=== PATIENT | male | born 1965 | race Caucasian/White ===

== ENCOUNTER 2024-02-29 03:37 | Inpatient (IN) ==
--- OUTSIDE RECORDS SUMMARY | 2024-02-29 03:47 | External Medical Summary | Summary of Care ---
Author Name Unknown Organization [facility] Address [address] [place] [address] Phone [phone] Care Team Providers Care Maintenance Helper Utility Engineer Name Role Phone Laura Barraza MD Primary Care Prov ider Reason for Visit * Reason Comments Follow Up Not taking any medic ations except inhaler for the past 6 weeks Encounter Details Date Type Department Care Team (Latest Contact Info) Description 01/02/2024 11:40 AM EST Office Visit Family Medicine [address] [phone] Laura Barraza MD [address] [place] [id number] Type 2 diabetes mellitus with other circulatory complications (HCC)*; Chronic diastolic congestive heart failure (HCC); Essential hypertension with goal blood pressure less than 140/90; COPD, group B, by GOLD 2017 classification (HCC); Subacute cough; Tobacco use; Type 2 diabetes mellitus with other circulatory complication, without long-term current use of insulin (HCC); Type 2 diabetes mellitus with hemoglobin A1c goal of less than 7.0% (HCC); Chronic systolic heart failure (HCC) Allergies No known active allergiesdocumented as of this encounter (statuses as of 01/02/2024) Medications Medication Sig Dispensed Refills Start Date End Date Status Insulin Syringe 30G X 1/2" 0.5 MLIndications:Type 2 diabetes mellitus with other circulatory complication, without long-term current use of insulin (HCC) Use twice a day with insulin. DX E11.9 200 Each 3 01/28/2021 Active Additional Information Patient not taking.Reported on 01/02/2024 CPAP every night at bedtime . Active NovoLIN N ReliOn 100 UNIT/ML Subcutaneous Suspension (insulin isophane human)Indications: Type 2 diabetes mellitus with other circulatory complication, without long-term current use of insulin ([facility]) Take 30 units in the morning and 25 units before supper DX E11.9 60 mL 3 09/19/2021 Active Additional Information Patient not taking.Reported on 01/02/2024 Accu-Chek Guide In Vitro Strip (Glucose Blood)Indications: Type 2 diabetes mellitus with other circulatory complication, without long-term current use of insulin ([facility]),Type 2 diabetes mellitus with hemoglobin A1c goal of less than 7.0% ([facility]) Check blood sugar TWICE a day DXe11.9 200 Strip 3 02/16/2022 Active Ipratropium-Albute rol 0.5-2.5 (3) MG/3ML Inhalation Solution (Duoneb) Inhale 3 mL by mouth every 6 hours as needed for Shortness of Breath or Wheezing. 300 mL 2 03/15/2022 Active Additional Information Patient not taking.Reported on 01/02/2024 Nebulizer/Tubing/M outhpiece Kit To be used with nebulizer machine 1 Kit 3 03/15/2022 Active Additional Information Patient not taking.Reported on 01/02/2024 Ventolin HFA 108 (90 Base) MCG/ACT Inhalation Aerosol SolutionIndication s:COPD, mild (HCC) Inhale 2 Puffs by mouth in the morning and 2 Puffs at noon and 2 Puffs in the evening and 2 Puffs before bedtime. 3 g 3 01/26/2023 Active Additional Information Patient not taking.Reported on 01/02/2024 Furosemide 40 MG Oral Tablet (Lasix)Indications :Chronic congestive heart failure, unspecified heart failure type ([facility]) Take 1 Tablet by mouth in the morning. 90 Tablet 3 01/26/2023 Active Additional Information Patient not taking.Reported on 01/02/2024 Anoro Ellipta 62.5-25 MCG/ACT Inhalation Aerosol Powder Breath Activated (umeclidinium-leroy nterol)Indications :COPD, mild (HCC) Inhale 1 Puff by mouth in the morning. 30 Each 11 01/26/2023 Active glipiZIDE ER 10 MG Oral Tablet Extended Release 24 Hour (Glucotrol XL)Indications:Typ e 2 diabetes mellitus with other circulatory complication, without long-term current use of insulin (HCC),Type 2 diabetes mellitus with hemoglobin A1c goal of less than 7.0% (HCC) TAKE TWO TABLETS BY MOUTH EVERY DAY 180 Tablet 01/26/2023 Active Additional Information Patient not taking.Reported on 01/02/2024 Amoxicillin-Pot Clavulanate 875-125 MG Oral Tablet (Augmentin)Indicat ions:Subacute cough Take 1 Tablet by mouth in the morning and 1 Tablet before bedtime. Do all this for 10 days. 20 Tablet 01/02/2024 4 Active metFORMIN HCl ER 500 MG Oral Tablet Extended Release 24 Hour (Glucophage XR)Indications:Typ e 2 diabetes mellitus with other circulatory complication, without long-term current use of insulin (HCC) Take 2 Tablets by mouth in the morning and 2 Tablets before bedtime. 360 Tablet 3 01/02/2024 Active Empagliflozin 10 MG Oral Tablet (Jardiance)Indicat ions:Chronic diastolic congestive heart failure (HCC),Type 2 diabetes mellitus with hemoglobin A1c goal of less than 7.0% (HCC) Take 1 Tablet by mouth in the morning. 30 Tablet 5 01/02/2024 Active Losartan Potassium 50 MG Oral Tablet (Cozaar)Indication s:Essential hypertension with goal blood pressure less than 140/90 Take 1 Tablet by mouth in the morning. In the morning.. 90 Tablet 3 01/02/2024 Active Carvedilol 12.5 MG Oral Tablet (Coreg)Indications :Chronic systolic heart failure (HCC) TAKE ONE TABLET BY MOUTH IN THE MORNING AND before bedtime. take with food 180 Tablet 1 01/02/2024 Active Aspirin 81 MG Oral Tablet Delayed ReleaseIndications :Type 2 diabetes mellitus with other circulatory complications (HCC) Take 1 Tablet by mouth in the morning. 100 Tablet 3 01/02/2024 Active Atorvastatin Calcium 40 MG Oral Tablet (Lipitor)Indicatio ns:Type 2 diabetes mellitus with other circulatory complications (HCC) Take 1 Tablet by mouth in the morning. 90 Tablet 1 01/02/2024 Active Aspirin 81 MG Oral Tablet Delayed Release Take 1 Tablet by mouth in the morning. 4 Discontinue d(Refill) metFORMIN HCl ER 500 MG Oral Tablet Extended Release 24 Hour (Glucophage XR)Indications:Typ e 2 diabetes mellitus with other circulatory complication, without long-term current use of insulin (HCC) Take 2 Tablets by mouth in the morning and 2 Tablets before bedtime. 360 Tablet 3 01/26/2023 4 Discontinue d(Refill) Carvedilol 25 MG Oral Tablet (Coreg)Indications :Chronic systolic heart failure (HCC) TAKE ONE TABLET BY MOUTH IN THE MORNING AND before bedtime. take with food 180 Tablet 3 01/26/2023 4 Discontinue d(Refill) Losartan Potassium 50 MG Oral Tablet (Cozaar)Indication s:Essential hypertension with goal blood pressure less than 140/90 Take 1 Tablet by mouth in the morning. In the morning.. 90 Tablet 3 01/26/2023 4 Discontinue d(Refill) Atorvastatin Calcium 40 MG Oral Tablet (Lipitor) Take 1 Tablet by mouth in the morning. 90 Tablet 1 01/29/2023 4 Discontinue d(Refill) Empagliflozin 10 MG Oral Tablet (Jardiance)Indicat ions:Type 2 diabetes mellitus with hemoglobin A1c goal of less than 7.0% (HCC),Chronic diastolic congestive heart failure (HCC) Take 1 Tablet by mouth in the morning. 30 Tablet 5 06/07/2023 4 Discontinue d(Refill) documented as of this encounter (statuses as of 01/02/2024) Active Problems Problem Noted Date Diagnosed Date Chronic systolic heart failure 05/30/2023 Type 2 diabetes mellitus wit h other circulatory complications 05/30/2023 Heart failure, unspecified 01/26/2023 Tobacco use 01/26/2023 Type 2 diabetes mellitus wit h hemoglobin A1c goal of less than 7.0% 01/26/2023 COPD, group B, by GOLD 2017 classification 02/06 Overview: Per COPD GOLD Classification Chronic diastolic congestive heart failure 04/15 Obstructive sleep apnea 11/09/2020 Cardiac pacemaker in situ 10/27/2019 Chronic congestive heart failure 10/29/2018 Obesity, Class I, BMI 30.0-34.9 (see actual BMI) 10/29/2018 Former smoker Essential hypertension with goal blood pressure less than 140/90 documented as of this encounter (statuses as of 01/02/2024) Resolved Problems Problem Noted Date Diagnosed Date Resolved Date Food insecurity 02/07/2021 11/10/2021 Overview: Per [facility] Protocol Moderate persistent asthma w ithout complication 08/25/2020 02/23/2021 COPD, mild 10/29/2018 2022 Overview: Per COPD GOLD Classification Diabetes mellitus 04/10/2017 01/26/2023 FX METACARPAL NOS-CLOSED 03/20/200612/2015 ADVANCE DIRECTIVE INFORMATION 12/11/2005 12/31/2023 Overview: No, Advance Directive brochure offered , patient declined. Sprain, lumbosacral 04/08/19 16 documented as of this encounter (statuses as of 01/02/2024) Immunizations Name Administration Dates Next Due COVID-19 mRNA, LNP-s, No Pre serve, 2-Dose Series (Moderna) 06/23/2020,05/26/2020 COVID-19, mRNA, LNP-s, PF, B ooster, 100mcg/0.5mg (Moderna) 04/12/2021 Hepatitis B, 20+ yrs 07/30/2023,05/30/19 24,05/25/2021,04/15 Pneumococcal Conjugate Vacci ne, 20-valent ([id number]) 01/26/2023 Pneumococcal Polysaccharide PPV23 (Pneumovax) 04/15/2021 Seasonal Influenza, PF, 6 M & above, IM , (FluLaval or Fluzone) 04/15/2021 TD - Tetanus/Diptheria (ADULT) 06/26/2004 TDAP (age 10 and older)(Boostrix) 04/08/2015 Zoster Vaccine Recombinant (Shingrix) 01/26/2020 ,10/27/2019 documented as of this encounter Social History Tobacco Use Types Packs/Day Years Used Date Smoking Tobacco: Every Day Cigarettes 2 20 Smokeless Tobacco: Current Chew Alcohol Use Standard Drinks/Week Comments Yes 0 (1 standard drink = 0.6 oz pur e alcohol) a beer or two every night PHQ-2 Answer Date Recorded PHQ-2 Score 0 01/26/2020 Hunger Vital Sign Answer Date Recorded Worried About Running Out of Food in the Last Ye ar Never true 10/29/2018 Ran Out of Food in the Last Year Never true 10/29/2018 Sex and Gender Information Value Date Recorded Sex Assigned at Male 05/30/2023 8:51 AM EDT Gender Identity Male 05/30/2023 8:51 AM EDT Sexual Orientation Straight 05/30/2023 8: 51 AM EDT Job Start Date Occupation Industry Not on file Not on file Not on file documented as of this encounter Last Filed Vital Signs Vital Sign Reading Time Taken Comments Blood Pressure 120/80 01/02/2024 11:50 AM EST Pulse 98 01/02/2024 11:50 AM EST Temperature 36.4 C (97.5 F) 01/02/2024 11:[address] Respiratory Rate 16 01/02/2024 11:50 AM EST Oxygen Saturation - - Inhaled Oxygen Concentration - - Weight 98 kg (216 lb) 01/02/2024 11:50 AM EST Height 182.9 cm (6' 0.01") 01/02/2024 11:[address] Body Mass Index 29.29 01/02/2024 11:50 AM EST documented in this encounter Progress Notes * Bo Garcia, Laura Gonzáles MD - 01/02/2024 12:08 PM EST Images from the original note were not included. Subjective Carlyle Espinoza is a 58 year old male that presents for Follow Up (Not taking any medications except inhaler for the past 6 weeks) History of Present Illness The patient, a current smoker with a history of heart failure, diabetes, and bronchitis, presents with a persistent cough and chest congestion for over three weeks. The symptoms began while the patient was volunteering in [place] for [employer], a physically demanding task that has left them feeling consistently fatigued. The cough is particularly bothersome when lying down, causing the patient to wake up and cough for hours. The patient describes a sensation of 'fluttering' in the chest, with some shortness of breath, but denies sinus congestion. The patient also reports discontinuing all medications approximately one and a half to two months ago due to fatigue from taking them. Since stopping the medications, the patient reports feeling tired all the time, but it is unclear whether this is due to the cessation of medications or the physically demanding work recently undertaken. The patient has also lost significant weight, which they attribute to the physical labor involved in their recent volunteer work. The patient has a family history of heart conditions and diabetes, with both parents and two siblings having heart problems and one sibling also having diabetes. The patient's own heart condition wasdiagnosed after a severe illness that they initially refused to seek treatment for, resulting in fluid accumulation around the heart and the need for a defibrillator. The patient acknowledges a pattern of stubbornness and delay in seeking medical care. Objective Vitals: 01/02/24 1150 Temp: 36.4 C (97.5 F) Pulse: 98 Resp: 16 BP: 120/80 BMI: 29.29 Physical Exam MEASUREMENTS: WT- 260 HEENT: Sinuses non-tender upon palpation. CHEST: Lungs clear to auscultation. CARDIOVASCULAR: Normal heart sounds. I have reviewed the following results: Results LABS Blood Glucose: 280 mg/dL DIAGNOSTIC Echocardiogram: Left ventricular hypokinesis, ejection fraction 45% Assessment and Plan Assessment & Plan Bronchitis Persistent cough for over three weeks with chest congestion. No shortness of breath. Lungs clear onauscultation. -Prescribe Augmentin, 1 tablet twice a day for 10 days. Type 2 Diabetes Mellitus Patient has been off medications for approximately 1.5-2 months. Last self- reported blood glucose was 280. -Resume Metformin and Jardiance. -Order A1c and metabolic panel today and repeat A1c in 3 months. Hypertension and Heart Failure Patient has been off medications for approximately 1.5-2 months. Blood pressure was normal today. No current symptoms of heart failure. Echocardiogram showed left ventricular hypokinesis with ejection fraction of 45%. -Resume Losartan and Carvedilol. -Order lipid panel today. General Health Maintenance / Followup Plans -Order baby aspirin and cholesterol medication to prevent coronary events or stroke. -Follow up in 3-4 months to reassess patient's condition and adjust treatment as necessary. Type 2 diabetes mellitus with other circulatory complications (HCC) (Primary) - COMPREHENSIVE METABOLIC PANEL; Future; Expected date: 01/02/2024 - LIPID PANEL WITH DIRECT LDL IF TG IS HIGH; Future; Expected date: 01/02/2024 - Aspirin 81 MG Oral Tablet Delayed Release; Take 1 Tablet by mouth in the morning. - Atorvastatin Calcium 40 MG Oral Tablet (Lipitor); Take 1 Tablet by mouth in the morning. - HEMOGLOBIN A1C; Standing Chronic diastolic congestive heart failure (HCC) - COMPREHENSIVE METABOLIC PANEL; Future; Expected date: 01/02/2024 - LIPID PANEL WITH DIRECT LDL IF TG IS HIGH; Future; Expected date: 01/02/2024 - Empagliflozin 10 MG Oral Tablet (Jardiance); Take 1 Tablet by mouth in the morning. Essential hypertension with goal blood pressure less than 140/90 - Losartan Potassium 50 MG Oral Tablet (Cozaar); Take 1 Tablet by mouth in the morning. In the morning.. COPD, group B, by GOLD 2017 classification ([facility]) Subacute cough - Amoxicillin-Pot Clavulanate 875-125 MG Oral Tablet (Augmentin); Take 1 Tablet by mouth in the morning and 1 Tablet before bedtime. Do all this for 10 days. Tobacco use Type 2 diabetes mellitus with other circulatory complication, without long-term current use of insulin ([facility]) - metFORMIN HCl ER 500 MG Oral Tablet Extended Release 24 Hour (Glucophage XR); Take 2 Tablets by mouth in the morning and 2 Tablets before bedtime. Type 2 diabetes mellitus with hemoglobin A1c goal of less than 7.0% ([facility]) - Empagliflozin 10 MG Oral Tablet (Jardiance); Take 1 Tablet by mouth in the morning. Chronic systolic heart failure ([facility]) - Carvedilol 12.5 MG Oral Tablet (Coreg); TAKE ONE TABLET BY MOUTH IN THE MORNING AND before bedtime. take with food Wrap-Up Follow Up: Return in about 3 months (around 04/03/2024) for Return with Physician. | For: Return withPhysician Time: I spent a total of 20-29 minutes (exact time 25 mins) on the date of service in preparation, delivery, and documentation of the care provided to Carlyle Espinoza excluding any time spent in the performance of separately billed services. Text in this note was generated using an ambient documentation service. I discussed the use of a device to record and summarize our discussion today. All persons present during the encounter consented to its use. documented in this encounter Nursing Notes * Valerie Blancas LPN - 01/02/2024 11:50 AM EST The patient has been properly identified by confirmation of name and date of . Chief Complaint Patient presents with Follow Up Not taking any medications except inhaler for the past 6 weeks documented in this encounter Plan of Treatment Pending Results Name Type Priority Associated Diagnoses Date /Time COMPREHENSIVE METABOLIC PANEL Lab Routine Type 2 diabetes mellitus with other circulatory complications (HCC) Chronic diastolic congestive heart failure (HCC) 01/02/2024 12:37 PM EST LIPID PANEL WITH DIRECT LDL IF TG IS HIGH Lab Routine Type 2 diabetes mellitus with other circulatory complications (HCC) Chronic diastolic congestive heart failure (HCC) 01/02/2024 12:37 PM EST HEMOGLOBIN A1C Lab Routine Type 2 diabetes mellitus with other circulatory complications (HCC) 01/02/2024 12:37 PM EST Scheduled Orders Name Type Priority Associated Diagnoses Orde r Schedule COMPREHENSIVE METABOLIC PANEL Lab Routine Type 2 diabetes mellitus with other circulatory complications (HCC) Chronic diastolic congestive heart failure (HCC) Expected: 01/02/2024 (Approximate), Expires: 01/01/2025 LIPID PANEL WITH DIRECT LDL IF TG IS HIGH Lab Routine Type 2 diabetes mellitus with other circulatory complications (HCC) Chronic diastolic congestive heart failure (HCC) Expected: 01/02/2024, Expires: 01/01/2025 HEMOGLOBIN A1C Lab Routine Type 2 diabetes mellitus with other circulatory complications (HCC) Every 3 Months for 4 Occurrences starting 01/02/2024 until 01/01/2025 Scheduled Procedures Name Priority Associated Diagnoses Date/Ti me COLONOSCOPY FLEXIBLE PROXIMAL DIAGNOSTIC Recall History of colon polyps Health Maintenance Due Date Last Done Comments DISCUSS TOBACCO CESSATION (REFER TO SMARTSET #[id number]) 1965 Fecal Occult Blood Test 02/10/2012 Sigmoidoscopy 02/10/2012 Diabetic Foot Exam 04/15/2022 04/15/2021, 01/26/2020 Cologuard 11/11/2022 11/12/2019, 10/2019, 11/05/2019 COVID-19 Vaccine ( season) 2023 04/12/2021, 06/23/2020, 05/26/2020 Influenza Vaccine (FLU shot) (#1) 2023 04/15/2021 HbA1c 12/05/2023 06/05/2023, 02/2022, 04/15/2021, Additional history exists Albumin/Creatinine Ratio 01/27/2024 023, 04/15/2021, 07/02/2020 Diabetic Eye Exam 01/27/2024 01/26/2023, , 10/27/2019 GFR 01/27/2024 01/26/2023, 03/29, 07/02/2020, Additional history exists Depression Screening 05/29/2024 05/30/2023 O2 ASSESSMENT COMPLETED IN PAST YEAR FOR COPD 05/29/2024 05/30/2023 Colonoscopy 01/28/2025 01/29/2020 Colorectal Cancer Screening 01/28/2025 DTap/Tdap Vaccines (2 - Td or Tdap) 04/08/2025 04/08/2015, 06/26/2004 Lipid Panel 04/29/2028 04/30/2023, 02/2022, 04/15/2021, Additional history exists Zoster Vaccines Completed 01/26/2020, 10/27/2019 RETIRED - COLONOSCOPY-EVERY 5 YRS AGES 18-100 Discontinued 01/29/2020 Alpha-1 Antitrypsin Completed 11/12/2020 Lung Cancer Screening Completed 09/06/2021 Pneumococcal Vaccine: Pediatrics (0 to 5 Years) and At-Risk Patients (6 to 64 Years) Completed 01/26/2023, 04/15/2021 Hepatitis B Vaccine Completed 07/30/2023, 05/30/2023, 05/25/2021, Additional history exists HPV (Gardasil) Vaccine Aged Out No lo nger eligible based on patient's age to complete this topic MENINGOCOCCAL (MENACTRA/MENVEO) Aged Out No longer eligible based on patient's age to complete this topic documented as of this encounter Medical Devices Not on filedocumented as of this encounter Visit Diagnoses Diagnosis Type 2 diabetes mellitus with other circulatory complication, without long-term current use of insulin (HCC) Chronic diastolic congestive heart failure (HCC) Chronic diastolic heart failure Essential hypertension with goal blood pressure less than 140/90 COPD, group B, by GOLD 2017 classification (HCC) Subacute cough Cough Tobacco use Tobacco use disorder Chronic systolic heart failure (HCC) Chronic systolic heart failure documented in this encounter Care Teams Maintenance Helper Utility Engineer Relationship Specialty Start Date End Date Laura Barraza MD [address] [place] [address] KRISTIN Augustin [id number] PCP - General Family Medicine 10/27/19 documented as of this encounter
--- OUTSIDE RECORDS SUMMARY | 2024-02-29 03:47 | External Medical Summary | Summary of Care ---
Author Name Unknown Organization [facility] Address [address] [place] [address] Phone [phone] Care Team Providers Care Patient Financial Rep Name Role Phone Laura Barraza MD Primary Care Prov ider Encounter Details Date Type Department Care Team (Late st Contact Info) Description 01/14/2024 Orders Only Outcomes Research Department [address], [place] [id number] Sheeba Forman CHRA Schedule [facility] Other*[id number] Allergies No known active allergiesdocumented as of this encounter (statuses as of 01/14/2024) Medications Insulin Syringe 30G X 1/2" 0.5 MLIndications:Typ e 2 diabetes mellitus with other circulatory complication, without long-term current use of insulin (HCC) Use twice a day with insulin. DX E11.9 200 Each 3 1 Active Additional Information Patient not taking.Reported on 01/02/2024 CPAP every night at bedtime . Active NovoLIN N ReliOn 100 UNIT/ML Subcutaneous Suspension (insulin isophane human)Indications :Type 2 diabetes mellitus with other circulatory complication, without long-term current use of insulin (HCC) Take 30 units in the morning and 25 units before supper DX E11.9 60 mL 3 2 Active Additional Information Patient not taking.Reported on 01/02/2024 Accu-Chek Guide In Vitro Strip (Glucose Blood)Indications :Type 2 diabetes mellitus with other circulatory complication, without long-term current use of insulin ([facility]),Type 2 diabetes mellitus with hemoglobin A1c goal of less than 7.0% ([facility]) Check blood sugar TWICE a day DXe11.9 200 Strip 3 2 Active Ipratropium-Albut luis 0.5-2.5 (3) MG/3ML Inhalation Solution (Duoneb) Inhale 3 mL by mouth every 6 hours as needed for Shortness of Breath or Wheezing. 300 mL 2 3 Active Additional Information Patient not taking.Reported on 01/02/2024 Nebulizer/Tubing/ Mouthpiece Kit To be used with nebulizer machine 1 Kit 3 3 Active Additional Information Patient not taking.Reported on 01/02/2024 Ventolin HFA 108 (90 Base) MCG/ACT Inhalation Aerosol SolutionIndicatio ns:COPD, mild (HCC) Inhale 2 Puffs by mouth in the morning and 2 Puffs at noon and 2 Puffs in the evening and 2 Puffs before bedtime. 3 g 3 3 Active Additional Information Patient not taking.Reported on 01/02/2024 Furosemide 40 MG Oral Tablet (Lasix)Indication s:Chronic congestive heart failure, unspecified heart failure type (HCC) Take 1 Tablet by mouth in the morning. 90 Tablet 3 3 Active Additional Information Patient not taking.Reported on 01/02/2024 Anoro Ellipta 62.5-25 MCG/ACT Inhalation Aerosol Powder Breath Activated (umeclidinium-erika anterol)Indicatio ns:COPD, mild (HCC) Inhale 1 Puff by mouth in the morning. 30 Each 11 3 Active glipiZIDE ER 10 MG Oral Tablet Extended Release 24 Hour (Glucotrol XL)Indications:Ty pe 2 diabetes mellitus with other circulatory complication, without long-term current use of insulin ([facility]),Type 2 diabetes mellitus with hemoglobin A1c goal of less than 7.0% ([facility]) TAKE TWO TABLETS BY MOUTH EVERY DAY 180 Tablet 3 Active Additional Information Patient not taking.Reported on 01/02/2024 metFORMIN HCl ER 500 MG Oral Tablet Extended Release 24 Hour (Glucophage XR)Indications:Ty pe 2 diabetes mellitus with other circulatory complication, without long-term current use of insulin ([facility]) Take 2 Tablets by mouth in the morning and 2 Tablets before bedtime. 360 Tablet 3 4 Active Empagliflozin 10 MG Oral Tablet (Jardiance)Indica tions:Chronic diastolic congestive heart failure (HCC),Type 2 diabetes mellitus with hemoglobin A1c goal of less than 7.0% (HCC) Take 1 Tablet by mouth in the morning. 30 Tablet 5 4 Active Losartan Potassium 50 MG Oral Tablet (Cozaar)Indicatio ns:Essential hypertension with goal blood pressure less than 140/90 Take 1 Tablet by mouth in the morning. In the morning.. 90 Tablet 3 4 Active Carvedilol 12.5 MG Oral Tablet (Coreg)Indication s:Chronic systolic heart failure (HCC) TAKE ONE TABLET BY MOUTH IN THE MORNING AND before bedtime. take with food 180 Tablet 1 4 Active Aspirin 81 MG Oral Tablet Delayed ReleaseIndication s:Type 2 diabetes mellitus with other circulatory complications (HCC) Take 1 Tablet by mouth in the morning. 100 Tablet 3 4 Active Atorvastatin Calcium 40 MG Oral Tablet (Lipitor)Indicati ons:Type 2 diabetes mellitus with other circulatory complications (HCC) Take 1 Tablet by mouth in the morning. 90 Tablet 1 4 Active documented as of this encounter (statuses as of 01/14/2024) Active Problems Problem Noted Date Diagnosed Date [...] as of this encounter (statuses as of 01/14/2024) Resolved Problems Problem Noted Date Diagnosed Date Resolved Date Food insecurity 02/07/2021 11/10/2021 Overview: Per [facility] Protocol Moderate persistent asthma w ithout complication 08/25/2020 02/23/2021 COPD, mild 10/29/2018 2022 Overview: Per COPD GOLD Classification Diabetes mellitus 04/10/2017 01/26/2023 FX METACARPAL NOS-CLOSED 03/20/200612/2015 ADVANCE DIRECTIVE INFORMATION 12/11/2005 12/31/2023 Overview (12/11/2005): No, Advance Directive brochure offered , patient declined. Sprain, lumbosacral 04/08/19 16 documented as of this encounter (statuses as of 01/14/2024) Immunizations Name Administration Dates Next Due COVID-19 mRNA, LNP-s, No Pre serve, 2-Dose Series (Moderna) 06/23/2020,05/26/2020 COVID-19, mRNA, LNP-s, PF, B ooster, 100mcg/0.5mg (Moderna) 04/12/2021 Hepatitis B, 20+ yrs 07/30/2023,05/30/19 24,05/25/2021,04/15 Pneumococcal Conjugate Vacci ne, 20-valent ([id number]) 01/26/2023 Pneumococcal Polysaccharide PPV23 (Pneumovax) 04/15/2021 Seasonal [...] two every night PHQ-2 Answer Date Recorded PHQ Adult Total Score 0 05/30/2023 Hunger Vital Sign Answer Date Recorded Within the past 12 months, y ou worried that your food would run out before you got the money to buy more. Patient declined Within the past 12 months, t he food you bought just didn't last and you didn't have money to get more. Patient declined 04/2023 Childcare Answer Date Recorded Do you feel overwhelmed with taking care of a child, family member or friend? No 05/30/2023 Does your family need help f inding childcare? (Household - for ages 0-17 years) Not on file 05/30/2023 Clothing Answer Date Recorded Have you been unable to get clothing when it was really needed? No 05/30/2023 Is your family able to get c lothes or diapers when needed? (Household - for ages 0-17 years) Not on file 05/30/2023 Personal Safety Answer Date Recorded Do you feel unsafe or have concerns for your saf ety? No 05/30/2023 Do you have concerns for you r family's safety? (Household - for ages 0-17 years) Not on file 05/30/2023 Utilities Answer Date Recorded Do you have trouble paying y our heating, water, or electric bill? No 05/30/2023 Is your family able to pay t he heat, water, or electric bill? (Household - for ages 0-17 years) Not on file 05/30/2023 Does your family have access to good internet? (Household - for ages 0-17 years) Not on file 05/30/2023 Employment Status Answer Date Recorded Are you unemployed or without regular income? No 05/30/2023 Does the household have a unm hospitallar source of income? (Household - for ages 0-17 years) Not on file 05/30/2023 Social Connections Answer Date Recorded How often do you feel lonely or isolated from th ose around you? Never 05/30/2023 Financial Resource Strain Answer Date R ecorded Do you have any trouble payi ng for your medications, or do you think you might in the future? No 05/30/2023 Does your family have troubl e paying for medicine? (Household - for ages 0-17 years) Not on file 05/30/2023 Transportation Needs Answer Date Record ed READ ONLY Do you have troubl e getting a ride to medical visits or work? Never True 05/30/2023 Does your family have a hard time getting a ride to doctors visits? (Household - for ages 0-17 years) Not on file 05/30/2023 Has lack of transportation k ept you from medical appointments, meetings, work, or from getting things needed for daily living? Check all that apply. (Adult - for ages 18 years and over) Not on file 05/30/2023 Do you (or your family) have trouble finding or paying for a ride (transportation)? (Household - for ages 0-17 years) Not on file 05/30/2023 Housing Stability Answer Date Recorded Do you currently live in a s helter or have no steady place to sleep at night? No 05/30/2023 READ ONLY Do you think you a re at risk of becoming homeless? No 05/30/2023 Does your family worry about paying for your home or becoming homeless? (Household - for ages 0-17 years) Not on file 0 05/30/2023 Are you homeless or worried that you might be in the future? (Adult - for ages 18 years and over) Not on file Are you (or your family) olaf eless or worried that you might be in the future? (Household - for ages 0-17 years) Not on file Food Insecurity Answer Date Recorded Do you need food for this week? No 05/30/2023 Are you able to get enough f ood for your family? (Household - for ages 0-17 years) Not on file 05/30/2023 Does your family need food t his week? (Household - for ages 0-17 years) Not on file 05/30/2023 Do you always have enough fo od for your family? (Household - for ages 0-17 years) Not on file 05/30/2023 Sex and Gender Information Value Date Recorded Sex Assigned at Male 05/30/2023 8:51 AM EDT Legal Sex Male 5:26 AM EST Gender Identity Male 05/30/2023 8:51 AM EDT Sexual Orientation Straight 05/30/2023 8: 51 AM EDT Occupation Industry Job Start Date Job End Date appliedfor disabilty Not on file Not on file Not on file documented as of this encounter Plan of Treatment Upcoming Encounters Date Type Department Care Team (Late st Contact Info) Description 04/14/2024 11:00 AM EST Office Visit Family Medicine [address] [place] [phone] Laura Barraza MD [address] [place] [address] [place] [id number] Scheduled Orders Name Type Priority Associated Diagnoses Orde r Schedule MYCODE SUBSEQUENT ADULT Lab Routine My[facility] Research Other*[id number] Every 6 Months for 2 Occurrences starting 01/14/2024 until 02/02/2025 Scheduled Procedures Name Priority Associated Diagnoses Date/Ti me COLONOSCOPY FLEXIBLE PROXIMAL DIAGNOSTIC Recall History of colon polyps Health Maintenance Due Date Last Done Comments DISCUSS TOBACCO CESSATION (REFER TO SMARTSET #9001) 1965 Fecal Occult Blood Test 02/10/2012 Sigmoidoscopy 02/10/2012 Diabetic Foot Exam 04/15/2022 04/15/2021, 01/26/2020 Cologuard 11/11/2022 11/12/2019, 10/2019, 11/05/2019 COVID-19 Vaccine ( season) 2023 04/12/2021, 06/23/2020, 05/26/2020 Influenza Vaccine (FLU shot) (#1) 2023 04/15/2021 Albumin/Creatinine Ratio 01/27/2024 023, 04/15/2021, 07/02/2020 Diabetic Eye Exam 01/27/2024 01/26/2023, , 10/27/2019 Depression Screening 05/29/2024 05/30/2023 O2 ASSESSMENT COMPLETED IN PAST YEAR FOR COPD 05/29/2024 05/30/2023 HbA1c 07/01/2024 01/02/2024, 040 10/2023, 01/26/2023, Additional history exists GFR 01/01/2025 01/02/2024, 02/2022, 04/15/2021, Additional history exists Colonoscopy 01/28/2025 01/29/2020 Colorectal Cancer Screening 01/28/2025 DTap/Tdap Vaccines (2 - Td or Tdap) 04/08/2025 04/08/2015, 06/26/2004 Lipid Panel 01/01/2029 01/02/2024, 03/0 05/2023, 01/26/2023, Additional history exists Zoster Vaccines Completed 01/26/2020, [...] as of this encounter Visit Diagnoses Diagnosis [facility] Other*[id number] documented in this encounter Care Teams Patient Financial Rep Relationship Specialty Start Date End Date Laura Barraza MD [address] [place] [address] [place] [phone] PCP - General Family Medicine 10/27/19 documented as of this encounter
--- OUTSIDE RECORDS SUMMARY | 2024-02-29 03:48 | External Medical Summary ---
Author Name Unknown Address Unknown Organization [id number]:[place] [facility] [place] [address] [facility] [address] Laboratory Report Ordering Provider Test Date Status PIETRO DURANT 01/02/2024 12:37:10 Final Observation Date Value Abnormality Reference (Units ) Status MYCODE SPECIMEN-SST 01/02/2024 12:37:10 Freezing of extracted DNA, whole blood and/or serum. Final Performing Location LABORATORY C - [address] [facility] [address]
--- OUTSIDE RECORDS SUMMARY | 2024-02-29 03:48 | External Medical Summary ---
Author Name Unknown Address Unknown Organization [id number]:LABORATORY [facility] - [address] [facility] [address] Laboratory Report Ordering Provider Test Date Status CURTIS ABBOTT 01/02/2024 12:37:10 Final Observation Date Value Abnormality Reference (Units ) Status BUN 01/02/2024 12:37:10 13 6-20 (mg/dL) Final Creatinine 01/02/2024 12:37:10 0.8 0.6-1.2 (mg/dL) Final Glomerular filtration rate/1.73 sq M.predicted [Volume Rate/Area] in Serum, Plasma or Blood by Creatinine-based formula (CKD-EPI) 01/02/2024 12:37:10 >90 >=60 (mL/min) Final eGFR is calculated based on the CKD-EPI 2020 equation. Sodium 01/02/2024 12:37:10 132 Below low normal 135 -146 (mmol/L) Final Potassium 01/02/2024 12:37:10 4.4 3.5-5.1 (m mol/L) Final Cl 01/02/2024 12:37:10 94 Below low normal 98- 107 (mmol/L) Final CO2 01/02/2024 12:37:10 23 22-32 (mmo l/L) Final Anion gap 01/02/2024 12:37:10 15 7-15 (mmol /L) Final Glucose 01/02/2024 12:37:10 516 Above up per panic limits 70-120 (mg/dL) Final Albumin 01/02/2024 12:37:10 4.5 3.8-5.0 (g /dL) Final AST (Aspartate aminotransferase) 01/02/2024 12:37:10 24 10-50 (U/L) Fin al Alk Phos 01/02/2024 12:37:10 80 35-130 (U/ L) Final Bilirubin, Total 01/02/2024 12:37:10 0.6 <=1 .2 (mg/dL) Final Calcium 01/02/2024 12:37:10 9.6 8.4-10.2 ( mg/dL) Final Protein 01/02/2024 12:37:10 7.1 6.0-8.3 (g /dL) Final ALT (Alanine aminotransferase) 01/02/2024 12:37:10 49 10-50 (U/L) Wayne pacheco Performing Location LABORATORY [facility] - [address] [facility] [address]
--- OUTSIDE RECORDS SUMMARY | 2024-02-29 03:48 | External Medical Summary ---
Author Name Unknown Address Unknown Organization [id number]:[facility] [place] [address] [facility] [address] Laboratory Report Ordering Provider Test Date Status PIETRO DURANT 01/02/2024 12:37:10 Final Observation Date Value Abnormality Reference (Units ) Status MYCODE SPECIMEN-SST 01/02/2024 12:37:10 Freezing of extracted DNA, whole blood and/or serum. Final Performing Location LABORATORY C - [address] [facility] [address]
--- OUTSIDE RECORDS SUMMARY | 2024-02-29 03:48 | External Medical Summary ---
Author Name Unknown Address Unknown Organization [id number][place] [place] [address] [facility] [address] Laboratory Report Ordering Provider Test Date Status CURTIS ABBOTT 01/02/2024 12:37:10 Final Observation Date Value Abnormality Reference (Units ) Status Triglyceride 01/02/2024 12:37:10 155 <=174 ( mg/dL) Final Triglyceride Reference Range s (mg/dL):
<150 Acceptable
150-174 Borderline high
175-499 High
>=500 Very high Cholesterol 01/02/2024 12:37:10 205 Above high normal <200 (mg/dL) Final Total Cholesterol Reference Ranges (mg/dL):
<200 Desirable
200-239 Borderline high
>=240 High HDL 01/02/2024 12:37:10 40 >39 (mg/dL ) Final HDL Cholesterol Reference Ra nges (mg/dL):
>=60 High (Desirable)
<50 Low (Undesirable) For Females
<40 Low (Undesirable) For Males NON-HDL CHOLESTEROL 01/02/2024 12:37:10 165 Above high normal <=159 (mg/dL) Final Non-HDL Cholesterol Referenc e Range (mg/dL):
<100 Target level for high risk ASCVD patient
<130 Optimal for general population
130-159 Near optimal for general population
160-189 Borderline High
190-219 High
>=220 Very High LDL, (calculated) 01/02/2024 12:37:10 134 Above high n ormal <=129 (mg/dL) Final LDL Cholesterol Reference Ra nges (mg/dL):
<70 Target level for high risk ASCVD patient
<100 Optimal for general population
100-129 Near optimal for general population
130-159 Borderline high
160-189 High
>=190 Very high Performing Location [facility] [facility] [place] [address] [facility] [address]
--- OUTSIDE RECORDS SUMMARY | 2024-02-29 03:48 | External Medical Summary | Summary of Care ---
Author Name Unknown Organization [facility] Address [address] [place] [address] Phone [phone] Care Team Providers Care Corporate Security Officer Name Role Phone Laura Barraza MD Primary Care Prov ider Reason for Visit * Reason Comments Outpatient Testing Encounter Details Date Type Department Care Team (Late st Contact Info) Description 01/02/2024 12:40 PM EST Laboratory Laboratory [address] [place] [phone] [place] [address] [employer] Other*[id number]; Type 2 diabetes mellitus with other circulatory complications (HCC); Chronic diastolic congestive heart failure (HCC) Allergies No known active [...] ReliOn 100 UNIT/ML Subcutaneous Suspension (insulin isophane human)Indications:T ype 2 diabetes mellitus with other circulatory complication, without long-term current use of insulin (HCC) Take 30 units in the morning and 25 units before supper DX E11.9 60 mL 3 09/19/2021 Active Additional Information Patient not taking.Reported on 01/02/2024 Accu-Chek Guide In Vitro Strip (Glucose Blood)Indications:T ype 2 diabetes mellitus with other circulatory complication, without long-term current use of insulin (HCC),Type 2 diabetes mellitus with hemoglobin A1c goal of less than 7.0% ([facility]) Check blood sugar TWICE a day DXe11.9 200 Strip 3 02/16/2022 Active Ipratropium-Albuter ol 0.5-2.5 (3) MG/3ML Inhalation Solution (Duoneb) Inhale 3 mL by mouth every 6 hours as needed for Shortness of Breath or Wheezing. 300 mL 2 03/15/2022 Active Additional Information Patient not taking.Reported on 01/02/2024 Nebulizer/Tubing/Mo uthpiece Kit To be used with nebulizer machine 1 Kit 3 03/15/2022 Active Additional Information Patient not taking.Reported on 01/02/2024 Ventolin HFA 108 (90 Base) MCG/ACT Inhalation Aerosol SolutionIndications :COPD, mild (HCC) Inhale 2 Puffs by mouth in the morning and 2 Puffs at noon and 2 Puffs in the evening and 2 Puffs before bedtime. 3 g 3 01/26/2023 Active Additional Information Patient not taking.Reported on 01/02/2024 Furosemide 40 MG Oral Tablet (Lasix)Indications: Chronic congestive heart failure, unspecified heart failure type (HCC) Take 1 Tablet by mouth in the morning. 90 Tablet 3 01/26/2023 Active Additional Information Patient not taking.Reported on 01/02/2024 Anoro Ellipta 62.5-25 MCG/ACT Inhalation Aerosol Powder Breath Activated (umeclidinium-vilan terol)Indications:C OPD, mild (HCC) Inhale 1 Puff by mouth in the morning. 30 Each 11 01/26/2023 Active glipiZIDE ER 10 MG Oral Tablet Extended Release 24 Hour (Glucotrol XL)Indications:Type 2 diabetes mellitus with other circulatory complication, without long-term current use of insulin ([facility]),Type 2 diabetes mellitus with hemoglobin A1c goal of less than 7.0% ([facility]) TAKE TWO TABLETS BY MOUTH EVERY DAY 180 Tablet 01/26/2023 Active Additional Information Patient not taking.Reported on 01/02/2024 Amoxicillin-Pot Clavulanate 875-125 MG Oral Tablet (Augmentin)Indicati ons:Subacute cough Take 1 Tablet by mouth in the morning and 1 Tablet before bedtime. Do all this for 10 days. 20 Tablet 01/02/2024 01/12/2024 Active metFORMIN HCl ER 500 MG Oral Tablet Extended Release 24 Hour (Glucophage XR)Indications:Type 2 diabetes mellitus with other circulatory complication, without long-term current use of insulin (HCC) Take 2 Tablets by mouth in the morning and 2 Tablets before bedtime. 360 Tablet 3 01/02/2024 Active Empagliflozin 10 MG Oral Tablet (Jardiance)Indicati ons:Chronic diastolic congestive heart failure (HCC),Type 2 diabetes mellitus with hemoglobin A1c goal of less than 7.0% (HCC) Take 1 Tablet by mouth in the morning. 30 Tablet 5 01/02/2024 Active Losartan Potassium 50 MG Oral Tablet (Cozaar)Indications :Essential hypertension with goal blood pressure less than 140/90 Take 1 Tablet by mouth in the morning. In the morning.. 90 Tablet 3 01/02/2024 Active Carvedilol 12.5 MG Oral Tablet (Coreg)Indications: Chronic systolic heart failure (HCC) TAKE ONE TABLET BY MOUTH IN THE MORNING AND before bedtime. take with food 180 Tablet 1 01/02/2024 Active Aspirin 81 MG Oral Tablet Delayed ReleaseIndications: Type 2 diabetes mellitus with other circulatory complications (HCC) Take 1 Tablet by mouth in the morning. 100 Tablet 3 01/02/2024 Active Atorvastatin Calcium 40 MG Oral Tablet (Lipitor)Indication s:Type 2 diabetes mellitus with other circulatory complications (HCC) Take 1 Tablet by mouth in the morning. 90 Tablet 1 01/02/2024 Active documented as of this encounter (statuses [...] 07/30/2023,05/30/19 24,05/25/2021,04/15 Pneumococcal Conjugate Vacci ne, 20-valent ([id number]) 01/26/2023 Pneumococcal Polysaccharide PPV23 (Pneumovax) 04/15/2021 Seasonal [...] as of this encounter Plan of Treatment Pending Results Name Type Priority Associated Diagnoses Date /Time MYCODE SUBSEQUENT ADULT Lab Routine My[facility] Research Other*[id number] 01/02/2024 12:37 PM EST COMPREHENSIVE METABOLIC PANEL Lab Routine Type 2 [...] circulatory complications (HCC) 01/02/2024 12:37 PM EST MYCODE SST1 Lab Routine [facility] Other*[id number] 01/02/2024 12:37 PM EST MYCODE SST2 Lab Routine [facility] Other*[id number] 01/02/2024 12:37 PM EST Scheduled Procedures Name Priority Associated Diagnoses Date/Ti me COLONOSCOPY FLEXIBLE PROXIMAL DIAGNOSTIC Recall History of colon polyps Health Maintenance Due Date Last Done Comments DISCUSS TOBACCO CESSATION (REFER TO SMARTSET #4820) 1965 Fecal Occult Blood Test 02/10/2012 Sigmoidoscopy 02/10/2012 Diabetic Foot Exam 04/15/2022 04/15/2021, 01/26/2020 Cologuard 11/11/2022 11/12/2019, 09/0 10/2019, 11/05/2019 COVID-19 Vaccine (4 - 2024-25 season) 2023 04/12/2021, 06/23/2020, 05/26/2020 Influenza Vaccine [...] this encounter Visit Diagnoses Diagnosis My[facility] Research Other*[id number] Type 2 diabetes mellitus with other circulatory complications (HCC) Chronic diastolic congestive heart failure (HCC) Chronic diastolic heart failure documented in this encounter Care Teams Corporate Security Officer Relationship Specialty Start Date End Date Laura Barraza MD [address] [place] [address] [place] [phone] PCP - General Family Medicine 10/27/19 documented as of this encounter
--- OUTSIDE RECORDS SUMMARY | 2024-02-29 03:48 | External Medical Summary ---
Author Name Unknown Address Unknown Organization K01:[facility] [place] - [address] [facility] [address] Laboratory Report Ordering Provider Test Date Status CURTIS ABBOTT RODRIGUEZ 01/02/2024 12:37:10 Final Observation Date Value Abnormality Reference (Units ) Status HbA1C 01/02/2024 12:37:10 10.6 Above high normal 4. 0-5.6 (%) Final The use of HbA1c to monitor glycemic status is based on normal hemoglobin and HbA composition. This test should not be used in patients with abnormal hemoglobin that affects the half life of the red blood cell or the in vivo glycation rates. Glucose, estimated average 01/02/2024 12:37:10 258 Above high normal <126 (mg/dL) Wayne pacheco Performing Location [facility]ORY [facility] [place] - [address] [facility] [address]
[2024-02-29] MEDS: propofoL 1,000 MG/100 ML VIAL IV ONE (03:56)
[2024-02-29] MEDS: FUROSEMIDE 40 MG/4 ML VIAL IV ONE ×4 (03:57→12:33)
[2024-02-29 04:01] LABS: iSTAT Hemoglobin 16.3 g/dl (14.0-18.0); iSTAT Ionized Calcium 1.18 mmol/l (1.12-1.32); iSTAT Potassium 3.8 mmol/L (3.3-5.0)
[2024-02-29 04:16] LABS: Basophils # (auto) 0.08 K/uL (0.00-0.20); Basophils % (auto) 0.6 %; Eosinophils # (auto) 0.15 K/uL (0.00-0.50); Eosinophils % (auto) 1.1 %; Hematocrit (blood only) 47.2 % (42.0-52.0); Hemoglobin 15.7 g/dl (14.0-18.0); Immature Granulocytes # (auto) 0.31 K/uL (0.01-0.20); Immature Granulocytes % (auto) 2.3 %; Lymphocytes # (auto) 4.36 K/uL (1.20-3.40); Mean Corpuscular Hemoglobin 31.5 pg (25.0-34.0); Mean Corpuscular Hgb Conc 33.3 g/dL (32.0-36.0); Mean Corpuscular Volume 94.8 fL (80.0-100.0); Mean Platelet Volume 12.1 fL (9.4-12.4); Monocytes # (auto) 1.29 K/uL (0.11-0.59); Monocytes % (auto) 9.5 %; Neutrophils # (auto) 7.44 K/uL (1.40-6.50); Neutrophils % (auto) 54.5 %; Platelet Count 253 K/uL (130-400); RDW Coefficient of Variation 12.3 % (11.5-14.5); RDW Standard Deviation 42.5 fL (36.4-46.3); Red Blood Count 4.98 M/uL (4.70-6.10); White Blood Count 13.63 K/ul (4.8-10.8)
[2024-02-29] MEDS: VECURONIUM BROMIDE 10 MG VIAL IV STA (04:22)
[2024-02-29 04:31] LABS: iSTAT Arterial Blood Gas HCO3 27 meg/L (19-24); iSTAT Arterial Blood Gas pCO2 77 mmHg (35-46); iSTAT Arterial Blood Gas pH 7.15 (7.35-7.45); iSTAT Arterial Blood Gas pO2 177 mmHg (80-95); iSTAT Carbon Dioxide 29 mmol/L (24-31); iSTAT Hematocrit 44 % (42-52); iSTAT Potassium 4.4 mmol/L (3.3-5.0); iSTAT Sodium 138 mmol/L (135-144)
[2024-02-29] MEDS: RAPID SEQUENCE INDUCTION BAG ONE (04:32)
[2024-02-29 04:38] LABS: Appearance Urine Clear (Clear); Bacteria Urine Automated None Seen (None Seen); Bilirubin Urine Negative (Negative); Blood Urine Trace (Negative); Color Urine Yellow; Epithelial Cell Urine Auto 0-2 /hpf (0-2); Glucose Urine UA 2+ (Negative); Hyaline Casts Urine Present /lpf (None Presnt); Ketones Urine Trace (Negative); Leukocyte Esterase Urine Negative (Negative); Nitrite Urine Negative (Negative); Protein Urine 4+ (Negative); RBC Urine Automated 0-2 /hpf (0-2); Specific Gravity Urine 1.025 (1.000-1.030); Urobilinogen Urine Negative (Negative); WBC Urine Automated 0-5 /hpf (0-5)
[2024-02-29 04:44] LABS: Albumin Globulin Ratio 1.2 (0.9-2); Albumin Level 3.9 gm/dl (3.4-5.0); BUN Creatinine Ratio 13.7 (10-20); Bilirubin,Total 0.7 mg/dl (0.2-1.0); Calcium 8.9 mg/dl (8.6-10.3); Creatinine Clr Calc Pharmacy 103.4 ml/min; Globulin 3.3 gm/dl (2.5-4.0); Potassium 3.8 mmol/L (3.5-5.1); Total Protein 7.2 gm/dl (6.0-8.3)
[2024-02-29 04:50] LABS: Magnesium 1.8 mg/dl (1.7-2.4)
[2024-02-29] MEDS: CEFEPIME 2000MG 2,000 MG/20 ML SYR IV STA (04:58)
[2024-02-29 05:09] LABS: Adenovirus PCR Not Detected (NotDetected); Bordetella parapertussis PCR Not Detected (NotDetected); Bordetella pertussis PCR Not Detected (NotDetected); Chlamydia pneumoniae PCR Not Detected (NotDetected); Coronavirus 229E PCR Not Detected (NotDetected); Coronavirus CoV-2 (COVID19)PCR Not Detected (NotDetected); Coronavirus HKU1 PCR Not Detected (NotDetected); Coronavirus NL63 PCR Not Detected (NotDetected); Coronavirus OC43PCR Not Detected (NotDetected); Human Metapneumovirus PCR Not Detected (NotDetected); Influenza A NoSubtype PCR DETECTED (NotDetected); Influenza B PCR Not Detected (NotDetected); Mycoplasma pneumoniae PCR Not Detected (NotDetected); Parainfluenza Virus 1 PCR Not Detected (NotDetected); Parainfluenza Virus 2 PCR Not Detected (NotDetected); Parainfluenza Virus 3 PCR Not Detected (NotDetected); Parainfluenza Virus 4 PCR Not Detected (NotDetected); Respiratory Syncytial VirusPCR Not Detected (NotDetected); Rhinovirus/Enterovirus PCR Not Detected (NotDetected)
--- NOTE | 2024-02-29 05:14 | XRay Report ---
EXAM: XR chest 1V portable CLINICAL HISTORY: DYSPNEA. TECHNIQUE: An X-ray image of the chest is obtained in AP projection. COMPARISON: CT dated 10/08/2015. FINDINGS: Pulmonary Parenchyma: New patchy airspace opacification in the right lower zone. The prominence of perihilar broncho-vascular markings is seen. No pulmonary nodules are identified. No evidence of pleural effusion or pleural thickening. Heart and Mediastinum: The heart size is enlarged. A cardiac pacemaker is seen. No mediastinal widening or masses. Bony Thorax: The bony thorax appears intact without fractures or deformities. Soft Tissues: Soft tissues overlying the chest wall are unremarkable. IMPRESSION: 1. New patchy airspace opacification in the right lower zone is concerning for infective/inflammatory etiology. 2. Prominent broncho-vascular markings with right perihilar peribronchial cuffing may represent bronchitis/small airway disease or congestion(new). 3. Clinical correlation is suggested. Electronically signed by Floresita Romero 02-29-2024 05:13 AM
[2024-02-29] MEDS: METOPROLOL TARTRATE 1 MG/ML VIAL IV STA (05:28)
--- NOTE | 2024-02-29 05:28 | XRay Report ---
EXAM: XR chest 1V portable CLINICAL HISTORY: EVAL INTUBATION AND NG PLACEMENT [facility] TECHNIQUE: An X-ray image of the chest is obtained in AP projection. COMPARISON: CT dated 10/08/2015 and subsequent radiograph dated 02/29/2024. FINDINGS: The endotracheal tube is seen at a satisfactory position, with the distal tip at least 5 cm above the tequila. The nasogastric tube is seen with its distal tip below the left hemidiaphragm. Pulmonary Parenchyma: New patchy airspace opacification in the right lower zone. Prominent broncho-vascular markings with bulky james. No pulmonary nodules are identified. No evidence of pleural effusion or pleural thickening. Heart and Mediastinum: The heart size is enlarged. A cardiac pacemaker is seen. Bilateral james appear bulky, probably due to prominent vascular shadows. Bony Thorax: The bony thorax appears intact without fractures or deformities. Soft Tissues: Soft tissues overlying the chest wall are unremarkable. IMPRESSION: 1. The endotracheal tube is seen at a satisfactory position, with the distal tip at least 5 cm above the tequila. 2. The nasogastric tube is seen with its distal tip below the left hemidiaphragm. 3. New patchy airspace opacification in the right lower zone is concerning for infective or inflammatory etiology. 4. Prominent broncho-vascular markings with bulky james may represent pulmonary vascular congestion/edema(new). 5. Clinical correlation is suggested. Electronically signed by Floresita Romero 02-29-2024 05:28 AM
[2024-02-29] MEDS: MIDAZOLAM HCL 5 MG/ML 2ML VIAL IV STA ×2 (05:29→06:27)
[2024-02-29] MEDS: POTASSIUM CHLORIDE / WTR 10 MEQ/100 ML PLCT IV SCH (05:34)
[2024-02-29] MEDS: MAGNESIUM SULFATE / D5W 1 GM/100 ML BAG IV SCH (05:34)
[2024-02-29] MEDS: PROPOFOL IV EMULSION 10 MG/ML 100 ML VIAL IV ONE (05:41)
[2024-02-29] MEDS: THIAMINE HCL 100 MG in SYRINGE 9 ML IV STA (05:49)
--- NOTE | 2024-02-29 05:49 | History & Physical Report ---
Date of Service February 29, 2024 Assessment & Plan (1) Acute and chronic respiratory failure with hypercapnia: Plan: Secondary to decompensated heart failure secondary to influenza pneumonia/complicated bronchitis and possibly uncontrolled blood pressure owing to medical noncompliance History systolic dysfunction status post ICD UGIB, hemoglobin currently stable hyperlipidemia, statin noncompliance hx COPD, no overt wheezing on exam GISELE on CPAP DM2 insulin requiring, medical noncompliance, suboptimal control as of recent hemoglobin A1c of 10.6 last December 2023 Alcoholic hepatitis, likely good prognosis on Maddrey DF score given normal coags. Headache secondary to illness/uncontrolled blood pressure rule out bleed Vague abdominal complaints with abnormal LFTs ongoing tobacco/alcohol abuse ICU Vent management Recheck ABG Diuretic Rx Strict I/Os, daily weights, CHF education TTE, Cardiology consult re: decompensated heart failure (Patient known to [facility].) CS, Doxycycline for complicated bronchitis Tamiflu course for influenza CT head Re: Headache/uncontrolled blood pressure CT abdomen pelvis re: UGIB, alcohol abuse IV PPI Follow H&H, transfuse PRBC if hemoglobin less than 7 and or for symptomatic anemia GI consult if with progressive UGIB SARAI S at risk protocol, DT precautions IV insulin protocol while patient n.p.o., goal 1 40-1 80 Further management contingent on CT imaging results DVT prophylaxis. SCDs GI bleed Full code Patient requesting updates providers. Ms. Emili Espinoza, contact #[phone]. Total critical care time was 40 minutes. Text document was generated using [employer] voice recognition software. It may contain grammatical or spelling errors. Kindly contact undersigned for clarification of any documentation item in question. History of Present Illness Chief Complaint: Worsening shortness of breath Primary Care Provider: Laura Crockett MD History obtained from family and records. Unable to obtain history from patient secondary to intubated state. Medical history significant for chronic systolic heart failure (EF 35 to 40%, TTE 2022) status post ICD, hypertension, hyperlipidemia, COPD, GISELE on CPAP DM2 insulin requiring, medical noncompliance, ongoing tobacco/alcohol abuse. Last 2015 under Cardiology service for syncope secondary to orthostatic hypotension. Patient stopped taking home medications about 3 months ago. Patient tired from stopping meds as per outpatient records. 1 week history of history of cough symptoms later productive of junky sputum as per . Sick contacts at home. No chest pain or wheezing or fluid retention as per . Achy headache symptoms with vague abdominal discomfort as per . Weight loss over the last few months. No black or bloody stools. Last EtOH intake yesterday as per . Patient refused consultations despite worsening symptoms. EMS called to patient's home due to worsening illness. Patient found to be cold pale and diaphoretic. Patient placed on nonrebreather mask and brought to ER for evaluation. Highest SBP of 190s documented at the ER. Subsequent endotracheal intubation at the ER. IV Lasix administered at the ER. Coffee-ground aspirate from NG tube. IV Protonix infusion initiated at the ER Medical History as above Surgical History : Defibrillator Family History : Heart disease, stroke, dementia, Personal/Social history : 1 pack daily, alcohol use,, applying for disability Allergies Allergy/AdvReac Type Severity Reaction Status Date / Time shellfish derived AdvReac Swelling Verified 02/29/24 05:20 of Lip/Tongue/Throat Home Medications Medication Instructions Recorded Confirmed Type albuterol sulfate 2.5 mg/3 mL 1.25 mg (1.5 mL) inhalation Q4H 11/11/18 05/21/23 Rx (0.083 %) solution for nebulization PRN shortness of breath or wheezing #180 mL spironolactone 25 mg tablet 25 mg PO BID #180 tabs 11/11/18 05/21/23 Rx furosemide 40 mg tablet 40 mg PO QPM 10/10/19 05/21/23 History metformin 500 mg tablet 500 mg PO BID 10/10/19 05/21/23 History aspirin 81 mg tablet,delayed 81 mg PO DAILY 01/19/20 05/21/23 History release atorvastatin 20 mg tablet 20 mg PO QAM 01/19/20 05/21/23 History omeprazole 40 mg capsule,delayed 40 mg PO QAM 01/19/20 05/21/23 History release glipizide PO BID 04/19/20 05/21/23 History carvedilol 25 mg tablet 37.5 mg (1.5 x 25 mg) PO BID #180 05/21/23 05/21/23 Rx tabs lisinopril 20 mg tablet 40 mg (2 x 20 mg) PO DAILY #60 tabs 05/21/23 05/21/23 Rx Past Med/Surg History Problem List (Updated 02/29/24 @ 10:59 by Roger Patel PA-C) HFrEF (heart failure with reduced ejection fraction) Acute and chronic respiratory failure with hypercapnia Diabetes Influenza A Respiratory failure requiring intubation NSVT (nonsustained ventricular tachycardia) HBP (high blood pressure) Encounter for pre-operative examination Orthostatic hypotension CHF (congestive heart failure) (Chronic 04/17/12) Cardiomyopathy (Acute 07/08/13) Ascites ICD (implantable cardioverter-defibrillator), single, in situ Obstructive sleep apnea JENSEN (dyspnea on exertion) Medical History GI symptoms NOT REGULAR STOOLS AND RECTAL BLEEDING>REASON FOR UPCOMING COLONOSCOPY History of duodenal ulcer GERD (gastroesophageal reflux disease) SOB (shortness of breath) on exertion NEBULIZER USE ALMOST EVERY DAY Sleep apnea CPAP/DOESN'T USE (HAS TROUBLE SLEEPING WITH IT) Cardiac defibrillator in place PLACED 2013>VIRAL INFECTION...HEART WORKING AT 5%>DR [place]ON>MOST RECENT CHECK 1 MON AGO Hyperlipidemia HTN (hypertension) Surgical History History of cardiac cath 2013>VIRAL INFECTION>LOW HEART FUNCTION>DEFIBRILLATOR PLACEMENT NO STENT(S) History of tonsillectomy Family History Brother Family history of diabetes mellitus Family history of colonic polyps Mother Family history of colonic polyps Father Family history of diabetes mellitus Other Family history of heart attack Social History Smoking Status: Unknown if ever smoked Tobacco Type: Cigarettes and Smokeless Tobacco (Dip or Chew) Do You Dip or Chew Tobacco: Yes (1 CAN EVERY 2-3 DAYS/ADVISED NPO); Preferred Language: Wallisian Communication Ability: Effective Communication Ability Comment: intubated and sedated Larry Operator Required: No Beliefs That Will Affect Care: None Current Living Situation: Spouse Feels Safe at Home: Yes Assistive Devices: Glasses Review of Systems Review of Systems: Could not be reliably obtained secondary to intubated state Physical Exam Physical Exam: GENERAL: Sedated, intubated, looks older than stated age, no respiratory distress SKIN: Normal color, warm HEENT: Alopecia, [place] palpebral conjunctivae, no ptosis, dry buccal mucosa, ET in place NECK : Supple, no tenderness CHEST : Decreased breath sounds, no wheezes, no tenderness HEART : Tachycardic, no obvious murmurs ABDOMEN: Some distention, minimal epigastric tenderness EXTREMITIES : No LE swelling/tenderness, no other conspicuous deformities noted NEUROLOGIC : Sedated, no facial asymmetry, no other gross focality Results & Data Results & Data Vital Signs (Past 12 Hours) Vital Signs Temp Pulse Pulse Resp BP BP Pulse Ox 02/29/24 05:42 120 H 122/95 02/29/24 05:28 162 H 180/129 H 02/29/24 05:15 37.4 C 158 H 20 179/130 H 96 02/29/24 05:02 37.2 C 162 H 20 179/130 H 96 02/29/24 04:47 37.4 C 162 H 20 174/126 H 97 02/29/24 04:45 37.4 C 160 H 20 175/124 H 97 02/29/24 04:45 175/124 H 02/29/24 04:42 37.4 C 161 H 20 97 02/29/24 04:40 174/125 H 02/29/24 04:40 174/125 H 02/29/24 04:35 175/123 H 02/29/24 04:32 37.3 C 161 H 20 173/123 H 97 02/29/24 04:30 153/114 H 02/29/24 04:30 153/114 H 02/29/24 04:25 162/116 H 02/29/24 04:25 162/116 H 02/29/24 04:25 162/116 H 02/29/24 04:24 37.2 C 157 H 20 162/116 H 98 02/29/24 04:17 37.2 C 155 H 20 162/116 H 98 02/29/24 04:16 37.2 C 150 H 21 149/116 H 99 02/29/24 04:15 36.9 C 145 H 24 02/29/24 04:15 149/116 H 02/29/24 04:15 149/116 H 02/29/24 04:15 149/116 H 02/29/24 04:13 144 H 16 99 02/29/24 04:12 36.4 C L 146 H 18 98 02/29/24 04:11 152/109 H 02/29/24 04:09 35.2 C L 150 H 17 96 02/29/24 04:05 196/140 H 02/29/24 04:05 36.8 C 144 H 196/140 H 98 02/29/24 04:05 196/140 H 02/29/24 04:01 35.5 C L 147 H 35 H 152/109 H 95 02/29/24 04:01 02/29/24 04:00 155 H 20 96 02/29/24 04:00 163/114 H 02/29/24 03:59 165/118 H 02/29/24 03:56 170/127 H 02/29/24 03:48 159 H 34 H 96 02/29/24 03:46 152 H 40 H 158/123 H 97 02/29/24 03:45 155 H 02/29/24 03:45 158/123 H 02/29/24 03:45 158/123 H 02/29/24 03:35 O2 Del Method O2 Flow Rate FiO2 02/29/24 05:42 02/29/24 05:28 02/29/24 05:15 Mechanical Vent 02/29/24 05:02 Mechanical Vent 02/29/24 04:47 Mechanical Vent 02/29/24 04:45 02/29/24 04:45 02/29/24 04:42 02/29/24 04:40 02/29/24 04:40 02/29/24 04:35 02/29/24 04:32 Mechanical Vent 02/29/24 04:30 02/29/24 04:30 02/29/24 04:25 02/29/24 04:25 02/29/24 04:25 02/29/24 04:24 02/29/24 04:17 Mechanical Vent 02/29/24 04:16 Mechanical Vent 02/29/24 04:15 02/29/24 04:15 02/29/24 04:15 02/29/24 04:15 02/29/24 04:13 Mechanical Vent 02/29/24 04:12 02/29/24 04:11 02/29/24 04:09 02/29/24 04:05 02/29/24 04:05 02/29/24 04:05 02/29/24 04:01 Non-rebreather 15 02/29/24 04:01 Non-rebreather 15 02/29/24 04:00 80 02/29/24 04:00 02/29/24 03:59 02/29/24 03:56 02/29/24 03:48 02/29/24 03:46 Non-rebreather 15 02/29/24 03:45 02/29/24 03:45 02/29/24 03:45 02/29/24 03:35 Non-rebreather 15 Laboratory Results Laboratory Results WBC 13.63 K/ul (4.8-10.8) H 02/29/24 03:46 RBC 4.98 M/uL (4.70-6.10) 02/29/24 03:46 Hgb 15.7 g/dl (14.0-18.0) 02/29/24 03:46 POC Hgb 15.0 g/dl (14.0-18.0) 02/29/24 04:17 Hct 47.2 % (42.0-52.0) 02/29/24 03:46 POC Hct 44 % (42-52) 02/29/24 04:17 MCV 94.8 fL (80.0-100.0) 02/29/24 03:46 MCH 31.5 pg (25.0-34.0) 02/29/24 03:46 MCHC 33.3 g/dL (32.0-36.0) 02/29/24 03:46 RDW Std Deviation 42.5 fL (36.4-46.3) 02/29/24 03:46 RDW Coeff of Kenzie 12.3 % (11.5-14.5) 02/29/24 03:46 Plt Count 253 K/uL (130-400) 02/29/24 03:46 MPV 12.1 fL (9.4-12.4) 02/29/24 03:46 Immature Gran % (Auto) 2.3 % 02/29/24 03:46 Neut % (Auto) 54.5 % 02/29/24 03:46 Lymph % (Auto) 32.0 % 02/29/24 03:46 [place] % (Auto) 9.5 % 02/29/24 03:46 Eos % (Auto) 1.1 % 02/29/24 03:46 Baso % (Auto) 0.6 % 02/29/24 03:46 Neut # (Auto) 7.44 K/uL (1.40-6.50) H 02/29/24 03:46 Lymph # (Auto) 4.36 K/uL (1.20-3.40) H 02/29/24 03:46 [place] # (Auto) 1.29 K/uL (0.11-0.59) H 02/29/24 03:46 Eos # (Auto) 0.15 K/uL (0.00-0.50) 02/29/24 03:46 Baso # (Auto) 0.08 K/uL (0.00-0.20) 02/29/24 03:46 Immature Gran # (Auto) 0.31 K/uL (0.01-0.20) H 02/29/24 03:46 POC pH 7.15 (7.35-7.45) L* 02/29/24 04:17 POC pCO2 77 mmHg (35-46) H 02/29/24 04:17 POC pO2 177 mmHg (80-95) H 02/29/24 04:17 POC HCO3 27 anastasia/L (19-24) H 02/29/24 04:17 POC Total CO2 29 mmol/L (24-31) 02/29/24 04:17 POC Base Excess -2.0 anastasia/L (-9-1.8) 02/29/24 04:17 POC ABG O2 Sat 99.0 % (90-95) H 02/29/24 04:17 POC Sodium 138 mmol/L (135-144) 02/29/24 04:17 Sodium 140 mmol/L (136-145) 02/29/24 03:46 POC Potassium 4.4 mmol/L (3.3-5.0) 02/29/24 04:17 Potassium 3.8 mmol/L (3.5-5.1) 02/29/24 03:46 POC Chloride 101 mmol/L (101-112) 02/29/24 03:49 Chloride 103 mmol/L (98-107) 02/29/24 03:46 Carbon Dioxide 30 mmol/L (21-32) 02/29/24 03:46 POC Total CO2 27 mmol/L (24-31) 02/29/24 03:49 Anion Gap 7 (3-11) 02/29/24 03:46 POC Anion Gap 17.0 mmol/L (16-25) 02/29/24 03:49 POC BUN 13 mg/dl (7-18) 02/29/24 03:49 BUN 14 mg/dl (6-23) 02/29/24 03:46 Creatinine 1.02 mg/dl (0.6-1.4) 02/29/24 03:46 POC Creatinine 1.0 mg/dl (0.6-1.3) 02/29/24 03:49 Est Cr Clr Drug Dosing 103.4 ml/min 02/29/24 03:46 eGFR 85.72 02/29/24 03:46 BUN/Creatinine Ratio 13.7 (10-20) 02/29/24 03:46 Glucose 331 mg/dl (70-99(Fasting)) H* 02/29/24 03:46 POC Glucose (other) 323 mg/dl (70-99) H 02/29/24 03:49 Lactate 1.7 mmol/L (0.4-2.0) 02/29/24 04:26 Calcium 8.9 mg/dl (8.6-10.3) 02/29/24 03:46 POC Ioniz Calcium Nguyễn 1.18 mmol/l (1.12-1.32) 02/29/24 03:49 Magnesium 1.8 mg/dl (1.7-2.4) 02/29/24 03:46 Total Bilirubin 0.7 mg/dl (0.2-1.0) 02/29/24 03:46 AST 107 U/L (13-39) H 02/29/24 03:46 ALT 91 U/L (7-52) H 02/29/24 03:46 Alkaline Phosphatase 94 U/L (34-104) 02/29/24 03:46 Troponin I High Sens 12.0 pg/ml (0-20) 02/29/24 03:46 B-Natriuretic Peptide 1032 pg/ml (0-100) H 02/29/24 03:46 Total Protein 7.2 gm/dl (6.0-8.3) 02/29/24 03:46 Albumin 3.9 gm/dl (3.4-5.0) 02/29/24 03:46 Globulin 3.3 gm/dl (2.5-4.0) 02/29/24 03:46 Albumin/Globulin Ratio 1.2 (0.9-2) 02/29/24 03:46 Procalcitonin 0.06 ng/ml (0-0.5) 02/29/24 03:46 Urine Color Yellow 02/29/24 04:13 Urine Appearance Clear (Clear) 02/29/24 04:13 Urine pH 6.0 (4.5-7.5) 02/29/24 04:13 Ur Specific [place] 1.025 (1.000-1.030) 02/29/24 04:13 Urine Protein 4+ (Negative) H 02/29/24 04:13 Urine Glucose (UA) 2+ (Negative) H 02/29/24 04:13 Urine Ketones Trace (Negative) H 02/29/24 04:13 Urine Blood Trace (Negative) H 02/29/24 04:13 Urine Nitrite Negative (Negative) 02/29/24 04:13 Urine Bilirubin Negative (Negative) 02/29/24 04:13 Urine Urobilinogen Negative (Negative) 02/29/24 04:13 Ur Leukocyte Esterase Negative (Negative) 02/29/24 04:13 Urine WBC (Auto) 0-5 /hpf (0-5) 02/29/24 04:13 Urine RBC (Auto) 0-2 /hpf (0-2) 02/29/24 04:13 U Hyaline Cast (Auto) 11-20 /lpf (0-2) H 02/29/24 04:13 U Epithel Cells (Auto) 0-2 /hpf (0-2) 02/29/24 04:13 Urine Bacteria (Auto) None Seen (None Seen) 02/29/24 04:13 Hyaline Casts Present /lpf (None Presnt) A 02/29/24 04:13 Adenovirus (PCR) Not Detected (NotDetected) 02/29/24 04:11 B. pertussis DNA (PCR) Not Detected (NotDetected) 02/29/24 04:11 B.parapertussis DNA PCR Not Detected (NotDetected) 02/29/24 04:11 C. pneumoniae DNA (PCR) Not Detected (NotDetected) 02/29/24 04:11 Coronavirus OC43 (PCR) Not Detected (NotDetected) 02/29/24 04:11 Coronavirus HKU1 (PCR) Not Detected (NotDetected) 02/29/24 04:11 Coronavirus 229E (PCR) Not Detected (NotDetected) 02/29/24 04:11 SARS-CoV-2 (PCR) Not Detected (NotDetected) 02/29/24 04:11 Coronavirus NL63 (PCR) Not Detected (NotDetected) 02/29/24 04:11 Human Metapneumovir PCR Not Detected (NotDetected) 02/29/24 04:11 Influenza A Untype (PCR) DETECTED (NotDetected) A 02/29/24 04:11 Influenza Type B (PCR) Not Detected (NotDetected) 02/29/24 04:11 M. pneumoniae (PCR) Not Detected (NotDetected) 02/29/24 04:11 Parainfluenza 1 (PCR) Not Detected (NotDetected) 02/29/24 04:11 Parainfluenza 2 (PCR) Not Detected (NotDetected) 02/29/24 04:11 Parainfluenza 3 (PCR) Not Detected (NotDetected) 02/29/24 04:11 Parainfluenza 4 (PCR) Not Detected (NotDetected) 02/29/24 04:11 RSV (PCR) Not Detected (NotDetected) 02/29/24 04:11 Entero/Rhino (PCR) Not Detected (NotDetected) 02/29/24 04:11 Impressions Chest X-Ray 02/29/24 04:17 EXAM: XR chest 1V portable CLINICAL HISTORY: EVAL INTUBATION AND NG PLACEMENT [facility] TECHNIQUE: An X-ray image of the chest is obtained in AP projection. COMPARISON: CT dated 10/08/2015 and subsequent radiograph dated 02/29/2024. FINDINGS: The endotracheal tube is seen at a satisfactory position, with the distal tip at least 5 cm above the tequila. The nasogastric tube is seen with its distal tip below the left hemidiaphragm. Pulmonary Parenchyma: New patchy airspace opacification in the right lower zone. Prominent broncho-vascular markings with bulky james. No pulmonary nodules are identified. No evidence of pleural effusion or pleural thickening. Heart and Mediastinum: The heart size is enlarged. A cardiac pacemaker is seen. Bilateral james appear bulky, probably due to prominent vascular shadows. Bony Thorax: The bony thorax appears intact without fractures or deformities. Soft Tissues: Soft tissues overlying the chest wall are unremarkable. IMPRESSION: 1. The endotracheal tube is seen at a satisfactory position, with the distal tip at least 5 cm above the tequila. 2. The nasogastric tube is seen with its distal tip below the left hemidiaphragm. 3. New patchy airspace opacification in the right lower zone is concerning for infective or inflammatory etiology. 4. Prominent broncho-vascular markings with bulky james may represent pulmonary vascular congestion/edema(new). 5. Clinical correlation is suggested. Electronically signed by Floresita Romero 02-29-2024 05:28 AM Diagnostic Findings EKG as per my interpretation :Rate 160, sinus tachycardia, LAD, LAFB, T wave abnormalities lateral leads
[2024-02-29 05:58] LABS: iSTAT Arterial Blood Gas HCO3 27 meg/L (19-24); iSTAT Arterial Blood Gas pCO2 65 mmHg (35-46); iSTAT Arterial Blood Gas pH 7.22 (7.35-7.45); iSTAT Arterial Blood Gas pO2 114 mmHg (80-95); iSTAT Carbon Dioxide 29 mmol/L (24-31); iSTAT Hematocrit 45 % (42-52); iSTAT Hemoglobin 15.3 g/dl (14.0-18.0); iSTAT Potassium 5.5 mmol/L (3.3-5.0); iSTAT Sodium 135 mmol/L (135-144)
--- NOTE | 2024-02-29 06:00 | Critical Care Consultation ---
Date of Consultation February 29, 2024 Assessment & Plan (1) Respiratory failure requiring intubation: (2) Influenza A: (3) CHF (congestive heart failure): (4) ICD (implantable cardioverter-defibrillator), single, in situ: (5) Obstructive sleep apnea: (6) Diabetes: Plan Reason Critically Ill: 59 YOM brought to hospital for respiratory distress, requiring intubation for respiratory acidosis/failure in setting of influenza with likely component of acute heart failure as well. CT chest 02/29/2024 personally reviewed: Small to moderate bilateral pleural effusion with interlobular thickening Consolidative process in the left lower lobe Dependent atelectasis of the right lower lobe Minimal mediastinal lymphadenopathy Neuro - [facility] ICU: [facility] - Propofol and Fentanyl for sedation - goal RASS -1 - Possible for ETOH withdraw consider benzodiazepine pending clinical progression Cardiac - HFmrEF HTN, HLD, AICD --Acute on chronic systolic CHF 2D echo 2022: EF 35-40%, normal RV BNP 1032 Cardiology on board - AICD- single lead- VVI 40: VF >200, VT 180-200 -- Shock Combination of CHF as well as septic Sedation also playing a role Vasopressor support to keep MAP greater than 65 Respiratory - Hypoxic/Hypercarbic respiratory failure requiring intubation, Current smoker, COPD, RLL opacity --Acute on chronic hypercapnic hypoxic respiratory failure Hypercapnia is most likely secondary to GISELE/OHS Hypoxia is secondary to pulmonary edema as well as left lower lobe pneumonia Continue with ventilatory support Keep RASS -1 Daily sedation holidays and SBT's BNP 1032 Respiratory BioFire positive for influenza A TSH within normal limit at 1.18 GI - Maroon drainage from OGT, GERD, elevated LFTs --Transaminitis Likely secondary to acute CHF with viral illness Continue to trend --Maroon drainage from the OGT OGT irrigation did not show any signs of bleeding Continue with Protonix Monitor H&H PT/INR within normal limit RENAL/LYTES - NO acute needs - ICU electrolyte protocol - No acute needs - Ruiz to gravity continue while intubated and sedated ENDO - DM --Diabetes type 2 HbA1c 11.6 on 09/30/2019, repeat HbA1c Continue with ICU hypoglycemia protocol HEME - No acute needs ID - Pneumonia left lower lobe, influenza --Pneumonia Influenza A positive but does have dense consolidative process in the left lower lobe Continue with antibiotics Given the prolonged QTc avoid QTc prolonging antibiotic/azithromycin, will continue with cefepime and doxycycline Follow-up blood cultures and sputum culture - Influenza A Okay to continue with Tamiflu Supervising Physician Co-Signing Physician Notes I saw and evaluated the patient with CLAIRE Armendariz, and agree with findings and plan as documented in the note. Patient seen and examined at bedside. No acute distress Patient was on 20 of propofol and 50 of fentanyl at the time of examination Tmax 37.4 Constitutional: No acute distress HEENT: PERRLA Respiratory system: Decreased air entry bilaterally, no wheeze, no rhonchi, positive crackles bilateral lower lobes CVS: S1-S2 positive, no murmurs or gallops Abdomen: Soft, nontender, nondistended, positive bowel sounds x4, obese Extremities: +2 pulses bilaterally radialis/ dorsalis pedis, no cyanosis, +1 pitting edema bilateral lower extremity Neuro: Breathing with the vent, moving extremities to stimuli, RASS -2 Psych: Unable to assess G/U: Positive Ruiz --Prophylaxis VTE: IPC GI: Pantoprazole Lines: Peripheral Diet: N.p.o. Plan: Strict in and outs ABG 7.22/65/114 on 40%, I went down to 35% Patient's QTc is prolonged, I will discontinue azithromycin Continue with doxycycline, given that he has dense consolidative process in the lingula as well as left lower lobe, I will add Rocephin to the regimen Continue with oseltamivir Patient's 2D echo shows EF of 15-20% which is decline from his baseline Continue with diuretics 40 mg twice daily of Lasix Vasopressor support to keep MAP greater than 65 I have personally spent 52 minutes of critical care time in the direct management of this patient. This is a life/limb threatening event. This includes time spent evaluating patient, direct bedside care, chart review, placing orders, interpretation of diagnostic studies, discussion with consultants, patient, and family members, as well as other required patient management activities. This time is exclusive of all separately billable procedures, and teaching time and separate from and in addition to any other critical care service time. Please note the above document was generated using voice recognition software. It may contain grammatical, syntax or spelling errors. History of Present Illness Reason for Consultation: hypercarbic respiratory failure requiring intubation and mechanical ventilation Requesting Physician: Roman Abad MD Attending Physician: Roman Abad MD History of Present Illness 59 YOM with history of: Cardiomyopathy following a viral illness with depressed EF, AICD single lead, GERD, Smoker- current, GISELE, HLD, DM, HTN. Patient is accompanied by his who provided the information in this HPI. She reports that the patient has been ill for the past 2 weeks just prior to [place]- where he had myalgias, weakness, cough with congestion- he thought he had the flu, although did not seek testing/treatment. She said that he spent most of that time on the couch not eating much or drinking much as well as not taking his medications. Today he felt like he was getting somewhat better until around 0200 this morning, where he got up from the bed, coughing, wheezing, diaphoretic and felt like he could not breathe unless he was outside. She stated that he walked from the back to the front yard where he became more short of breath. She called 911 and reported hypoxia on arrival. He was brought to the EMD was reported with increased HR- no hypoxia on NRB documented, he had routine labs performed to include Blood cultures, BNP, PCT as well as ABG, and CXR. He was noted with leukocytosis of 13, CXR with pulmonary edema and right LL opacity, as well as ABG with PH 7.1, PaCO2 77, Pa02 177. He was subsequently intubated, was given 40mg of IV Lasix given Cefepime. Viral respiratory panel was also sent- which was positive for influenza A. Other labs notable for elevated glucose, elevated LFTs, and elevated NLR with leukocytosis. Patient will be brought to the ICU for continued supportive are at this time. Will obtain CT of the chest as reports > 30 pound weight loss over the past few months, continued smoker. also reports possible shellfish allergy, so will get Doppler of legs as well to rule out DVT. CODE: FULL Allergies Allergy/AdvReac Type Severity Reaction Status Date / Time shellfish derived AdvReac Swelling Verified 02/29/24 05:20 of Lip/Tongue/Throat Home Medications Medication Instructions Recorded Confirmed Type albuterol sulfate 2.5 mg/3 mL 1.25 mg (1.5 mL) inhalation Q4H 09/16/19 03/25/24 Rx (0.083 %) solution for nebulization PRN shortness of breath or wheezing #180 mL spironolactone 25 mg tablet 25 mg PO BID #180 tabs 11/11/18 05/21/23 Rx furosemide 40 mg tablet 40 mg PO QPM 10/10/19 05/21/23 History metformin 500 mg tablet 500 mg PO BID 10/10/19 05/21/23 History aspirin 81 mg tablet,delayed 81 mg PO DAILY 01/19/20 05/21/23 History release atorvastatin 20 mg tablet 20 mg PO QAM 01/19/20 05/21/23 History omeprazole 40 mg capsule,delayed 40 mg PO QAM 01/19/20 05/21/23 History release glipizide PO BID 04/19/20 05/21/23 History carvedilol 25 mg tablet 37.5 mg (1.5 x 25 mg) PO BID #180 05/21/23 05/21/23 Rx tabs lisinopril 20 mg tablet 40 mg (2 x 20 mg) PO DAILY #60 tabs 05/21/23 05/21/23 Rx Patient History Medical History GI symptoms NOT REGULAR STOOLS AND RECTAL BLEEDING>REASON FOR UPCOMING COLONOSCOPY History of duodenal ulcer GERD (gastroesophageal reflux disease) SOB (shortness of breath) on exertion NEBULIZER USE ALMOST EVERY DAY Sleep apnea CPAP/DOESN'T USE (HAS TROUBLE SLEEPING WITH IT) Cardiac defibrillator in place PLACED 2013>VIRAL INFECTION...HEART WORKING AT 5%>DR [place]>MOST RECENT CHECK 1 MON AGO Hyperlipidemia HTN (hypertension) Surgical History History of cardiac cath 2013>VIRAL INFECTION>LOW HEART FUNCTION>DEFIBRILLATOR PLACEMENT NO STENT(S) History of tonsillectomy Family History Brother Family history of diabetes mellitus Family history of colonic polyps Mother Family history of colonic polyps Father Family history of diabetes mellitus Other Family history of heart attack Social History Smoking Status: Unknown if ever smoked Tobacco Type: Cigarettes and Smokeless Tobacco (Dip or Chew) Do You Dip or Chew Tobacco: Yes (1 CAN EVERY 2-3 DAYS/ADVISED NPO); Preferred Language: Thai Communication Ability: Effective Communication Ability Comment: intubated and sedated Slab Conditioner Supervisor Required: No Beliefs That Will Affect Care: None Current Living Situation: Spouse Feels Safe at Home: Yes Assistive Devices: Glasses Review of Systems Review of Systems: as noted in HPI- patiet intubated and sedated Physical Exam Physical Exam: PHYSICAL EXAM: General:Intubated sedated with propofol Head: Normocephalic, atraumatic ENT: PERRL, mucous membranes moist Neuro: intubated and sedated, has been recently paralyzed with vecuronium, Chest: equal rise and fall of the chest, no accessory muscle use, no heaves or thrills, Clear to auscultation, on room air, Cardiac: Regular rate and rhythm, telemetry reviewed- sinus tachycardia no ectopy, diaphoretic, mottled lower extremities, trace edema to lower extremities GI: OGT with some maroon colored drainage, NABS x 4 quadrants, soft, nontender to palpation, no rebound, guarding or tenderness : Ruiz to gravity Results & Data Results & Data Vital Signs (Past 12 Hours) Vital Signs Temp Pulse Pulse Resp BP BP Pulse Ox 02/29/24 05:28 162 H 180/129 H 02/29/24 05:15 37.4 C 158 H 20 179/130 H 96 02/29/24 05:02 37.2 C 162 H 20 179/130 H 96 02/29/24 04:47 37.4 C 162 H 20 174/126 H 97 02/29/24 04:45 37.4 C 160 H 20 175/124 H 97 02/29/24 04:45 175/124 H 02/29/24 04:42 37.4 C 161 H 20 97 02/29/24 04:40 174/125 H 02/29/24 04:40 174/125 H 02/29/24 04:35 175/123 H 02/29/24 04:32 37.3 C 161 H 20 173/123 H 97 02/29/24 04:30 153/114 H 02/29/24 04:30 153/114 H 02/29/24 04:25 162/116 H 02/29/24 04:25 162/116 H 02/29/24 04:25 162/116 H 02/29/24 04:24 37.2 C 157 H 20 162/116 H 98 02/29/24 04:17 37.2 C 155 H 20 162/116 H 98 02/29/24 04:16 37.2 C 150 H 21 149/116 H 99 02/29/24 04:15 36.9 C 145 H 24 02/29/24 04:15 149/116 H 02/29/24 04:15 149/116 H 02/29/24 04:15 149/116 H 02/29/24 04:13 144 H 16 99 02/29/24 04:12 36.4 C L 146 H 18 98 02/29/24 04:11 152/109 H 02/29/24 04:09 35.2 C L 150 H 17 96 02/29/24 04:05 196/140 H 02/29/24 04:05 36.8 C 144 H 196/140 H 98 02/29/24 04:05 196/140 H 02/29/24 04:01 35.5 C L 147 H 35 H 152/109 H 95 02/29/24 04:01 02/29/24 04:00 155 H 20 96 02/29/24 04:00 163/114 H 02/29/24 03:59 165/118 H 02/29/24 03:56 170/127 H 02/29/24 03:48 159 H 34 H 96 02/29/24 03:46 152 H 40 H 158/123 H 97 02/29/24 03:45 155 H 02/29/24 03:45 158/123 H 02/29/24 03:45 158/123 H 02/29/24 03:35 O2 Del Method O2 Flow Rate FiO2 02/29/24 05:28 02/29/24 05:15 Mechanical Vent 02/29/24 05:02 Mechanical Vent 02/29/24 04:47 Mechanical Vent 02/29/24 04:45 02/29/24 04:45 02/29/24 04:42 02/29/24 04:40 02/29/24 04:40 02/29/24 04:35 02/29/24 04:32 Mechanical Vent 02/29/24 04:30 02/29/24 04:30 02/29/24 04:25 02/29/24 04:25 02/29/24 04:25 02/29/24 04:24 02/29/24 04:17 Mechanical Vent 02/29/24 04:16 Mechanical Vent 02/29/24 04:15 02/29/24 04:15 02/29/24 04:15 02/29/24 04:15 02/29/24 04:13 Mechanical Vent 02/29/24 04:12 02/29/24 04:11 02/29/24 04:09 02/29/24 04:05 02/29/24 04:05 02/29/24 04:05 02/29/24 04:01 Non-rebreather 15 02/29/24 04:01 Non-rebreather 15 02/29/24 04:00 80 02/29/24 04:00 02/29/24 03:59 02/29/24 03:56 02/29/24 03:48 02/29/24 03:46 Non-rebreather 15 02/29/24 03:45 02/29/24 03:45 02/29/24 03:45 02/29/24 03:35 Non-rebreather 15 Laboratory Results Abnormal lab results 02/29/24 02/29/24 02/29/24 Range/Units 03:46 03:49 04:11 WBC 13.63 H (4.8-10.8) K/ul Neut # (Auto) 7.44 H (1.40-6.50) K/uL Lymph # (Auto) 4.36 H (1.20-3.40) K/uL Stephenson # (Auto) 1.29 H (0.11-0.59) K/uL Immature Gran # (Auto) 0.31 H (0.01-0.20) K/uL POC pH (7.35-7.45) POC pCO2 (35-46) mmHg POC pO2 (80-95) mmHg POC HCO3 (19-24) anastasia/L POC ABG O2 Sat (90-95) % Glucose 331 H* (70-99(Fasting)) mg/dl POC Glucose (other) 323 H (70-99) mg/dl AST 107 H (13-39) U/L ALT 91 H (7-52) U/L B-Natriuretic Peptide 1032 H (0-100) pg/ml Urine Protein (Negative) Urine Glucose (UA) (Negative) Urine Ketones (Negative) Urine Blood (Negative) U Hyaline Cast (Auto) (0-2) /lpf Hyaline Casts (None Presnt) /lpf Influenza A Untype (PCR) DETECTED A (NotDetected) 02/29/24 02/29/24 Range/Units 04:13 04:17 WBC (4.8-10.8) K/ul Neut # (Auto) (1.40-6.50) K/uL Lymph # (Auto) (1.20-3.40) K/uL Stephenson # (Auto) (0.11-0.59) K/uL Immature Gran # (Auto) (0.01-0.20) K/uL POC pH 7.15 L* (7.35-7.45) POC pCO2 77 H (35-46) mmHg POC pO2 177 H (80-95) mmHg POC HCO3 27 H (19-24) anastasia/L POC ABG O2 Sat 99.0 H (90-95) % Glucose (70-99(Fasting)) mg/dl POC Glucose (other) (70-99) mg/dl AST (13-39) U/L ALT (7-52) U/L B-Natriuretic Peptide (0-100) pg/ml Urine Protein 4+ H (Negative) Urine Glucose (UA) 2+ H (Negative) Urine Ketones Trace H (Negative) Urine Blood Trace H (Negative) U Hyaline Cast (Auto) 11-20 H (0-2) /lpf Hyaline Casts Present A (None Presnt) /lpf Influenza A Untype (PCR) (NotDetected) Diagnostic Findings Chest X-Ray 02/29/24 03:59 EXAM: XR chest 1V portable CLINICAL HISTORY: DYSPNEA. TECHNIQUE: An X-ray image of the chest is obtained in AP projection. COMPARISON: CT dated 10/08/2015. FINDINGS: Pulmonary Parenchyma: New patchy airspace opacification in the right lower zone. The prominence of perihilar broncho-vascular markings is seen. No pulmonary nodules are identified. No evidence of pleural effusion or pleural thickening. Heart and Mediastinum: The heart size is enlarged. A cardiac pacemaker is seen. No mediastinal widening or masses. Bony Thorax: The bony thorax appears intact without fractures or deformities. Soft Tissues: Soft tissues overlying the chest wall are unremarkable. IMPRESSION: 1. New patchy airspace opacification in the right lower zone is concerning for infective/inflammatory etiology. 2. Prominent broncho-vascular markings with right perihilar peribronchial cuffing may represent bronchitis/small airway disease or congestion(new). 3. Clinical correlation is suggested. Electronically signed by Floresita Romero 02-29-2024 05:13 AM Chest X-Ray 02/29/24 04:17 EXAM: XR chest 1V portable CLINICAL HISTORY: EVAL INTUBATION AND NG PLACEMENT [facility] TECHNIQUE: An X-ray image of the chest is obtained in AP projection. COMPARISON: CT dated 10/08/2015 and subsequent radiograph dated 02/29/2024. FINDINGS: The endotracheal tube is seen at a satisfactory position, with the distal tip at least 5 cm above the tequila. The nasogastric tube is seen with its distal tip below the left hemidiaphragm. Pulmonary Parenchyma: New patchy airspace opacification in the right lower zone. Prominent broncho-vascular markings with bulky james. No pulmonary nodules are identified. No evidence of pleural effusion or pleural thickening. Heart and Mediastinum: The heart size is enlarged. A cardiac pacemaker is seen. Bilateral james appear bulky, probably due to prominent vascular shadows. Bony Thorax: The bony thorax appears intact without fractures or deformities. Soft Tissues: Soft tissues overlying the chest wall are unremarkable. IMPRESSION: 1. The endotracheal tube is seen at a satisfactory position, with the distal tip at least 5 cm above the tequila. 2. The nasogastric tube is seen with its distal tip below the left hemidiaphragm. 3. New patchy airspace opacification in the right lower zone is concerning for infective or inflammatory etiology. 4. Prominent broncho-vascular markings with bulky james may represent pulmonary vascular congestion/edema(new). 5. Clinical correlation is suggested. Electronically signed by Floresita Romero 02-29-2024 05:28 AM Medications Administered Magnesium Sulfate/Dextrose (Magnesium Sulfate / D5w) 1 gm in 100 mls @ 50 mls/hr IV Q2H MINO Stop: 02/29/24 09:14 Last Admin: 02/29/24 05:34 Dose: 50 mls/hr Documented By: FELA Potassium Chloride (K [place] / Wtr) 10 meq in 100 mls @ 100 mls/hr IV Q1H MINO Stop: 02/29/24 07:14 Last Admin: 02/29/24 05:34 Dose: 100 mls/hr Documented By: FELA Discontinued Medications Furosemide (Furosemide 40 Mg/4 Ml Vial) Confirm Administered Dose 40 mg IV .STK- MED ONE Stop: 02/29/24 03:56 Last Admin: 02/29/24 04:32 Dose: Not Given Documented By: FELA Furosemide (Furosemide 40 Mg/4 Ml Vial) 40 mg IV ONE ONE Stop: 02/29/24 04:00 Last Admin: 02/29/24 03:57 Dose: 40 mg Documented By: FELA Cefepime HCl (Maxipime 2000mg) 2,000 mg in 20 mls @ 5 mls/min IV NOW STA; Protocol Stop: 02/29/24 04:42 Last Admin: 02/29/24 04:58 Dose: 5 mls/min Documented By: FELA Metoprolol Tartrate (Metoprolol Tartrate 1 Mg/Ml Vial) 2.5 mg IV NOW STA Stop: 02/29/24 05:08 Last Admin: 02/29/24 05:28 Dose: 2.5 mg Documented By: FELA Midazolam HCl (Midazolam Hcl 5 Mg/Ml 2ml Vial) 4 mg IV NOW STA Stop: 02/29/24 05:26 Last Admin: 02/29/24 05:29 Dose: 4 mg Documented By: FELA Miscellaneous (Rapid Sequence Induction Bag) Confirm Administered Dose 1 each N/A .STK-MED ONE Stop: 02/29/24 03:45 Last Admin: 02/29/24 04:32 Dose: 1 each Documented By: FELA Propofol (Propofol Iv Emulsion 10 Mg/Ml 100 Ml Vial) Confirm Administered Dose 1,000 mg IV .STK-MED ONE Stop: 02/29/24 03:51 Last Admin: 02/29/24 05:41 Dose: Not Given Documented By: FELA Vecuronium [place] (Vecuronium [place] 10 Mg Vial) 10 mg IV NOW STA Stop: 02/29/24 04:16 Last Admin: 02/29/24 04:22 Dose: 10 mg Documented By: FELA Co-signed By: ECG Additional Comments: Sinus tachycardiawith short SC Minimal voltage criteria for LVH, may be normal variant([place] product) ST &T wave abnormality, consider lateral ischemia Abnormal ECG When compared with ECG [id number] 15:12, MANUAL COMPARISON REQUIREDPREVIOUS ECG IS INCOMPATIBLE Coding Level of Care Code 66731 CRITICAL CARE 1ST 30-74M Diagnoses Respiratory failure requiring intubation J96.90 Influenza A J10.1 CHF (congestive heart failure) I50.9 ICD (implantable cardioverter-defibrillator), single, in situ Z95.810 Obstructive sleep apnea G47.33 Diabetes E11.9
[2024-02-29] MEDS: PANTOprazole 80 MG in DEXTROSE 5% 100 ML IV ONE (06:04)
--- NOTE | 2024-02-29 06:05 | Emergency Department Note ---
Impression & Plan Acute hypercapnic respiratory failure, Influenza A, Pneumonia admit to the ICU and [facility] service ED Provider Note NAME: SIMON COSTA AGE: 59 SEX: Male INFORMANT: EMS and the patient's ED PROVIDER(S): Cristina Wilson DO CHIEF COMPLAINT: respiratory distress PLAN: Disposition: admit to the ICU MEDICAL DECISION MAKING: this is a 59-year-old male patient with a history of uncontrolled diabetes, tobacco abuse and cardiomyopathy who presents to the emergency department with a 10-day history of illness the drastically worsened overnight tonight According to the patient's . The patient's symptoms initially started 10 days ago with a productive cough and vomiting and diarrhea. He did not seek care at that time. He has not been taking his cardiac medications or diabetic medications and has been laying around the house. The patient woke from sleep tonight with extreme shortness of breath, tachypnea and diaphoresis. EMS was called and the patient was significantly hypoxic. Upon presentation to the emergency department, the patient was in respiratory failure with a respiratory rate greater than 50 and audible Rales. O2 saturation on 15 L of O2 by nonrebreather was in the low 80s. Chest x-ray showed evidence of congestive heart failure and a right lower lobe pneumonia. RSI was performed and the patient was intubated. ABG showed evidence of significant respiratory acidosis and hypercapnia with a pH of 7.1 and a pCO2 of 77. Patient was empirically treated with cefepime And Lasix. Bio fire later resulted with a positive influenza A. A septic protocol was performed. Patient's white blood cell count was 13.6. Procalcitonin and lactate were normal. Urinalysis revealed 4+ protein, 2+ glucose, trace ketones and trace blood. TSH was normal. Troponin was 12. Transaminases were elevated with AST at 107 and ALT at 91. The patient's did admit that patient does drink frequently. BNP was greater than 1000. Glucose was 323. Sodium and chloride were normal. Potassium was 3.8. Renal function was normal. H&H were elevated. The patient initially remained sedated and paralyzed on the ventilator while we tried to correct of the respiratory acidosis. I discussed the case with the [facility] as well as the critical care team. He will be admitted to the ICU. Care/management discussed with: The patient's , he EMS, the farm facility manager, [facility] Hospitalist, and critical care team Triage Nursing notes: reviewed and agree With them. Vital Signs: reviewed and remarkable for tachycardia, tachypnea, hypertension, hypoxia Additional History obtained from: EMS and the patient's Chronic Medical/Social Conditions affecting care: diabetes, cardiomyopathy, tobacco abuse, alcohol abuse Differential Diagnosis: pulmonary edema, STEMI, NSTEMI, influenza, COVID, pneumonia, cardiac dysrhythmia Diagnostics, independently interpreted by me: ECG: sinus tachycardia at a rate of [address] segment depression. There is no ectopy noted Cardiac Monitoring: sinus tachycardia at a rate of 160 Imaging studies: portable chest x-ray: Significant cardiomegaly with significant pulmonary edema and right lower lobe opacity as per my independent interpretation; defibrillator noted postintubation portable chest x-ray: Endotracheal tube ends approximately 3 cm above the tequila HPI: 59 year old Male arrives for evaluation of extreme shortness of breath. 10-day history of illness the drastically worsened overnight tonight According to the patient's . The patient's symptoms initially started 10 days ago with a productive cough and vomiting and diarrhea. He did not seek care at that time. He has not been taking his cardiac medications or diabetic medications and has been laying around the house. The patient woke from sleep tonight with extreme shortness of breath, tachypnea and diaphoresis. EMS was called and the patient was significantly hypoxic. PAST MEDICAL HISTORY: See Below, SOCIAL HISTORY: lives with his , smokes and drinks alcohol HOME MEDICATIONS: see list ALLERGIES: shellfish VITALS: See Below PHYSICAL EXAMINATION: HEENT: Head - normocephalic and atraumatic. Pupils are equal, round, and reactive to light. Extraocular eye muscles are intact, and sclera are anicteric. Nose - moist nasal mucosa without discharge. Mouth - Extremely dry buccal mucosa. Oropharynx is mildly erythematous and there is no tonsillar exudate or edema noted. there is poor dentition. Neck: no JVD or cervical lymphadenopathy Heart: tachycardic rate with a regular rhythm. There is a normal S1 and S2 with no murmurs, clicks, or gallops appreciated. Lungs: rales in all lung meza with diminished breath sounds at both bases Abdomen: Soft, completely nontender, moderately distended, with good bowel sounds. There are no palpable pulsatile masses or hepatosplenomegaly. There is no guarding, rigidity, or rebound noted. Extremities: No evidence of cyanosis, clubbing, or edema. There are easily palpable peripheral pulses. Skin:Ashen, significantly diaphoretic Endotracheal Intubation Indication respiratory failure. The patient was on 100% oxygen via NRB prior to the procedure. Suction, airway equipment, RSI drugs, respiratory equipment, and appropriate personnel were prepared prior to the initiation of the procedure. A time out was taken. Induction was performed with 30 mg of etomidate and 160 mg of succinylcholine. After observing the clinical benefit of the medications, the airway was easily visualized utilizing a [place] scope. A 8.0 size ETT tube was placed atraumatically to 25 cm using standard technique. The cuff inflated without signs of malfunction. There were bilateral breath sounds, positive colormetric change, no gastric sounds, and post procedure pulse oximetry was 98%. Post intubation sedation was administered using propofol. There were no complications. emergency department treatment: gambling monitor, supplemental oxygen, RSI, endotracheal intubation, IV Lasix, IV cefepime, propofol drip, IV vecuronium, IV Versed, OG tube placement, Ruiz catheter placement, IV Versed Emergency department course: patient was evaluated in room A-1. A complete history and physical exam was performed. patient was receiving 15 L of O2 through a nonrebreather mask. A second IV lock was initiated. Laboratory studies were drawn as above. An order was placed for continuous cardiac monitoring. Patient was in a sinus tachycardia at a rate of 160. A twelve-lead EKG was obtained. A portable chest x-ray was performed while we prepared for RSI/intubation. Patient was successfully intubated. Please see procedure note above. Postintubation chest x-ray was performed. Patient was placed on a propofol drip. Upper respiratory bio fire test was obtained. An OG tube was placed. A Ruiz catheter was placed. Patient was given 40 mg of IV Lasix. I discussed the situation with the patient's who had arrived in the emergency department. An ABG was obtained. Patient was not well sedated on the propofol drip. He was given IV vecuronium to help with better vent management. Patient was given a dose of IV cefepime after the blood cultures were obtained. Again the patient began to fight against the endotracheal tube and was given a dose of IV Versed. This gave him good sedation. blood pressure and heart rate came down. He was much more comfortable. I discussed the case with the [facility] and the critical care team. I kept the patient's abreast of the situation. I reviewed laboratory and radiographic results with her. The patient will be admitted to the ICU. He has required a second dose of IV Versed. I have personally spent greater than 95 minutes of critical care time in the direct management of this patient. This includes bedside care, interpretation of diagnostic studies, and testing, discussion with consultants, patient, and family members, and other required patient management activities. This 95 minutes is in excess of all separately billable procedures. Past Med/Surg History Problem List (Updated 02/29/24 @ 16:44 by Cristina Wilson DO) Pneumonia (Acute) Influenza A (Acute) Acute hypercapnic respiratory failure (Acute) HFrEF (heart failure with reduced ejection fraction) Acute and chronic respiratory failure with hypercapnia Diabetes Influenza A Respiratory failure requiring intubation NSVT (nonsustained ventricular tachycardia) HBP (high blood pressure) Encounter for pre-operative examination Orthostatic hypotension CHF (congestive heart failure) (Chronic 04/17/12) Cardiomyopathy (Acute 07/08/13) Ascites ICD (implantable cardioverter-defibrillator), single, in situ Obstructive sleep apnea JENSEN (dyspnea on exertion) Medical History GI symptoms NOT REGULAR STOOLS AND RECTAL BLEEDING>REASON FOR UPCOMING COLONOSCOPY History of duodenal ulcer GERD (gastroesophageal reflux disease) SOB (shortness of breath) on exertion NEBULIZER USE ALMOST EVERY DAY Sleep apnea CPAP/DOESN'T USE (HAS TROUBLE SLEEPING WITH IT) Cardiac defibrillator in place PLACED 2013>VIRAL INFECTION...HEART WORKING AT 5%>DR SALMERON>MOST RECENT CHECK 1 MON AGO Hyperlipidemia HTN (hypertension) Surgical History History of cardiac cath 2013>VIRAL INFECTION>LOW HEART FUNCTION>DEFIBRILLATOR PLACEMENT NO STENT(S) History of tonsillectomy Family History Brother Family history of diabetes mellitus Family history of colonic polyps Mother Family history of colonic polyps Father Family history of diabetes mellitus Other Family history of heart attack Social History Smoking Status: Unknown if ever smoked Tobacco Type: Cigarettes and Smokeless Tobacco (Dip or Chew) Do You Dip or Chew Tobacco: Yes (1 CAN EVERY 2-3 DAYS/ADVISED NPO); Preferred Language: Burkinan Communication Ability: Effective Communication Ability Comment: intubated and sedated Miller Supervisor Required: No Beliefs That Will Affect Care: None Current Living Situation: Spouse Feels Safe at Home: Yes Assistive Devices: Glasses Allergies Allergies Allergy/AdvReac Type Severity Reaction Status Date / Time shellfish derived AdvReac Swelling Verified 02/29/24 05:20 of Lip/Tongue/Throat Home Meds Home Medications Medication Instructions Recorded Confirmed furosemide 40 mg tablet 40 mg PO QPM 10/10/19 05/21/23 metformin 500 mg tablet 500 mg PO BID 10/10/19 05/21/23 aspirin 81 mg tablet,delayed 81 mg PO DAILY 01/19/20 05/21/23 release atorvastatin 20 mg tablet 20 mg PO QAM 01/19/20 05/21/23 omeprazole 40 mg capsule,delayed 40 mg PO QAM 01/19/20 05/21/23 release glipizide PO BID 04/19/20 05/21/23 Previous Rx's Medication Instructions Recorded albuterol sulfate 2.5 mg/3 mL 1.25 mg (1.5 mL) inhalation Q4H 11/11/18 (0.083 %) solution for nebulization PRN shortness of breath or wheezing #180 mL spironolactone 25 mg tablet 25 mg PO BID #180 tabs 11/11/18 carvedilol 25 mg tablet 37.5 mg (1.5 x 25 mg) PO BID #180 05/21/23 tabs lisinopril 20 mg tablet 40 mg (2 x 20 mg) PO DAILY #60 tabs 05/21/23 Results & Data (ED) Vital Signs Vital Signs - 24 hr 02/29/24 03:35 02/29/24 03:45 02/29/24 03:45 Temperature Temperature Source Pulse Rate Pulse Rate [Right Forehead] Pulse Rate from SpO2 Sensor Pulse Rhythm Pulse Rhythm [Right Forehead] Pulse Strength Pulse Strength [Right Forehead] Respiratory Rate Respiratory Effort / Characteristics Respiratory Depth Respiratory Pattern Blood Pressure 158/123 H 158/123 H Blood Pressure [Right Arm] Blood Pressure Mean 131 131 Blood Pressure Mean [Right Arm] Blood Pressure Position Blood Pressure Position [Right Arm] Pulse Oximetry Oxygen Delivery Method Non-rebreather Oxygen Flow Rate 15 Fraction of Inspired Oxygen Sepsis Recent Fever Within 48 Hours Sepsis New/Unexplained Change in Mental Status Sepsis Action Taken by Nursing End-Tidal CO2 02/29/24 03:45 02/29/24 03:46 02/29/24 03:48 Temperature Temperature Source Pulse Rate 155 H 152 H 159 H Pulse Rate [Right Forehead] Pulse Rate from SpO2 Sensor 159 H Pulse Rhythm Pulse Rhythm [Right Forehead] Pulse Strength Pulse Strength [Right Forehead] Respiratory Rate 40 H 34 H Respiratory Effort / Characteristics Respiratory Depth Respiratory Pattern Blood Pressure 158/123 H Blood Pressure [Right Arm] Blood Pressure Mean 134 Blood Pressure Mean [Right Arm] Blood Pressure Position Blood Pressure Position [Right Arm] Pulse Oximetry 97 96 Oxygen Delivery Method Non-rebreather Oxygen Flow Rate 15 Fraction of Inspired Oxygen Sepsis Recent Fever Within 48 Hours Sepsis New/Unexplained Change in Mental Status Sepsis Action Taken by Nursing End-Tidal CO2 02/29/24 03:56 02/29/24 03:59 02/29/24 04:00 Temperature Temperature Source Pulse Rate Pulse Rate [Right Forehead] Pulse Rate from SpO2 Sensor Pulse Rhythm Pulse Rhythm [Right Forehead] Pulse Strength Pulse Strength [Right Forehead] Respiratory Rate Respiratory Effort / Characteristics Respiratory Depth Respiratory Pattern Blood Pressure 170/127 H 165/118 H 163/114 H Blood Pressure [Right Arm] Blood Pressure Mean 137 132 129 Blood Pressure Mean [Right Arm] Blood Pressure Position Blood Pressure Position [Right Arm] Pulse Oximetry Oxygen Delivery Method Oxygen Flow Rate Fraction of Inspired Oxygen Sepsis Recent Fever Within 48 Hours Sepsis New/Unexplained Change in Mental Status Sepsis Action Taken by Nursing End-Tidal CO2 02/29/24 04:00 02/29/24 04:01 02/29/24 04:01 Temperature 35.5 C L Temperature Source Ruiz Cath ( Temp Sensing) Pulse Rate 155 H Pulse Rate [Right Forehead] 147 H Pulse Rate from SpO2 Sensor Pulse Rhythm Pulse Rhythm [Right Forehead] Regular Pulse Strength Pulse Strength [Right Forehead] Normal Respiratory Rate 20 35 H Respiratory Effort / Characteristics Accessory Muscle Use Labored Short of Breath Short of Breath Respiratory Depth Shallow Retractive Respiratory Pattern Rapid/Shallow Tachypnea Tachypnea Blood Pressure Blood Pressure [Right Arm] 152/109 H Blood Pressure Mean Blood Pressure Mean [Right Arm] 123 Blood Pressure Position Blood Pressure Position [Right Arm] Lying Pulse Oximetry 96 95 Oxygen Delivery Method Non-rebreather Non-rebreather Oxygen Flow Rate 15 15 Fraction of Inspired Oxygen 80 Sepsis Recent Fever Within 48 Hours Sepsis New/Unexplained Change in Mental Status Sepsis Action Taken by Nursing End-Tidal CO2 48 02/29/24 04:05 02/29/24 04:05 02/29/24 04:05 Temperature 36.8 C Temperature Source Pulse Rate 144 H Pulse Rate [Right Forehead] Pulse Rate from SpO2 Sensor Pulse Rhythm Pulse Rhythm [Right Forehead] Pulse Strength Pulse Strength [Right Forehead] Respiratory Rate Respiratory Effort / Characteristics Respiratory Depth Respiratory Pattern Blood Pressure 196/140 H 196/140 H 196/140 H Blood Pressure [Right Arm] Blood Pressure Mean 166 166 166 Blood Pressure Mean [Right Arm] Blood Pressure Position Blood Pressure Position [Right Arm] Pulse Oximetry 98 Oxygen Delivery Method Oxygen Flow Rate Fraction of Inspired Oxygen Sepsis Recent Fever Within 48 Hours Sepsis New/Unexplained Change in Mental Status Sepsis Action Taken by Nursing End-Tidal CO2 58 02/29/24 04:09 02/29/24 04:11 02/29/24 04:12 Temperature 35.2 C L 36.4 C L Temperature Source Pulse Rate 150 H 146 H Pulse Rate [Right Forehead] Pulse Rate from SpO2 Sensor 150 H 144 H Pulse Rhythm Pulse Rhythm [Right Forehead] Pulse Strength Pulse Strength [Right Forehead] Respiratory Rate 17 18 Respiratory Effort / Characteristics Respiratory Depth Respiratory Pattern Blood Pressure 152/109 H Blood Pressure [Right Arm] Blood Pressure Mean 122 Blood Pressure Mean [Right Arm] Blood Pressure Position Blood Pressure Position [Right Arm] Pulse Oximetry 96 98 Oxygen Delivery Method Oxygen Flow Rate Fraction of Inspired Oxygen Sepsis Recent Fever Within 48 Hours Sepsis New/Unexplained Change in Mental Status Sepsis Action Taken by Nursing End-Tidal CO2 63 52 02/29/24 04:13 02/29/24 04:15 02/29/24 04:15 Temperature Temperature Source Pulse Rate 144 H Pulse Rate [Right Forehead] Pulse Rate from SpO2 Sensor Pulse Rhythm Pulse Rhythm [Right Forehead] Pulse Strength Pulse Strength [Right Forehead] Respiratory Rate 16 Respiratory Effort / Characteristics Respiratory Depth Respiratory Pattern Blood Pressure 149/116 H 149/116 H Blood Pressure [Right Arm] Blood Pressure Mean 121 121 Blood Pressure Mean [Right Arm] Blood Pressure Position Blood Pressure Position [Right Arm] Pulse Oximetry 99 Oxygen Delivery Method Mechanical Vent Oxygen Flow Rate Fraction of Inspired Oxygen Sepsis Recent Fever Within 48 Hours Sepsis New/Unexplained Change in Mental Status Sepsis Action Taken by Nursing End-Tidal CO2 02/29/24 04:15 02/29/24 04:15 02/29/24 04:16 Temperature 36.9 C 37.2 C Temperature Source Ruiz Cath ( Temp Sensing) Pulse Rate 145 H 150 H Pulse Rate [Right Forehead] Pulse Rate from SpO2 Sensor Pulse Rhythm Regular Pulse Rhythm [Right Forehead] Pulse Strength Normal Pulse Strength [Right Forehead] Respiratory Rate 24 21 Respiratory Effort / Characteristics Mechanically Ventilated Respiratory Depth Normal Respiratory Pattern Blood Pressure 149/116 H 149/116 H Blood Pressure [Right Arm] Blood Pressure Mean 121 127 Blood Pressure Mean [Right Arm] Blood Pressure Position Lying Blood Pressure Position [Right Arm] Pulse Oximetry 99 Oxygen Delivery Method Mechanical Vent Oxygen Flow Rate Fraction of Inspired Oxygen Sepsis Recent Fever Within 48 Hours No Sepsis New/Unexplained Change in Mental Status No Sepsis Action Taken by Nursing Physician Notified End-Tidal CO2 63 02/29/24 04:17 02/29/24 04:24 02/29/24 04:25 Temperature 37.2 C 37.2 C Temperature Source Ruiz Cath ( Temp Sensing) Pulse Rate 157 H Pulse Rate [Right Forehead] 155 H Pulse Rate from SpO2 Sensor 157 H Pulse Rhythm Pulse Rhythm [Right Forehead] Regular Pulse Strength Pulse Strength [Right Forehead] Normal Respiratory Rate 20 20 Respiratory Effort / Characteristics Mechanically Ventilated Respiratory Depth Normal Respiratory Pattern Regular Blood Pressure 162/116 H 162/116 H Blood Pressure [Right Arm] 162/116 H Blood Pressure Mean 131 128 Blood Pressure Mean [Right Arm] 131 Blood Pressure Position Blood Pressure Position [Right Arm] Lying Pulse Oximetry 98 98 Oxygen Delivery Method Mechanical Vent Oxygen Flow Rate Fraction of Inspired Oxygen Sepsis Recent Fever Within 48 Hours Sepsis New/Unexplained Change in Mental Status Sepsis Action Taken by Nursing End-Tidal CO2 54 02/29/24 04:25 02/29/24 04:25 02/29/24 04:30 Temperature Temperature Source Pulse Rate Pulse Rate [Right Forehead] Pulse Rate from SpO2 Sensor Pulse Rhythm Pulse Rhythm [Right Forehead] Pulse Strength Pulse Strength [Right Forehead] Respiratory Rate Respiratory Effort / Characteristics Respiratory Depth Respiratory Pattern Blood Pressure 162/116 H 162/116 H 153/114 H Blood Pressure [Right Arm] Blood Pressure Mean 128 128 130 Blood Pressure Mean [Right Arm] Blood Pressure Position Blood Pressure Position [Right Arm] Pulse Oximetry Oxygen Delivery Method Oxygen Flow Rate Fraction of Inspired Oxygen Sepsis Recent Fever Within 48 Hours Sepsis New/Unexplained Change in Mental Status Sepsis Action Taken by Nursing End-Tidal CO2 02/29/24 04:30 02/29/24 04:32 02/29/24 04:35 Temperature 37.3 C Temperature Source Ruiz Cath ( Temp Sensing) Pulse Rate Pulse Rate [Right Forehead] 161 H Pulse Rate from SpO2 Sensor Pulse Rhythm Pulse Rhythm [Right Forehead] Regular Pulse Strength Pulse Strength [Right Forehead] Normal Respiratory Rate 20 Respiratory Effort / Characteristics Mechanically Ventilated Respiratory Depth Normal Respiratory Pattern Regular Blood Pressure 153/114 H 175/123 H Blood Pressure [Right Arm] 173/123 H Blood Pressure Mean 130 135 Blood Pressure Mean [Right Arm] 139 Blood Pressure Position Blood Pressure Position [Right Arm] Lying Pulse Oximetry 97 Oxygen Delivery Method Mechanical Vent Oxygen Flow Rate Fraction of Inspired Oxygen Sepsis Recent Fever Within 48 Hours Sepsis New/Unexplained Change in Mental Status Sepsis Action Taken by Nursing End-Tidal CO2 02/29/24 04:40 02/29/24 04:40 02/29/24 04:42 Temperature 37.4 C Temperature Source Pulse Rate 161 H Pulse Rate [Right Forehead] Pulse Rate from SpO2 Sensor 161 H Pulse Rhythm Pulse Rhythm [Right Forehead] Pulse Strength Pulse Strength [Right Forehead] Respiratory Rate 20 Respiratory Effort / Characteristics Respiratory Depth Respiratory Pattern Blood Pressure 174/125 H 174/125 H Blood Pressure [Right Arm] Blood Pressure Mean 139 139 Blood Pressure Mean [Right Arm] Blood Pressure Position Blood Pressure Position [Right Arm] Pulse Oximetry 97 Oxygen Delivery Method Oxygen Flow Rate Fraction of Inspired Oxygen Sepsis Recent Fever Within 48 Hours Sepsis New/Unexplained Change in Mental Status Sepsis Action Taken by Nursing End-Tidal CO2 49 02/29/24 04:45 02/29/24 04:45 02/29/24 04:47 Temperature 37.4 C 37.4 C Temperature Source Ruiz Cath ( Temp Sensing) Pulse Rate 160 H Pulse Rate [Right Forehead] 162 H Pulse Rate from SpO2 Sensor Pulse Rhythm Pulse Rhythm [Right Forehead] Pulse Strength Pulse Strength [Right Forehead] Respiratory Rate 20 20 Respiratory Effort / Characteristics Mechanically Ventilated Respiratory Depth Normal Respiratory Pattern Regular Blood Pressure 175/124 H 175/124 H Blood Pressure [Right Arm] 174/126 H Blood Pressure Mean 138 138 Blood Pressure Mean [Right Arm] 142 Blood Pressure Position Blood Pressure Position [Right Arm] Lying Pulse Oximetry 97 97 Oxygen Delivery Method Mechanical Vent Oxygen Flow Rate Fraction of Inspired Oxygen Sepsis Recent Fever Within 48 Hours Sepsis New/Unexplained Change in Mental Status Sepsis Action Taken by Nursing End-Tidal CO2 48 02/29/24 04:50 02/29/24 04:54 02/29/24 04:55 Temperature 37.4 C Temperature Source Pulse Rate 160 H Pulse Rate [Right Forehead] Pulse Rate from SpO2 Sensor 161 H Pulse Rhythm Pulse Rhythm [Right Forehead] Pulse Strength Pulse Strength [Right Forehead] Respiratory Rate 20 Respiratory Effort / Characteristics Respiratory Depth Respiratory Pattern Blood Pressure 174/126 H 171/123 H Blood Pressure [Right Arm] Blood Pressure Mean 144 137 Blood Pressure Mean [Right Arm] Blood Pressure Position Blood Pressure Position [Right Arm] Pulse Oximetry 97 Oxygen Delivery Method Oxygen Flow Rate Fraction of Inspired Oxygen Sepsis Recent Fever Within 48 Hours Sepsis New/Unexplained Change in Mental Status Sepsis Action Taken by Nursing End-Tidal CO2 49 02/29/24 04:55 02/29/24 04:55 02/29/24 04:55 Temperature Temperature Source Pulse Rate Pulse Rate [Right Forehead] Pulse Rate from SpO2 Sensor Pulse Rhythm Pulse Rhythm [Right Forehead] Pulse Strength Pulse Strength [Right Forehead] Respiratory Rate Respiratory Effort / Characteristics Respiratory Depth Respiratory Pattern Blood Pressure 171/123 H 171/123 H 171/123 H Blood Pressure [Right Arm] Blood Pressure Mean 137 137 137 Blood Pressure Mean [Right Arm] Blood Pressure Position Blood Pressure Position [Right Arm] Pulse Oximetry Oxygen Delivery Method Oxygen Flow Rate Fraction of Inspired Oxygen Sepsis Recent Fever Within 48 Hours Sepsis New/Unexplained Change in Mental Status Sepsis Action Taken by Nursing End-Tidal CO2 02/29/24 04:57 02/29/24 05:00 02/29/24 05:00 Temperature 37.4 C Temperature Source Pulse Rate 161 H Pulse Rate [Right Forehead] Pulse Rate from SpO2 Sensor 161 H Pulse Rhythm Pulse Rhythm [Right Forehead] Pulse Strength Pulse Strength [Right Forehead] Respiratory Rate 20 Respiratory Effort / Characteristics Respiratory Depth Respiratory Pattern Blood Pressure 175/128 H 175/128 H Blood Pressure [Right Arm] Blood Pressure Mean 146 146 Blood Pressure Mean [Right Arm] Blood Pressure Position Blood Pressure Position [Right Arm] Pulse Oximetry 97 Oxygen Delivery Method Oxygen Flow Rate Fraction of Inspired Oxygen Sepsis Recent Fever Within 48 Hours Sepsis New/Unexplained Change in Mental Status Sepsis Action Taken by Nursing End-Tidal CO2 47 02/29/24 05:02 02/29/24 05:05 02/29/24 05:06 Temperature 37.2 C 37.4 C Temperature Source Ruiz Cath ( Temp Sensing) Pulse Rate 162 H Pulse Rate [Right Forehead] 162 H Pulse Rate from SpO2 Sensor 162 H Pulse Rhythm Pulse Rhythm [Right Forehead] Pulse Strength Pulse Strength [Right Forehead] Respiratory Rate 20 20 Respiratory Effort / Characteristics Mechanically Ventilated Respiratory Depth Normal Respiratory Pattern Blood Pressure 171/127 H Blood Pressure [Right Arm] 179/130 H Blood Pressure Mean 137 Blood Pressure Mean [Right Arm] 146 Blood Pressure Position Blood Pressure Position [Right Arm] Lying Pulse Oximetry 96 96 Oxygen Delivery Method Mechanical Vent Oxygen Flow Rate Fraction of Inspired Oxygen Sepsis Recent Fever Within 48 Hours Sepsis New/Unexplained Change in Mental Status Sepsis Action Taken by Nursing End-Tidal CO2 48 02/29/24 05:10 02/29/24 05:15 02/29/24 05:15 Temperature 37.4 C Temperature Source Ruiz Cath ( Temp Sensing) Pulse Rate Pulse Rate [Right Forehead] 158 H Pulse Rate from SpO2 Sensor Pulse Rhythm Pulse Rhythm [Right Forehead] Regular Pulse Strength Pulse Strength [Right Forehead] Respiratory Rate 20 Respiratory Effort / Characteristics Mechanically Ventilated Respiratory Depth Normal Respiratory Pattern Blood Pressure 176/129 H 179/130 H Blood Pressure [Right Arm] 179/130 H Blood Pressure Mean 143 146 Blood Pressure Mean [Right Arm] 146 Blood Pressure Position Blood Pressure Position [Right Arm] Lying Pulse Oximetry 96 Oxygen Delivery Method Mechanical Vent Oxygen Flow Rate Fraction of Inspired Oxygen Sepsis Recent Fever Within 48 Hours Sepsis New/Unexplained Change in Mental Status Sepsis Action Taken by Nursing End-Tidal CO2 02/29/24 05:25 02/29/24 05:25 02/29/24 05:25 Temperature Temperature Source Pulse Rate Pulse Rate [Right Forehead] Pulse Rate from SpO2 Sensor Pulse Rhythm Pulse Rhythm [Right Forehead] Pulse Strength Pulse Strength [Right Forehead] Respiratory Rate Respiratory Effort / Characteristics Respiratory Depth Respiratory Pattern Blood Pressure 180/129 H 180/129 H 180/129 H Blood Pressure [Right Arm] Blood Pressure Mean 144 144 144 Blood Pressure Mean [Right Arm] Blood Pressure Position Blood Pressure Position [Right Arm] Pulse Oximetry Oxygen Delivery Method Oxygen Flow Rate Fraction of Inspired Oxygen Sepsis Recent Fever Within 48 Hours Sepsis New/Unexplained Change in Mental Status Sepsis Action Taken by Nursing End-Tidal CO2 02/29/24 05:28 02/29/24 05:30 02/29/24 05:30 Temperature Temperature Source Pulse Rate 162 H Pulse Rate [Right Forehead] Pulse Rate from SpO2 Sensor Pulse Rhythm Pulse Rhythm [Right Forehead] Pulse Strength Pulse Strength [Right Forehead] Respiratory Rate Respiratory Effort / Characteristics Respiratory Depth Respiratory Pattern Blood Pressure 180/129 H 172/118 H 172/118 H Blood Pressure [Right Arm] Blood Pressure Mean 139 139 Blood Pressure Mean [Right Arm] Blood Pressure Position Blood Pressure Position [Right Arm] Pulse Oximetry Oxygen Delivery Method Oxygen Flow Rate Fraction of Inspired Oxygen Sepsis Recent Fever Within 48 Hours Sepsis New/Unexplained Change in Mental Status Sepsis Action Taken by Nursing End-Tidal CO2 02/29/24 05:33 02/29/24 05:42 02/29/24 05:45 Temperature 37.4 C Temperature Source Pulse Rate 134 H 120 H Pulse Rate [Right Forehead] Pulse Rate from SpO2 Sensor 134 H Pulse Rhythm Pulse Rhythm [Right Forehead] Pulse Strength Pulse Strength [Right Forehead] Respiratory Rate 20 Respiratory Effort / Characteristics Respiratory Depth Respiratory Pattern Blood Pressure 122/95 111/85 Blood Pressure [Right Arm] Blood Pressure Mean 91 Blood Pressure Mean [Right Arm] Blood Pressure Position Blood Pressure Position [Right Arm] Pulse Oximetry 96 Oxygen Delivery Method Oxygen Flow Rate Fraction of Inspired Oxygen Sepsis Recent Fever Within 48 Hours Sepsis New/Unexplained Change in Mental Status Sepsis Action Taken by Nursing End-Tidal CO2 49 02/29/24 05:49 Temperature Temperature Source Pulse Rate Pulse Rate [Right Forehead] Pulse Rate from SpO2 Sensor Pulse Rhythm Pulse Rhythm [Right Forehead] Pulse Strength Pulse Strength [Right Forehead] Respiratory Rate 22 Respiratory Effort / Characteristics Respiratory Depth Respiratory Pattern Blood Pressure Blood Pressure [Right Arm] Blood Pressure Mean Blood Pressure Mean [Right Arm] Blood Pressure Position Blood Pressure Position [Right Arm] Pulse Oximetry Oxygen Delivery Method Oxygen Flow Rate Fraction of Inspired Oxygen 70 Sepsis Recent Fever Within 48 Hours Sepsis New/Unexplained Change in Mental Status Sepsis Action Taken by Nursing End-Tidal CO2 Laboratory Data 02/29/24 11:50 02/29/24 03:46 Lab Results 02/29/24 02/29/24 02/29/24 Range/Units 03:46 03:49 04:11 WBC 13.63 H (4.8-10.8) K/ul RBC 4.98 (4.70-6.10) M/uL Hgb 15.7 (14.0-18.0) g/dl POC Hgb 16.3 (14.0-18.0) g/dl Hct 47.2 (42.0-52.0) % POC Hct 48 (42-52) % MCV 94.8 (80.0-100.0) fL MCH 31.5 (25.0-34.0) pg MCHC 33.3 (32.0-36.0) g/dL RDW Std Deviation 42.5 (36.4-46.3) fL RDW Coeff of Kenzie 12.3 (11.5-14.5) % Plt Count 253 (130-400) K/uL MPV 12.1 (9.4-12.4) fL Immature Gran % (Auto) 2.3 % Neut % (Auto) 54.5 % Lymph % (Auto) 32.0 % Owen % (Auto) 9.5 % Eos % (Auto) 1.1 % Baso % (Auto) 0.6 % Neut # (Auto) 7.44 H (1.40-6.50) K/uL Lymph # (Auto) 4.36 H (1.20-3.40) K/uL Owen # (Auto) 1.29 H (0.11-0.59) K/uL Eos # (Auto) 0.15 (0.00-0.50) K/uL Baso # (Auto) 0.08 (0.00-0.20) K/uL Immature Gran # (Auto) 0.31 H (0.01-0.20) K/uL POC pH (7.35-7.45) POC pCO2 (35-46) mmHg POC pO2 (80-95) mmHg POC HCO3 (19-24) anastasia/L POC Base Excess (-9-1.8) anastasia/L POC ABG O2 Sat (90-95) % POC Sodium 141 (135-144) mmol/L Sodium 140 (136-145) mmol/L POC Potassium 3.8 (3.3-5.0) mmol/L Potassium 3.8 (3.5-5.1) mmol/L POC Chloride 101 (101-112) mmol/L Chloride 103 (98-107) mmol/L Carbon Dioxide 30 (21-32) mmol/L POC Total CO2 27 (24-31) mmol/L Anion Gap 7 (3-11) POC Anion Gap 17.0 (16-25) mmol/L POC BUN 13 (7-18) mg/dl BUN 14 (6-23) mg/dl Creatinine 1.02 (0.6-1.4) mg/dl POC Creatinine 1.0 (0.6-1.3) mg/dl Est Cr Clr Drug Dosing 103.4 ml/min eGFR 85.72 BUN/Creatinine Ratio 13.7 (10-20) Glucose 331 H* (70-99(Fasting)) mg/dl POC Glucose (other) 323 H (70-99) mg/dl Lactate (0.4-2.0) mmol/L Calcium 8.9 (8.6-10.3) mg/dl POC Ioniz Calcium Nguyễn 1.18 (1.12-1.32) mmol/l Magnesium 1.8 (1.7-2.4) mg/dl Total Bilirubin 0.7 (0.2-1.0) mg/dl AST 107 H (13-39) U/L ALT 91 H (7-52) U/L Alkaline Phosphatase 94 (34-104) U/L Troponin I High Sens 12.0 (0-20) pg/ml B-Natriuretic Peptide 1032 H (0-100) pg/ml Total Protein 7.2 (6.0-8.3) gm/dl Albumin 3.9 (3.4-5.0) gm/dl Globulin 3.3 (2.5-4.0) gm/dl Albumin/Globulin Ratio 1.2 (0.9-2) Lipase 135 H (11-82) U/L Procalcitonin 0.06 (0-0.5) ng/ml Urine Color Urine Appearance (Clear) Urine pH (4.5-7.5) Ur Specific Latham (1.000-1.030) Urine Protein (Negative) Urine Glucose (UA) (Negative) Urine Ketones (Negative) Urine Blood (Negative) Urine Nitrite (Negative) Urine Bilirubin (Negative) Urine Urobilinogen (Negative) Ur Leukocyte Esterase (Negative) Urine WBC (Auto) (0-5) /hpf Urine RBC (Auto) (0-2) /hpf U Hyaline Cast (Auto) (0-2) /lpf U Epithel Cells (Auto) (0-2) /hpf Urine Bacteria (Auto) (None Seen) Hyaline Casts (None Presnt) /lpf Adenovirus (PCR) Not Detected (NotDetected) B. pertussis DNA (PCR) Not Detected (NotDetected) B.parapertussis DNA PCR Not Detected (NotDetected) C. pneumoniae DNA (PCR) Not Detected (NotDetected) Coronavirus OC43 (PCR) Not Detected (NotDetected) Coronavirus HKU1 (PCR) Not Detected (NotDetected) Coronavirus 229E (PCR) Not Detected (NotDetected) SARS-CoV-2 (PCR) Not Detected (NotDetected) Coronavirus NL63 (PCR) Not Detected (NotDetected) Human Metapneumovir PCR Not Detected (NotDetected) Influenza A Untype (PCR) DETECTED A (NotDetected) Influenza Type B (PCR) Not Detected (NotDetected) M. pneumoniae (PCR) Not Detected (NotDetected) Parainfluenza 1 (PCR) Not Detected (NotDetected) Parainfluenza 2 (PCR) Not Detected (NotDetected) Parainfluenza 3 (PCR) Not Detected (NotDetected) Parainfluenza 4 (PCR) Not Detected (NotDetected) RSV (PCR) Not Detected (NotDetected) Entero/Rhino (PCR) Not Detected (NotDetected) 02/29/24 02/29/24 02/29/24 Range/Units 04:13 04:17 04:26 WBC (4.8-10.8) K/ul RBC (4.70-6.10) M/uL Hgb (14.0-18.0) g/dl POC Hgb 15.0 (14.0-18.0) g/dl Hct (42.0-52.0) % POC Hct 44 (42-52) % MCV (80.0-100.0) fL MCH (25.0-34.0) pg MCHC (32.0-36.0) g/dL RDW Std Deviation (36.4-46.3) fL RDW Coeff of Kenzie (11.5-14.5) % Plt Count (130-400) K/uL MPV (9.4-12.4) fL Immature Gran % (Auto) % Neut % (Auto) % Lymph % (Auto) % Owen % (Auto) % Eos % (Auto) % Baso % (Auto) % Neut # (Auto) (1.40-6.50) K/uL Lymph # (Auto) (1.20-3.40) K/uL Owen # (Auto) (0.11-0.59) K/uL Eos # (Auto) (0.00-0.50) K/uL Baso # (Auto) (0.00-0.20) K/uL Immature Gran # (Auto) (0.01-0.20) K/uL POC pH 7.15 L* (7.35-7.45) POC pCO2 77 H (35-46) mmHg POC pO2 177 H (80-95) mmHg POC HCO3 27 H (19-24) anastasia/L POC Base Excess -2.0 (-9-1.8) anastasia/L POC ABG O2 Sat 99.0 H (90-95) % POC Sodium 138 (135-144) mmol/L Sodium (136-145) mmol/L POC Potassium 4.4 (3.3-5.0) mmol/L Potassium (3.5-5.1) mmol/L POC Chloride (101-112) mmol/L Chloride (98-107) mmol/L Carbon Dioxide (21-32) mmol/L POC Total CO2 29 (24-31) mmol/L Anion Gap (3-11) POC Anion Gap (16-25) mmol/L POC BUN (7-18) mg/dl BUN (6-23) mg/dl Creatinine (0.6-1.4) mg/dl POC Creatinine (0.6-1.3) mg/dl Est Cr Clr Drug Dosing ml/min eGFR BUN/Creatinine Ratio (10-20) Glucose (70-99(Fasting)) mg/dl POC Glucose (other) (70-99) mg/dl Lactate 1.7 (0.4-2.0) mmol/L Calcium (8.6-10.3) mg/dl POC Ioniz Calcium Nguyễn (1.12-1.32) mmol/l Magnesium (1.7-2.4) mg/dl Total Bilirubin (0.2-1.0) mg/dl AST (13-39) U/L ALT (7-52) U/L Alkaline Phosphatase (34-104) U/L Troponin I High Sens (0-20) pg/ml B-Natriuretic Peptide (0-100) pg/ml Total Protein (6.0-8.3) gm/dl Albumin (3.4-5.0) gm/dl Globulin (2.5-4.0) gm/dl Albumin/Globulin Ratio (0.9-2) Lipase (11-82) U/L Procalcitonin (0-0.5) ng/ml Urine Color Yellow Urine Appearance Clear (Clear) Urine pH 6.0 (4.5-7.5) Ur Specific Latham 1.025 (1.000-1.030) Urine Protein 4+ H (Negative) Urine Glucose (UA) 2+ H (Negative) Urine Ketones Trace H (Negative) Urine Blood Trace H (Negative) Urine Nitrite Negative (Negative) Urine Bilirubin Negative (Negative) Urine Urobilinogen Negative (Negative) Ur Leukocyte Esterase Negative (Negative) Urine WBC (Auto) 0-5 (0-5) /hpf Urine RBC (Auto) 0-2 (0-2) /hpf U Hyaline Cast (Auto) 11-20 H (0-2) /lpf U Epithel Cells (Auto) 0-2 (0-2) /hpf Urine Bacteria (Auto) None Seen (None Seen) Hyaline Casts Present A (None Presnt) /lpf Adenovirus (PCR) (NotDetected) B. pertussis DNA (PCR) (NotDetected) B.parapertussis DNA PCR (NotDetected) C. pneumoniae DNA (PCR) (NotDetected) Coronavirus OC43 (PCR) (NotDetected) Coronavirus HKU1 (PCR) (NotDetected) Coronavirus 229E (PCR) (NotDetected) SARS-CoV-2 (PCR) (NotDetected) Coronavirus NL63 (PCR) (NotDetected) Human Metapneumovir PCR (NotDetected) Influenza A Untype (PCR) (NotDetected) Influenza Type B (PCR) (NotDetected) M. pneumoniae (PCR) (NotDetected) Parainfluenza 1 (PCR) (NotDetected) Parainfluenza 2 (PCR) (NotDetected) Parainfluenza 3 (PCR) (NotDetected) Parainfluenza 4 (PCR) (NotDetected) RSV (PCR) (NotDetected) Entero/Rhino (PCR) (NotDetected) 02/29/24 Range/Units 05:45 WBC (4.8-10.8) K/ul RBC (4.70-6.10) M/uL Hgb (14.0-18.0) g/dl POC Hgb 15.3 (14.0-18.0) g/dl Hct (42.0-52.0) % POC Hct 45 (42-52) % MCV (80.0-100.0) fL MCH (25.0-34.0) pg MCHC (32.0-36.0) g/dL RDW Std Deviation (36.4-46.3) fL RDW Coeff of Kenzie (11.5-14.5) % Plt Count (130-400) K/uL MPV (9.4-12.4) fL Immature Gran % (Auto) % Neut % (Auto) % Lymph % (Auto) % Owen % (Auto) % Eos % (Auto) % Baso % (Auto) % Neut # (Auto) (1.40-6.50) K/uL Lymph # (Auto) (1.20-3.40) K/uL Owen # (Auto) (0.11-0.59) K/uL Eos # (Auto) (0.00-0.50) K/uL Baso # (Auto) (0.00-0.20) K/uL Immature Gran # (Auto) (0.01-0.20) K/uL POC pH 7.22 L (7.35-7.45) POC pCO2 65 H (35-46) mmHg POC pO2 114 H (80-95) mmHg POC HCO3 27 H (19-24) anastasia/L POC Base Excess -1.0 (-9-1.8) anastasia/L POC ABG O2 Sat 97.0 H (90-95) % POC Sodium 135 (135-144) mmol/L Sodium (136-145) mmol/L POC Potassium 5.5 H (3.3-5.0) mmol/L Potassium (3.5-5.1) mmol/L POC Chloride (101-112) mmol/L Chloride (98-107) mmol/L Carbon Dioxide (21-32) mmol/L POC Total CO2 29 (24-31) mmol/L Anion Gap (3-11) POC Anion Gap (16-25) mmol/L POC BUN (7-18) mg/dl BUN (6-23) mg/dl Creatinine (0.6-1.4) mg/dl POC Creatinine (0.6-1.3) mg/dl Est Cr Clr Drug Dosing ml/min eGFR BUN/Creatinine Ratio (10-20) Glucose (70-99(Fasting)) mg/dl POC Glucose (other) (70-99) mg/dl Lactate (0.4-2.0) mmol/L Calcium (8.6-10.3) mg/dl POC Ioniz Calcium Nguyễn (1.12-1.32) mmol/l Magnesium (1.7-2.4) mg/dl Total Bilirubin (0.2-1.0) mg/dl AST (13-39) U/L ALT (7-52) U/L Alkaline Phosphatase (34-104) U/L Troponin I High Sens (0-20) pg/ml B-Natriuretic Peptide (0-100) pg/ml Total Protein (6.0-8.3) gm/dl Albumin (3.4-5.0) gm/dl Globulin (2.5-4.0) gm/dl Albumin/Globulin Ratio (0.9-2) Lipase (11-82) U/L Procalcitonin (0-0.5) ng/ml Urine Color Urine Appearance (Clear) Urine pH (4.5-7.5) Ur Specific Latham (1.000-1.030) Urine Protein (Negative) Urine Glucose (UA) (Negative) Urine Ketones (Negative) Urine Blood (Negative) Urine Nitrite (Negative) Urine Bilirubin (Negative) Urine Urobilinogen (Negative) Ur Leukocyte Esterase (Negative) Urine WBC (Auto) (0-5) /hpf Urine RBC (Auto) (0-2) /hpf U Hyaline Cast (Auto) (0-2) /lpf U Epithel Cells (Auto) (0-2) /hpf Urine Bacteria (Auto) (None Seen) Hyaline Casts (None Presnt) /lpf Adenovirus (PCR) (NotDetected) B. pertussis DNA (PCR) (NotDetected) B.parapertussis DNA PCR (NotDetected) C. pneumoniae DNA (PCR) (NotDetected) Coronavirus OC43 (PCR) (NotDetected) Coronavirus HKU1 (PCR) (NotDetected) Coronavirus 229E (PCR) (NotDetected) SARS-CoV-2 (PCR) (NotDetected) Coronavirus NL63 (PCR) (NotDetected) Human Metapneumovir PCR (NotDetected) Influenza A Untype (PCR) (NotDetected) Influenza Type B (PCR) (NotDetected) M. pneumoniae (PCR) (NotDetected) Parainfluenza 1 (PCR) (NotDetected) Parainfluenza 2 (PCR) (NotDetected) Parainfluenza 3 (PCR) (NotDetected) Parainfluenza 4 (PCR) (NotDetected) RSV (PCR) (NotDetected) Entero/Rhino (PCR) (NotDetected) Administered Medications Albuterol (Albuterol 0.083% Nebu Soln 3 Ml Vial) 2.5 mg NEB Q6R [facility]; Protocol Stop: 03/30/24 06:59 Last Admin: 02/29/24 12:10 Dose: 2.5 mg Documented By: Admin: 02/29/24 08:10 Dose: 2.5 mg Documented By: AA Budesonide (Budesonide 0.25 Mg/2 Ml Vial (Pulmicort)) 0.25 mg NEB BIDR [facility] Stop: 03/30/24 06:59 Last Admin: 02/29/24 08:10 Dose: 0.25 mg Documented By: AA Folic Acid (Folic Acid 1 Mg Tab) 1 mg PO QAM [facility] Stop: 03/30/24 08:59 Last Admin: 02/29/24 07:34 Dose: 1 mg Documented By: ES Doxycycline Hyclate 100 mg/ (Dextrose) 100 mls @ 50 mls/hr IV Q12H [facility] Stop: 03/05/24 06:59 Last Infusion: 02/29/24 09:31 Dose: Infused Documented By: Admin: 02/29/24 07:33 Dose: 50 mls/hr Documented By: ES Insulin Human Regular 250 (units/ Sodium Chloride) 250 mls @ 2 mls/hr IV .Q24H [facility]; Protocol Stop: 03/30/24 07:14 Last Titration: 02/29/24 16:25 Dose: 2 mls/hr, 2 mls/hr Documented By: ES Co-signed By: DAA Titration: 02/29/24 15:15 Dose: 2.5 mls/hr, 2.5 mls/hr Documented By: ES Co-signed By: AMS Titration: 02/29/24 14:00 Dose: 2.5 mls/hr, 2.5 mls/hr Documented By: ES Co-signed By: AMS Titration: 02/29/24 13:02 Dose: 2.5 mls/hr, 2.5 mls/hr Documented By: ES Co-signed By: AMS Titration: 02/29/24 11:55 Dose: 2.5 mls/hr, 2.5 mls/hr Documented By: ES Co-signed By: AMS Titration: 02/29/24 10:33 Dose: 2.5 mls/hr, 2.5 mls/hr Documented By: ES Co-signed By: GPF Titration: 02/29/24 09:00 Dose: 3.1 mls/hr, 3.1 mls/hr Documented By: ES Co-signed By: GPF Admin: 02/29/24 07:38 Dose: 2.6 mls/hr, 2.6 mls/hr Documented By: ES Co-signed By: AMS Fentanyl Citrate (Fentanyl Citrate) 2,500 mcg in 250 mls @ 10 mls/hr IV .Q25H [facility]; Protocol Stop: 03/14/24 06:58 Last Titration: 02/29/24 13:02 Dose: 100 mcg/hr, 10 mls/hr Documented By: ANYI Co-signed By: AMS Titration: 02/29/24 11:30 Dose: 75 mcg/hr, 7.5 mls/hr Documented By: ES Co-signed By: AMS Titration: 02/29/24 10:39 Dose: 50 mcg/hr, 5 mls/hr Documented By: ANYI Co-signed By: GPF Admin: 02/29/24 07:15 Dose: 25 mcg/hr, 2.5 mls/hr Documented By: ANYI Co-signed By: CHRISTIAN Norepinephrine Bitartrate (Levophed/D5w) 4 mg in 250 mls @ 25.279 mls/hr IV .Q9H54M [facility]; Protocol Stop: 03/30/24 09:14 Last Titration: 02/29/24 10:50 Dose: 0.07 mcg/kg/min, 25.3 mls/hr Documented By: ANYI Co-signed By: CHRISTIAN Admin: 02/29/24 09:30 Dose: 0.05 mcg/kg/min, 18.1 mls/hr Documented By: ANYI Co-signed By: KALEB Ceftriaxone Sodium (Rocephin) 2,000 mg in 50 mls @ 100 mls/hr IV Q24H [facility] Stop: 03/05/24 10:59 Last Infusion: 02/29/24 12:32 Dose: Infused Documented By: Admin: 02/29/24 11:55 Dose: 100 mls/hr Documented By: ANYI Propofol (Diprivan) 1,000 mg in 100 mls @ 14.445 mls/hr IV .Q6H56M [facility]; Protocol Stop: 03/03/24 11:29 Last Admin: 02/29/24 15:14 Dose: 25 mcg/kg/min, 14.4 mls/hr Documented By: ANYI Co-signed By: CHRISTIAN Titration: 02/29/24 15:14 Dose: Infused Documented By: ANYI Co-signed By: CHRISTIAN Titration: 02/29/24 12:34 Dose: 25 mcg/kg/min, 14.4 mls/hr Documented By: Admin: 02/29/24 11:55 Dose: 20 mcg/kg/min, 11.6 mls/hr Documented By: ANYI Co-signed By: CHRISTIAN Insulin Aspart (Insulin Aspart Per Unit Charge) 0 units SC ACHS [facility] Stop: 03/30/24 07:29 Last Admin: 02/29/24 12:52 Dose: Not Given Documented By: Admin: 02/29/24 07:50 Dose: Not Given Documented By: Admin: 02/29/24 07:16 Dose: Not Given Documented By: ANYI Oseltamivir Phosphate (Oseltamivir Phosphate Susp 75 Mg/12.5 Ml Udp) 75 mg PO BID [facility]; Protocol Stop: 03/05/24 05:24 Last Admin: 02/29/24 07:14 Dose: 75 mg Documented By: ANYI Discontinued Medications Furosemide (Furosemide 40 Mg/4 Ml Vial) Confirm Administered Dose 40 mg IV .STK- MED ONE Stop: 02/29/24 03:56 Last Admin: 02/29/24 04:32 Dose: Not Given Documented By: FELA Furosemide (Furosemide 40 Mg/4 Ml Vial) 40 mg IV ONE ONE Stop: 02/29/24 04:00 Last Admin: 02/29/24 03:57 Dose: 40 mg Documented By: FELA Furosemide (Furosemide 40 Mg/4 Ml Vial) 40 mg IV ONE ONE Stop: 02/29/24 12:01 Last Admin: 02/29/24 11:55 Dose: 40 mg Documented By: ANYI Furosemide (Furosemide 40 Mg/4 Ml Vial) 40 mg IV ONE ONE Stop: 02/29/24 12:02 Last Admin: 02/29/24 12:33 Dose: Not Given Documented By: ANYI Cefepime HCl (Maxipime 2000mg) 2,000 mg in 20 mls @ 5 mls/min IV NOW STA; Protocol Stop: 02/29/24 04:42 Last Admin: 02/29/24 04:58 Dose: 5 mls/min Documented By: FELA Magnesium Sulfate/Dextrose (Magnesium Sulfate / D5w) 1 gm in 100 mls @ 50 mls/hr IV Q2H [facility] Stop: 02/29/24 09:14 Last Infusion: 02/29/24 08:44 Dose: Infused Documented By: Admin: 02/29/24 07:15 Dose: 50 mls/hr Documented By: Infusion: 02/29/24 07:08 Dose: Infused Documented By: Admin: 02/29/24 05:34 Dose: 50 mls/hr Documented By: FELA Thiamine HCl 100 mg/ Syringe 10 mls @ 2 mls/min IV NOW STA Stop: 02/29/24 05:18 Last Admin: 02/29/24 05:49 Dose: 2 mls/min Documented By: FELA Potassium Chloride (K Christian / Wtr) 10 meq in 100 mls @ 100 mls/hr IV Q1H [facility] Stop: 02/29/24 07:14 Last Infusion: 02/29/24 08:44 Dose: Infused Documented By: Admin: 02/29/24 07:15 Dose: 100 mls/hr Documented By: Infusion: 02/29/24 07:08 Dose: Infused Documented By: Admin: 02/29/24 05:34 Dose: 100 mls/hr Documented By: FELA Propofol (Diprivan) 1,000 mg in 100 mls @ 0 mls/hr IV .Q0M [facility]; Protocol Stop: 02/29/24 05:18 Last Titration: 02/29/24 08:44 Dose: Infused Documented By: Titration: 02/29/24 05:29 Dose: 40 mcg/kg/min, 24.5 mls/hr Documented By: Titration: 02/29/24 04:17 Dose: 35 mcg/kg/min, 21.4 mls/hr Documented By: Titration: 02/29/24 04:11 Dose: 25 mcg/kg/min, 15.3 mls/hr Documented By: Titration: 02/29/24 04:05 Dose: 15 mcg/kg/min, 9.2 mls/hr Documented By: Admin: 02/29/24 03:56 Dose: 5 mcg/kg/min, 3.1 mls/hr Documented By: FELA Co-signed By: LANRE Pantoprazole Sodium 40 mg/ (Dextrose) 100 mls @ 20 mls/hr IV Q5H [facility] Stop: 03/30/24 06:14 Last Infusion: 02/29/24 10:37 Dose: Infused Documented By: Admin: 02/29/24 07:15 Dose: 8 mg/hr, 20 mls/hr Documented By: ANYI Pantoprazole Sodium 80 mg/ (Dextrose) 120 mls @ 480 mls/hr IV NOW ONE Stop: 02/29/24 06:07 Last Infusion: 02/29/24 07:08 Dose: Infused Documented By: Admin: 02/29/24 06:04 Dose: 480 mls/hr Documented By: PAG Azithromycin 500 mg/ Sodium (Chloride) 255 mls @ 127.5 mls/hr IV DAILY [facility] Stop: 03/05/24 08:59 Last Infusion: 02/29/24 09:31 Dose: Infused Documented By: Admin: 02/29/24 07:57 Dose: 127.5 mls/hr Documented By: ANYI Insulin Human Regular (Novolin-R Bolus From Bag) 2.5 units IV ONE ONE Stop: 02/29/24 07:16 Last Admin: 02/29/24 07:38 Dose: 2.5 units Documented By: ANYI Co-signed By: CHRISTIAN Metoprolol Tartrate (Metoprolol Tartrate 1 Mg/Ml Vial) 2.5 mg IV NOW STA Stop: 02/29/24 05:08 Last Admin: 02/29/24 05:28 Dose: 2.5 mg Documented By: FELA Midazolam HCl (Midazolam Hcl 5 Mg/Ml 2ml Vial) 4 mg IV NOW STA Stop: 02/29/24 05:26 Last Admin: 02/29/24 05:29 Dose: 4 mg Documented By: FELA Midazolam HCl (Midazolam Hcl 1 Mg/Ml 2ml Vial) Confirm Administered Dose 4 mg .ROUTE .STK-MED ONE Stop: 02/29/24 06:21 Last Admin: 02/29/24 06:27 Dose: Not Given Documented By: LANRE Midazolam HCl (Midazolam Hcl 5 Mg/Ml 2ml Vial) 4 mg IV NOW STA Stop: 02/29/24 06:25 Last Admin: 02/29/24 06:27 Dose: 4 mg Documented By: LANRE Miscellaneous (Rapid Sequence Induction Bag) Confirm Administered Dose 1 each N/A .STK-MED ONE Stop: 02/29/24 03:45 Last Admin: 02/29/24 04:32 Dose: 1 each Documented By: FELA Miscellaneous (Moderate Stress Level ) 1 each N/A ONE ONE Stop: 02/29/24 06:14 Last Admin: 02/29/24 07:14 Dose: Not Given Documented By: ANYI Multivitamins (Multivitamin Tab) 1 tab PO QAM MINO Stop: 03/30/24 08:59 Last Admin: 02/29/24 07:34 Dose: 1 tab Documented By: ANYI Pantoprazole Sodium (Pantoprazole Bolus/Drip) 1 each IV NOW STA Stop: 02/29/24 05:54 Last Admin: 02/29/24 07:09 Dose: Not Given Documented By: ANYI Perflutren Lipid Microsphere (Perflutren Lipid Microsphere (Definity)) 2 ml IV ONCE ONE Stop: 02/29/24 09:53 Last Admin: 02/29/24 09:53 Dose: 2 ml Documented By: MISSY Potassium Chloride (Potassium Chloride 20 Meq/15 Ml Udc) 20 meq PO ONE ONE Stop: 02/29/24 12:04 Last Admin: 02/29/24 12:52 Dose: 20 meq Documented By: ANYI Propofol (Propofol Iv Emulsion 10 Mg/Ml 100 Ml Vial) Confirm Administered Dose 1,000 mg IV .STK-MED ONE Stop: 02/29/24 03:51 Last Admin: 02/29/24 05:41 Dose: Not Given Documented By: FELA Vecuronium [place] (Vecuronium [place] 10 Mg Vial) 10 mg IV NOW STA Stop: 02/29/24 04:16 Last Admin: 02/29/24 04:22 Dose: 10 mg Documented By: FELA Co-signed By: Imaging Data Radiologist's Impression: Chest X-Ray 02/29/24 03:59 EXAM: XR chest 1V portable CLINICAL HISTORY: DYSPNEA. TECHNIQUE: An X-ray image of the chest is obtained in AP projection. COMPARISON: CT dated 10/08/2015. FINDINGS: Pulmonary Parenchyma: New patchy airspace opacification in the right lower zone. The prominence of perihilar broncho-vascular markings is seen. No pulmonary nodules are identified. No evidence of pleural effusion or pleural thickening. Heart and Mediastinum: The heart size is enlarged. A cardiac pacemaker is seen. No mediastinal widening or masses. Bony Thorax: The bony thorax appears intact without fractures or deformities. Soft Tissues: Soft tissues overlying the chest wall are unremarkable. IMPRESSION: 1. New patchy airspace opacification in the right lower zone is concerning for infective/inflammatory etiology. 2. Prominent broncho-vascular markings with right perihilar peribronchial cuffing may represent bronchitis/small airway disease or congestion(new). 3. Clinical correlation is suggested. Electronically signed by Floresita Romero 02-29-2024 05:13 AM Chest X-Ray 02/29/24 04:17 EXAM: XR chest 1V portable CLINICAL HISTORY: EVAL INTUBATION AND NG PLACEMENT F TECHNIQUE: An X-ray image of the chest is obtained in AP projection. COMPARISON: CT dated 10/08/2015 and subsequent radiograph dated 02/29/2024. FINDINGS: The endotracheal tube is seen at a satisfactory position, with the distal tip at least 5 cm above the tequila. The nasogastric tube is seen with its distal tip below the left hemidiaphragm. Pulmonary Parenchyma: New patchy airspace opacification in the right lower zone. Prominent broncho-vascular markings with bulky james. No pulmonary nodules are identified. No evidence of pleural effusion or pleural thickening. Heart and Mediastinum: The heart size is enlarged. A cardiac pacemaker is seen. Bilateral james appear bulky, probably due to prominent vascular shadows. Bony Thorax: The bony thorax appears intact without fractures or deformities. Soft Tissues: Soft tissues overlying the chest wall are unremarkable. IMPRESSION: 1. The endotracheal tube is seen at a satisfactory position, with the distal tip at least 5 cm above the tequila. 2. The nasogastric tube is seen with its distal tip below the left hemidiaphragm. 3. New patchy airspace opacification in the right lower zone is concerning for infective or inflammatory etiology. 4. Prominent broncho-vascular markings with bulky james may represent pulmonary vascular congestion/edema(new). 5. Clinical correlation is suggested. Electronically signed by Floresita Romero 02-29-2024 05:[address] 02/29/24 05:28 EXAM: CT chest diagnostic wo con CLINICAL HISTORY: Eval pulmonary lung meza/lymph nodes metz, htn ugib TECHNIQUE: Contiguous 3.[address] images of the chest were acquired without administration of intravenous contrast. Coronal and sagittal reconstructions were obtained. CTD 94.12 mGy, DLP 323.26 mGy cm.One of the following dose-reduction techniques was utilized for this exam. Automated exposure control, adjustment of the mA and/or kV according to patient size, and use of iterative reconstruction. COMPARISON: 10/08/2015 CT chest - 02/29/2024 X-Ray Chest. FINDINGS: The endotracheal tube is 3.5cm above the tequila. Nasogastric tube seen in place. Bilateral ground-glass opacities with left basal predominance, with consolidation probably an infection. Moderate bilateral pleural effusion associated with passive atelectasis. Enlarged mediastinal lymph nodes of probable reactive origin. The heart appears enlarged. Minimal pericardial effusion. Pacemaker on the left. There is no definite mass lesion in the chest wall. The scanned upper abdomen is unremarkable. Mild degenerative changes in the evaluated spine. IMPRESSION: 1. Bilateral ground-glass opacities with left basal predominance, with consolidation probably an infection. The possibility of pulmonary edema cannot be entirely excluded. Correlate with clinical work up and follow-up. New finding. 2. Moderate bilateral pleural effusion associated with passive atelectasis. New finding 3. Mediastinal and hilar lymphadenopathy. New finding. 4. Normopositioned nasogastric and endotracheal tubes. New finding. Electronically signed by Floresita Romero 02-29-2024 08:18 AM Discharge Plan Visit Data Chief Complaint: Shortness of Breath/Dyspnea Stated Complaint: Tachycardia, SOB ED Provider: Cristina Wilson Discharge Problem: Acute hypercapnic respiratory failure, Influenza A, Pneumonia Patient Disposition: Admitted As Inpatient Discharge Instructions Interventions: ED Discharge Assessment Last Done: 02/29/24 06:45 Discharge Problem: Pneumonia Qualifiers: Pneumonia type: due to influenza A virus Qualified Code(s): J10.00 - Influenza due to other identified influenza virus with unspecified type of pneumonia
[2024-02-29] MEDS ORDERED: STAT IV Infusion **Titration per Protocol STA ×4 (06:13→11:18)
[2024-02-29] MEDS ORDERED: LORazepam 2 MG/1 ML VIAL IV PRN (06:13)
[2024-02-29] MEDS ORDERED: INSULIN PROTOCOL GOAL RANGE ONE (06:13)
[2024-02-29] MEDS: MIDAZOLAM HCL 1 MG/ML 2ML VIAL ONE (06:27)
[2024-02-29 06:40] LABS: Hematocrit (blood only) 44.3 % (42.0-52.0); Hemoglobin 15.3 g/dl (14.0-18.0)
[2024-02-29] MEDS: PANTOPRAZOLE BOLUS/DRIP IV STA (07:09)
[2024-02-29] MEDS: MODERATE STRESS LEVEL ONE (07:14)
[2024-02-29] MEDS: OSELTAMIVIR PHOSPHATE SUSP 75 MG/12.5 ML UDP PO SCH (07:14)
[2024-02-29 07:15] LABS: INR 1.1 (0.9-1.1); Prothrombin Time 11.9 Seconds (9.0-12.0)
[2024-02-29] MEDS: fentaNYL citrate 2,500 MCG/250 ML BAG IV SCH (07:15)
[2024-02-29] MEDS: PANTOprazole 40 MG in DEXTROSE 5% MINI-B 100 ML IV SCH (07:15)
[2024-02-29] MEDS: INSULIN ASPART PER UNIT CHARGE SC SCH (07:16)
[2024-02-29] MEDS ORDERED: CARBOHYDRATES FOR HYPOGLYCEMIA PO PRN (07:30)
[2024-02-29] MEDS ORDERED: GLUCOSE 10 TAB/TUBE PO PRN (07:30)
[2024-02-29] MEDS ORDERED: GLUCOSE 40% GEL 15 GM TUBE PO PRN (07:30)
[2024-02-29] MEDS ORDERED: GLUCAGON FOR INJ 1 MG VIAL SQ PRN (07:30)
[2024-02-29] MEDS: DOXYCYCLINE HYCLATE 100 MG in DEXTROSE 5% MINI-B 100 ML IV SCH (07:33)
[2024-02-29] MEDS: FOLIC ACID 1 MG TAB PO SCH (07:34)
[2024-02-29] MEDS: MULTIVITAMIN TAB PO SCH (07:34)
[2024-02-29] MEDS: NovoLIN-R BOLUS FROM BAG IV ONE (07:38)
[2024-02-29] MEDS: INSULIN REGULAR 250 UNITS in SODIUM CHLORIDE 0.9% 247.5 ML IV SCH (07:38)
--- NOTE | 2024-02-29 07:54 | CT Scan Report ---
EXAM: CT head/brain wo con CLINICAL HISTORY: Evaluate pulm lung meza/lymph nodes metz, HTN. TECHNIQUE: Axial non-contrast CT scan of the brain was performed from the skull base to the high parietal region with multiplanar reconstructions. One of the following dose reduction techniques was utilized for this exam.Automated exposure control, adjustment of the mA and/or kV according to patient size, and use of iterative reconstruction. COMPARISON: None. FINDINGS: No intracerebral or extra axial hematoma. Choudhury-white matter differentiation is maintained. The ventricular system, cortical sulci, and basal cisterns are prominent and consistent with senile changes. No midline shift or deformity. Normal CT appearance of the posterior fossa structures. No definite calvarium fractures. The osseous structures in the skull base are unremarkable. Mucosal thickening in maxillary sinuses, sphenoid, and ethmoid cells. IMPRESSION: 1. No evidence of acute intracranial abnormality could be identified. However, the possibility of acute ischemic infarction cannot be entirely excluded, would recommend an MRI brain with DWI/ADC sequences for further evaluation if clinically indicated. 2. Mild senile brain changes. 3. Mucosal thickening in maxillary sinuses, sphenoid, and ethmoid cells. Electronically signed by Floresita Romero 02-29-2024 07:53 AM
[2024-02-29] MEDS: AZITHROMYCIN 500 MG in SODIUM CHLORIDE 0.9% 250 ML IV SCH (07:57)
[2024-02-29] MEDS: ALBUTEROL 0.083% NEBU SOLN 3 ML VIAL NEB SCH (08:10)
[2024-02-29] MEDS: BUDESONIDE 0.25 MG/2 ML VIAL (PULMICORT) NEB SCH (08:10)
--- NOTE | 2024-02-29 08:18 | CT Scan Report ---
EXAM: CT chest diagnostic wo con CLINICAL HISTORY: Eval pulmonary lung meza/lymph nodes metz, htn ugib TECHNIQUE: Contiguous 3.[address] images of the chest were acquired without administration of intravenous contrast. Coronal and sagittal reconstructions were obtained. CTD 94.12 mGy, DLP 323.26 mGy cm.One of the following dose-reduction techniques was utilized for this exam. Automated exposure control, adjustment of the mA and/or kV according to patient size, and use of iterative reconstruction. COMPARISON: 10/08/2015 CT chest - 02/29/2024 X-Ray Chest. FINDINGS: The endotracheal tube is 3.5cm above the tequila. Nasogastric tube seen in place. Bilateral ground-glass opacities with left basal predominance, with consolidation probably an infection. Moderate bilateral pleural effusion associated with passive atelectasis. Enlarged mediastinal lymph nodes of probable reactive origin. The heart appears enlarged. Minimal pericardial effusion. Pacemaker on the left. There is no definite mass lesion in the chest wall. The scanned upper abdomen is unremarkable. Mild degenerative changes in the evaluated spine. IMPRESSION: 1. Bilateral ground-glass opacities with left basal predominance, with consolidation probably an infection. The possibility of pulmonary edema cannot be entirely excluded. Correlate with clinical work up and follow-up. New finding. 2. Moderate bilateral pleural effusion associated with passive atelectasis. New finding 3. Mediastinal and hilar lymphadenopathy. New finding. 4. Normopositioned nasogastric and endotracheal tubes. New finding. Electronically signed by Floresita Romero 02-29-2024 08:18 AM
--- NOTE | 2024-02-29 08:31 | CT Scan Report ---
EXAM: CT abd pelvis wo con CLINICAL HISTORY: eval pulm lung meza/lymph nodes metz, htn ugib TECHNIQUE: Non-contrast CT of the abdomen and pelvis was performed, with the following protocol: axial images, and reconstructed coronal and sagittal images. One of the following dose reduction techniques was utilized for this exam: Automated exposure control, adjustment of the mA and/or kV according to patient size, and use of iterative reconstruction. total DLP 3223.26 mGy.cm COMPARISON: No prior studies available for comparison. FINDINGS: Scanned chest cuts: Bilateral moderate pleural effusion with underlying passive collapse. Cardiomegaly. NGT noted in place. Abdomen: Liver: Enlarged liver, right lobe span is 19 cm. Normal in shape, and density. No focal lesions, cysts, or masses were identified. Gallbladder and Biliary System: The gallbladder is normal in size and shape. There is ross-cholecystic mild fat stranding noted. Mild increase density of internal content of likely mud. No wall thickening or gallstones were identified. Pancreas: Pancreatic head, body, and tail are visualized and appear normal in size and density. No pancreatic masses or calcifications were noted. Spleen: Tiny splenic calcific granuloma. Two spleenules noted. Normal in size, shape, and density. No splenic lesions or masses were identified. Kidneys and Adrenal Glands: Small right renal cyst measures 22x26 mm. Mild bilateral ross-renal fat strandings could be inflammatory changes. Both kidneys are normal in size, shape, and position. Cortical thickness is within normal limits. No renal calculi or hydronephrosis. Adrenal glands are unremarkable. Abdominal Aorta and Vessels: Mild aortoiliac intimal atherosclerotic calcifications. Pelvis: Urinary Bladder: Empty Catheterized urinary bladder with wall thickening and ross-vesical fat strandings, could be cystitis, clinical correlation is needed. Prostate: Normal in size and contour. No masses or abnormal thickening. Seminal Vesicles: Normal appearance without abnormal enlargement or mass. Peritoneal and Retroperitoneal Structures: Multiple reactive-looking jaxson-hepatis lymph nodes noted. No free fluid or abnormal fluid collections were identified within the abdomen or pelvis. No lymphadenopathy was noted. Bowel: Normal appendix. The visualized bowel loops are normal in caliber and appearance. No evidence of bowel obstruction or wall thickening. Bones and Soft Tissues: Lumbar spine degenerative changes with ostoephytes. Pelvic bones and soft tissues are unremarkable. No fractures or abnormal masses were identified. IMPRESSION: 1. Hepatomegaly. 2. There is ross-cholecystic mild fat stranding noted, could be early acute inflmmation, clinical correlation is needed. 3. Tiny splenic calcific granuloma. 4. Small right renal cyst measures 22x26 mm. 5. Mild bilateral ross-renal fat strandings, could be inflammatory changes. 6. Empty Catheterized urinary bladder with wall thickening and ross-vesical fat strandings, could be cystitis, clinical correlation is needed. 7. Multiple reactive-looking jaxson-hepatis lymph nodes noted. 8. Bilateral moderate pleural effusion with underlying passive collapse. 9. Cardiomegaly with prominent pericardium likely pericardial reaction. 10. NGT noted in place. Electronically signed by Floresita Romero 02-29-2024 08:31 AM
[2024-02-29] MEDS ORDERED: AZITHROMYCIN 500 MG VIAL IV SCH (09:00)
[2024-02-29] MEDS: NOREPINEPHRINE/D5W 4 MG/250 ML PLCT IV SCH (09:30)
[2024-02-29] MEDS: PERFLUTREN LIPID MICROSPHERE (DEFINITY) IV ONE (09:53)
--- NOTE | 2024-02-29 10:02 | Cardiology Consultation ---
Date of Consultation February 29, 2024 Assessment & Plan (1) Acute and chronic respiratory failure with hypercapnia: (2) Respiratory failure requiring intubation: (3) Influenza A: (4) HFrEF (heart failure with reduced ejection fraction): (5) Cardiomyopathy: (6) ICD (implantable cardioverter-defibrillator), single, in situ: Plan Mr. Espinoza is a 59 year old male with a history of a Cardiomyopathy s/p Single Chamber AICD, Systolic CHF, NSVT, Type 2 Diabetes Mellitus, GISELE, OHS, and Tobacco Use who presented with Acute on Chronic Hypoxic and Hypercapnic Respiratory Failure, Influenza A, and Moderate Bilateral Pleural Effusions/Pulmonary Edema which required intubation/mechanical ventilation. History collected through chart review. The patient's stated that the patient has been ill for the past 2 weeks just prior to [place] - he apparently had myalgias, weakness, cough with congestion - he thought he had the flu, although did not seek testing or treatment. She said that he spent most of that time on the couch not eating much or drinking much as well as not taking his medications. Yesterday he felt like he was getting better until around 0200 this morning, where he got up from the bed, coughing, wheezing, diaphoretic and felt like he could not breathe unless he was outside. She stated that he walked from the back to the front yard where he became more acutely short of breath. She called 911 and he was hypoxic when EMS arrived. He was brought to [facility] ER with respiratory distress and tachycardia (EKG showed sinus tachycardia at 158 bpm). He was not hypoxic on non-rebreather and supplemental O2. Studies were performed including blood cultures, BNP, and CXR. BNP is elevated at 1032 pg/mL. He was noted with leukocytosis of 13, elevated glucose, elevated LFTs, and leukocytosis. High sensitivity Troponin I is slightly elevated at 20.1 pg/mL. CXR showed pulmonary edema and right lower lobe opacity. ABG's showed a PH 7.1, PaCO2 77, Pa02 177. He was subsequently intubated, he was given 40mg of IV Lasix and given IV Cefepime. Viral respiratory panel was positive for influenza A. Patient was then admitted to the ICU for continued supportive care. CT scan of the chest showed bilateral ground-glass opacities with consolidation, probably infection, pulmonary edema cannot be entirely excluded. Moderate bilateral pleural effusions with passive atelectasis. Heart is enlarged. Patient has a positive fluid balance of 610 mL, but according to his body weight he's lost 5.7 kg since presenting to the ER. Patient had an Echocardiogram done today, his LV systolic function has declined since his last echocardiogram dated March 2022 -- his LV systolic function is severely reduced, LVEF appears to be 20% with severe global hypokinesis. Patient's heart rate has improved, he remains in a sinus tachycardia at rates between 100 to 105 bpm but he is still hypotensive at times. His mildly elevated troponin I likely represents demand ischemia related to tachycardia and hypoxia. Recommend the followin. Continue to diurese when blood pressure allows, I have ordered a one time dose of Lasix 40 mg. Continue to decide on diuretic daily based on patient's vital signs/blood pressure. 2. Potassium chloride elixir 20 mEq via NGT x 1 dose was also ordered. 3. Strongly consider IV Dobutamine drip at 2 to 5 mcg/kg/min to improve inotropy and support blood pressure. 4. When blood pressure allows, resume his beta sofia, spironolactone, and consider replacing lisinopril with Entresto. 5. He would benefit by being started on Farxiga 10 mg daily. 6. Continue to monitor daily BMP. 7. Monitor daily body weights, I&O's. We will continue to follow this patient closely while hospitalized and following discharge. History of Present Illness Reason for Consultation: -- CHF. -- Cardiomyopathy. Requesting Physician: Robert Cruz MD Attending Physician: Fransico Forrest MD History of Present Illness Mr. Espinoza is a 59 year old male with a history of a Cardiomyopathy s/p Single Chamber AICD, Systolic CHF, NSVT, Type 2 Diabetes Mellitus, GISELE, OHS, and Tobacco Use who presented with Acute on Chronic Hypoxic and Hypercapnic Respiratory Failure, Influenza A, and Moderate Bilateral Pleural Effusi ons/Pulmonary Edema which required intubation/mechanical ventilation. History collected through chart review. The patient's stated that the patient has been ill for the past 2 weeks just prior to [place] - he apparently had myalgias, weakness, cough with congestion - he thought he had the flu, although did not seek testing or treatment. She said that he spent most of that time on the couch not eating much or drinking much as well as not taking his medications. Yesterday he felt like he was getting better until around 0200 this morning, where he got up from the bed, coughing, wheezing, diaphoretic and felt like he could not breathe unless he was outside. She stated that he walked from the back to the front yard where he became more acutely short of breath. She called 911 and he was hypoxic when EMS arrived. He was brought to [facility] ER with respiratory distress and tachycardia (EKG showed sinus tachycardia at 158 bpm). He was not hypoxic on non-rebreather and supplemental O2. Studies were performed including blood cultures, BNP, and CXR. BNP is elevated at 1032 pg/mL. He was noted with leukocytosis of 13, elevated glucose, elevated LFTs, and leukocytosis. High sensitivity Troponin I is slightly elevated at 20.1 pg/mL. CXR showed pulmonary edema and right lower lobe opacity. ABG's showed a PH 7.1, PaCO2 77, Pa02 177. He was subsequently intubated, he was given 40mg of IV Lasix and given IV Cefepime. Viral respiratory panel was positive for influenza A. Patient was then admitted to the ICU for continued supportive care. Pneumatic Tool Operator ordered a CT of the chest as reported > 30 pound weight loss over the past few months. CT scan of the chest showed bilateral ground-glass opacities with consolidation, probably infection, pulmonary edema cannot be entirely excluded. Moderate bilateral pleural effusions with passive atelectasis. Heart is enlarged. Patient has a positive fluid balance of 610 mL, but according to his body weight he's lost 5.7 kg since presenting to the ER. Allergies Allergy/AdvReac Type Severity Reaction Status Date / Time shellfish derived AdvReac Swelling Verified 02/29/24 05:20 of Lip/Tongue/Throat Home Medications Medication Instructions Recorded Confirmed Type albuterol sulfate 2.5 mg/3 mL 1.25 mg (1.5 mL) inhalation Q4H 11/11/18 05/21/23 Rx (0.083 %) solution for nebulization PRN shortness of breath or wheezing #180 mL spironolactone 25 mg tablet 25 mg PO BID #180 tabs 11/11/18 05/21/23 Rx furosemide 40 mg tablet 40 mg PO QPM 10/10/19 05/21/23 History metformin 500 mg tablet 500 mg PO BID 10/10/19 05/21/23 History aspirin 81 mg tablet,delayed 81 mg PO DAILY 01/19/20 05/21/23 History release atorvastatin 20 mg tablet 20 mg PO QAM 01/19/20 05/21/23 History omeprazole 40 mg capsule,delayed 40 mg PO QAM 01/19/20 05/21/23 History release glipizide PO BID 04/19/20 05/21/23 History carvedilol 25 mg tablet 37.5 mg (1.5 x 25 mg) PO BID #180 05/21/23 05/21/23 Rx tabs lisinopril 20 mg tablet 40 mg (2 x 20 mg) PO DAILY #60 tabs 05/21/23 05/21/23 Rx Patient History Medical History GI symptoms NOT REGULAR STOOLS AND RECTAL BLEEDING>REASON FOR UPCOMING COLONOSCOPY History of duodenal ulcer GERD (gastroesophageal reflux disease) SOB (shortness of breath) on exertion NEBULIZER USE ALMOST EVERY DAY Sleep apnea CPAP/DOESN'T USE (HAS TROUBLE SLEEPING WITH IT) Cardiac defibrillator in place PLACED 2013>VIRAL INFECTION...HEART WORKING AT 5%>DR [place]>MOST RECENT CHECK 1 MON AGO Hyperlipidemia HTN (hypertension) Surgical History History of cardiac cath 2013>VIRAL INFECTION>LOW HEART FUNCTION>DEFIBRILLATOR PLACEMENT NO STENT(S) History of tonsillectomy Family History Brother Family history of diabetes mellitus Family history of colonic polyps Mother Family history of colonic polyps Father Family history of diabetes mellitus Other Family history of heart attack Social History Smoking Status: Unknown if ever smoked Tobacco Type: Cigarettes and Smokeless Tobacco (Dip or Chew) Do You Dip or Chew Tobacco: Yes (1 CAN EVERY 2-3 DAYS/ADVISED NPO); Preferred Language: Georgian Communication Ability: Effective Communication Ability Comment: intubated and sedated Utilization Management Um Nurse Required: No Beliefs That Will Affect Care: None Current Living Situation: Spouse Feels Safe at Home: Yes Assistive Devices: Glasses Review of Systems Review of Systems: -- Unable to obtain due to patient being on the ventilator. Physical Exam Physical Exam: Pulse 101 and regular, blood pressure 90/70, respiratory rate 23, temperature 36.5 C. GENERAL: Patient is intubated and on mechanical ventilation. HEENT: No perioral cyanosis. NECK: JVP is elevated. Carotid upstrokes are + 2 bilaterally. CHEST/LUNGS: Crackles present in right lower lung field anteriorly, patient is semi-supine with absent breath sounds of the posterolateral lung meza. CVS: S1 and S2 are regular without murmurs, gallops, or rubs. PMI is nonpalpable. No lifts, heaves, or thrills. No abdominal aortic or renal bruits. ABDOMINAL EXAM: Bowel sounds are present. EXTREMITIES: No clubbing or cyanosis. No edema. Limbs are perfused. GRAVITY PROSPECTING OPERATOR HELPER: -- Sinus tachycardia at 103 bpm. ECHOCARDIOGRAM 02/28/23: -- Severely reduced LV systolic function . -- LVEF 20% with global hypokinesis. Results & Data Vital Signs (Past 12 Hours) Vital Signs Temp Pulse Pulse Pulse Resp BP BP 02/29/24 08:13 105 H 22 02/29/24 07:18 36.7 C 105 H 22 127/89 02/29/24 06:10 132/98 02/29/24 06:08 37.0 C 128 H 25 H 02/29/24 06:05 120/80 02/29/24 06:02 37.0 C 125 H 22 02/29/24 06:00 131/96 02/29/24 06:00 131/96 02/29/24 06:00 131/96 02/29/24 05:55 133/106 H 02/29/24 05:55 133/106 H 02/29/24 05:55 133/106 H 02/29/24 05:50 116/88 02/29/24 05:50 116/88 02/29/24 05:49 22 02/29/24 05:45 111/85 02/29/24 05:42 120 H 122/95 02/29/24 05:33 37.4 C 134 H 20 02/29/24 05:30 172/118 H 02/29/24 05:30 172/118 H 02/29/24 05:28 162 H 180/129 H 02/29/24 05:25 180/129 H 02/29/24 05:25 180/129 H 02/29/24 05:25 180/129 H 02/29/24 05:15 179/130 H 02/29/24 05:15 37.4 C 158 H 20 179/130 H 02/29/24 05:10 176/129 H 02/29/24 05:06 37.4 C 162 H 20 02/29/24 05:05 171/127 H 02/29/24 05:02 37.2 C 162 H 20 179/130 H 02/29/24 05:00 175/128 H 02/29/24 05:00 175/128 H 02/29/24 04:57 37.4 C 161 H 20 02/29/24 04:55 171/123 H 02/29/24 04:55 171/123 H 02/29/24 04:55 171/123 H 02/29/24 04:55 171/123 H 02/29/24 04:54 37.4 C 160 H 20 02/29/24 04:50 174/126 H 02/29/24 04:47 37.4 C 162 H 20 174/126 H 02/29/24 04:45 37.4 C 160 H 20 175/124 H 02/29/24 04:45 175/124 H 02/29/24 04:42 37.4 C 161 H 20 02/29/24 04:40 174/125 H 02/29/24 04:40 174/125 H 02/29/24 04:35 175/123 H 02/29/24 04:32 37.3 C 161 H 20 173/123 H 02/29/24 04:30 153/114 H 02/29/24 04:30 153/114 H 02/29/24 04:25 162/116 H 02/29/24 04:25 162/116 H 02/29/24 04:25 162/116 H 02/29/24 04:24 37.2 C 157 H 20 162/116 H 02/29/24 04:17 37.2 C 155 H 20 162/116 H 02/29/24 04:16 37.2 C 150 H 21 149/116 H 02/29/24 04:15 36.9 C 145 H 24 02/29/24 04:15 149/116 H 02/29/24 04:15 149/116 H 02/29/24 04:15 149/116 H 02/29/24 04:13 144 H 16 02/29/24 04:12 36.4 C L 146 H 18 02/29/24 04:11 152/109 H 02/29/24 04:09 35.2 C L 150 H 17 02/29/24 04:05 196/140 H 02/29/24 04:05 36.8 C 144 H 196/140 H 02/29/24 04:05 196/140 H 02/29/24 04:01 35.5 C L 147 H 35 H 152/109 H 02/29/24 04:01 02/29/24 04:00 155 H 20 02/29/24 04:00 163/114 H 02/29/24 03:59 165/118 H 02/29/24 03:56 170/127 H 02/29/24 03:48 159 H 34 H 02/29/24 03:46 152 H 40 H 158/123 H 02/29/24 03:45 155 H 02/29/24 03:45 158/123 H 02/29/24 03:45 158/123 H 02/29/24 03:35 Pulse Ox O2 Del Method O2 Flow Rate FiO2 02/29/24 08:13 97 40 02/29/24 07:18 94 Mechanical Vent 02/29/24 06:10 02/29/24 06:08 97 02/29/24 06:05 02/29/24 06:02 97 02/29/24 06:00 02/29/24 06:00 02/29/24 06:00 02/29/24 05:55 02/29/24 05:55 02/29/24 05:55 02/29/24 05:50 02/29/24 05:50 02/29/24 05:49 70 02/29/24 05:45 02/29/24 05:42 02/29/24 05:33 96 02/29/24 05:30 02/29/24 05:30 02/29/24 05:28 02/29/24 05:25 02/29/24 05:25 02/29/24 05:25 02/29/24 05:15 02/29/24 05:15 96 Mechanical Vent 02/29/24 05:10 02/29/24 05:06 96 02/29/24 05:05 02/29/24 05:02 96 Mechanical Vent 02/29/24 05:00 02/29/24 05:00 02/29/24 04:57 97 02/29/24 04:55 02/29/24 04:55 02/29/24 04:55 02/29/24 04:55 02/29/24 04:54 97 02/29/24 04:50 02/29/24 04:47 97 Mechanical Vent 02/29/24 04:45 97 02/29/24 04:45 02/29/24 04:42 97 02/29/24 04:40 02/29/24 04:40 02/29/24 04:35 02/29/24 04:32 97 Mechanical Vent 02/29/24 04:30 02/29/24 04:30 02/29/24 04:25 02/29/24 04:25 02/29/24 04:25 02/29/24 04:24 98 02/29/24 04:17 98 Mechanical Vent 02/29/24 04:16 99 Mechanical Vent 02/29/24 04:15 02/29/24 04:15 02/29/24 04:15 02/29/24 04:15 02/29/24 04:13 99 Mechanical Vent 02/29/24 04:12 98 02/29/24 04:11 02/29/24 04:09 96 02/29/24 04:05 02/29/24 04:05 98 02/29/24 04:05 02/29/24 04:01 95 Non-rebreather 15 02/29/24 04:01 Non-rebreather 15 02/29/24 04:00 96 80 02/29/24 04:00 02/29/24 03:59 02/29/24 03:56 02/29/24 03:48 96 02/29/24 03:46 97 Non-rebreather 15 02/29/24 03:45 02/29/24 03:45 02/29/24 03:45 02/29/24 03:35 Non-rebreather 15 Laboratory Results Laboratory Results - last 24 hr 01/03/25 01/03/25 01/03/25 03:46 03:49 04:11 WBC 13.63 H RBC 4.98 Hgb 15.7 POC Hgb 16.3 Hct 47.2 POC Hct 48 MCV 94.8 MCH 31.5 MCHC 33.3 RDW Std Deviation 42.5 RDW Coeff of Kenzie 12.3 Plt Count 253 MPV 12.1 Immature Gran % (Auto) 2.3 Neut % (Auto) 54.5 Lymph % (Auto) 32.0 [place] % (Auto) 9.5 Eos % (Auto) 1.1 Baso % (Auto) 0.6 Neut # (Auto) 7.44 H Lymph # (Auto) 4.36 H [place] # (Auto) 1.29 H Eos # (Auto) 0.15 Baso # (Auto) 0.08 Immature Gran # (Auto) 0.31 H PT INR POC pH POC pCO2 POC pO2 POC HCO3 POC Base Excess POC ABG O2 Sat POC Sodium 141 Sodium 140 POC Potassium 3.8 Potassium 3.8 POC Chloride 101 Chloride 103 Carbon Dioxide 30 POC Total CO2 27 Anion Gap 7 POC Anion Gap 17.0 POC BUN 13 BUN 14 Creatinine 1.02 POC Creatinine 1.0 Est Cr Clr Drug Dosing 103.4 eGFR 85.72 BUN/Creatinine Ratio 13.7 Glucose 331 H* POC Glucose POC Glucose (other) 323 H Lactate Calcium 8.9 POC Ioniz Calcium Nguyễn 1.18 Phosphorus Magnesium 1.8 Total Bilirubin 0.7 AST 107 H ALT 91 H Alkaline Phosphatase 94 Troponin I High Sens 12.0 B-Natriuretic Peptide 1032 H Total Protein 7.2 Albumin 3.9 Globulin 3.3 Albumin/Globulin Ratio 1.2 Lipase 135 H Procalcitonin 0.06 TSH Urine Color Urine Appearance Urine pH Ur Specific [place] Urine Protein Urine Glucose (UA) Urine Ketones Urine Blood Urine Nitrite Urine Bilirubin Urine Urobilinogen Ur Leukocyte Esterase Urine WBC (Auto) Urine RBC (Auto) U Hyaline Cast (Auto) U Epithel Cells (Auto) Urine Bacteria (Auto) Hyaline Casts Nasal Screen MRSA (PCR) Acetaminophen Ethyl Alcohol mg/dL Adenovirus (PCR) Not Detected B. pertussis DNA (PCR) Not Detected B.parapertussis DNA PCR Not Detected C. pneumoniae DNA (PCR) Not Detected Coronavirus OC43 (PCR) Not Detected Coronavirus HKU1 (PCR) Not Detected Coronavirus 229E (PCR) Not Detected SARS-CoV-2 (PCR) Not Detected Coronavirus NL63 (PCR) Not Detected Human Metapneumovir PCR Not Detected Influenza A Untype (PCR) DETECTED A Influenza Type B (PCR) Not Detected M. pneumoniae (PCR) Not Detected Parainfluenza 1 (PCR) Not Detected Parainfluenza 2 (PCR) Not Detected Parainfluenza 3 (PCR) Not Detected Parainfluenza 4 (PCR) Not Detected RSV (PCR) Not Detected Entero/Rhino (PCR) Not Detected Blood Type Antibody Screen 02/29/24 02/29/24 02/29/24 04:13 04:17 04:26 WBC RBC Hgb POC Hgb 15.0 Hct POC Hct 44 MCV MCH MCHC RDW Std Deviation RDW Coeff of Kenzie Plt Count MPV Immature Gran % (Auto) Neut % (Auto) Lymph % (Auto) [place] % (Auto) Eos % (Auto) Baso % (Auto) Neut # (Auto) Lymph # (Auto) [place] # (Auto) Eos # (Auto) Baso # (Auto) Immature Gran # (Auto) PT INR POC pH 7.15 L* POC pCO2 77 H POC pO2 177 H POC HCO3 27 H POC Base Excess -2.0 POC ABG O2 Sat 99.0 H POC Sodium 138 Sodium POC Potassium 4.4 Potassium POC Chloride Chloride Carbon Dioxide POC Total CO2 29 Anion Gap POC Anion Gap POC BUN BUN Creatinine POC Creatinine Est Cr Clr Drug Dosing eGFR BUN/Creatinine Ratio Glucose POC Glucose POC Glucose (other) Lactate 1.7 Calcium POC Ioniz Calcium Nguyễn Phosphorus Magnesium Total Bilirubin AST ALT Alkaline Phosphatase Troponin I High Sens B-Natriuretic Peptide Total Protein Albumin Globulin Albumin/Globulin Ratio Lipase Procalcitonin TSH Urine Color Yellow Urine Appearance Clear Urine pH 6.0 Ur Specific [place] 1.025 Urine Protein 4+ H Urine Glucose (UA) 2+ H Urine Ketones Trace H Urine Blood Trace H Urine Nitrite Negative Urine Bilirubin Negative Urine Urobilinogen Negative Ur Leukocyte Esterase Negative Urine WBC (Auto) 0-5 Urine RBC (Auto) 0-2 U Hyaline Cast (Auto) 11-20 H U Epithel Cells (Auto) 0-2 Urine Bacteria (Auto) None Seen Hyaline Casts Present A Nasal Screen MRSA (PCR) Acetaminophen Ethyl Alcohol mg/dL Adenovirus (PCR) B. pertussis DNA (PCR) B.parapertussis DNA PCR C. pneumoniae DNA (PCR) Coronavirus OC43 (PCR) Coronavirus HKU1 (PCR) Coronavirus 229E (PCR) SARS-CoV-2 (PCR) Coronavirus NL63 (PCR) Human Metapneumovir PCR Influenza A Untype (PCR) Influenza Type B (PCR) M. pneumoniae (PCR) Parainfluenza 1 (PCR) Parainfluenza 2 (PCR) Parainfluenza 3 (PCR) Parainfluenza 4 (PCR) RSV (PCR) Entero/Rhino (PCR) Blood Type Antibody Screen 02/29/24 02/29/24 02/29/24 05:45 06:18 06:58 WBC RBC Hgb 15.3 POC Hgb 15.3 Hct 44.3 POC Hct 45 MCV MCH MCHC RDW Std Deviation RDW Coeff of Kenzie Plt Count MPV Immature Gran % (Auto) Neut % (Auto) Lymph % (Auto) [place] % (Auto) Eos % (Auto) Baso % (Auto) Neut # (Auto) Lymph # (Auto) [place] # (Auto) Eos # (Auto) Baso # (Auto) Immature Gran # (Auto) PT 11.9 INR 1.1 POC pH 7.22 L POC pCO2 65 H POC pO2 114 H POC HCO3 27 H POC Base Excess -1.0 POC ABG O2 Sat 97.0 H POC Sodium 135 Sodium POC Potassium 5.5 H Potassium POC Chloride Chloride Carbon Dioxide POC Total CO2 29 Anion Gap POC Anion Gap POC BUN BUN Creatinine POC Creatinine Est Cr Clr Drug Dosing eGFR BUN/Creatinine Ratio Glucose POC Glucose 372 H* POC Glucose (other) Lactate Calcium POC Ioniz Calcium Nguyễn Phosphorus Magnesium Total Bilirubin AST ALT Alkaline Phosphatase Troponin I High Sens B-Natriuretic Peptide Total Protein Albumin Globulin Albumin/Globulin Ratio Lipase Procalcitonin TSH 1.188 Urine Color Urine Appearance Urine pH Ur Specific [place] Urine Protein Urine Glucose (UA) Urine Ketones Urine Blood Urine Nitrite Urine Bilirubin Urine Urobilinogen Ur Leukocyte Esterase Urine WBC (Auto) Urine RBC (Auto) U Hyaline Cast (Auto) U Epithel Cells (Auto) Urine Bacteria (Auto) Hyaline Casts Nasal Screen MRSA (PCR) Acetaminophen Ethyl Alcohol mg/dL < 10.0 Adenovirus (PCR) B. pertussis DNA (PCR) B.parapertussis DNA PCR C. pneumoniae DNA (PCR) Coronavirus OC43 (PCR) Coronavirus HKU1 (PCR) Coronavirus 229E (PCR) SARS-CoV-2 (PCR) Coronavirus NL63 (PCR) Human Metapneumovir PCR Influenza A Untype (PCR) Influenza Type B (PCR) M. pneumoniae (PCR) Parainfluenza 1 (PCR) Parainfluenza 2 (PCR) Parainfluenza 3 (PCR) Parainfluenza 4 (PCR) RSV (PCR) Entero/Rhino (PCR) Blood Type A Positive Antibody Screen NEGATIVE 02/29/24 02/29/24 02/29/24 07:33 08:58 Unknown WBC RBC Hgb POC Hgb Hct POC Hct MCV MCH MCHC RDW Std Deviation RDW Coeff of Kenzie Plt Count MPV Immature Gran % (Auto) Neut % (Auto) Lymph % (Auto) [place] % (Auto) Eos % (Auto) Baso % (Auto) Neut # (Auto) Lymph # (Auto) [place] # (Auto) Eos # (Auto) Baso # (Auto) Immature Gran # (Auto) PT INR POC pH POC pCO2 POC pO2 POC HCO3 POC Base Excess POC ABG O2 Sat POC Sodium Sodium POC Potassium Potassium POC Chloride Chloride Carbon Dioxide POC Total CO2 Anion Gap POC Anion Gap POC BUN BUN Creatinine POC Creatinine Est Cr Clr Drug Dosing eGFR BUN/Creatinine Ratio Glucose POC Glucose 347 H* POC Glucose (other) Lactate Calcium POC Ioniz Calcium Nguyễn Phosphorus 5.0 H Magnesium Total Bilirubin AST ALT Alkaline Phosphatase Troponin I High Sens 20.1 H B-Natriuretic Peptide Total Protein Albumin Globulin Albumin/Globulin Ratio Lipase Procalcitonin TSH Urine Color Urine Appearance Urine pH Ur Specific [place] Urine Protein Urine Glucose (UA) Urine Ketones Urine Blood Urine Nitrite Urine Bilirubin Urine Urobilinogen Ur Leukocyte Esterase Urine WBC (Auto) Urine RBC (Auto) U Hyaline Cast (Auto) U Epithel Cells (Auto) Urine Bacteria (Auto) Hyaline Casts Nasal Screen MRSA (PCR) Negative Acetaminophen < 3 L Ethyl Alcohol mg/dL < 10.0 Adenovirus (PCR) B. pertussis DNA (PCR) B.parapertussis DNA PCR C. pneumoniae DNA (PCR) Coronavirus OC43 (PCR) Coronavirus HKU1 (PCR) Coronavirus 229E (PCR) SARS-CoV-2 (PCR) Coronavirus NL63 (PCR) Human Metapneumovir PCR Influenza A Untype (PCR) Influenza Type B (PCR) M. pneumoniae (PCR) Parainfluenza 1 (PCR) Parainfluenza 2 (PCR) Parainfluenza 3 (PCR) Parainfluenza 4 (PCR) RSV (PCR) Entero/Rhino (PCR) Blood Type Antibody Screen Diagnostic Findings CT SCAN CHEST 02/29/24: 1. Bilateral ground-glass opacities with left basal predominance, with consolidation probably an infection. The possibility of pulmonary edema cannot be entirely excluded. Correlate with clinical work up and follow-up. New finding. 2. Moderate bilateral pleural effusion associated with passive atelectasis. New finding. 3. Mediastinal and hilar lymphadenopathy. New finding. 4. Normopositioned nasogastric and endotracheal tubes. New finding. Medications Administered Medication List Albuterol (Albuterol 0.083% Nebu Soln 3 Ml Vial) 2.5 mg NEB Q6R [facility]; Protocol Stop: 03/30/24 06:59 Last Admin: 02/29/24 08:10 Dose: 2.5 mg Documented By: SHAQ Budesonide (Budesonide 0.25 Mg/2 Ml Vial (Pulmicort)) 0.25 mg NEB BIDR [facility] Stop: 03/30/24 06:59 Last Admin: 02/29/24 08:10 Dose: 0.25 mg Documented By: SHAQ Folic Acid (Folic Acid 1 Mg Tab) 1 mg PO QAM [facility] Stop: 03/30/24 08:59 Last Admin: 02/29/24 07:34 Dose: 1 mg Documented By: ANYI Doxycycline Hyclate 100 mg/ (Dextrose) 100 mls @ 50 mls/hr IV Q12H [facility] Stop: 03/05/24 06:59 Last Infusion: 02/29/24 09:31 Dose: Infused Documented By: Admin: 02/29/24 07:33 Dose: 50 mls/hr Documented By: ANYI Insulin Human Regular 250 (units/ Sodium Chloride) 250 mls @ 2.6 mls/hr IV .Q24H [facility]; Protocol Stop: 03/30/24 07:14 Last Admin: 02/29/24 07:38 Dose: 2.6 mls/hr, 2.6 mls/hr Documented By: ANYI Co-signed By: CHRISTIAN Fentanyl Citrate (Fentanyl Citrate) 2,500 mcg in 250 mls @ 2.5 mls/hr IV .Q96H [facility]; Protocol Stop: 03/14/24 06:58 Last Admin: 02/29/24 07:15 Dose: 25 mcg/hr, 2.5 mls/hr Documented By: ANYI Co-signed By: CHRISTIAN Insulin Aspart (Insulin Aspart Per Unit Charge) 0 units SC ACHS [facility] Stop: 03/30/24 07:29 Last Admin: 02/29/24 07:50 Dose: Not Given Documented By: Admin: 02/29/24 07:16 Dose: Not Given Documented By: ANYI Oseltamivir Phosphate (Oseltamivir Phosphate Susp 75 Mg/12.5 Ml Udp) 75 mg PO BID [facility]; Protocol Stop: 03/05/24 05:24 Last Admin: 02/29/24 07:14 Dose: 75 mg Documented By: ANYI Discontinued Medications Furosemide (Furosemide 40 Mg/4 Ml Vial) Confirm Administered Dose 40 mg IV .STK- MED ONE Stop: 02/29/24 03:56 Last Admin: 02/29/24 04:32 Dose: Not Given Documented By: FELA Furosemide (Furosemide 40 Mg/4 Ml Vial) 40 mg IV ONE ONE Stop: 02/29/24 04:00 Last Admin: 02/29/24 03:57 Dose: 40 mg Documented By: FELA Cefepime HCl (Maxipime 2000mg) 2,000 mg in 20 mls @ 5 mls/min IV NOW [facility]; Protocol Stop: 02/29/24 04:42 Last Admin: 02/29/24 04:58 Dose: 5 mls/min Documented By: FELA Magnesium Sulfate/Dextrose (Magnesium Sulfate / D5w) 1 gm in 100 mls @ 50 mls/hr IV Q2H [facility] Stop: 02/29/24 09:14 Last Infusion: 02/29/24 08:44 Dose: Infused Documented By: Admin: 02/29/24 07:15 Dose: 50 mls/hr Documented By: Infusion: 02/29/24 07:08 Dose: Infused Documented By: Admin: 02/29/24 05:34 Dose: 50 mls/hr Documented By: FELA Thiamine HCl 100 mg/ Syringe 10 mls @ 2 mls/min IV NOW [facility] Stop: 02/29/24 05:18 Last Admin: 02/29/24 05:49 Dose: 2 mls/min Documented By: FELA Potassium Chloride (K Christian / Wtr) 10 meq in 100 mls @ 100 mls/hr IV Q1H MINO Stop: 02/29/24 07:14 Last Infusion: 02/29/24 08:44 Dose: Infused Documented By: Admin: 02/29/24 07:15 Dose: 100 mls/hr Documented By: Infusion: 02/29/24 07:08 Dose: Infused Documented By: Admin: 02/29/24 05:34 Dose: 100 mls/hr Documented By: PAG Propofol (Diprivan) 1,000 mg in 100 mls @ 0 mls/hr IV .Q0M ONE; Protocol Stop: 02/29/24 05:18 Last Titration: 02/29/24 08:44 Dose: Infused Documented By: Titration: 02/29/24 05:29 Dose: 40 mcg/kg/min, 24.5 mls/hr Documented By: Titration: 02/29/24 04:17 Dose: 35 mcg/kg/min, 21.4 mls/hr Documented By: Titration: 02/29/24 04:11 Dose: 25 mcg/kg/min, 15.3 mls/hr Documented By: Titration: 02/29/24 04:05 Dose: 15 mcg/kg/min, 9.2 mls/hr Documented By: Admin: 02/29/24 03:56 Dose: 5 mcg/kg/min, 3.1 mls/hr Documented By: PAG Co-signed By: LANRE Pantoprazole Sodium 40 mg/ (Dextrose) 100 mls @ 20 mls/hr IV Q5H MINO Stop: 03/30/24 06:14 Last Admin: 02/29/24 07:15 Dose: 8 mg/hr, 20 mls/hr Documented By: ANIY Pantoprazole Sodium 80 mg/ (Dextrose) 120 mls @ 480 mls/hr IV NOW ONE Stop: 02/29/24 06:07 Last Infusion: 02/29/24 07:08 Dose: Infused Documented By: Admin: 02/29/24 06:04 Dose: 480 mls/hr Documented By: PAG Azithromycin 500 mg/ Sodium (Chloride) 255 mls @ 127.5 mls/hr IV DAILY MINO Stop: 03/05/24 08:59 Last Infusion: 02/29/24 09:31 Dose: Infused Documented By: Admin: 02/29/24 07:57 Dose: 127.5 mls/hr Documented By: ANYI Insulin Human Regular (Novolin-R Bolus From Bag) 2.5 units IV ONE ONE Stop: 02/29/24 07:16 Last Admin: 02/29/24 07:38 Dose: 2.5 units Documented By: ANYI Co-signed By: CHRISTIAN Metoprolol Tartrate (Metoprolol Tartrate 1 Mg/Ml Vial) 2.5 mg IV NOW STA Stop: 02/29/24 05:08 Last Admin: 02/29/24 05:28 Dose: 2.5 mg Documented By: FELA Midazolam HCl (Midazolam Hcl 5 Mg/Ml 2ml Vial) 4 mg IV NOW STA Stop: 02/29/24 05:26 Last Admin: 02/29/24 05:29 Dose: 4 mg Documented By: FELA Midazolam HCl (Midazolam Hcl 1 Mg/Ml 2ml Vial) Confirm Administered Dose 4 mg .ROUTE .STK-MED ONE Stop: 02/29/24 06:21 Last Admin: 02/29/24 06:27 Dose: Not Given Documented By: LANRE Midazolam HCl (Midazolam Hcl 5 Mg/Ml 2ml Vial) 4 mg IV NOW STA Stop: 02/29/24 06:25 Last Admin: 02/29/24 06:27 Dose: 4 mg Documented By: LANRE Miscellaneous (Rapid Sequence Induction Bag) Confirm Administered Dose 1 each N/A .STK-MED ONE Stop: 02/29/24 03:45 Last Admin: 02/29/24 04:32 Dose: 1 each Documented By: FELA Miscellaneous (Moderate Stress Level ) 1 each N/A ONE ONE Stop: 02/29/24 06:14 Last Admin: 02/29/24 07:14 Dose: Not Given Documented By: ANYI Multivitamins (Multivitamin Tab) 1 tab PO QAM MINO Stop: 03/30/24 08:59 Last Admin: 02/29/24 07:34 Dose: 1 tab Documented By: ANYI Pantoprazole Sodium (Pantoprazole Bolus/Drip) 1 each IV NOW STA Stop: 02/29/24 05:54 Last Admin: 02/29/24 07:09 Dose: Not Given Documented By: ANYI Perflutren Lipid Microsphere (Perflutren Lipid Microsphere (Definity)) 2 ml IV ONCE ONE Stop: 02/29/24 09:53 Last Admin: 02/29/24 09:53 Dose: 2 ml Documented By: MISSY Propofol (Propofol Iv Emulsion 10 Mg/Ml 100 Ml Vial) Confirm Administered Dose 1,000 mg IV .STK-MED ONE Stop: 02/29/24 03:51 Last Admin: 02/29/24 05:41 Dose: Not Given Documented By: FELA Vecuronium [place] (Vecuronium [place] 10 Mg Vial) 10 mg IV NOW STA Stop: 02/29/24 04:16 Last Admin: 02/29/24 04:22 Dose: 10 mg Documented By: FELA Co-signed By: PG Care Time/CCT Total # of Minutes Spent Total Time Spent with Patient: Total time spent is greater than 50% in coordination of care (as documented) at patient's floor/unit and/or counseling patient:44 C[place] [address] IN/OBS CONSULT LVL 4,60M Patient Type Established Medical Decision Making Moderate Complexity Diagnoses Acute and chronic respiratory failure with hypercapnia J96.22 Respiratory failure requiring intubation J96.90 Influenza A J10.1 Acute on chronic systolic heart failure I50.23 Heart failure chronicity: acute on chronic Dilated cardiomyopathy I42.0 Cardiomyopathy type: dilated ICD (implantable cardioverter-defibrillator), single, in situ Z95.810 Time Spent (min) 64 (4) HFrEF (heart failure with reduced ejection fraction) Heart failure chronicity: acute on chronic Qualified Code(s): I50.23 - Acute on chronic systolic (congestive) heart failure (5) Cardiomyopathy Cardiomyopathy type: dilated Qualified Code(s): I42.0 - Dilated cardiomyopathy
[2024-02-29] MEDS ORDERED: ETOMIDATE 2 MG/ML 20 ML VIAL IV ONE (11:01)
[2024-02-29] MEDS ORDERED: SUCCINYLCHOLINE CHLORIDE 20 MG/ML 10 ML VIAL IV ONE (11:01)
[2024-02-29] MEDS: cefTRIAXone SODIUM 2,000 MG/50 ML BAG IV SCH (11:55)
[2024-02-29] MEDS: propofoL 1,000 MG/100 ML VIAL IV SCH (11:55)
[2024-02-29] MEDS ORDERED: METOPROLOL TARTRATE 1 MG/ML VIAL IV SCH (12:00)
[2024-02-29 12:15] LABS: iSTAT Allen Test Pass; iSTAT Art Bld Gas pCO2 Correct 40 mmHg (35-46); iSTAT Art Bld Gas pH Corrected 7.408 (7.35-7.45); iSTAT Arterial Blood Gas HCO3 25 meg/L (19-24); iSTAT Arterial Blood Gas pCO2 40 mmHg (35-46); iSTAT Arterial Blood Gas pH 7.41 (7.35-7.45); iSTAT Arterial Blood Gas pO2 106 mmHg (80-95); iSTAT Arterial Blood Gas pO2 C 105; iSTAT Carbon Dioxide 26 mmol/L (24-31); iSTAT FiO2 35 %; iSTAT Hematocrit 40 % (42-52); iSTAT Hemoglobin 13.6 g/dl (14.0-18.0); iSTAT Potassium 4.5 mmol/L (3.3-5.0); iSTAT Sample Type Arterial; iSTAT Site R Radial; iSTAT Sodium 139 mmol/L (135-144); iSTAT SpO2 99
[2024-02-29] MEDS: POTASSIUM CHLORIDE 20 MEQ/15 ML UDC PO ONE (12:52)
--- NOTE | 2024-02-29 13:54 | Hospitalist Progress Note ---
Date of Service February 29, 2024 Assessment & Plan (1) Acute and chronic respiratory failure with hypercapnia: Plan: Secondary to decompensated heart failure secondary to influenza/pneumonia/complicated bronchitis and possibly uncontrolled blood pressure owing to medical noncompliance Required intubation and now on sedation and pressors and to maintain hemodynamic stability Appreciate memorandum statement clerk input and recommendation Has been getting treatment for influenza A with Tamiflu and also on intravenous antibiotic cefepime and doxycycline doxycycline. Remains stable (2) Influenza A: Plan: As above (3) HFrEF (heart failure with reduced ejection fraction): Plan: History systolic dysfunction status post ICD His LV systolic function has declined since his last echocardiogram dated March 2022 -- his LV systolic function is severely reduced, LVEF appears to be 20% with severe global hypokinesis. Complicated by influenza A infection Diuretic Rx Strict I/Os Appreciate cardiology input and recommendation (4) NSVT (nonsustained ventricular tachycardia): Plan: Noted to have SVT with a rate of 158/min The heart rate is maintaining around 91 with low blood pressure requiring pressors (5) Diabetes: Plan: DM2 insulin requiring, medical noncompliance, suboptimal control as of recent hemoglobin A1c of 10.6 last December 2023. Good (6) ICD (implantable cardioverter-defibrillator), single, in situ: Plan: As above (7) Obstructive sleep apnea: Plan: History of GISELE and is complicating current respiratory failure History of COPD which is also adding current deterioration of his condition and respiratory failure Plan Other significant medical conditions are mentioned as below: UGIB, hemoglobin currently stable Maroon drainage from the OGT OGT irrigation did not show any signs of bleeding Continue with Protonix Monitor H&H PT/INR within normal limit Hyperlipidemia, statin noncompliance Hx COPD, no overt wheezing on exam GISELE on CPAP Alcoholic hepatitis, likely good prognosis on Maddrey DF score given normal coags. Continue with folic acid and thiamine Headache secondary to illness/uncontrolled blood pressure rule out bleed Vague abdominal complaints with abnormal LFTs Ongoing tobacco/alcohol abuse DVT prophylaxis. SCDs GI bleed Full code Patient requesting updates providers. Ms. Emili Espinoza, contact #[phone]. Admission and Anticipated Discharge Date Admission Date: February 29, 2024 Subjective 02/29/2024 The patient was seen and examined in ICU He was admitted with acute respiratory failure likely secondary to influenza A and is complicated by CHF and NS VT Required intubation Now sedated on intubation and requiring pressor support to maintain blood pressure Review of Systems Review of Systems: Unobtainable due to endotracheal tube Physical Exam Physical Exam: Lying in bed intubated and remained hemodynamically stable Constitutional: well developed, well nourished, + ill appearing and average body habitus Eyes: PERRL, conjunctivae normal, anicteric sclerae ENMT: external ear and nose normal, oropharynx normal Neck: trachea midline, no thyromegaly Respiratory: + respiratory distress Auscultation: + diminished lung sounds and + crackles (Minimal bibasilar crackles) Cardiovascular: Rate/Rhythm: regular rate, regular rhythm and + tachycardic (SVT on presentation) Heart Sounds: normal S1 and normal S2; no murmur Extremities: + edema (1+ edema bilaterally) Gastrointestinal (Abdomen): Inspection/Auscultation: + abdomen distended Percussion/Palpation: abdomen soft; abdomen nontender Musculoskeletal: No acute arthritis involving any of the joint Neurologic: Remains intubated and sedated Lymphatic: no cervical or axillary lymphadenopathy Results & Data Results & Data Vital Signs (Past 12 Hours) Vital Signs Temp Pulse Pulse Pulse Resp BP BP 02/29/24 13:03 36.9 C 91 H 02/29/24 13:00 104/02/29/24 13:00 104/02/29/24 12:24 36.9 C 94 H 02/29/24 12:15 100/72 02/29/24 12:15 02/29/24 12:12 93 H 02/29/24 12:10 02/29/24 12:09 36.9 C 91 H 02/29/24 11:45 101/71 02/29/24 11:40 96 H 02/29/24 11:39 36.8 C 96 H 02/29/24 11:36 36.8 C 98 H 02/29/24 11:30 108/77 02/29/24 11:24 36.7 C 97 H 02/29/24 11:15 36.8 C 96 H 02/29/24 11:15 98/72 L 02/29/24 11:03 36.8 C 97 H 02/29/24 11:00 99/74 L 02/29/24 10:54 36.7 C 98 H 02/29/24 10:45 91/65 L 02/29/24 10:39 36.7 C 101 H 02/29/24 10:30 89/67 L 02/29/24 10:27 36.7 C 103 H 02/29/24 10:15 89/72 L 02/29/24 10:03 36.6 C 102 H 02/29/24 10:00 93/69 L 02/29/24 09:54 36.6 C 103 H 02/29/24 09:45 36.5 C 102 H 02/29/24 09:33 36.5 C 102 H 02/29/24 09:30 90/72 L 02/29/24 09:09 36.4 C L 104 H 02/29/24 09:05 87/67 L 02/29/24 09:00 95/70 L 02/29/24 09:00 36.4 C L 107 H 02/29/24 08:50 97/72 L 02/29/24 08:45 80/59 L 02/29/24 08:45 36.4 C L 105 H 02/29/24 08:42 36.4 C L 103 H 02/29/24 08:42 80/59 L 02/29/24 08:31 76/59 L 02/29/24 08:30 75/57 L 02/29/24 08:24 36.4 C L 97 H 02/29/24 08:15 83/62 L 02/29/24 08:13 105 H 02/29/24 08:08 87/63 L 02/29/24 08:03 36.5 C 96 H 02/29/24 08:00 02/29/24 08:00 02/29/24 08:00 88/66 L 02/29/24 07:42 36.7 C 101 H 02/29/24 07:39 36.7 C 101 H 02/29/24 07:18 36.7 C 105 H 22 127/89 02/29/24 07:15 36.7 C 105 H 26 H 02/29/24 06:10 132/98 02/29/24 06:08 37.0 C 128 H 25 H 02/29/24 06:05 120/80 02/29/24 06:02 37.0 C 125 H 22 02/29/24 06:00 131/96 02/29/24 06:00 131/96 02/29/24 06:00 131/96 02/29/24 05:55 133/106 H 02/29/24 05:55 133/106 H 02/29/24 05:55 133/106 H 02/29/24 05:50 116/88 02/29/24 05:50 116/88 02/29/24 05:49 22 02/29/24 05:45 111/85 02/29/24 05:42 120 H 122/95 02/29/24 05:33 37.4 C 134 H 20 02/29/24 05:30 172/118 H 02/29/24 05:30 172/118 H 02/29/24 05:28 162 H 180/129 H 02/29/24 05:25 180/129 H 02/29/24 05:25 180/129 H 02/29/24 05:25 180/129 H 02/29/24 05:15 179/130 H 02/29/24 05:15 37.4 C 158 H 20 179/130 H 02/29/24 05:10 176/129 H 02/29/24 05:06 37.4 C 162 H 20 02/29/24 05:05 171/127 H 02/29/24 05:02 37.2 C 162 H 20 179/130 H 02/29/24 05:00 175/128 H 02/29/24 05:00 175/128 H 02/29/24 04:57 37.4 C 161 H 20 02/29/24 04:55 171/123 H 02/29/24 04:55 171/123 H 02/29/24 04:55 171/123 H 02/29/24 04:55 171/123 H 02/29/24 04:54 37.4 C 160 H 20 02/29/24 04:50 174/126 H 02/29/24 04:47 37.4 C 162 H 20 174/126 H 02/29/24 04:45 37.4 C 160 H 20 175/124 H 02/29/24 04:45 175/124 H 02/29/24 04:42 37.4 C 161 H 20 02/29/24 04:40 174/125 H 02/29/24 04:40 174/125 H 02/29/24 04:35 175/123 H 02/29/24 04:32 37.3 C 161 H 20 173/123 H 02/29/24 04:30 153/114 H 02/29/24 04:30 153/114 H 02/29/24 04:25 162/116 H 02/29/24 04:25 162/116 H 02/29/24 04:25 162/116 H 02/29/24 04:24 37.2 C 157 H 20 162/116 H 02/29/24 04:17 37.2 C 155 H 20 162/116 H 02/29/24 04:16 37.2 C 150 H 21 149/116 H 02/29/24 04:15 36.9 C 145 H 24 02/29/24 04:15 149/116 H 02/29/24 04:15 149/116 H 02/29/24 04:15 149/116 H 02/29/24 04:13 144 H 16 02/29/24 04:12 36.4 C L 146 H 18 02/29/24 04:11 152/109 H 02/29/24 04:09 35.2 C L 150 H 17 02/29/24 04:05 196/140 H 02/29/24 04:05 36.8 C 144 H 196/140 H 02/29/24 04:05 196/140 H 02/29/24 04:01 35.5 C L 147 H 35 H 152/109 H 02/29/24 04:01 02/29/24 04:00 155 H 20 02/29/24 04:00 163/114 H 02/29/24 03:59 165/118 H 02/29/24 03:56 170/127 H 02/29/24 03:48 159 H 34 H 02/29/24 03:46 152 H 40 H 158/123 H 02/29/24 03:45 155 H 02/29/24 03:45 158/123 H 02/29/24 03:45 158/123 H 02/29/24 03:35 Pulse Ox O2 Del Method O2 Flow Rate FiO2 02/29/24 13:03 95 02/29/24 13:00 02/29/24 13:00 02/29/24 12:24 96 30 02/29/24 12:15 02/29/24 12:15 30 02/29/24 12:12 96 Mechanical Vent 30 02/29/24 12:10 30 02/29/24 12:09 96 02/29/24 11:45 02/29/24 11:40 97 35 02/29/24 11:39 97 02/29/24 11:36 97 02/29/24 11:30 02/29/24 11:24 98 02/29/24 11:15 97 02/29/24 11:15 02/29/24 11:03 97 02/29/24 11:00 02/29/24 10:54 97 02/29/24 10:45 02/29/24 10:39 98 02/29/24 10:30 02/29/24 10:27 98 02/29/24 10:15 02/29/24 10:03 97 02/29/24 10:00 02/29/24 09:54 97 02/29/24 09:45 97 02/29/24 09:33 97 02/29/24 09:30 02/29/24 09:09 98 02/29/24 09:05 02/29/24 09:00 02/29/24 09:00 98 02/29/24 08:50 02/29/24 08:45 02/29/24 08:45 98 02/29/24 08:42 99 02/29/24 08:42 02/29/24 08:31 02/29/24 08:30 02/29/24 08:24 98 02/29/24 08:15 02/29/24 08:13 97 40 02/29/24 08:08 02/29/24 08:03 97 02/29/24 08:00 35 02/29/24 08:00 Mechanical Vent 35 02/29/24 08:00 02/29/24 07:42 96 02/29/24 07:39 96 02/29/24 07:18 94 Mechanical Vent 02/29/24 07:15 95 02/29/24 06:10 02/29/24 06:08 97 02/29/24 06:05 02/29/24 06:02 97 02/29/24 06:00 02/29/24 06:00 02/29/24 06:00 02/29/24 05:55 02/29/24 05:55 02/29/24 05:55 02/29/24 05:50 02/29/24 05:50 02/29/24 05:49 70 02/29/24 05:45 02/29/24 05:42 02/29/24 05:33 96 02/29/24 05:30 02/29/24 05:30 02/29/24 05:28 02/29/24 05:25 02/29/24 05:25 02/29/24 05:25 02/29/24 05:15 02/29/24 05:15 96 Mechanical Vent 02/29/24 05:10 02/29/24 05:06 96 02/29/24 05:05 02/29/24 05:02 96 Mechanical Vent 02/29/24 05:00 02/29/24 05:00 02/29/24 04:57 97 02/29/24 04:55 02/29/24 04:55 02/29/24 04:55 02/29/24 04:55 02/29/24 04:54 97 02/29/24 04:50 02/29/24 04:47 97 Mechanical Vent 02/29/24 04:45 97 02/29/24 04:45 02/29/24 04:42 97 02/29/24 04:40 02/29/24 04:40 02/29/24 04:35 02/29/24 04:32 97 Mechanical Vent 02/29/24 04:30 02/29/24 04:30 02/29/24 04:25 02/29/24 04:25 02/29/24 04:25 02/29/24 04:24 98 02/29/24 04:17 98 Mechanical Vent 02/29/24 04:16 99 Mechanical Vent 02/29/24 04:15 02/29/24 04:15 02/29/24 04:15 02/29/24 04:15 02/29/24 04:13 99 Mechanical Vent 02/29/24 04:12 98 02/29/24 04:11 02/29/24 04:09 96 02/29/24 04:05 02/29/24 04:05 98 02/29/24 04:05 02/29/24 04:01 95 Non-rebreather 15 02/29/24 04:01 Non-rebreather 15 02/29/24 04:00 96 80 02/29/24 04:00 02/29/24 03:59 02/29/24 03:56 02/29/24 03:48 96 02/29/24 03:46 97 Non-rebreather 15 02/29/24 03:45 02/29/24 03:45 02/29/24 03:45 02/29/24 03:35 Non-rebreather 15 Laboratory Results Short CBC 02/29/24 02/29/24 02/29/24 Range/Units 03:46 06:18 11:50 WBC 13.63 H (4.8-10.8) K/ul Hgb 15.7 15.3 14.2 (14.0-18.0) g/dl Hct 47.2 44.3 (42.0-52.0) % Plt Count 253 (130-400) K/uL BMP 02/29/24 03:46 Sodium 140 Potassium 3.8 Chloride 103 Carbon Dioxide 30 BUN 14 Creatinine 1.02 Glucose 331 H* Calcium 8.9 Liver Function 02/29/24 Range/Units 03:46 Total Bilirubin 0.7 (0.2-1.0) mg/dl AST 107 H (13-39) U/L ALT 91 H (7-52) U/L Alkaline Phosphatase 94 (34-104) U/L Albumin 3.9 (3.4-5.0) gm/dl Urine 02/29/24 Range/Units 04:13 Urine Color Yellow Urine Appearance Clear (Clear) Urine pH 6.0 (4.5-7.5) Ur Specific [place] 1.025 (1.000-1.030) Urine Protein 4+ H (Negative) Urine Glucose (UA) 2+ H (Negative) Medications Administered Current Inpatient Medications Albuterol (Albuterol 0.083% Nebu Soln 3 Ml Vial) 2.5 mg NEB Q6R MINO; Protocol Stop: 03/30/24 06:59 Last Admin: 02/29/24 12:10 Dose: 2.5 mg Budesonide (Budesonide 0.25 Mg/2 Ml Vial (Pulmicort)) 0.25 mg NEB BIDR MINO Stop: 03/30/24 06:59 Last Admin: 02/29/24 08:10 Dose: 0.25 mg Dextrose (Dextrose 50% 50 Ml Syringe) 25 - 50 ml IV UD PRN; Protocol PRN Reason: Hypoglycemia Protocol Stop: 03/30/24 07:29 Fentanyl Citrate (Fentanyl Bolus From Bag) 50 mcg IV Q60M PRN PRN Reason: Pain or Agitation Stop: 03/14/24 06:58 Folic Acid (Folic Acid 1 Mg Tab) [facility] [place] 03/30/24 08:59 Last Admin: 02/29/24 07:34 Dose: 1 mg Glucagon (Glucagon For Inj 1 Mg Vial) 1 mg SQ UD PRN; Protocol PRN Reason: Hypoglycemia Protocol Stop: 03/30/24 07:29 Glucose (Glucose 40% Gel 15 Gm Tube) 15 - 30 gm PO UD PRN; Protocol PRN Reason: Hypoglycemia Protocol Stop: 03/30/24 07:29 Glucose (Glucose 10 Tab/Tube) 4 - 8 tab PO UD PRN; Protocol PRN Reason: Hypoglycemia Protocol Stop: 03/30/24 07:29 Doxycycline Hyclate 100 mg/ (Dextrose) 100 mls @ 50 mls/hr IV Q12H [facility] Stop: 03/05/24 06:59 Last Infusion: 02/29/24 09:31 Dose: Infused Thiamine HCl 100 mg/ Syringe 10 mls @ 2 mls/min [facility] [place] Stop: 03/31/24 08:59 Insulin Human Regular 250 (units/ Sodium Chloride) 250 mls @ 2.5 mls/hr IV .Q24H MINO; Protocol Stop: 03/30/24 07:14 Last Titration: 02/29/24 13:02 Dose: 2.5 mls/hr, 2.5 mls/hr Fentanyl Citrate (Fentanyl Citrate) 2,500 mcg in 250 mls @ 10 mls/hr IV .Q25H MINO; Protocol Stop: 03/14/24 06:58 Last Titration: 02/29/24 13:02 Dose: 100 mcg/hr, 10 mls/hr Norepinephrine Bitartrate (Levophed/D5w) 4 mg in 250 mls @ 25.279 mls/hr IV .Q9H54M MINO; Protocol Stop: 03/30/24 09:14 Last Titration: 02/29/24 10:50 Dose: 0.07 mcg/kg/min, 25.3 mls/hr Ceftriaxone Sodium (Rocephin) 2,000 mg in 50 mls @ 100 mls/hr IV Q24H [facility] Stop: 03/05/24 10:59 Last Infusion: 02/29/24 12:32 Dose: Infused Pantoprazole Sodium (Protonix) 40 mg in 10 mls @ 5 mls/min IV BID@0900,2100 [facility] Stop: 03/30/24 20:59 Propofol (Diprivan) 1,000 mg in 100 mls @ 14.445 mls/hr IV .Q6H56M [facility]; Protocol Stop: 03/03/24 11:29 Last Titration: 02/29/24 12:34 Dose: 25 mcg/kg/min, 14.4 mls/hr Insulin Aspart (Insulin Aspart Per Unit Charge) 0 units SC ACHS [facility] Stop: 03/30/24 07:29 Last Admin: 02/29/24 12:52 Dose: Not Given Lorazepam (Lorazepam 2 Mg/1 Ml Vial) 1 mg IV ONE PRN; Protocol PRN Reason: EtoH Withdrawal AWSS 6-10 Miscellaneous (Carbohydrates For Hypoglycemia ) 15 - 30 gm PO UD PRN PRN Reason: Hypoglycemia Treatment Stop: 03/30/24 07:29 Multivitamins/Minerals (Multi Vit W/Minerals Liquid 15 Ml Udc) 15 ml NG QAM [facility] Stop: 03/31/24 08:59 Oseltamivir Phosphate (Oseltamivir Phosphate Susp 75 Mg/12.5 Ml Udp) 75 mg PO BID [facility]; Protocol Stop: 03/05/24 05:24 Last Admin: 02/29/24 07:14 Dose: 75 mg Propofol (Propofol Bolus From Bag) 20 mg IV Q5M PRN PRN Reason: Sedation Stop: 03/03/24 11:17 (3) HFrEF (heart failure with reduced ejection fraction) Heart failure chronicity: acute on chronic Qualified Code(s): I50.23 - Acute on chronic systolic (congestive) heart failure
--- NOTE | 2024-02-29 14:31 | XCELERA ---
[id number] [id number]
--- NOTE | 2024-02-29 14:56 | Electrocardiogram Report ---
Test Reason : Blood Pressure : */* mmHG Vent. Rate : 158 BPM Atrial Rate : 158 BPM P-R Int : 104 ms QRS Dur : 102 ms QT Int : 294 ms P-R-T Axes : * -11 100 degrees QTcB Int : 476 ms Sinus tachycardia with short ND Minimal voltage criteria for LVH, may be normal variant Abnormal ECG Confirmed by Fransico Forrest ([id number]) on 02/29/2024 2:56:19 PM Referred By: REFERRED SELF Confirmed By: Fransico Forrest
[2024-02-29] MEDS: FUROSEMIDE 40 MG/4 ML VIAL IV SCH (19:21)
[2024-02-29] MEDS: DEXTROSE 50% 50 ML SYRINGE IV PRN (19:39)
[2024-02-29] MEDS: PROPOFOL BOLUS FROM BAG IV PRN (20:51)
[2024-02-29] MEDS: fentaNYL BOLUS from BAG IV PRN (20:51)
[2024-02-29] MEDS ORDERED: PANTOprazole 40 MG/10 ML SYR IV SCH (21:00)
[2024-02-29] MEDS: PANTOprazole 40 MG in SYRINGE BID IV SCH (21:41)
[2024-03-01] MEDS: ACETAMINOPHEN 325 MG TAB PO PRN (01:29)
[2024-03-01 05:59] LABS: Basophils # (auto) 0.04 K/uL (0.00-0.20); Basophils % (auto) 0.4 %; Eosinophils # (auto) 0.09 K/uL (0.00-0.50); Eosinophils % (auto) 0.9 %; Hematocrit (blood only) 40.8 % (42.0-52.0); Hemoglobin 14.2 g/dl (14.0-18.0); Immature Granulocytes # (auto) 0.12 K/uL (0.01-0.20); Immature Granulocytes % (auto) 1.2 %; Lymphocytes % (auto) 24.1 %; Mean Corpuscular Hemoglobin 32.1 pg (25.0-34.0); Mean Corpuscular Hgb Conc 34.8 g/dL (32.0-36.0); Mean Corpuscular Volume 92.1 fL (80.0-100.0); Mean Platelet Volume 11.4 fL (9.4-12.4); Monocytes # (auto) 1.19 K/uL (0.11-0.59); Monocytes % (auto) 11.5 %; Neutrophils # (auto) 6.44 K/uL (1.40-6.50); Neutrophils % (auto) 61.9 %; Platelet Count 197 K/uL (130-400); RDW Coefficient of Variation 12.9 % (11.5-14.5); RDW Standard Deviation 43.1 fL (36.4-46.3); Red Blood Count 4.43 M/uL (4.70-6.10); White Blood Count 10.38 K/ul (4.8-10.8)
[2024-03-01 06:16] LABS: Albumin Globulin Ratio 1.1 (0.9-2); Albumin Level 3.4 gm/dl (3.4-5.0); BUN Creatinine Ratio 16.3 (10-20); Bilirubin,Total 0.8 mg/dl (0.2-1.0); Calcium 8.5 mg/dl (8.6-10.3); Creatinine Clr Calc Pharmacy 113.3 ml/min; Globulin 3.2 gm/dl (2.5-4.0); Potassium 3.9 mmol/L (3.5-5.1); Total Protein 6.6 gm/dl (6.0-8.3)
[2024-03-01] MEDS: LANTUS PER UNIT CHARGE SC SCH (08:22)
[2024-03-01] MEDS: INSULIN ASPART PER UNIT CHARGE SC SCH (08:22)
[2024-03-01] MEDS: MULTI VIT W/MINERALS LIQUID 15 ML UDC NG SCH (08:27)
[2024-03-01] MEDS: THIAMINE HCL 100 MG in SYRINGE 9 ML IV SCH (08:30)
--- NOTE | 2024-03-01 08:38 | XRay Report ---
XR chest 1V portable CLINICAL HISTORY: eval lines/tubes/lung meza COMPARISON STUDY: Chest radiograph and chest CT February 29, 2024. FINDINGS: Tip of endotracheal tube is 6.6 cm above the tequila. Tip of nasogastric tube is within the body of the stomach. Left subclavian pacer/AICD is in place. Cardiomegaly is again noted. There is no pneumothorax. Small bilateral pleural effusions with associated bibasilar opacities are again noted. Pulmonary edema has improved. IMPRESSION: 1. Satisfactory positioning of the endotracheal and nasogastric tubes. 2. No pneumothorax. 3. Cardiomegaly. Persistent, but mildly improved, pulmonary edema. 4. Small bilateral pleural effusions. Increase in left basilar opacity. This favors pneumonia. ACT 112: Negative or not required by law. Electronically signed by: Eric Boyd M.D. 03/01/2024 8:35 AM
[2024-03-01] MEDS ORDERED: STAT IV Infusion **Titration per Protocol STA (08:49)
--- NOTE | 2024-03-01 08:50 | Critical Care Progress Note ---
Date of Service March 01, 2024 Assessment & Plan (1) Respiratory failure requiring intubation: (2) Influenza A: (3) CHF (congestive heart failure): (4) ICD (implantable cardioverter-defibrillator), single, in situ: (5) Obstructive sleep apnea: (6) Diabetes: Plan Reason Critically Ill: 59 YOM brought to hospital for respiratory distress, requiring intubation for respiratory acidosis/failure in setting of influenza with likely component of acute heart failure as well. CT chest 02/29/2024 personally reviewed: Small to moderate bilateral pleural effusion with interlobular thickening Consolidative process in the left lower lobe Dependent atelectasis of the right lower lobe Minimal mediastinal lymphadenopathy Neuro - [facility] ICU: [facility] - Propofol and Fentanyl for sedation - goal RASS -1 - Possible for ETOH withdraw consider benzodiazepine pending clinical progression Cardiac - HFrEF HTN, HLD, AICD --Acute on chronic systolic CHF 2D echo 2022: EF 35-40%, normal RV --> repeat 2D echo 02/29/2024 shows EF 15-20% BNP 1032 Cardiology on board - AICD- single lead- VVI 40: VF >200, VT 180-200 -- Shock Combination of CHF as well as septic Sedation also playing a role Vasopressor support to keep MAP greater than 65 Respiratory - Hypoxic/Hypercarbic respiratory failure requiring intubation, Current smoker, COPD, RLL opacity --Acute on chronic hypercapnic hypoxic respiratory failure Hypercapnia is most likely secondary to GISELE/OHS Hypoxia is secondary to pulmonary edema as well as left lower lobe pneumonia Continue with ventilatory support Keep RASS -1 Daily sedation holidays and SBT's BNP 1032 Respiratory BioFire positive for influenza A TSH within normal limit at 1.18 GI - Maroon drainage from OGT, GERD, elevated LFTs --Transaminitis Likely secondary to acute CHF with viral illness Continue to trend --Maroon drainage from the OGT OGT irrigation did not show any signs of bleeding Continue with Protonix Monitor H&H PT/INR within normal limit RENAL/LYTES - NO acute needs - ICU electrolyte protocol - No acute needs - Ruiz to gravity continue while intubated and sedated ENDO - DM --Diabetes type 2 HbA1c 11.6 on 09/30/2019, repeat HbA1c Continue with ICU hypoglycemia protocol HEME - No acute needs ID - Pneumonia left lower lobe, influenza --Pneumonia Influenza A positive but does have dense consolidative process in the left lower lobe Continue with antibiotics Given the prolonged QTc avoid QTc prolonging antibiotic/azithromycin, will continue with cefepime and doxycycline Follow-up blood cultures and sputum culture - Influenza A Okay to continue with Tamiflu --Prophylaxis VTE: Lovenox GI: Pantoprazole Lines: Peripheral Diet: N.p.o. Plan: In/out: Negative for 92, urine output 2320 Continue with antibiotics Continue with oseltamivir Increase Lasix to 60 mg every 12 Try to wean off Levophed, continue with dobutamine I have personally spent 43 minutes of critical care time in the direct management of this patient. This is a life/limb threatening event. This includes time spent evaluating patient, direct bedside care, chart review, placing orders, interpretation of diagnostic studies, discussion with consultants, patient, and family members, as well as other required patient management activities. This time is exclusive of all separately billable procedures, and teaching time and separate from and in addition to any other critical care service time. Please note the above document was generated using voice recognition software. It may contain grammatical, syntax or spelling errors. Admission and Anticipated Discharge Date Admission Date: February 29, 2024 Subjective Patient seen and examined at bedside. No acute distress, no adverse events overnight Patient was on 125 fentanyl and 40 of propofol, 0.02 of Levophed and 2.5 of dobutamine at the time of examination Tmax 38 He was RASS -2, did wake up on deep stimulation Patient's was also in the room at the time of examination Review of Systems 2 Review of Systems: All systems reviewed & are unremarkable except as noted in Subjective and Unobtainable due to endotracheal tube Physical Exam 2 Physical Exam: Constitutional: No acute distress HEENT: PERRLA Respiratory system: Decreased air entry bilaterally, no wheeze, no rhonchi, positive crackles bilateral lower lobes CVS: S1-S2 positive, no murmurs or gallops Abdomen: Soft, nontender, nondistended, positive bowel sounds x4, obese Extremities: +2 pulses bilaterally radialis/ dorsalis pedis, no cyanosis, +1 pitting edema bilateral lower extremity Neuro: Breathing with the vent, moving extremities to stimuli, RASS -2 Psych: Unable to assess G/U: Positive Ruiz Skin: no rashes, warm and dry Lymphatic: no cervical or axillary lymphadenopathy Results & Data Results & Data Vital Signs (Past 12 Hours) Vital Signs Temp Pulse Resp BP Pulse Ox FiO2 03/01/24 07:58 87 18 95 30 03/01/24 04:45 99/76 L 03/01/24 04:45 99/76 L 03/01/24 04:42 37.5 C 86 18 96 03/01/24 04:30 99/70 L 03/01/24 04:18 37.5 C 87 18 95 03/01/24 04:15 10103/01/24 04:15 101/03/01/24 04:15 10103/01/24 04:12 37.5 C 86 18 96 03/01/24 04:03 88 18 97 30 03/01/24 04:00 37.5 C 86 18 96 03/01/24 04:00 10172 03/01/24 04:00 10103/01/24 04:00 10103/01/24 04:00 30 03/01/24 03:45 37.6 C H 83 18 95 03/01/24 03:45 100/69 03/01/24 03:30 114/76 03/01/24 03:27 37.6 C H 86 18 95 03/01/24 03:18 37.7 C H 87 18 95 03/01/24 03:15 110/77 03/01/24 03:00 37.8 C H 88 18 94 03/01/24 03:00 105/70 03/01/24 02:45 107/72 03/01/24 02:45 107/72 03/01/24 02:33 37.9 C H 90 18 93 03/01/24 02:30 102/67 03/01/24 02:30 102/67 03/01/24 02:15 106/70 03/01/24 02:15 106/70 03/01/24 02:15 38.0 C H 91 H 18 93 03/01/24 02:00 38.0 C H 95 H 18 95 03/01/24 02:00 114/78 03/01/24 02:00 114/78 03/01/24 02:00 114/78 03/01/24 01:58 117/78 03/01/24 01:57 38.0 C H 99 H 18 95 03/01/24 01:33 38.0 C H 99 H 18 100 03/01/24 01:30 118/81 03/01/24 01:30 118/81 03/01/24 01:27 38.0 C H 101 H 18 95 03/01/24 01:00 37.9 C H 103 H 18 95 03/01/24 01:00 117/81 03/01/24 01:00 117/81 03/01/24 01:00 117/81 03/01/24 00:53 93/66 L 03/01/24 00:53 93/66 L 03/01/24 00:53 93/66 L 03/01/24 00:48 37.9 C H 97 H 18 99 03/01/24 00:30 96/65 L 03/01/24 00:25 91 H 18 96 30 03/01/24 00:24 37.9 C H 86 18 95 03/01/24 00:00 91 H 03/01/24 00:00 37.8 C H 88 18 96 03/01/24 00:00 99/67 L 03/01/24 00:00 99/67 L 03/01/24 00:00 30 02/29/24 23:30 98/66 L 02/29/24 23:30 98/66 L 02/29/24 23:09 37.7 C H 89 18 94 02/29/24 23:06 37.7 C H 91 H 18 94 02/29/24 23:00 83/65 L 02/29/24 22:54 37.7 C H 90 18 94 02/29/24 22:45 101/68 02/29/24 22:39 37.6 C H 91 H 18 94 02/29/24 22:30 108/71 02/29/24 22:12 37.7 C H 89 18 94 02/29/24 22:00 104/70 02/29/24 22:00 104/70 02/29/24 22:00 37.7 C H 91 H 18 93 02/29/24 21:43 112/73 02/29/24 21:30 105/78 02/29/24 21:27 37.7 C H 98 H 18 94 02/29/24 21:27 96 H 18 95 30 02/29/24 21:06 37.7 C H 98 H 18 96 Laboratory Results 03/01/24 05:35 03/01/24 05:35 Coding Level of Care Code 22278 CRITICAL CARE 1ST 30-74M Diagnoses Respiratory failure requiring intubation J96.90 Influenza A J10.1 CHF (congestive heart failure) I50.9 ICD (implantable cardioverter-defibrillator), single, in situ Z95.810 Obstructive sleep apnea G47.33 Diabetes E11.9
[2024-03-01] MEDS: DOBUTamine / D5W 1,000 MG/250 ML BAG IV SCH (09:23)
--- NOTE | 2024-03-01 10:42 | Cardiology Progress Note ---
Date of Service March 01, 2024 Assessment & Plan (1) Acute and chronic respiratory failure with hypercapnia: (2) HFrEF (heart failure with reduced ejection fraction): (3) Cardiomyopathy: (4) ICD (implantable cardioverter-defibrillator), single, in situ: Plan 1. Respiratory failure: I suspect this is primarily respiratory in nature with superimposed congestive heart failure. He is on the ventilator, hopefully he can be weaned in the near future. 2. Congestive heart failure: This is probably on the basis of his acute illness (as opposed to a cardiac event), his left ventricular ejection fraction has declined however that is probably stunning rather than a cardiac event. 3. Cardiomyopathy: He has a longstanding cardiomyopathy which is worse on his recent echo. I suspect that is due to stunning from his current illness. We can repeat the echo when he has improved somewhat, in the meantime we should continue supportive care. I do not think we should pursue any cardiac evaluation for a cause as yet. 4. ICD: Clinically working well and based on last interrogation. Admission and Anticipated Discharge Date Admission Date: February 29, 2024 Subjective Events since admission reviewed. Well-known to me from the office. At the time my visit he is intubated and sedated therefore not really responsive although he does have spontaneous movement. His is present at the bedside. Physical Exam Physical Exam: Constitutional: Intubated and sedated Pulmonary: Decreased breath sounds auscultation bilaterally, basilar crackles. Cardiac: Regular rhythm with no murmur, gallop or rub. Abdomen: Soft, nontender with normal bowel sounds. Extremities: Trace edema bilaterally. Skin: No rash, ecchymoses or petechiae. Results & Data Vital Signs (Past 12 Hours) Vital Signs Temp Pulse Resp BP Pulse Ox FiO2 03/01/24 08:00 30 03/01/24 07:58 87 18 95 30 03/01/24 04:45 99/76 L 03/01/24 04:45 99/76 L 03/01/24 04:42 37.5 C 86 18 96 03/01/24 04:30 99/70 L 03/01/24 04:18 37.5 C 87 18 95 03/01/24 04:15 101/03/01/24 04:15 03/01/24 04:15 03/01/24 04:12 37.5 C 86 18 96 03/01/24 04:03 88 18 97 30 03/01/24 04:00 37.5 C 86 18 96 03/01/24 04:00 10103/01/24 04:00 10103/01/24 04:00 10103/01/24 04:00 30 03/01/24 03:45 37.6 C H 83 18 95 03/01/24 03:45 100/69 03/01/24 03:30 114/76 03/01/24 03:27 37.6 C H 86 18 95 03/01/24 03:18 37.7 C H 87 18 95 03/01/24 03:15 110/77 03/01/24 03:00 37.8 C H 88 18 94 03/01/24 03:00 105/70 03/01/24 02:45 107/72 03/01/24 02:45 107/72 03/01/24 02:33 37.9 C H 90 18 93 03/01/24 02:30 102/67 03/01/24 02:30 102/67 03/01/24 02:15 106/70 03/01/24 02:15 106/70 03/01/24 02:15 38.0 C H 91 H 18 93 03/01/24 02:00 38.0 C H 95 H 18 95 03/01/24 02:00 114/78 03/01/24 02:00 114/78 03/01/24 02:00 114/78 03/01/24 01:58 117/78 03/01/24 01:57 38.0 C H 99 H 18 95 03/01/24 01:33 38.0 C H 99 H 18 100 03/01/24 01:30 118/81 03/01/24 01:30 118/81 03/01/24 01:27 38.0 C H 101 H 18 95 03/01/24 01:00 37.9 C H 103 H 18 95 03/01/24 01:00 117/81 03/01/24 01:00 117/81 03/01/24 01:00 117/03/01/24 00:53 93/66 L 03/01/24 00:53 93/66 L 03/01/24 00:53 93/66 L 03/01/24 00:48 37.9 C H 97 H 18 99 03/01/24 00:30 96/65 L 03/01/24 00:25 91 H 18 96 30 03/01/24 00:24 37.9 C H 86 18 95 03/01/24 00:00 91 H 03/01/24 00:00 37.8 C H 88 18 96 03/01/24 00:00 99/67 L 03/01/24 00:00 99/67 L 03/01/24 00:00 30 02/29/24 23:30 98/66 L 02/29/24 23:30 98/66 L 02/29/24 23:09 37.7 C H 89 18 94 02/29/24 23:06 37.7 C H 91 H 18 94 02/29/24 23:00 83/65 L 02/29/24 22:54 37.7 C H 90 18 94 02/29/24 22:45 101/68 02/29/24 22:39 37.6 C H 91 H 18 94 Laboratory Results Cardiac Enzymes 03/01/24 Range/Units 05:35 AST 39 (13-39) U/L CBC 02/29/24 03/01/24 Range/Units 11:50 05:35 WBC 10.38 (4.8-10.8) K/ul RBC 4.43 L (4.70-6.10) M/uL Hgb 14.2 14.2 (14.0-18.0) g/dl Hct 40.8 L (42.0-52.0) % Plt Count 197 (130-400) K/uL Neut # (Auto) 6.44 (1.40-6.50) K/uL Lymph # (Auto) 2.50 (1.20-3.40) K/uL [place] # (Auto) 1.19 H (0.11-0.59) K/uL Eos # (Auto) 0.09 (0.00-0.50) K/uL Baso # (Auto) 0.04 (0.00-0.20) K/uL Comprehensive Metabolic Panel 03/01/24 Range/Units 05:35 Sodium 136 (136-145) mmol/L Potassium 3.9 (3.5-5.1) mmol/L Chloride 101 (98-107) mmol/L Carbon Dioxide 28 (21-32) mmol/L BUN 14 (6-23) mg/dl Creatinine 0.86 (0.6-1.4) mg/dl Glucose 171 H (70-99(Fasting)) mg/dl Calcium 8.5 L (8.6-10.3) mg/dl AST 39 (13-39) U/L ALT 75 H (7-52) U/L Alkaline Phosphatase 79 (34-104) U/L Total Protein 6.6 (6.0-8.3) gm/dl Albumin 3.4 (3.4-5.0) gm/dl Intake and Output 02/29/24 03/01/24 03/01/24 22:59 06:59 14:59 Intake Total 522.625 / 2406.480 484.543 / 2406.480 237.176 / 237.176 Output Total 1875 / 3320 295 / 3320 Balance -1352.375 / -913.520 189.543 / -913.520 237.176 / 237.176 Intake: IV 522.625 / 2106.480 484.543 / 2106.480 237.176 / 237.176 Doxycycline Hyclate 100 mg In 100 / 200 100 / 100 Dextrose 5% Mini-B 100 ml @ 50 mls/hr IV Q12H [facility] Rx#:[id number] Insulin Regular 250 units In 13.833 / 36.484 5.667 / 36.484 1.746 / 1.746 Sodium Chloride 0.9% 247.5 ml @ 0.8 mls/hr IV .Q24H [facility] Rx#: [id number] Norepinephrine/D5w 4 mg In 250 212.099 / 489.408 253.176 / 489.408 13.68 / 13.68 ml @ 0.05 MCG/KG/MIN 18.056 mls /hr IV .[id number] [facility] Rx#: [id number] fentaNYL citrate 2,500 mcg In 61.833 / 149.500 63.417 / 149.500 71.25 / 71.25 250 ml @ 125 MCG/HR 12.5 mls/hr IV .Q20H [facility] Rx#:[id number] propofoL 1,000 mg In 100 ml @ 134.86 / 304.683 162.283 / 304.683 50.500 / 50.500 35 MCG/KG/MIN 20.223 mls/hr IV .Q4H57M [facility] Rx#:[id number] Output: Urine Amount (Catheter) 1874 / 3320 295 / 3320 Ruiz/Indwelling 1874 295 / 3320 Other: Weight 96.6 kg Weight Measurement Method Built in [facility] PG Care Time/CCT Total # of Minutes Spent Total Time Spent with Patient: Total time spent is greater than 50% in coordination of care (as documented) at patient's floor/unit and/or counseling patient: Coding Level of Care Code 68706 SUB INP/OBS CARE 2/35MIN Diagnoses Acute and chronic respiratory failure with hypercapnia J96.22 Acute on chronic systolic heart failure I50.23 Heart failure chronicity: acute on chronic Dilated cardiomyopathy I42.0 Cardiomyopathy type: dilated ICD (implantable cardioverter-defibrillator), single, in situ Z95.810 (2) HFrEF (heart failure with reduced ejection fraction) Heart failure chronicity: acute on chronic Qualified Code(s): I50.23 - Acute on chronic systolic (congestive) heart failure (3) Cardiomyopathy Cardiomyopathy type: dilated Qualified Code(s): I42.0 - Dilated cardiomyopathy
[2024-03-01] MEDS: ENOXAPARIN INJ 40 MG/0.4 ML SYR SQ SCH (10:43)
--- NOTE | 2024-03-01 12:40 | Hospitalist Progress Note ---
Date of Service March 01, 2024 Assessment & Plan (1) Acute and chronic respiratory failure with hypercapnia: Plan: Secondary to decompensated heart failure secondary to influenza/pneumonia/complicated bronchitis and possibly uncontrolled blood pressure owing to medical noncompliance Required intubation and now on sedation and pressors and to maintain hemodynamic stability Appreciate care assistant input and recommendation Has been getting treatment for influenza A with Tamiflu and also on intravenous antibiotic cefepime and doxycycline doxycycline. Remains on mechanical ventilator and stable Remains afebrile and the white coat has improved to 10.38 blood cultures have been negative and sputum culture shows light normal danny (2) Influenza A: Plan: As above (3) HFrEF (heart failure with reduced ejection fraction): Plan: History systolic dysfunction status post ICD His LV systolic function has declined since his last echocardiogram dated March 2022 -- his LV systolic function is severely reduced, LVEF appears to be 20% with severe global hypokinesis. Complicated by influenza A infection Diuretic Rx Strict I/Os Appreciate cardiology input and recommendation Has been getting intravenous Lasix with cumulative fluid balance of -605 as of today (4) NSVT (nonsustained ventricular tachycardia): Plan: Noted to have SVT with a rate of 158/min The heart rate is maintaining around 91 with low blood pressure requiring pressors (5) Diabetes: Plan: DM2 insulin requiring, medical noncompliance, suboptimal control as of recent hemoglobin A1c of 10.6 last December 2023. Good (6) ICD (implantable cardioverter-defibrillator), single, in situ: Plan: As above (7) Obstructive sleep apnea: Plan: History of GISELE and is complicating current respiratory failure History of COPD which is also adding current deterioration of his condition and respiratory failure Plan Other significant medical conditions are mentioned as below: UGIB, hemoglobin currently stable Maroon drainage from the OGT OGT irrigation did not show any signs of bleeding Continue with Protonix Monitor H&H PT/INR within normal limit Hyperlipidemia, statin noncompliance Hx COPD, no overt wheezing on exam GISELE on CPAP Alcoholic hepatitis, likely good prognosis on Maddrey DF score given normal coags. Continue with folic acid and thiamine LFTs are improving Headache secondary to illness/uncontrolled blood pressure rule out bleed Vague abdominal complaints with abnormal LFTs Ongoing tobacco/alcohol abuse DVT prophylaxis. SCDs GI bleed Full code Patient requesting updates providers. Juan Emili Espinoza, contact #[phone]. Admission and Anticipated Discharge Date Admission Date: February 29, 2024 Subjective 02/29/2024 The patient was seen and examined in ICU He was admitted with acute respiratory failure likely secondary to influenza A and is complicated by CHF and NS VT Required intubation Now sedated on intubation and requiring pressor support to maintain blood pressure 03/01/2024 The patient was seen and examined in ICU He remains intubated and sedated Review of Systems Review of Systems: Could not be reliably obtained secondary to intubated state Physical Exam Physical Exam: Lying in bed intubated and sedated Constitutional: well developed, well nourished, + ill appearing and average body habitus Eyes: PERRL, conjunctivae normal, anicteric sclerae ENMT: external ear and nose normal, oropharynx normal Neck: trachea midline, no thyromegaly Respiratory: + respiratory distress Auscultation: + diminished lung sounds and + crackles (Minimal bibasilar crackles) Cardiovascular: Rate/Rhythm: regular rate, regular rhythm and + tachycardic (SVT on presentation) Heart Sounds: normal S1 and normal S2; no murmur Extremities: + edema (1+ edema bilaterally) Gastrointestinal (Abdomen): Inspection/Auscultation: + abdomen distended Percussion/Palpation: abdomen soft; abdomen nontender Lymphatic: no cervical or axillary lymphadenopathy Results & Data Results & Data Vital Signs (Past 12 Hours) Vital Signs Temp Pulse Resp BP Pulse Ox O2 Del Method FiO2 03/01/24 12:15 03/01/24 12:15 03/01/24 12:15 03/01/24 12:15 03/01/24 12:15 37.0 C 94 H 18 93 03/01/24 12:06 95 H 20 93 35 03/01/24 12:00 107/69 03/01/24 11:57 37.0 C 91 H 18 93 03/01/24 11:45 37.0 C 90 18 91 03/01/24 11:45 110/71 03/01/24 11:45 110/03/01/24 11:42 37.0 C 90 18 91 03/01/24 11:30 110/72 03/01/24 11:27 37.1 C 91 H 18 91 03/01/24 11:15 37.1 C 93 H 18 90 03/01/24 11:15 111/71 03/01/24 11:15 111/71 03/01/24 11:14 30 03/01/24 11:00 37.1 C 92 H 18 90 03/01/24 11:00 118/76 03/01/24 11:00 118/76 03/01/24 10:45 37.1 C 94 H 18 93 03/01/24 10:45 123/79 03/01/24 10:33 37.1 C 90 18 90 03/01/24 10:30 108/74 03/01/24 10:30 108/74 03/01/24 10:21 37.2 C 90 18 90 03/01/24 10:15 37.2 C 92 H 18 92 03/01/24 10:15 122/80 03/01/24 10:15 122/80 03/01/24 10:03 37.3 C 91 H 18 90 03/01/24 10:00 121/81 03/01/24 09:51 37.3 C 90 18 91 03/01/24 09:45 106/72 03/01/24 09:42 37.3 C 91 H 18 91 03/01/24 09:36 37.3 C 90 18 91 03/01/24 09:30 103/73 03/01/24 09:24 37.4 C 90 18 92 03/01/24 09:15 108/72 03/01/24 09:12 37.4 C 91 H 18 91 03/01/24 09:09 37.4 C 92 H 18 91 03/01/24 09:00 106/72 03/01/24 08:51 37.4 C 101 H 18 93 03/01/24 08:49 114/79 03/01/24 08:49 114/79 03/01/24 08:48 37.5 C 107 H 17 95 03/01/24 08:45 104/73 03/01/24 08:36 37.5 C 92 H 18 93 03/01/24 08:30 119/82 03/01/24 08:15 37.6 C H 92 H 18 93 03/01/24 08:15 102/73 03/01/24 08:15 102/73 03/01/24 08:00 30 03/01/24 07:58 87 18 95 30 03/01/24 07:27 Mechanical Vent 03/01/24 04:45 99/76 L 03/01/24 04:45 99/76 L 03/01/24 04:42 37.5 C 86 18 96 03/01/24 04:30 99/70 L 03/01/24 04:18 37.5 C 87 18 95 03/01/24 04:15 10103/01/24 04:15 10103/01/24 04:15 101/03/01/24 04:12 37.5 C 86 18 96 03/01/24 04:03 88 18 97 30 03/01/24 04:00 37.5 C 86 18 96 03/01/24 04:00 10103/01/24 04:00 10103/01/24 04:00 10103/01/24 04:00 30 03/01/24 03:45 37.6 C H 83 18 95 03/01/24 03:45 100/69 03/01/24 03:30 114/76 03/01/24 03:27 37.6 C H 86 18 95 03/01/24 03:18 37.7 C H 87 18 95 03/01/24 03:15 110/77 03/01/24 03:00 37.8 C H 88 18 94 03/01/24 03:00 105/70 03/01/24 02:45 107/72 03/01/24 02:45 107/72 03/01/24 02:33 37.9 C H 90 18 93 03/01/24 02:30 10203/01/24 02:30 102/03/01/24 02:15 106/70 03/01/24 02:15 106/70 03/01/24 02:15 38.0 C H 91 H 18 93 03/01/24 02:00 38.0 C H 95 H 18 95 03/01/24 02:00 11403/01/24 02:00 114/03/01/24 02:00 11403/01/24 01:58 117/03/01/24 01:57 38.0 C H 99 H 18 95 03/01/24 01:33 38.0 C H 99 H 18 100 03/01/24 01:30 118/81 03/01/24 01:30 118/81 03/01/24 01:27 38.0 C H 101 H 18 95 03/01/24 01:00 37.9 C H 103 H 18 95 03/01/24 01:00 117/81 03/01/24 01:00 117/81 03/01/24 01:00 117/81 03/01/24 00:53 93/66 L 03/01/24 00:53 93/66 L 03/01/24 00:53 93/66 L 03/01/24 00:48 37.9 C H 97 H 18 99 Laboratory Results Short CBC 03/01/24 Range/Units 05:35 WBC 10.38 (4.8-10.8) K/ul Hgb 14.2 (14.0-18.0) g/dl Hct 40.8 L (42.0-52.0) % Plt Count 197 (130-400) K/uL BMP 03/01/24 05:35 Sodium 136 Potassium 3.9 Chloride 101 Carbon Dioxide 28 BUN 14 Creatinine 0.86 Glucose 171 H Calcium 8.5 L Liver Function 03/01/24 Range/Units 05:35 Total Bilirubin 0.8 (0.2-1.0) mg/dl AST 39 (13-39) U/L ALT 75 H (7-52) U/L Alkaline Phosphatase 79 (34-104) U/L Albumin 3.4 (3.4-5.0) gm/dl Medications Administered Current Inpatient Medications Acetaminophen (Acetaminophen 325 Mg Tab) 650 mg PO Q4H PRN PRN Reason: fever or pain Stop: 03/31/24 01:12 Last Admin: 03/01/24 01:29 Dose: 650 mg Albuterol (Albuterol 0.083% Nebu Soln 3 Ml Vial) 2.5 mg NEB Q6R MINO; Protocol Stop: 03/30/24 06:59 Last Admin: 03/01/24 07:18 Dose: 2.5 mg Budesonide (Budesonide 0.25 Mg/2 Ml Vial (Pulmicort)) 0.25 mg NEB BIDR MINO Stop: 03/30/24 06:59 Last Admin: 03/01/24 07:18 Dose: 0.25 mg Dextrose (Dextrose 50% 50 Ml Syringe) 25 - 50 ml IV UD PRN; Protocol PRN Reason: Hypoglycemia Protocol Stop: 03/30/24 07:29 Last Admin: 02/29/24 19:39 Dose: 25 ml Enoxaparin Sodium (Enoxaparin Inj 40 Mg/0.4 Ml Syr) 40 mg SQ DAILY MINO Stop: 03/31/24 09:44 Last Admin: 03/01/24 10:43 Dose: 40 mg Fentanyl Citrate (Fentanyl Bolus From Bag) 50 mcg IV Q60M PRN PRN Reason: Pain or Agitation Stop: 03/14/24 06:58 Last Admin: 02/29/24 20:51 Dose: 50 mcg Folic Acid (Folic Acid 1 Mg Tab) 1 mg PO QAM [facility] Stop: 03/30/24 08:59 Last Admin: 03/01/24 08:27 Dose: 1 mg Furosemide (Furosemide 40 Mg/4 Ml Vial) 60 mg IV [id number] [facility] Stop: 03/31/24 16:59 Glucagon (Glucagon For Inj 1 Mg Vial) 1 mg SQ UD PRN; Protocol PRN Reason: Hypoglycemia Protocol Stop: 03/30/24 07:29 Glucose (Glucose 40% Gel 15 Gm Tube) 15 - 30 gm PO UD PRN; Protocol PRN Reason: Hypoglycemia Protocol Stop: 03/30/24 07:29 Glucose (Glucose 10 Tab/Tube) 4 - 8 tab PO UD PRN; Protocol PRN Reason: Hypoglycemia Protocol Stop: 03/30/24 07:29 Doxycycline Hyclate 100 mg/ (Dextrose) 100 mls @ 50 mls/hr IV Q12H [facility] Stop: 03/05/24 06:59 Last Infusion: 03/01/24 08:53 Dose: Infused Thiamine HCl 100 mg/ Syringe 10 mls @ 2 mls/min IV QAM MINO Stop: 03/31/24 08:59 Last Admin: 03/01/24 08:30 Dose: 2 mls/min Fentanyl Citrate (Fentanyl Citrate) 2,500 mcg in 250 mls @ 12.5 mls/hr IV .Q20H [facility]; Protocol Stop: 03/14/24 06:58 Last Titration: 03/01/24 07:09 Dose: 125 mcg/hr, 12.5 mls/hr Norepinephrine Bitartrate (Levophed/D5w) 4 mg in 250 mls @ 10.834 mls/hr IV .Q23H5M MINO; Protocol Stop: 03/30/24 09:14 Last Titration: 03/01/24 07:09 Dose: 0.03 mcg/kg/min, 10.8 mls/hr Ceftriaxone Sodium (Rocephin) 2,000 mg in 50 mls @ 100 mls/hr IV Q24H [facility]O Stop: 03/05/24 10:59 Last Admin: 03/01/24 10:43 Dose: 100 mls/hr Pantoprazole Sodium (Protonix) 40 mg in 10 mls @ 5 mls/min IV BID@0900,2100 [facility] Stop: 03/30/24 20:59 Last Admin: 03/01/24 08:32 Dose: 5 mls/min Propofol (Diprivan) 1,000 mg in 100 mls @ 23.112 mls/hr IV .Q4H20M MINO; Protocol Stop: 03/03/24 11:29 Last Admin: 03/01/24 10:43 Dose: 40 mcg/kg/min, 23.1 mls/hr Dobutamine HCl/Dextrose () 1,000 mg in 250 mls @ 3.623 mls/hr IV .Q24H MINO; Protocol Stop: 03/31/24 08:59 Last Admin: 03/01/24 09:23 Dose: 2.5 mcg/kg/min, 3.6 mls/hr Insulin Aspart (Insulin Aspart Per Unit Charge) 0 units SC Q4 MINO Stop: 03/31/24 08:14 Last Admin: 03/01/24 08:22 Dose: 2 units Insulin Glargine (Lantus Per Unit Charge) 20 units SC DAILY [facility] Stop: 03/31/24 08:59 Last Admin: 03/01/24 08:22 Dose: 20 units Lorazepam (Lorazepam 2 Mg/1 Ml Vial) 1 mg IV ONE PRN; Protocol PRN Reason: EtoH Withdrawal AWSS 6-10 Miscellaneous (Carbohydrates For Hypoglycemia ) 15 - 30 gm PO UD PRN PRN Reason: Hypoglycemia Treatment Stop: 03/30/24 07:29 Multivitamins/Minerals (Multi Vit W/Minerals Liquid 15 Ml Udc) 15 ml NG QAM [facility] Stop: 03/31/24 08:59 Last Admin: 03/01/24 08:27 Dose: 15 ml Oseltamivir Phosphate (Oseltamivir Phosphate Susp 75 Mg/12.5 Ml Udp) 75 mg PO BID [facility]; Protocol Stop: 03/05/24 05:24 Last Admin: 03/01/24 08:32 Dose: 75 mg Propofol (Propofol Bolus From Bag) 20 mg IV Q5M PRN PRN Reason: Sedation Stop: 03/03/24 11:17 Last Admin: 02/29/24 20:51 Dose: 20 mg (3) HFrEF (heart failure with reduced ejection fraction) Heart failure chronicity: acute on chronic Qualified Code(s): I50.23 - Acute on chronic systolic (congestive) heart failure
[2024-03-01] MEDS: MAGNESIUM SULFATE / D5W 1 GM/100 ML BAG IV SCH (15:36)
[2024-03-01] MEDS: FUROSEMIDE 40 MG/4 ML VIAL IV SCH (17:45)
--- NOTE | 2024-03-02 07:38 | XRay Report ---
EXAM: XR chest 1V portable CLINICAL HISTORY: EVALUATE LINES TUBES LUNG FIELD. TECHNIQUE: An X-ray image of the chest was obtained in AP projection. COMPARISON: Prior X-ray study dated 02/29/2024. FINDINGS: An endotracheal tube is seen 4.6 cm from tequila. NG tube is seen projecting infra diaphragmatic. Pulmonary Parenchyma: Bilateral lower lung zones radio-opacity, and to lesser extent involving middle zones, prominent broncho vascular markings and hilar vascularity. Obliteration of both costophrenic angles due to pleural effusion. Heart and Mediastinum: Cardiomegaly. ICD device is seen. Bony Thorax: Thoracic spondylosis. Soft Tissues: Soft tissues overlying the chest wall are unremarkable. IMPRESSION: 1. Endotracheal tube is seen 4.6 cm from tequila. 2. NG tube is seen projecting infra diaphragmatic. 3. Bilateral lower lung zones radio-opacity, and to a lesser extent involving middle zones, prominent broncho vascular markings and hilar vascularity. 4. Obliteration of both costophrenic angles due to pleural effusion. 5. Cardiomegaly. 6. ICD device is seen. 7. Thoracic spondylosis. 8. No interval changes. Electronically signed by Floresita Romero 03-02-2024 07:38 AM
[2024-03-02 07:43] LABS: Basophils # (auto) 0.03 K/uL (0.00-0.20); Basophils % (auto) 0.3 %; Eosinophils # (auto) 0.07 K/uL (0.00-0.50); Eosinophils % (auto) 0.6 %; Hematocrit (blood only) 41.6 % (42.0-52.0); Hemoglobin 14.3 g/dl (14.0-18.0); Immature Granulocytes # (auto) 0.12 K/uL (0.01-0.20); Immature Granulocytes % (auto) 1.1 %; Lymphocytes # (auto) 1.49 K/uL (1.20-3.40); Lymphocytes % (auto) 13.7 %; Mean Corpuscular Hemoglobin 32.1 pg (25.0-34.0); Mean Corpuscular Hgb Conc 34.4 g/dL (32.0-36.0); Mean Corpuscular Volume 93.3 fL (80.0-100.0); Mean Platelet Volume 11.2 fL (9.4-12.4); Monocytes % (auto) 10.1 %; Neutrophils # (auto) 8.06 K/uL (1.40-6.50); Neutrophils % (auto) 74.2 %; Platelet Count 160 K/uL (130-400); RDW Coefficient of Variation 12.7 % (11.5-14.5); RDW Standard Deviation 43.7 fL (36.4-46.3); Red Blood Count 4.46 M/uL (4.70-6.10); White Blood Count 10.87 K/ul (4.8-10.8)
[2024-03-02 07:58] LABS: Calcium 8.7 mg/dl (8.6-10.3); Creatinine Clr Calc Pharmacy 129.9 ml/min; Phosphorus 4.6 mg/dl (2.5-4.9)
--- NOTE | 2024-03-02 08:44 | Critical Care Progress Note ---
Date of Service March 02, 2024 Assessment & Plan (1) Respiratory failure requiring intubation: (2) Influenza A: (3) CHF (congestive heart failure): (4) ICD (implantable cardioverter-defibrillator), single, in situ: (5) Obstructive sleep apnea: (6) Diabetes: Plan Reason Critically Ill: 59 YOM brought to hospital for respiratory distress, requiring intubation for respiratory acidosis/failure in setting of influenza with likely component of acute heart failure as well. CT chest 02/29/2024 personally reviewed: Small to moderate bilateral pleural effusion with interlobular thickening Consolidative process in the left lower lobe Dependent atelectasis of the right lower lobe Minimal mediastinal lymphadenopathy Neuro - [facility] ICU: [facility] - Propofol and Fentanyl for sedation - goal RASS -1 - Possible for ETOH withdraw consider benzodiazepine pending clinical progression Cardiac - HFrEF HTN, HLD, AICD --Acute on chronic systolic CHF 2D echo 2022: EF 35-40%, normal RV --> repeat 2D echo 02/29/2024 shows EF 15-20% BNP 1032 Cardiology on board - AICD- single lead- VVI 40: VF >200, VT 180-200 -- S/p shock Combination of CHF as well as septic Sedation also playing a role Vasopressor support to keep MAP greater than 65 Respiratory - Hypoxic/Hypercarbic respiratory failure requiring intubation, Current smoker, COPD, RLL opacity --Acute on chronic hypercapnic hypoxic respiratory failure Hypercapnia is most likely secondary to GISELE/OHS Hypoxia is secondary to pulmonary edema as well as left lower lobe pneumonia Extubated 03/02/2024 Continue with BiPAP BNP 1032 Respiratory BioFire positive for influenza A TSH within normal limit at 1.18 GI - Maroon drainage from OGT, GERD, elevated LFTs --Transaminitis Likely secondary to acute CHF with viral illness Continue to trend --Maroon drainage from the OGT OGT irrigation did not show any signs of bleeding Continue with Protonix Monitor H&H PT/INR within normal limit RENAL/LYTES - NO acute needs - ICU electrolyte protocol - No acute needs - Ruiz to gravity continue while intubated and sedated ENDO - DM --Diabetes type 2 HbA1c 11.6 on 09/30/2019, repeat HbA1c Continue with ICU hypoglycemia protocol HEME - No acute needs ID - Pneumonia left lower lobe, influenza --Pneumonia Influenza A positive but does have dense consolidative process in the left lower lobe Continue with antibiotics Given the prolonged QTc avoid QTc prolonging antibiotic/azithromycin, will continue with cefepime and doxycycline Follow-up blood cultures and sputum culture -- Influenza A Okay to continue with Tamiflu --Prophylaxis VTE: Lovenox GI: Pantoprazole Lines: Peripheral Diet: N.p.o. Plan: In/out: -1 L, urine output 2400 mL, -1.7 L since coming to the hospital Continue with antibiotics Continue with oseltamivir Continue with dobutamine Extubated to BiPAP today Continue with Lasix to 60 mg every 12 DC dobutamine I have personally spent 42 minutes of critical care time in the direct management of this patient. This is a life/limb threatening event. This includes time spent evaluating patient, direct bedside care, chart review, placing orders, interpretation of diagnostic studies, discussion with consultants, patient, and family members, as well as other required patient management activities. This time is exclusive of all separately billable procedures, and teaching time and separate from and in addition to any other critical care service time. Please note the above document was generated using voice recognition software. It may contain grammatical, syntax or spelling errors. Admission and Anticipated Discharge Date Admission Date: February 29, 2024 Subjective Patient seen and examined at bedside. No acute distress, notable symptoms overnight He was on 125 fentanyl in 20 propofol, 2.5 dobutamine at the time of examination RASS -2. Patient's was also in the room at the time of examination I put the sedation on hold to see if the patient is able to do pressure support trial Initially he was having difficulty but later on he was doing well on pressure support. 20 minutes into pressure support he pulled the tube out He was put on BiPAP and has been doing well on BiPAP since. Still spiking fever Tmax 38.2 Review of Systems 2 Review of Systems: All systems reviewed & are unremarkable except as noted in Subjective and Unobtainable due to endotracheal tube Physical Exam 2 Physical Exam: Constitutional: No acute distress HEENT: PERRLA Respiratory system: Decreased air entry bilaterally, no wheeze, no rhonchi, positive crackles bilateral lower lobes CVS: S1-S2 positive, no murmurs or gallops Abdomen: Soft, nontender, nondistended, positive bowel sounds x4, obese Extremities: +2 pulses bilaterally radialis/ dorsalis pedis, no cyanosis, +1 pitting edema bilateral lower extremity Neuro: Breathing with the vent, moving extremities to stimuli, RASS -2 Psych: Unable to assess G/U: Positive Ruiz Skin: no rashes, warm and dry Lymphatic: no cervical or axillary lymphadenopathy Results & Data Results & Data Vital Signs (Past 12 Hours) Vital Signs Temp Pulse Pulse Resp BP Pulse Ox O2 Del Method 03/02/24 07:27 107 H 18 98 03/02/24 07:27 107 H 18 98 Mechanical Vent 03/02/24 04:09 37.9 C H 102 H 18 100 03/02/24 04:00 129/85 03/02/24 04:00 129/85 03/02/24 04:00 03/02/24 03:57 37.9 C H 100 H 18 97 03/02/24 03:30 119/78 03/02/24 03:30 119/78 03/02/24 03:03 37.9 C H 99 H 18 96 03/02/24 03:00 37.9 C H 100 H 18 97 03/02/24 03:00 126/86 03/02/24 03:00 126/86 03/02/24 02:30 94 H 19 96 Mechanical Vent 03/02/24 02:15 94 H 19 96 03/02/24 02:12 37.9 C H 98 H 18 97 03/02/24 02:00 121/79 03/02/24 01:57 37.9 C H 96 H 18 96 03/02/24 01:30 116/78 03/02/24 01:30 116/78 03/02/24 01:27 37.9 C H 99 H 18 97 03/02/24 01:03 37.9 C H 99 H 18 97 03/02/24 01:00 112/79 03/02/24 01:00 112/79 03/02/24 00:30 113/78 03/02/24 00:15 37.8 C H 95 H 18 95 03/02/24 00:00 37.7 C H 95 H 18 95 03/02/24 00:00 109/03/02/24 00:00 10903/02/24 00:00 109/03/02/24 00:00 03/01/24 23:50 95 H 03/01/24 23:30 120/78 03/01/24 23:30 37.7 C H 95 H 18 96 03/01/24 23:30 120/78 03/01/24 23:30 120/78 03/01/24 23:00 120/79 03/01/24 23:00 120/79 03/01/24 23:00 120/79 03/01/24 23:00 37.7 C H 94 H 18 96 03/01/24 22:51 93 H 19 95 03/01/24 22:30 37.8 C H 96 H 18 95 03/01/24 22:30 115/79 03/01/24 22:30 115/79 03/01/24 22:30 115/79 03/01/24 22:09 37.9 C H 96 H 18 93 03/01/24 21:45 119/80 03/01/24 21:45 119/80 03/01/24 21:30 38.1 C H 97 H 18 93 03/01/24 21:30 111/75 03/01/24 21:30 111/75 03/01/24 21:30 111/75 03/01/24 21:03 38.3 C H 101 H 18 93 03/01/24 21:00 112/74 03/01/24 21:00 112/74 03/01/24 20:51 38.3 C H 101 H 18 92 03/01/24 20:45 38.4 C H 105 H 18 92 03/01/24 20:45 102/70 03/01/24 20:45 102/70 03/01/24 20:45 102/70 03/01/24 20:45 102/70 FiO2 03/02/24 07:27 35 03/02/24 07:27 35 03/02/24 04:09 03/02/24 04:00 03/02/24 04:00 03/02/24 04:00 35 03/02/24 03:57 03/02/24 03:30 03/02/24 03:30 03/02/24 03:03 03/02/24 03:00 03/02/24 03:00 03/02/24 03:00 03/02/24 02:30 35 03/02/24 02:15 35 03/02/24 02:12 03/02/24 02:00 03/02/24 01:57 03/02/24 01:30 03/02/24 01:30 03/02/24 01:27 03/02/24 01:03 03/02/24 01:00 03/02/24 01:00 03/02/24 00:30 03/02/24 00:15 03/02/24 00:00 03/02/24 00:00 03/02/24 00:00 03/02/24 00:00 03/02/24 00:00 35 03/01/24 23:50 03/01/24 23:30 03/01/24 23:30 03/01/24 23:30 03/01/24 23:30 03/01/24 23:00 03/01/24 23:00 03/01/24 23:00 03/01/24 23:00 03/01/24 22:51 35 03/01/24 22:30 03/01/24 22:30 03/01/24 22:30 03/01/24 22:30 03/01/24 22:09 03/01/24 21:45 03/01/24 21:45 03/01/24 21:30 03/01/24 21:30 03/01/24 21:30 03/01/24 21:30 03/01/24 21:03 03/01/24 21:00 03/01/24 21:00 03/01/24 20:51 03/01/24 20:45 03/01/24 20:45 03/01/24 20:45 03/01/24 20:45 03/01/24 20:45 Laboratory Results 03/02/24 07:16 03/02/24 07:16 Coding Level of Care Code 52230 CRITICAL CARE 1ST 30-74M Diagnoses Respiratory failure requiring intubation J96.90 Influenza A J10.1 CHF (congestive heart failure) I50.9 ICD (implantable cardioverter-defibrillator), single, in situ Z95.810 Obstructive sleep apnea G47.33 Diabetes E11.9
[2024-03-02] MEDS: ACETAMINOPHEN 1,000 MG/100 ML VIAL IV PRN (11:37)
--- NOTE | 2024-03-02 11:40 | Hospitalist Progress Note ---
Date of Service March 02, 2024 Assessment & Plan (1) Acute and chronic respiratory failure with hypercapnia: Plan: Secondary to decompensated heart failure secondary to influenza/pneumonia/complicated bronchitis and possibly uncontrolled blood pressure owing to medical noncompliance Required intubation and now on sedation and pressors and to maintain hemodynamic stability Appreciate business employment specialist input and recommendation Has been getting treatment for influenza A with Tamiflu and also on intravenous antibiotic cefepime and doxycycline doxycycline. Remains on mechanical ventilator and stable Remains afebrile and the white coat has improved to 10.38 Blood cultures have been negative and sputum culture shows light normal danny Clinically not any better and will continue current management Will try to take off the sedation and if he remains hemodynamically stable we will try to extubate as per the business employment specialist (2) Influenza A: Plan: As above (3) HFrEF (heart failure with reduced ejection fraction): Plan: History systolic dysfunction status post ICD Significant cardiomyopathy with worsening of LV function and global hypokinesis His LV systolic function has declined since his last echocardiogram dated March 2022 -- his LV systolic function is severely reduced, LVEF appears to be 20% with severe global hypokinesis. Complicated by influenza A infection Diuretic Rx Strict I/Os Appreciate cardiology input and recommendation Has been getting intravenous Lasix with cumulative fluid balance of -605 as of t leona Will continue diuresis and cumulative fluid balance today's -1589 (4) NSVT (nonsustained ventricular tachycardia): Plan: Noted to have SVT with a rate of 158/min The heart rate is maintaining around 91 with low blood pressure requiring pressors Remains tachycardic at around 117 Electrolytes are normal (5) Diabetes: Plan: DM2 insulin requiring, medical noncompliance, suboptimal control as of recent hemoglobin A1c of 10.6 last December 2023. Good (6) ICD (implantable cardioverter-defibrillator), single, in situ: Plan: As above (7) Obstructive sleep apnea: Plan: History of GISELE and is complicating current respiratory failure History of COPD which is also adding current deterioration of his condition and respiratory failure Plan Other significant medical conditions are mentioned as below: UGIB, hemoglobin currently stable Maroon drainage from the OGT OGT irrigation did not show any signs of bleeding Continue with Protonix Monitor H&H PT/INR within normal limit Hyperlipidemia, statin noncompliance Hx COPD, no overt wheezing on exam GISELE on CPAP Alcoholic hepatitis, likely good prognosis on Maddrey DF score given normal coags. Continue with folic acid and thiamine LFTs are improving Headache secondary to illness/uncontrolled blood pressure rule out bleed Vague abdominal complaints with abnormal LFTs Ongoing tobacco/alcohol abuse DVT prophylaxis. SCDs GI bleed Full code Patient requesting updates providers. Ms. Emili Espinoza, contact #[phone]. Admission and Anticipated Discharge Date Admission Date: February 29, 2024 Subjective 02/29/2024 The patient was seen and examined in ICU He was admitted with acute respiratory failure likely secondary to influenza A and is complicated by CHF and NS VT Required intubation Now sedated on intubation and requiring pressor support to maintain blood pressure 03/01/2024 The patient was seen and examined in ICU He remains intubated and sedated 03/02/2024 The patient was seen and examined in ICU in presence of the He remains on the vent and with sedation Condition seems to be stable Review of Systems Review of Systems: Could not be reliably obtained secondary to intubated state Physical Exam Physical Exam: Lying in bed intubated and sedated Constitutional: well developed, well nourished, + ill appearing and average body habitus Eyes: PERRL, conjunctivae normal, anicteric sclerae ENMT: external ear and nose normal, oropharynx normal Neck: trachea midline, no thyromegaly Respiratory: + respiratory distress Auscultation: + diminished lung sounds and + crackles (Minimal bibasilar crackles) Cardiovascular: Rate/Rhythm: regular rate, regular rhythm and + tachycardic (SVT on presentation) Heart Sounds: normal S1 and normal S2; no murmur Extremities: + edema (1+ edema bilaterally) Gastrointestinal (Abdomen): Inspection/Auscultation: + abdomen distended Percussion/Palpation: abdomen soft; abdomen nontender Neurologic: sedated on vent Lymphatic: no cervical or axillary lymphadenopathy Results & Data Results & Data Vital Signs (Past 12 Hours) Vital Signs Temp Pulse Pulse Resp BP Pulse Ox O2 Del Method 03/02/24 11:13 117 H 26 H 94 03/02/24 09:32 BiPAP 03/02/24 09:19 121 H 21 96 03/02/24 07:27 107 H 18 98 03/02/24 07:27 107 H 18 98 Mechanical Vent 03/02/24 04:09 37.9 C H 102 H 18 100 01/05/25 04:00 129/85 03/02/24 04:00 129/85 03/02/24 04:00 03/02/24 03:57 37.9 C H 100 H 18 97 03/02/24 03:30 119/78 03/02/24 03:30 119/78 03/02/24 03:03 37.9 C H 99 H 18 96 03/02/24 03:00 37.9 C H 100 H 18 97 03/02/24 03:00 126/86 03/02/24 03:00 126/86 03/02/24 02:30 94 H 19 96 Mechanical Vent 03/02/24 02:15 94 H 19 96 03/02/24 02:12 37.9 C H 98 H 18 97 03/02/24 02:00 121/79 03/02/24 01:57 37.9 C H 96 H 18 96 03/02/24 01:30 116/78 03/02/24 01:30 116/78 03/02/24 01:27 37.9 C H 99 H 18 97 03/02/24 01:03 37.9 C H 99 H 18 97 03/02/24 01:00 112/79 03/02/24 01:00 112/79 03/02/24 00:30 113/78 03/02/24 00:15 37.8 C H 95 H 18 95 03/02/24 00:00 37.7 C H 95 H 18 95 03/02/24 00:00 109/03/02/24 00:00 109/03/02/24 00:00 [id number] 03/02/24 00:00 03/01/24 23:50 95 H FiO2 03/02/24 11:13 35 03/02/24 09:32 0.3 03/02/24 09:19 35 03/02/24 07:27 35 03/02/24 07:27 35 03/02/24 04:09 03/02/24 04:00 03/02/24 04:00 03/02/24 04:00 35 03/02/24 03:57 03/02/24 03:30 03/02/24 03:30 03/02/24 03:03 03/02/24 03:00 03/02/24 03:00 03/02/24 03:00 03/02/24 02:30 35 03/02/24 02:15 35 03/02/24 02:12 03/02/24 02:00 03/02/24 01:57 03/02/24 01:30 03/02/24 01:30 03/02/24 01:27 03/02/24 01:03 03/02/24 01:00 03/02/24 01:00 03/02/24 00:30 03/02/24 00:15 03/02/24 00:00 03/02/24 00:00 03/02/24 00:00 03/02/24 00:00 03/02/24 00:00 35 03/01/24 23:50 Laboratory Results Short CBC 03/02/24 Range/Units 07:16 WBC 10.87 H (4.8-10.8) K/ul Hgb 14.3 (14.0-18.0) g/dl Hct 41.6 L (42.0-52.0) % Plt Count 160 (130-400) K/uL BMP 03/02/24 07:16 Sodium 134 L Potassium 4.0 Chloride 98 Carbon Dioxide 27 BUN 15 Creatinine 0.75 Glucose 111 H Calcium 8.7 Medications Administered Current Inpatient Medications Albuterol (Albuterol 0.083% Nebu Soln 3 Ml Vial) 2.5 mg NEB Q6R [facility]; Protocol Stop: 03/30/24 06:59 Last Admin: 03/02/24 07:09 Dose: 2.5 mg Budesonide (Budesonide 0.25 Mg/2 Ml Vial (Pulmicort)) 0.25 mg NEB BIDR [facility] Stop: 03/30/24 06:59 Last Admin: 03/02/24 07:10 Dose: 0.25 mg Dextrose (Dextrose 50% 50 Ml Syringe) 25 - 50 ml IV UD PRN; Protocol PRN Reason: Hypoglycemia Protocol Stop: 03/30/24 07:29 Last Admin: 02/29/24 19:39 Dose: 25 ml Enoxaparin Sodium (Enoxaparin Inj 40 Mg/0.4 Ml Syr) 40 mg SQ DAILY [facility] Stop: 03/31/24 09:44 Last Admin: 03/02/24 08:18 Dose: 40 mg Fentanyl Citrate (Fentanyl Bolus From Bag) 50 mcg IV Q60M PRN PRN Reason: Pain or Agitation Stop: 03/14/24 06:58 Last Admin: 02/29/24 20:51 Dose: 50 mcg Folic Acid (Folic Acid 1 Mg Tab) 1 mg PO QAM [facility] Stop: 03/30/24 08:59 Last Admin: 03/02/24 08:19 Dose: 1 mg Furosemide (Furosemide 40 Mg/4 Ml Vial) 60 mg IV [id number] [facility] Stop: 03/31/24 16:59 Last Admin: 03/02/24 08:17 Dose: 60 mg Glucagon (Glucagon For Inj 1 Mg Vial) 1 mg SQ UD PRN; Protocol PRN Reason: Hypoglycemia Protocol Stop: 03/30/24 07:29 Glucose (Glucose 40% Gel 15 Gm Tube) 15 - 30 gm PO UD PRN; Protocol PRN Reason: Hypoglycemia Protocol Stop: 03/30/24 07:29 Glucose (Glucose 10 Tab/Tube) 4 - 8 tab PO UD PRN; Protocol PRN Reason: Hypoglycemia Protocol Stop: 03/30/24 07:29 Doxycycline Hyclate 100 mg/ (Dextrose) 100 mls @ 50 mls/hr IV Q12H [facility] Stop: 03/05/24 06:59 Last Infusion: 03/02/24 06:58 Dose: 50 mls/hr Thiamine HCl 100 mg/ Syringe 10 mls @ 2 mls/min IV QAM [facility] Stop: 03/31/24 08:59 Last Admin: 03/02/24 08:12 Dose: 2 mls/min Fentanyl Citrate (Fentanyl Citrate) 2,500 mcg in 250 mls @ 12.5 mls/hr IV .Q20H [facility]; Protocol Stop: 03/14/24 06:58 Last Titration: 03/02/24 06:58 Dose: 125 mcg/hr, 12.5 mls/hr Ceftriaxone Sodium (Rocephin) 2,000 mg in 50 mls @ 100 mls/hr IV Q24H [facility] Stop: 03/05/24 10:59 Last Infusion: 03/01/24 16:14 Dose: Infused Pantoprazole Sodium (Protonix) 40 mg in 10 mls @ 5 mls/min IV BID@0900,2100 [facility] Stop: 03/30/24 20:59 Last Admin: 03/02/24 08:10 Dose: 5 mls/min Propofol (Diprivan) 1,000 mg in 100 mls @ 23.112 mls/hr IV .Q4H20M [facility]; Protocol Stop: 03/03/24 11:29 Last Admin: 03/02/24 10:50 Dose: Not Given Dobutamine HCl/Dextrose () 1,000 mg in 250 mls @ 3.623 mls/hr IV .Q24H [facility]; Protocol Stop: 03/31/24 08:59 Last Titration: 03/02/24 10:00 Dose: 0 mcg/kg/min, 0 mls/hr Pantoprazole Sodium (Protonix) 40 mg in 10 mls @ 5 mls/min IV DAILY [facility] Stop: 04/02/24 08:59 Acetaminophen (Ofirmev) 1,000 mg in 100 mls @ 400 mls/hr IV Q8H PRN PRN Reason: Fever Stop: 03/05/24 11:10 Insulin Aspart (Insulin Aspart Per Unit Charge) 0 units SC Q4 [facility] Stop: 03/31/24 08:14 Last Admin: 03/02/24 08:33 Dose: Not Given Insulin Glargine (Lantus Per Unit Charge) 20 units SC DAILY [facility] Stop: 03/31/24 08:59 Last Admin: 03/02/24 11:23 Dose: Not Given Lorazepam (Lorazepam 2 Mg/1 Ml Vial) 1 mg IV ONE PRN; Protocol PRN Reason: EtoH Withdrawal AWSS 6-10 Miscellaneous (Carbohydrates For Hypoglycemia ) 15 - 30 gm PO UD PRN PRN Reason: Hypoglycemia Treatment Stop: 03/30/24 07:29 Multivitamins/Minerals (Multi Vit W/Minerals Liquid 15 Ml Udc) 15 ml NG QAM [facility] Stop: 03/31/24 08:59 Last Admin: 03/02/24 08:12 Dose: 15 ml Oseltamivir Phosphate (Oseltamivir Phosphate Susp 75 Mg/12.5 Ml Udp) 75 mg PO BID [facility]; Protocol Stop: 03/05/24 05:24 Last Admin: 03/02/24 08:20 Dose: 75 mg Propofol (Propofol Bolus From Bag) 20 mg IV Q5M PRN PRN Reason: Sedation Stop: 03/03/24 11:17 Last Admin: 03/01/24 19:35 Dose: 20 mg (3) HFrEF (heart failure with reduced ejection fraction) Heart failure chronicity: acute on chronic Qualified Code(s): I50.23 - Acute on chronic systolic (congestive) heart failure
--- NOTE | 2024-03-02 12:06 | Cardiology Progress Note ---
Date of Service March 02, 2024 Assessment & Plan (1) Acute and chronic respiratory failure with hypercapnia: (2) HFrEF (heart failure with reduced ejection fraction): (3) Cardiomyopathy: (4) ICD (implantable cardioverter-defibrillator), single, in situ: Plan 1. Respiratory failure: I suspect this is primarily respiratory in nature with superimposed congestive heart failure. He did self extubate and he is still having tachypnea and appears short of breath, but seems to be doing well at the moment. 2. Congestive heart failure: This is probably on the basis of his acute illness (as opposed to a cardiac event), his left ventricular ejection fraction has declined however that is probably stunning rather than a cardiac event. 3. Cardiomyopathy: He has a longstanding cardiomyopathy which is worse on his recent echo. I suspect that is due to stunning from his current illness. We can repeat the echo when he has improved somewhat, perhaps in the next few days. I will keep an eye on his progress. In the meantime we should continue supportive care. I do not think we should pursue any cardiac evaluation for a cause of cardiomyopathy as yet. 4. ICD: Clinically working well and based on last interrogation. Admission and Anticipated Discharge Date Admission Date: February 29, 2024 Subjective Recently self extubated, now on BiPAP. He is awake, appears anxious and indicates that he is short of breath but also indicates that he feels relatively well despite that. Physical Exam Physical Exam: Constitutional: Now extubated, on BiPAP, appears anxious. Pulmonary: Decreased breath sounds auscultation bilaterally, basilar crackles. Cardiac: Regular rapid rhythm with no murmur, gallop or rub. Abdomen: Soft, nontender with normal bowel sounds. Extremities: Trace edema bilaterally. Skin: No rash, ecchymoses or petechiae. Results & Data Vital Signs (Past 12 Hours) Vital Signs Temp Pulse Pulse Resp BP Pulse Ox O2 Del Method 03/02/24 11:13 117 H 26 H 94 03/02/24 09:32 BiPAP 03/02/24 09:19 121 H 21 96 03/02/24 07:27 107 H 18 98 03/02/24 07:27 107 H 18 98 Mechanical Vent 03/02/24 04:09 37.9 C H 102 H 18 100 03/02/24 04:00 129/85 03/02/24 04:00 129/85 03/02/24 04:00 03/02/24 03:57 37.9 C H 100 H 18 97 03/02/24 03:30 119/78 03/02/24 03:30 119/78 03/02/24 03:03 37.9 C H 99 H 18 96 03/02/24 03:00 37.9 C H 100 H 18 97 03/02/24 03:00 126/86 03/02/24 03:00 126/86 03/02/24 02:30 94 H 19 96 Mechanical Vent 03/02/24 02:15 94 H 19 96 03/02/24 02:12 37.9 C H 98 H 18 97 03/02/24 02:00 121/79 03/02/24 01:57 37.9 C H 96 H 18 96 03/02/24 01:30 116/78 03/02/24 01:30 116/78 03/02/24 01:27 37.9 C H 99 H 18 97 03/02/24 01:03 37.9 C H 99 H 18 97 03/02/24 01:00 112/79 03/02/24 01:00 112/79 03/02/24 00:30 113/78 03/02/24 00:15 37.8 C H 95 H 18 95 FiO2 03/02/24 11:13 35 03/02/24 09:32 0.3 03/02/24 09:19 35 03/02/24 07:27 35 03/02/24 07:27 35 03/02/24 04:09 03/02/24 04:00 03/02/24 04:00 03/02/24 04:00 35 03/02/24 03:57 03/02/24 03:30 03/02/24 03:30 03/02/24 03:03 03/02/24 03:00 03/02/24 03:00 03/02/24 03:00 03/02/24 02:30 35 03/02/24 02:15 35 03/02/24 02:12 03/02/24 02:00 03/02/24 01:57 03/02/24 01:30 03/02/24 01:30 03/02/24 01:27 03/02/24 01:03 03/02/24 01:00 03/02/24 01:00 03/02/24 00:30 03/02/24 00:15 Laboratory Results CBC 03/02/24 Range/Units 07:16 WBC 10.87 H (4.8-10.8) K/ul RBC 4.46 L (4.70-6.10) M/uL Hgb 14.3 (14.0-18.0) g/dl Hct 41.6 L (42.0-52.0) % Plt Count 160 (130-400) K/uL Neut # (Auto) 8.06 H (1.40-6.50) K/uL Lymph # (Auto) 1.49 (1.20-3.40) K/uL [place] # (Auto) 1.10 H (0.11-0.59) K/uL Eos # (Auto) 0.07 (0.00-0.50) K/uL Baso # (Auto) 0.03 (0.00-0.20) K/uL Comprehensive Metabolic Panel 03/02/24 Range/Units 07:16 Sodium 134 L (136-145) mmol/L Potassium 4.0 (3.5-5.1) mmol/L Chloride 98 (98-107) mmol/L Carbon Dioxide 27 (21-32) mmol/L BUN 15 (6-23) mg/dl Creatinine 0.75 (0.6-1.4) mg/dl Glucose 111 H (70-99(Fasting)) mg/dl Calcium 8.7 (8.6-10.3) mg/dl Intake and Output 03/01/24 03/02/24 03/02/24 22:59 06:59 14:59 Intake Total 736.752 / 1495.353 442.895 / 1495.353 379.357 / 379.357 Output Total 500 / 2400 400 / 2400 Balance 236.752 / -904.647 42.895 / -904.647 379.357 / 379.357 Intake: IV 736.752 / 1495.353 442.895 / 1495.353 229.357 / 229.357 Acetaminophen 1,000 mg In 100 100 / 100 ml @ 400 mls/hr IV Q8H PRN Rx#: [id number] DOBUTamine / D5W 1,000 mg In 34.8 / 77.7 42.9 / 77.7 10.92 / 10.92 250 ml @ 2.5 MCG/KG/MIN 3.623 mls/hr IV .Q24H [facility] Rx#: [id number] Doxycycline Hyclate 100 mg In 100 / 220.833 20.833 / 220.833 79.167 / 79.167 Dextrose 5% Mini-B 100 ml @ 50 mls/hr IV Q12H [facility] Rx#:[id number] Magnesium Sulfate / D5w 1 gm In 197.5 / 197.5 100 ml @ 50 mls/hr IV Q2H [facility] Rx#:[id number] cefTRIAXone SODIUM 2,000 mg In 50 / 50 50 ml @ 100 mls/hr IV Q24H [facility] Rx#:[id number] fentaNYL citrate 2,500 mcg In 161.667 / 368.959 136.042 / 368.959 250 ml @ 125 MCG/HR 12.5 mls/hr IV .Q20H [facility] Rx#:[id number] propofoL 1,000 mg In 100 ml @ 192.785 / 528.755 243.12 / 528.755 39.27 / 39.27 40 MCG/KG/MIN 23.112 mls/hr IV .Q4H20M [facility] Rx#:[id number] Tube Irrigant 150 / 150 Output: Urine Amount (Catheter) 500 / 2250 250 / 2250 Ruiz/Indwelling 500 / 2250 250 / 2250 Gastric Drainage 150 / 150 Left Nare Nasogastric 150 / 150 Other: Weight 93.1 kg Weight Measurement Method Built in [facility] Diagnostic Findings Telemetry: Sinus tachycardia, probably appropriate for level of anxiety PG Care Time/CCT Total # of Minutes Spent Total Time Spent with Patient: Total time spent is greater than 50% in coordination of care (as documented) at patient's floor/unit and/or counseling patient: Coding Level of Care Code 91253 SUB INP/OBS CARE 2/35MIN Diagnoses Acute and chronic respiratory failure with hypercapnia J96.22 Acute on chronic systolic heart failure I50.23 Heart failure chronicity: acute on chronic Dilated cardiomyopathy I42.0 Cardiomyopathy type: dilated ICD (implantable cardioverter-defibrillator), single, in situ Z95.810 (2) HFrEF (heart failure with reduced ejection fraction) Heart failure chronicity: acute on chronic Qualified Code(s): I50.23 - Acute on chronic systolic (congestive) heart failure (3) Cardiomyopathy Cardiomyopathy type: dilated Qualified Code(s): I42.0 - Dilated cardiomy opathy
[2024-03-03 04:53] LABS: Basophils # (auto) 0.03 K/uL (0.00-0.20); Basophils % (auto) 0.3 %; Eosinophils # (auto) 0.02 K/uL (0.00-0.50); Eosinophils % (auto) 0.2 %; Hematocrit (blood only) 43.9 % (42.0-52.0); Hemoglobin 14.8 g/dl (14.0-18.0); Immature Granulocytes # (auto) 0.11 K/uL (0.01-0.20); Immature Granulocytes % (auto) 0.9 %; Lymphocytes # (auto) 1.19 K/uL (1.20-3.40); Mean Corpuscular Hemoglobin 31.6 pg (25.0-34.0); Mean Corpuscular Hgb Conc 33.7 g/dL (32.0-36.0); Mean Corpuscular Volume 93.8 fL (80.0-100.0); Mean Platelet Volume 11.2 fL (9.4-12.4); Monocytes # (auto) 1.45 K/uL (0.11-0.59); Monocytes % (auto) 12.2 %; Neutrophils # (auto) 9.08 K/uL (1.40-6.50); Neutrophils % (auto) 76.4 %; Platelet Count 149 K/uL (130-400); RDW Coefficient of Variation 12.5 % (11.5-14.5); RDW Standard Deviation 42.7 fL (36.4-46.3); Red Blood Count 4.68 M/uL (4.70-6.10); White Blood Count 11.88 K/ul (4.8-10.8)
[2024-03-03 05:11] LABS: Albumin Level 3.8 gm/dl (3.4-5.0); Bilirubin,Total 1.8 mg/dl (0.2-1.0); Calcium 9.3 mg/dl (8.6-10.3); Creatinine Clr Calc Pharmacy 120.3 ml/min; Globulin 3.8 gm/dl (2.5-4.0); Magnesium 1.9 mg/dl (1.7-2.4); Potassium 3.5 mmol/L (3.5-5.1); Total Protein 7.6 gm/dl (6.0-8.3)
--- NOTE | 2024-03-03 08:18 | Critical Care Progress Note ---
Date of Service March 03, 2024 Assessment & Plan (1) Respiratory failure requiring intubation: (2) Influenza A: (3) CHF (congestive heart failure): (4) ICD (implantable cardioverter-defibrillator), single, in situ: (5) Obstructive sleep apnea: (6) Diabetes: Plan Reason Critically Ill: 59 YOM brought to hospital for respiratory distress, requiring intubation for respiratory acidosis/failure in setting of influenza with likely component of acute heart failure as well. 24-hour events: Patient has been maintained intermittently on BiPAP. He is diuresed well. He is on minimal settings. He has been hemodynamically stable but slightly tachycardic. Recommendations: Neuro - Somnolent this morning. Will initiate physical therapy and Occupational Therapy. Out of bed to chair as tolerated. Cardiac - Acute on chronic heart failure with reduction in ejection fraction. Cardiology consultation reviewed. Continue diuresis as tolerated, currently on Lasix 60 mg twice daily. Vasopressors off. Defer additional management to cardiology Respiratory - Respiratory failure requiring intubation. Improved now. Wean BiPAP to off. He does use noninvasive positive pressure ventilation at night and will continue while sleeping and as needed during the day. Out of bed to chair as tolerated. Incentive spirometry and pulmonary toilet. History of tobacco abuse with COPD. No evidence of bronchospasm currently. Continue nebulized budesonide and Perforomist and as needed DuoNebs. GI -no current issues. Advance diet as tolerated. On Protonix. LFTs normalized RENAL/LYTES -no current issues. ICU electrolyte replacement protocol -will attempt to discontinue Ruiz catheter ENDO - glycemic control per protocol ID -influenza A positive. Currently on Tamiflu. Cultures no growth to date. Day #4 Rocephin/doxycycline. Procalcitonin negative on presentation. Can discontinue antibiotics after 5 days --Prophylaxis VTE: Lovenox GI: Pantoprazole Lines: Peripheral Admission and Anticipated Discharge Date Admission Date: February 29, 2024 Subjective Patient seen and examined. EMR reviewed. Discussed with off going burner shaft as well as critical care AJ from overnight. Prior notes reviewed. Patient is sleeping on BiPAP. He is easily arousable. Complains of feeling tired Review of Systems Review of Systems: All systems reviewed & are unremarkable except as noted in Subjective Physical Exam Constitutional: WD/WN, vitals as above Neck: trachea midline, no thyromegaly Respiratory: normal respiratory effort, lungs clear to auscultation Cardiovascular: RRR, no murmur, no edema Gastrointestinal (Abdomen): normal bowel sounds, soft, nontender, no hepatosplenomegaly Musculoskeletal: Extremities: extremities normal to inspection Skin: no rashes, warm and dry Neurologic: Nonfocal exam Lymphatic: no cervical lymphadenopathy Results & Data Results & Data Vital Signs (Past 12 Hours) Vital Signs Temp Pulse Pulse Resp BP Pulse Ox O2 Del Method 03/03/24 07:56 97 H 03/03/24 07:08 96 H 21 99 03/03/24 07:08 96 H 21 100 BiPAP 03/03/24 05:30 122/75 03/03/24 05:18 37.6 C H 100 H 22 99 03/03/24 05:03 37.6 C H 99 H 21 98 03/03/24 05:00 118/71 03/03/24 05:00 118/71 03/03/24 04:51 37.5 C 97 H 23 99 03/03/24 04:30 120/76 03/03/24 04:30 120/76 03/03/24 04:21 37.7 C H 97 H 20 99 03/03/24 04:03 37.7 C H 101 H 18 98 03/03/24 04:00 124/78 03/03/24 04:00 124/78 03/03/24 03:51 37.7 C H 101 H 23 98 03/03/24 03:30 112/69 03/03/24 03:30 112/69 03/03/24 03:24 37.8 C H 101 H 22 98 03/03/24 03:18 103 H 22 97 03/03/24 03:00 119/70 03/03/24 03:00 37.8 C H 102 H 23 98 03/03/24 02:30 112/66 03/03/24 02:24 37.8 C H 102 H 22 97 03/03/24 02:00 111/03/03/24 02:00 111/66 03/03/24 02:00 37.7 C H 104 H 24 97 03/03/24 01:30 107/63 03/03/24 01:30 37.8 C H 105 H 23 96 03/03/24 01:09 37.8 C H 107 H 24 97 03/03/24 00:34 103 H 24 98 03/03/24 00:34 103 H 24 98 BiPAP 03/03/24 00:18 37.9 C H 103 H 25 H 97 03/02/24 23:48 106 H 03/02/24 23:33 37.9 C H 107 H 24 96 03/02/24 23:30 108/68 03/02/24 23:30 108/68 03/02/24 23:30 108/68 03/02/24 23:27 37.8 C H 110 H 23 97 03/02/24 23:09 37.8 C H 104 H 24 97 03/02/24 23:00 106/61 03/02/24 22:57 37.9 C H 104 H 27 H 96 03/02/24 22:06 37.9 C H 110 H 24 96 03/02/24 22:00 107/63 03/02/24 21:51 37.9 C H 108 H 28 H 96 03/02/24 21:00 38.1 C H 111 H 19 95 03/02/24 21:00 106/60 03/02/24 21:00 106/60 03/02/24 20:30 38.1 C H 107 H 25 H 97 03/02/24 20:30 103/60 FiO2 03/03/24 07:56 03/03/24 07:08 35 03/03/24 07:08 35 03/03/24 05:30 03/03/24 05:18 03/03/24 05:03 03/03/24 05:00 03/03/24 05:00 03/03/24 04:51 03/03/24 04:30 03/03/24 04:30 03/03/24 04:21 03/03/24 04:03 03/03/24 04:00 03/03/24 04:00 03/03/24 03:51 03/03/24 03:30 03/03/24 03:30 03/03/24 03:24 03/03/24 03:18 35 03/03/24 03:00 03/03/24 03:00 03/03/24 02:30 03/03/24 02:24 03/03/24 02:00 03/03/24 02:00 03/03/24 02:00 03/03/24 01:30 03/03/24 01:30 03/03/24 01:09 03/03/24 00:34 03/03/24 00:34 35 03/03/24 00:18 03/02/24 23:48 03/02/24 23:33 03/02/24 23:30 03/02/24 23:30 03/02/24 23:30 03/02/24 23:27 03/02/24 23:09 03/02/24 23:00 03/02/24 22:57 03/02/24 22:06 03/02/24 22:00 03/02/24 21:51 03/02/24 21:00 03/02/24 21:00 03/02/24 21:00 03/02/24 20:30 03/02/24 20:30 Critical Care Results & Data Vital Signs (Past 12 Hours) Vital Signs Temp Pulse Pulse Resp BP Pulse Ox O2 Del Method 03/03/24 07:56 97 H 03/03/24 07:08 96 H 21 99 03/03/24 07:08 96 H 21 100 BiPAP 03/03/24 05:30 122/75 03/03/24 05:18 37.6 C H 100 H 22 99 03/03/24 05:03 37.6 C H 99 H 21 98 03/03/24 05:00 118/71 03/03/24 05:00 118/71 03/03/24 04:51 37.5 C 97 H 23 99 03/03/24 04:30 120/76 03/03/24 04:30 120/76 03/03/24 04:21 37.7 C H 97 H 20 99 03/03/24 04:03 37.7 C H 101 H 18 98 03/03/24 04:00 124/78 03/03/24 04:00 124/78 03/03/24 03:51 37.7 C H 101 H 23 98 03/03/24 03:30 112/69 03/03/24 03:30 112/69 03/03/24 03:24 37.8 C H 101 H 22 98 03/03/24 03:18 103 H 22 97 03/03/24 03:00 119/70 03/03/24 03:00 37.8 C H 102 H 23 98 01/06/25 02:30 112/66 03/03/24 02:24 37.8 C H 102 H 22 97 03/03/24 02:00 111/66 03/03/24 02:00 111/66 03/03/24 02:00 37.7 C H 104 H 24 97 03/03/24 01:30 107/63 03/03/24 01:30 37.8 C H 105 H 23 96 03/03/24 01:09 37.8 C H 107 H 24 97 03/03/24 00:34 103 H 24 98 03/03/24 00:34 103 H 24 98 BiPAP 03/03/24 00:18 37.9 C H 103 H 25 H 97 03/02/24 23:48 106 H 03/02/24 23:33 37.9 C H 107 H 24 96 03/02/24 23:30 108/68 03/02/24 23:30 108/68 03/02/24 23:30 108/68 03/02/24 23:27 37.8 C H 110 H 23 97 03/02/24 23:09 37.8 C H 104 H 24 97 03/02/24 23:00 106/61 03/02/24 22:57 37.9 C H 104 H 27 H 96 03/02/24 22:06 37.9 C H 110 H 24 96 03/02/24 22:00 107/63 03/02/24 21:51 37.9 C H 108 H 28 H 96 03/02/24 21:00 38.1 C H 111 H 19 95 03/02/24 21:00 106/60 03/02/24 21:00 106/60 03/02/24 20:30 38.1 C H 107 H 25 H 97 03/02/24 20:30 103/60 FiO2 03/03/24 07:56 03/03/24 07:08 35 03/03/24 07:08 35 03/03/24 05:30 03/03/24 05:18 03/03/24 05:03 03/03/24 05:00 03/03/24 05:00 03/03/24 04:51 03/03/24 04:30 03/03/24 04:30 03/03/24 04:21 03/03/24 04:03 03/03/24 04:00 03/03/24 04:00 03/03/24 03:51 03/03/24 03:30 03/03/24 03:30 03/03/24 03:24 03/03/24 03:18 35 03/03/24 03:00 03/03/24 03:00 03/03/24 02:30 03/03/24 02:24 03/03/24 02:00 03/03/24 02:00 03/03/24 02:00 03/03/24 01:30 03/03/24 01:30 03/03/24 01:09 03/03/24 00:34 03/03/24 00:34 35 03/03/24 00:18 03/02/24 23:48 03/02/24 23:33 03/02/24 23:30 03/02/24 23:30 03/02/24 23:30 03/02/24 23:27 03/02/24 23:09 03/02/24 23:00 03/02/24 22:57 03/02/24 22:06 03/02/24 22:00 03/02/24 21:51 03/02/24 21:00 03/02/24 21:00 03/02/24 21:00 03/02/24 20:30 03/02/24 20:30 Lab & Micro Results (Past 24 Hours) RBC 4.68 M/uL (4.70-6.10) L 03/03/24 WBC 11.88 K/ul (4.8-10.8) H 03/03/24 Hgb 14.8 g/dl (14.0-18.0) 03/03/24 Hct 43.9 % (42.0-52.0) 03/03/24 MCV 93.8 fL (80.0-100.0) 03/03/24 MCH 31.6 pg (25.0-34.0) 03/03/24 MCHC 33.7 g/dL (32.0-36.0) 03/03/24 RDW Standard Deviation 42.7 fL (36.4-46.3) 03/03/24 RDW Coefficient of Variation 12.5 % (11.5-14.5) 03/03/24 Plt Count 149 K/uL (130-400) 03/03/24 MPV 11.2 fL (9.4-12.4) 03/03/24 Neutrophils (%) (Auto) 76.4 % 03/03/24 Lymphocytes (%) (Auto) 10.0 % 03/03/24 Monocytes # (Auto) 1.45 K/uL (0.11-0.59) H 03/03/24 Eosinophils # (Auto) 0.02 K/uL (0.00-0.50) 03/03/24 Immature Granulocyte % (Auto) 0.9 % 03/03/24 Neutrophils # (Auto) 9.08 K/uL (1.40-6.50) H 03/03/24 Lymphocytes # (Auto) 1.19 K/uL (1.20-3.40) L 03/03/24 Monocytes # (Auto) 1.45 K/uL (0.11-0.59) H 03/03/24 Eosinophils # (Auto) 0.02 K/uL (0.00-0.50) 03/03/24 Basophils # (Auto) 0.03 K/uL (0.00-0.20) 03/03/24 Immature Granulocyte # (Auto) 0.11 K/uL (0.01-0.20) 5 Na 136 mmol/L (136-145) 03/03/24 K 3.5 mmol/L (3.5-5.1) 03/03/24 Cl 97 mmol/L (98-107) L 03/03/24 CO2 28 mmol/L (21-32) 03/03/24 Anion Gap 11 (3-11) 03/03/24 BUN 17 mg/dl (6-23) 03/03/24 Creatinine 0.81 mg/dl (0.6-1.4) 03/03/24 BUN/Creatinine Ratio 21.0 (10-20) H 03/03/24 Glu 142 mg/dl (70-99(Fasting)) H 03/03/24 Ca 9.3 mg/dl (8.6-10.3) 03/03/24 Total Bilirubin 1.8 mg/dl (0.2-1.0) H 03/03/24 AST 31 U/L (13-39) 03/03/24 ALT 37 U/L (7-52) 03/03/24 Alkaline Phosphatase 63 U/L (34-104) 03/03/24 TP 7.6 gm/dl (6.0-8.3) 03/03/24 Albumin 3.8 gm/dl (3.4-5.0) 03/03/24 Globulin 3.8 gm/dl (2.5-4.0) 03/03/24 Albumin/Globulin Ratio 1.0 (0.9-2) 03/03/24 Mg 1.9 mg/dl (1.7-2.4) 03/03/24 04:13 Calcium Level 9.3 mg/dl (8.6-10.3) 03/03/24 04:13 Microbiology 02/29/24 07:00 Gram Stain - Final Sputum,Vent Suction Sputum Culture - Final Moderate normal danny. 02/29/24 04:26 Aerobic Blood Culture - Preliminary Blood No growth in Aerobic bottle after 48 hours. Anaerobic Blood Culture - Preliminary No growth in Anaerobic bottle after 48 hours. 02/29/24 04:26 Aerobic Blood Culture - Preliminary Blood No growth in Aerobic bottle after 48 hours. Anaerobic Blood Culture - Final I & O Totals 24 Hours 03/02/24 03/03/24 03/04/24 06:59 06:59 06:59 Intake Total 1495.353 / 1495.353 714.259 / 714.259 Output Total 2400 / 2400 3800 / 3800 Balance -904.647 / -904.647 -3085.741 / -3085.741 Cumulative 02/29/24 03:34 thru 03/03/24 06:00 Intake Total 4644.687 Output Total 9520 Balance -4875.313 RT Ventilator Mngmt (Last Documented) Ventilator Ordered Settings Ventilator Support Mode Assist Control 03/02/24 07:27 Respiratory Rate 21 03/03/24 07:08 Ventilator Tidal Volume 520 03/02/24 07:27 Setting Minute Ventilation 9 03/02/24 07:27 Positive End Expiratory 8 03/02/24 07:27 Pressure Fraction of Inspired Oxygen 35 03/03/24 07:08 Peak Inspiratory Flow 67 02/29/24 08:13 Machine Comment vent settings changed per 02/29/24 12:10 [place] Ventilator - PT Measurements Respiratory Rate 21 Exhaled Tidal Volume 517 Minute Ventilation 9 Peak Inspiratory Airway 25 Pressure Plateau Pressure 13 Respiratory Cycle Inspiratory: 1:4.6 Expiratory Ratio Inspiratory Phase Time 0.6 End-Tidal CO2 31 Static Lung Compliance 103.40 Dynamic Lung Compliance 30.41 Normal Static Lung Compliance 47.00 Patient Measurements Comment Sputum sent to lab at this time Coding Level of Care Code 74934 SUB INP/OBS CARE 3/50MIN Diagnoses Respiratory failure requiring intubation J96.90 Influenza A J10.1 CHF (congestive heart failure) I50.9 ICD (implantable cardioverter-defibrillator), single, in situ Z95.810 Obstructive sleep apnea G47.33 Diabetes E11.9
[2024-03-03] MEDS: FORMOTEROL 20 MCG/2 ML VIAL NEB SCH ×2 (08:40→20:03)
[2024-03-03] MEDS: PANTOprazole 40 MG in SYRINGE BID IV SCH (09:59)
[2024-03-03] MEDS: PANTOprazole 40 MG TAB PO SCH (10:39)
--- NOTE | 2024-03-03 11:28 | Hospitalist Progress Note ---
Date of Service March 03, 2024 Assessment & Plan (1) Acute and chronic respiratory failure with hypercapnia: Plan: Secondary to decompensated heart failure secondary to influenza/pneumonia/complicated bronchitis and possibly uncontrolled blood pressure owing to medical noncompliance Required intubation and now on sedation and pressors and to maintain hemodynamic stability Appreciate bonbon cream warmer input and recommendation Has been getting treatment for influenza A with Tamiflu and also on intravenous antibiotic cefepime and doxycycline doxycycline. Remains on mechanical ventilator and stable Remains afebrile and the white coat has improved to 10.38 Blood cultures have been negative and sputum culture shows light normal danny Clinically not any better and will continue current management Will try to take off the sedation and if he remains hemodynamically stable we will try to extubate as per the bonbon cream warmer Status post extubation on evening of 03/02/2024 Remains stable 3 L nasal cannula Denies any other significant symptoms Will finish the course of antibiotic for a total of 5 days Will get PT and OT evaluation (2) Influenza A: Plan: As above (3) HFrEF (heart failure with reduced ejection fraction): Plan: History systolic dysfunction status post ICD Significant cardiomyopathy with worsening of LV function and global hypokinesis His LV systolic function has declined since his last echocardiogram dated March 2022 -- his LV systolic function is severely reduced, LVEF appears to be 20% with severe global hypokinesis. Complicated by influenza A infection Diuretic Rx Strict I/Os Appreciate cardiology input and recommendation Has been getting intravenous Lasix with cumulative fluid balance of -605 as of today Will continue diuresis and cumulative fluid balance today's -1589 Continuing diagnosis and with a negative balance of 5825 as of 03/03/2024 Denies any cardiac symptoms (4) NSVT (nonsustained ventricular tachycardia): Plan: Noted to have SVT with a rate of 158/min The heart rate is maintaining around 91 with low blood pressure requiring pressors Remains tachycardic at around 117 Electrolytes are normal (5) Diabetes: Plan: DM2 insulin requiring, medical noncompliance, suboptimal control as of recent hemoglobin A1c of 10.6 last December 2023. Good (6) ICD (implantable cardioverter-defibrillator), single, in situ: Plan: As above (7) Obstructive sleep apnea: Plan: History of GISELE and is complicating current respiratory failure History of COPD which is also adding current deterioration of his condition and respiratory failure Plan Other significant medical conditions are mentioned as below: UGIB, hemoglobin currently stable Maroon drainage from the OGT OGT irrigation did not show any signs of bleeding Continue with Protonix Monitor H&H PT/INR within normal limit Hyperlipidemia, statin noncompliance Hx COPD, no overt wheezing on exam GISELE on CPAP Alcoholic hepatitis, likely good prognosis on Maddrey DF score given normal coags. Continue with folic acid and thiamine LFTs are improving Headache secondary to illness/uncontrolled blood pressure rule out bleed Vague abdominal complaints with abnormal LFTs Ongoing tobacco/alcohol abuse DVT prophylaxis. SCDs GI bleed Full code Patient requesting updates providers. Ms. Emili Espinoza, contact #[phone]. Discussed with the in detail yesterday there is 03/02/2024 Admission and Anticipated Discharge Date Admission Date: February 29, 2024 Subjective 02/29/2024 The patient was seen and examined in ICU He was admitted with acute respiratory failure likely secondary to influenza A and is complicated by CHF and NS VT Required intubation Now sedated on intubation and requiring pressor support to maintain blood pressure 03/01/2024 The patient was seen and examined in ICU He remains intubated and sedated 03/02/2024 The patient was seen and examined in ICU in presence of the He remains on the vent and with sedation Condition seems to be stable 03/03/2024 The patient was seen and examined in ICU He is status post extubation last evening and has been doing okay on BiPAP and now on nasal cannula Denies any significant symptoms except mild to moderate shortness of breath and generalized weakness Review of Systems Review of Systems: Could not be reliably obtained secondary to intubated state Physical Exam Physical Exam: Minimal respiratory distress at rest and saturating normally on 3 L nasal cannula Constitutional: well developed, well nourished, + ill appearing and average body habitus Eyes: PERRL, conjunctivae normal, anicteric sclerae ENMT: external ear and nose normal, oropharynx normal Neck: trachea midline, no thyromegaly Respiratory: + respiratory distress Auscultation: + diminished lung sounds and + crackles (Minimal bibasilar crackles) Cardiovascular: Rate/Rhythm: regular rate, regular rhythm and + tachycardic (SVT on presentation) Heart Sounds: normal S1 and normal S2; no murmur Extremities: + edema (1+ edema bilaterally) Gastrointestinal (Abdomen): Inspection/Auscultation: + abdomen distended Percussion/Palpation: abdomen soft; abdomen nontender Musculoskeletal: No acute arthritis of the joint Neurologic: Alert, awake and oriented x 3. Generally weak but no focal sensory or motor deficit appreciated Lymphatic: no cervical or axillary lymphadenopathy Results & Data Results & Data Vital Signs (Past 12 Hours) Vital Signs Temp Pulse Pulse Resp BP Pulse Ox O2 Del Method 03/03/24 10:09 37.5 C 108 H 23 95 Nasal Cannula 03/03/24 10:00 130/86 03/03/24 09:00 37.5 C 108 H 24 140/91 100 Oxymask 03/03/24 09:00 Oxymask 03/03/24 08:00 37.4 C 98 H 120/73 96 BiPAP 03/03/24 07:56 97 H 03/03/24 07:08 96 H 21 99 03/03/24 07:08 96 H 21 100 BiPAP 03/03/24 05:30 122/75 03/03/24 05:18 37.6 C H 100 H 22 99 03/03/24 05:03 37.6 C H 99 H 21 98 03/03/24 05:00 118/71 03/03/24 05:00 118/71 03/03/24 04:51 37.5 C 97 H 23 99 03/03/24 04:30 120/76 03/03/24 04:30 120/76 03/03/24 04:21 37.7 C H 97 H 20 99 03/03/24 04:03 37.7 C H 101 H 18 98 03/03/24 04:00 124/78 03/03/24 04:00 124/78 03/03/24 03:51 37.7 C H 101 H 23 98 03/03/24 03:30 112/69 03/03/24 03:30 112/69 03/03/24 03:24 37.8 C H 101 H 22 98 03/03/24 03:18 103 H 22 97 03/03/24 03:00 119/70 03/03/24 03:00 37.8 C H 102 H 23 98 03/03/24 02:30 112/66 03/03/24 02:24 37.8 C H 102 H 22 97 03/03/24 02:00 111/66 03/03/24 02:00 111/66 03/03/24 02:00 37.7 C H 104 H 24 97 03/03/24 01:30 107/63 03/03/24 01:30 37.8 C H 105 H 23 96 03/03/24 01:09 37.8 C H 107 H 24 97 03/03/24 00:34 103 H 24 98 03/03/24 00:34 103 H 24 98 BiPAP 03/03/24 00:18 37.9 C H 103 H 25 H 97 03/02/24 23:48 106 H 03/02/24 23:33 37.9 C H 107 H 24 96 03/02/24 23:30 108/68 03/02/24 23:30 108/68 03/02/24 23:30 108/68 03/02/24 23:27 37.8 C H 110 H 23 97 O2 Flow Rate FiO2 03/03/24 10:09 3 03/03/24 10:00 03/03/24 09:00 6 03/03/24 09:00 03/03/24 08:00 35 03/03/24 07:56 03/03/24 07:08 35 03/03/24 07:08 35 03/03/24 05:30 03/03/24 05:18 03/03/24 05:03 03/03/24 05:00 03/03/24 05:00 03/03/24 04:51 03/03/24 04:30 03/03/24 04:30 03/03/24 04:21 03/03/24 04:03 03/03/24 04:00 03/03/24 04:00 03/03/24 03:51 03/03/24 03:30 03/03/24 03:30 03/03/24 03:24 03/03/24 03:18 35 03/03/24 03:00 03/03/24 03:00 03/03/24 02:30 03/03/24 02:24 03/03/24 02:00 03/03/24 02:00 03/03/24 02:00 03/03/24 01:30 03/03/24 01:30 03/03/24 01:09 03/03/24 00:34 03/03/24 00:34 35 03/03/24 00:18 03/02/24 23:48 03/02/24 23:33 03/02/24 23:30 03/02/24 23:30 03/02/24 23:30 03/02/24 23:27 Laboratory Results Short CBC 03/03/24 Range/Units 04:13 WBC 11.88 H (4.8-10.8) K/ul Hgb 14.8 (14.0-18.0) g/dl Hct 43.9 (42.0-52.0) % Plt Count 149 (130-400) K/uL BMP 03/03/24 04:13 Sodium 136 Potassium 3.5 Chloride 97 L Carbon Dioxide 28 BUN 17 Creatinine 0.81 Glucose 142 H Calcium 9.3 Liver Function 03/03/24 Range/Units 04:13 Total Bilirubin 1.8 H D (0.2-1.0) mg/dl AST 31 (13-39) U/L ALT 37 (7-52) U/L Alkaline Phosphatase 63 (34-104) U/L Albumin 3.8 (3.4-5.0) gm/dl Medications Administered Current Inpatient Medications Albuterol (Albuterol 0.083% Nebu Soln 3 Ml Vial) 2.5 mg NEB Q6R MINO; Protocol Stop: 03/30/24 06:59 Last Admin: 03/03/24 07:08 Dose: 2.5 mg Budesonide (Budesonide 0.25 Mg/2 Ml Vial (Pulmicort)) 0.5 mg NEB BIDR MINO Stop: 04/02/24 18:59 Dextrose (Dextrose 50% 50 Ml Syringe) 25 - 50 ml IV UD PRN; Protocol PRN Reason: Hypoglycemia Protocol Stop: 03/30/24 07:29 Last Admin: 02/29/24 19:39 Dose: 25 ml Enoxaparin Sodium (Enoxaparin Inj 40 Mg/0.4 Ml Syr) 40 mg SQ DAILY MINO Stop: 03/31/24 09:44 Last Admin: 03/03/24 08:20 Dose: 40 mg Folic Acid (Folic Acid 1 Mg Tab) 1 mg PO QAM MINO Stop: 03/30/24 08:59 Last Admin: 03/03/24 08:21 Dose: 1 mg Formoterol Fumarate (Formoterol 20 Mcg/2 Ml Vial) 20 mcg NEB BIDR MINO Stop: 04/02/24 08:59 Furosemide (Furosemide 40 Mg/4 Ml Vial) 60 mg IV [id number] MINO Stop: 03/31/24 16:59 Last Admin: 03/03/24 08:21 Dose: 60 mg Glucagon (Glucagon For Inj 1 Mg Vial) 1 mg SQ UD PRN; Protocol PRN Reason: Hypoglycemia Protocol Stop: 03/30/24 07:29 Glucose (Glucose 40% Gel 15 Gm Tube) 15 - 30 gm PO UD PRN; Protocol PRN Reason: Hypoglycemia Protocol Stop: 03/30/24 07:29 Glucose (Glucose 10 Tab/Tube) 4 - 8 tab PO UD PRN; Protocol PRN Reason: Hypoglycemia Protocol Stop: 03/30/24 07:29 Doxycycline Hyclate 100 mg/ (Dextrose) 100 mls @ 50 mls/hr IV Q12H MINO Stop: 03/05/24 06:59 Last Infusion: 03/03/24 09:09 Dose: Infused Thiamine HCl 100 mg/ Syringe 10 mls @ 2 mls/min IV QAM MINO Stop: 03/31/24 08:59 Last Admin: 03/03/24 08:28 Dose: 2 mls/min Ceftriaxone Sodium (Rocephin) 2,000 mg in 50 mls @ 100 mls/hr IV Q24H MINO Stop: 03/05/24 10:59 Last Infusion: 03/03/24 11:10 Dose: Infused Insulin Aspart (Insulin Aspart Per Unit Charge) 0 units SC ACHS MINO Stop: 04/02/24 11:29 Insulin Glargine (Lantus Per Unit Charge) 20 units SC DAILY MINO Stop: 03/31/24 08:59 Last Admin: 03/02/24 11:23 Dose: Not Given Miscellaneous (Carbohydrates For Hypoglycemia ) 15 - 30 gm PO UD PRN PRN Reason: Hypoglycemia Treatment Stop: 03/30/24 07:29 Multivitamins/Minerals (Multi Vit W/Minerals Liquid 15 Ml Udc) 15 ml NG QAM [facility] Stop: 03/31/24 08:59 Last Admin: 03/03/24 08:22 Dose: 15 ml Oseltamivir Phosphate (Oseltamivir Phosphate Susp 75 Mg/12.5 Ml Udp) 75 mg PO BID MINO; Protocol Stop: 03/05/24 05:24 Last Admin: 01/06/25 08:21 Dose: 75 mg Pantoprazole Sodium (Pantoprazole 40 Mg Tab) 40 mg PO QAM [facility] Stop: 04/02/24 09:59 Last Admin: 03/03/24 10:39 Dose: 40 mg (3) HFrEF (heart failure with reduced ejection fraction) Heart failure chronicity: acute on chronic Qualified Code(s): I50.23 - Acute on chronic systolic (congestive) heart failure
[2024-03-03] MEDS: INSULIN ASPART PER UNIT CHARGE SC SCH (12:23)
[2024-03-03] MEDS: BUDESONIDE 0.25 MG/2 ML VIAL (PULMICORT) NEB SCH (20:04)
[2024-03-04 07:28] LABS: Basophils # (auto) 0.03 K/uL (0.00-0.20); Basophils % (auto) 0.3 %; Eosinophils # (auto) 0.04 K/uL (0.00-0.50); Eosinophils % (auto) 0.4 %; Hematocrit (blood only) 43.1 % (42.0-52.0); Hemoglobin 15.2 g/dl (14.0-18.0); Immature Granulocytes # (auto) 0.07 K/uL (0.01-0.20); Immature Granulocytes % (auto) 0.7 %; Lymphocytes # (auto) 1.58 K/uL (1.20-3.40); Lymphocytes % (auto) 15.3 %; Mean Corpuscular Hemoglobin 31.9 pg (25.0-34.0); Mean Corpuscular Hgb Conc 35.3 g/dL (32.0-36.0); Mean Corpuscular Volume 90.4 fL (80.0-100.0); Monocytes # (auto) 1.18 K/uL (0.11-0.59); Monocytes % (auto) 11.4 %; Neutrophils # (auto) 7.45 K/uL (1.40-6.50); Neutrophils % (auto) 71.9 %; Platelet Count 172 K/uL (130-400); RDW Coefficient of Variation 12.1 % (11.5-14.5); RDW Standard Deviation 40.1 fL (36.4-46.3); Red Blood Count 4.77 M/uL (4.70-6.10); White Blood Count 10.35 K/ul (4.8-10.8)
[2024-03-04 07:42] LABS: BUN Creatinine Ratio 30.8 (10-20); Calcium 9.4 mg/dl (8.6-10.3); Creatinine Clr Calc Pharmacy 149.9 ml/min; Magnesium 1.8 mg/dl (1.7-2.4); Potassium 3.3 mmol/L (3.5-5.1)
[2024-03-04] MEDS: POTASSIUM CHLORIDE CRTAB 20 MEQ TABCR PO STA (10:12)
--- NOTE | 2024-03-04 14:39 | Hospitalist Progress Note ---
Date of Service March 04, 2024 Assessment & Plan (1) Acute and chronic respiratory failure with hypercapnia: Plan: Secondary to decompensated heart failure secondary to influenza/pneumonia/complicated bronchitis and possibly uncontrolled blood pressure owing to medical noncompliance Required intubation and now on sedation and pressors and to maintain hemodynamic stability Appreciate feedlot manager input and recommendation Has been getting treatment for influenza A with Tamiflu and also on intravenous antibiotic cefepime and doxycycline doxycycline. Remains on mechanical ventilator and stable Remains afebrile and the white coat has improved to 10.38 Blood cultures have been negative and sputum culture shows light normal danny Clinically not any better and will continue current management Will try to take off the sedation and if he remains hemodynamically stable we will try to extubate as per the feedlot manager Status post extubation on evening of 03/02/2024 Remains stable 3 L nasal cannula Denies any other significant symptoms Will finish the course of antibiotic for a total of 5 days Antibiotic will be done by day after tomorrow and he has been feeling a lot better Has been saturating normally on room air Remains very weak and lethargic and will need PT OT evaluation and possible to 8 steps O2 saturation test prior to discharge (2) Influenza A: Plan: As above (3) HFrEF (heart failure with reduced ejection fraction): Plan: History systolic dysfunction status post ICD Significant cardiomyopathy with worsening of LV function and global hypokinesis His LV systolic function has declined since his last echocardiogram dated March 2022 -- his LV systolic function is severely reduced, LVEF appears to b e 20% with severe global hypokinesis. Complicated by influenza A infection Diuretic Rx Strict I/Os Appreciate cardiology input and recommendation Has been getting intravenous Lasix with cumulative fluid balance of -605 as of today Will continue diuresis and cumulative fluid balance today's -1589 Continuing diagnosis and with a negative balance of 5825 as of 03/03/2024 Denies any cardiac symptoms Has been getting furosemide 60 mg IV twice daily with adequate diuresis and cardiology is managing the medication The cardiology is planning to do repeat echo in a few days (4) NSVT (nonsustained ventricular tachycardia): Plan: Noted to have SVT with a rate of 158/min The heart rate is maintaining around 91 with low blood pressure requiring pressors Remains tachycardic at around 117 Electrolytes are normal (5) Diabetes: Plan: DM2 insulin requiring, medical noncompliance, suboptimal control as of recent hemoglobin A1c of 10.6 last December 2023. Good (6) ICD (implantable cardioverter-defibrillator), single, in situ: Plan: As above (7) Obstructive sleep apnea: Plan: History of GISELE and is complicating current respiratory failure History of COPD which is also adding current deterioration of his condition and respiratory failure Plan Other significant medical conditions are mentioned as below: UGIB, hemoglobin currently stable Maroon drainage from the OGT OGT irrigation did not show any signs of bleeding Continue with Protonix Monitor H&H PT/INR within normal limit Hyperlipidemia, statin noncompliance Hx COPD, no overt wheezing on exam GISELE on CPAP Alcoholic hepatitis, likely good prognosis on Maddrey DF score given normal coags. Continue with folic acid and thiamine LFTs are improving Headache secondary to illness/uncontrolled blood pressure rule out bleed Vague abdominal complaints with abnormal LFTs Ongoing tobacco/alcohol abuse DVT prophylaxis. SCDs GI bleed Full code Patient requesting updates providers. Ms. Emili Espinoza, contact #[phone]. Discussed with the in detail yesterday there is 03/02/2024 Admission and Anticipated Discharge Date Admission Date: February 29, 2024 Subjective 02/29/2024 The patient was seen and examined in ICU He was admitted with acute respiratory failure likely secondary to influenza A and is complicated by CHF and NS VT Required intubation Now sedated on intubation and requiring pressor support to maintain blood pressure 03/01/2024 The patient was seen and examined in ICU He remains intubated and sedated 03/02/2024 The patient was seen and examined in ICU in presence of the He remains on the vent and with sedation Condition seems to be stable 03/03/2024 The patient was seen and examined in ICU He is status post extubation last evening and has been doing okay on BiPAP and now on nasal cannula Denies any significant symptoms except mild to moderate shortness of breath and generalized weakness 03/04/2024 Patient was seen and examined in telemetry unit He has been feeling much better but remains extremely weak and lethargic Denies any shortness of breath and/or chest pain No fever and or chills Review of Systems Review of Systems: All systems reviewed and are unremarkable except as noted below Physical Exam Physical Exam: Minimal respiratory distress at rest and saturating normally on 3 L nasal cannula Constitutional: well developed, well nourished, + ill appearing and average body habitus Eyes: PERRL, conjunctivae normal, anicteric sclerae ENMT: external ear and nose normal, oropharynx normal Neck: trachea midline, no thyromegaly Respiratory: + respiratory distress Auscultation: + diminished lung sounds and + crackles (Minimal bibasilar crackles) Cardiovascular: Rate/Rhythm: regular rate, regular rhythm and + tachycardic (SVT on presentation) Heart Sounds: normal S1 and normal S2; no murmur Extremities: + edema (1+ edema bilaterally) Gastrointestinal (Abdomen): Inspection/Auscultation: + abdomen distended Percussion/Palpation: abdomen soft; abdomen nontender Musculoskeletal: No acute arthritis involving any of the joint Neurologic: normal touch/pain/proprioception and moves all extremities; no focal motor deficits Remains very weak and lethargic Lymphatic: no cervical or axillary lymphadenopathy Results & Data Results & Data Vital Signs (Past 12 Hours) Vital Signs Temp Pulse Pulse Resp BP Pulse Ox O2 Del Method 03/04/24 13:55 120 H 03/04/24 13:48 118 H 15 88 L Room Air 03/04/24 11:39 36.7 C 115 H 18 117/78 93 Nasal Cannula 03/04/24 08:00 Nasal Cannula 03/04/24 08:00 97 H 03/04/24 07:42 36.6 C 123 H 18 129/81 93 Room Air 03/04/24 07:22 103 H 12 92 Nasal Cannula 03/04/24 03:09 Nasal Cannula 03/04/24 02:50 37.2 C 107 H 18 137/87 93 Nasal Cannula 03/04/24 02:34 103 H 24 96 Nasal Cannula O2 Flow Rate FiO2 03/04/24 13:55 03/04/24 13:48 54 03/04/24 11:39 03/04/24 08:00 1 03/04/24 08:00 03/04/24 07:42 03/04/24 07:22 1 03/04/24 03:09 2 03/04/24 02:50 1 03/04/24 02:34 2 Laboratory Results Short CBC 03/04/24 Range/Units 06:48 WBC 10.35 (4.8-10.8) K/ul Hgb 15.2 (14.0-18.0) g/dl Hct 43.1 (42.0-52.0) % Plt Count 172 (130-400) K/uL BMP 03/04/24 06:48 Sodium 135 L Potassium 3.3 L Chloride 93 L Carbon Dioxide 31 BUN 20 Creatinine 0.65 Glucose 180 H Calcium 9.4 Medications Administered Current Inpatient Medications Albuterol (Albuterol 0.083% Nebu Soln 3 Ml Vial) 2.5 mg NEB Q6R MINO; Protocol Stop: 03/30/24 06:59 Last Admin: 03/04/24 13:47 Dose: 2.5 mg Budesonide (Budesonide 0.25 Mg/2 Ml Vial (Pulmicort)) 0.5 mg NEB BIDR [facility] Stop: 04/02/24 18:59 Last Admin: 03/04/24 07:20 Dose: 0.5 mg Dextrose (Dextrose 50% 50 Ml Syringe) 25 - 50 ml IV UD PRN; Protocol PRN Reason: Hypoglycemia Protocol Stop: 03/30/24 07:29 Last Admin: 02/29/24 19:39 Dose: 25 ml Enoxaparin Sodium (Enoxaparin Inj 40 Mg/0.4 Ml Syr) 40 mg SQ DAILY [facility] Stop: 03/31/24 09:44 Last Admin: 03/04/24 09:49 Dose: 40 mg Folic Acid (Folic Acid 1 Mg Tab) 1 mg PO QAM [facility] Stop: 03/30/24 08:59 Last Admin: 03/04/24 09:50 Dose: 1 mg Formoterol Fumarate (Formoterol 20 Mcg/2 Ml Vial) 20 mcg NEB BIDR [facility] Stop: 04/02/24 08:59 Last Admin: 03/04/24 07:20 Dose: 20 mcg Furosemide (Furosemide 40 Mg/4 Ml Vial) 60 mg IV [id number] [facility] Stop: 03/31/24 16:59 Last Admin: 03/04/24 09:49 Dose: 60 mg Glucagon (Glucagon For Inj 1 Mg Vial) 1 mg SQ UD PRN; Protocol PRN Reason: Hypoglycemia Protocol Stop: 03/30/24 07:29 Glucose (Glucose 40% Gel 15 Gm Tube) 15 - 30 gm PO UD PRN; Protocol PRN Reason: Hypoglycemia Protocol Stop: 03/30/24 07:29 Glucose (Glucose 10 Tab/Tube) 4 - 8 tab PO UD PRN; Protocol PRN Reason: Hypoglycemia Protocol Stop: 03/30/24 07:29 Doxycycline Hyclate 100 mg/ (Dextrose) 100 mls @ 50 mls/hr IV Q12H [facility] Stop: 03/05/24 06:59 Last Infusion: 03/04/24 09:56 Dose: Infused Thiamine HCl 100 mg/ Syringe 10 mls @ 2 mls/min IV QAM [facility] Stop: 03/31/24 08:59 Last Admin: 03/04/24 09:57 Dose: 2 mls/min Ceftriaxone Sodium (Rocephin) 2,000 mg in 50 mls @ 100 mls/hr IV Q24H [facility] Stop: 03/05/24 10:59 Last Infusion: 03/04/24 12:25 Dose: Infused Insulin Aspart (Insulin Aspart Per Unit Charge) 0 units SC ACHS [facility] Stop: 04/02/24 11:29 Last Admin: 03/04/24 12:30 Dose: 8 units Insulin Glargine (Lantus Per Unit Charge) 20 units SC DAILY [facility] Stop: 03/31/24 08:59 Last Admin: 03/04/24 08:20 Dose: 20 units Miscellaneous (Carbohydrates For Hypoglycemia ) 15 - 30 gm PO UD PRN PRN Reason: Hypoglycemia Treatment Stop: 03/30/24 07:29 Multivitamins/Minerals (Multi Vit W/Minerals Liquid 15 Ml Udc) 15 ml NG QAM [facility] Stop: 03/31/24 08:59 Last Admin: 03/04/24 09:50 Dose: 15 ml Oseltamivir Phosphate (Oseltamivir Phosphate Susp 75 Mg/12.5 Ml Udp) 75 mg PO BID [facility]; Protocol Stop: 03/05/24 05:24 Last Admin: 03/04/24 10:12 Dose: 75 mg Pantoprazole Sodium (Pantoprazole 40 Mg Tab) 40 mg PO QAM [facility] Stop: 04/02/24 09:59 Last Admin: 03/04/24 09:50 Dose: 40 mg (3) HFrEF (heart failure with reduced ejection fraction) Heart failure chronicity: acute on chronic Qualified Code(s): I50.23 - Acute on chronic systolic (congestive) heart failure
[2024-03-04] MEDS: ACETAMINOPHEN 500 MG TAB PO PRN (15:09)
[2024-03-05 07:20] LABS: Basophils # (auto) 0.04 K/uL (0.00-0.20); Basophils % (auto) 0.4 %; Eosinophils # (auto) 0.08 K/uL (0.00-0.50); Eosinophils % (auto) 0.9 %; Hematocrit (blood only) 43.5 % (42.0-52.0); Hemoglobin 15.4 g/dl (14.0-18.0); Immature Granulocytes # (auto) 0.07 K/uL (0.01-0.20); Immature Granulocytes % (auto) 0.8 %; Lymphocytes # (auto) 2.29 K/uL (1.20-3.40); Lymphocytes % (auto) 24.9 %; Mean Corpuscular Hgb Conc 35.4 g/dL (32.0-36.0); Mean Corpuscular Volume 90.4 fL (80.0-100.0); Mean Platelet Volume 11.4 fL (9.4-12.4); Monocytes % (auto) 10.9 %; Neutrophils # (auto) 5.71 K/uL (1.40-6.50); Neutrophils % (auto) 62.1 %; Platelet Count 211 K/uL (130-400); RDW Coefficient of Variation 11.9 % (11.5-14.5); RDW Standard Deviation 39.9 fL (36.4-46.3); Red Blood Count 4.81 M/uL (4.70-6.10); White Blood Count 9.19 K/ul (4.8-10.8)
[2024-03-05 07:38] LABS: BUN Creatinine Ratio 35.5 (10-20); Calcium 9.3 mg/dl (8.6-10.3); Creatinine Clr Calc Pharmacy 157.1 ml/min; Magnesium 1.8 mg/dl (1.7-2.4)
[2024-03-05] MEDS: POTASSIUM CHLORIDE CRTAB 20 MEQ TABCR PO STA (09:10)
--- NOTE | 2024-03-05 13:33 | Hospitalist Progress Note ---
Date of Service March 05, 2024 Assessment & Plan (1) Acute and chronic respiratory failure with hypercapnia: (2) Acute on chronic heart failure with reduced ejection fraction (HFrEF, <= 40%): (3) Influenza A: (4) Diabetes: (5) Respiratory failure requiring intubation: (6) ICD (implantable cardioverter-defibrillator), single, in situ: (7) Obstructive sleep apnea: Plan Patient with acute hypoxic and hypercarbic respiratory failure in the setting of decompensated heart failure and influenza infection. Patient has significantly improved has been extubated and on room air. Replace electrolytes Transition to oral diuretics Restart goal-directed medications for his decreased ejection fraction including Coreg and lisinopril and Aldactone at reduced dosages. Repeat echocardiogram as recommended by cardiology prior to discharge Communication with cardiology asking for for any final recommendations Continuing with therapy Anticipate if tolerates transition to oral medications discharged home as soon as tomorrow. Admission and Anticipated Discharge Date Admission Date: February 29, 2024 Subjective Patient feeling improved. Still fairly weak with walking but off of oxygen. Eager to try and get home Physical Exam Physical Exam: Constitutional: Alert HEENT: Mucous membranes moist. Lungs: Decreased breath sounds, few crackles at bases CV: S1-S2, regular, systolic murmur Abdomen: Soft, nontender, nondistended Extremities: No significant edema Neuro: No focal deficits Psych: Cooperative, normal mood Results & Data Results & Data Vital Signs (Past 12 Hours) Vital Signs Temp Pulse Pulse Resp BP Pulse Ox O2 Del Method 03/05/24 11:39 36.7 C 126 H 18 123/88 90 Room Air 03/05/24 08:00 108 H 03/05/24 08:00 Room Air 03/05/24 07:40 108 H 17 93 Room Air 03/05/24 07:28 36.7 C 105 H 18 123/86 92 Room Air 03/05/24 03:05 36.8 C 107 H 18 142/85 H 94 Nasal Cannula 03/05/24 02:12 104 H 15 97 Nasal Cannula O2 Flow Rate 03/05/24 11:39 03/05/24 08:00 03/05/24 08:00 03/05/24 07:40 03/05/24 07:28 03/05/24 03:05 2 03/05/24 02:12 2 Diagnostic Findings Reviewed imaging, laboratory and diagnostic studies. Pertinent findings as below. Potassium 3.0 Creatinine 0.62 Glucose 219 Magnesium 1.8
--- NOTE | 2024-03-05 13:43 | Cardiology Progress Note ---
Date of Service March 05, 2024 Assessment & Plan (1) Acute and chronic respiratory failure with hypercapnia: (2) HFrEF (heart failure with reduced ejection fraction): (3) Cardiomyopathy: (4) ICD (implantable cardioverter-defibrillator), single, in situ: Plan 1. Respiratory failure: I suspect this is primarily respiratory in nature with superimposed congestive heart failure. He is still somewhat short of breath, but seems to be doing well at the moment. 2. Congestive heart failure: This is probably on the basis of his acute illness (as opposed to a cardiac event), his left ventricular ejection fraction has declined however that is probably stunning rather than a cardiac event. 3. Cardiomyopathy: He has a longstanding cardiomyopathy which is worse on his recent echo. I suspect that is primarily due to stunning from his current illness. His repeat echocardiogram today suggests an improvement on my direct visual comparison, it has not been formally read as yet. The ejection fraction remains very poor however. I am hoping you will have improvement in the future. It would be beneficial if he could take Entresto, although in the past he has declined due to cost. I would continue high dose beta-blockade. Perhaps we should add Jardiance or Farxiga, but there may be a cost issue there as well. 4. ICD: Clinically working well and based on last interrogation. Admission and Anticipated Discharge Date Admission Date: February 29, 2024 Subjective He is feeling relatively well today, his breathing has improved substantially al though he still feels weak. He is sitting at his bedside. Physical Exam Physical Exam: Constitutional: Now extubated, alert and cooperative and conversational. Appears to be in mild distress. Pulmonary: Decreased breath sounds auscultation bilaterally, basilar crackles. Cardiac: Regular rapid rhythm with no murmur, gallop or rub. Abdomen: Soft, nontender with normal bowel sounds. Extremities: Trace edema bilaterally. Skin: No rash, ecchymoses or petechiae. Results & Data Vital Signs (Past 12 Hours) Vital Signs Temp Pulse Pulse Resp BP Pulse Ox O2 Del Method 03/05/24 08:00 108 H 03/05/24 08:00 Room Air 03/05/24 07:40 108 H 17 93 Room Air 03/05/24 07:28 36.7 C 105 H 18 123/86 92 Room Air 03/05/24 03:05 36.8 C 107 H 18 142/85 H 94 Nasal Cannula 03/05/24 02:12 104 H 15 97 Nasal Cannula 03/04/24 22:29 36.7 C 105 H 20 122/80 95 Nasal Cannula 03/04/24 22:20 109 H O2 Flow Rate 03/05/24 08:00 03/05/24 08:00 03/05/24 07:40 03/05/24 07:28 03/05/24 03:05 2 03/05/24 02:12 2 03/04/24 22:29 2 03/04/24 22:20 Laboratory Results CBC 03/05/24 Range/Units 06:37 WBC 9.19 (4.8-10.8) K/ul RBC 4.81 (4.70-6.10) M/uL Hgb 15.4 (14.0-18.0) g/dl Hct 43.5 (42.0-52.0) % Plt Count 211 (130-400) K/uL Neut # (Auto) 5.71 (1.40-6.50) K/uL Lymph # (Auto) 2.29 (1.20-3.40) K/uL [place] # (Auto) 1.00 H (0.11-0.59) K/uL Eos # (Auto) 0.08 (0.00-0.50) K/uL Baso # (Auto) 0.04 (0.00-0.20) K/uL Comprehensive Metabolic Panel 03/05/24 Range/Units 06:37 Sodium 135 L (136-145) mmol/L Potassium 3.0 L (3.5-5.1) mmol/L Chloride 92 L (98-107) mmol/L Carbon Dioxide 31 (21-32) mmol/L BUN 22 (6-23) mg/dl Creatinine 0.62 (0.6-1.4) mg/dl Glucose 166 H (70-99(Fasting)) mg/dl Calcium 9.3 (8.6-10.3) mg/dl Intake and Output 03/04/24 03/05/24 03/05/24 22:59 06:59 14:59 Intake Total 400 / 870 Output Total 850 / 2100 200 / 2100 Balance -450 / -1230 -200 / -1230 Intake: IV 100 / 250 Doxycycline Hyclate 100 mg In 100 / 200 Dextrose 5% Mini-B 100 ml @ 50 mls/hr IV Q12H [facility] Rx#:[id number] Oral 300 / 620 Output: Urine Amount (Catheter) 2099 Ruiz/Indwelling 2099 / 2099 Other: # Bowel Movement Diapers 1 Weight 90.9 kg Weight Measurement Method Built in [facility] Diagnostic Findings Telemetry: Predominantly sinus tach cardia with a rate of around 110. Limited echo today: Severe left ventricular dysfunction, on direct comparison to presentation I think it is improved although still very poor. PG Care Time/CCT Total # of Minutes Spent Total Time Spent with Patient: Total time spent is greater than 50% in coordination of care (as documented) at patient's floor/unit and/or counseling patient: Coding Level of Care Code 97708 SUB INP/OBS CARE 3/50MIN Diagnoses Acute and chronic respiratory failure with hypercapnia J96.22 Acute on chronic systolic heart failure I50.23 Heart failure chronicity: acute on chronic Dilated cardiomyopathy I42.0 Cardiomyopathy type: dilated ICD (implantable cardioverter-defibrillator), single, in situ Z95.810 (2) HFrEF (heart failure with reduced ejection fraction) Heart failure chronicity: acute on chronic Qualified Code(s): I50.23 - Acute on chronic systolic (congestive) heart failure (3) Cardiomyopathy Cardiomyopathy type: dilated Qualified Code(s): I42.0 - Dilated cardiomyopathy
[2024-03-05] MEDS: POTASSIUM CHLORIDE CRTAB 20 MEQ TABCR PO SCH (14:04)
[2024-03-05] MEDS: SPIRONOLACTONE 25 MG TAB PO SCH (14:04)
--- NOTE | 2024-03-05 14:59 | XCELERA ---
[id number] \\[email or web address]\[id number]
[2024-03-05] MEDS: carvediloL 6.25 MG TAB PO SCH (17:31)
[2024-03-05] MEDS: FUROSEMIDE 40 MG TAB PO SCH (17:31)
[2024-03-06 07:40] VITALS: BP 146/78; PULSE 67; RESP 20; TEMP 97.5; O2SAT 94
[2024-03-06] MEDS: lisinopril 10 MG TAB PO SCH (08:17)
[2024-03-06] MEDS: THIAMINE HCL 100 MG TAB PO SCH (08:17)
[2024-03-06] MEDS ORDERED: ALBUTEROL 0.083% NEBU SOLN 3 ML VIAL NEB PRN (08:24)
[2024-03-06 09:02] LABS: BUN Creatinine Ratio 33.3 (10-20); Calcium 9.6 mg/dl (8.6-10.3); Creatinine Clr Calc Pharmacy 135.3 ml/min; Magnesium 1.7 mg/dl (1.7-2.4); Potassium 3.6 mmol/L (3.5-5.1)
--- NOTE | 2024-03-06 09:46 | Discharge Summary ---
Discharge Summary Date of Service March 06, 2024 Principal Dx & Hospital Course #1 = Principal Diagnosis (1) Acute and chronic respiratory failure with hypercapnia: (2) Acute on chronic heart failure with reduced ejection fraction (HFrEF, <= 40%): (3) Influenza A: (4) Diabetes: (5) Respiratory failure requiring intubation: (6) ICD (implantable cardioverter-defibrillator), single, in situ: (7) Obstructive sleep apnea: Plan Patient presented to the emergency room after not feeling well for a few days, increasing shortness of breath and cough. Apparently also had some emesis. In the emergency room is critically ill and was intubated. Patient was admitted to the ICU. Critical care consultation was obtained. He had acute respiratory failure in setting of decompensated heart failure and influenza A. He was supported on the ventilator. He was diuresed with IV Lasix. Cardiology consultation was obtained. Echocardiogram was performed showed significantly decreased ejection fraction which is known. Patient has AICD placement. With diuresis and supportive care patient improved. He was extubated and transitioned to nasal cannula oxygen. He continued to improve he was transferred out of the ICU. Follow-up echocardiogram showed some very minimal improvement but still had significantly decreased ejection fraction. He was transitioned to oral medications. Patient has significant financial issues with affording his medications. Therefore we continued on the carvedilol, lisinopril, furosemide and Aldactone. Patient was willing to see the cost of Jardiance and a prescription was given for that. Not a candidate for Entresto due to cost. On the day of discharge he was on room air. He is at a compensated state as far as his heart failure is concerned. We are titrating him back up to his previous dosages of his goal-directed medical therapy. To be discharged home on fluid restricted diet. Continue to monitor his glucoses continuing the metformin and glipizide. He will follow-up with his PCP and outpatient cardiology at heart failure clinic. Notes For Next Care Provider Recommend close follow-up with heart failure clinic Medication Changes From Visit Dosages changed for Coreg, lisinopril, Aldactone, Lasix Admission HPI Per Admitting Provider History obtained from family and records. Unable to obtain history from patient secondary to intubated state. Medical history significant for chronic systolic heart failure (EF 35 to 40%, TTE 2022) status post ICD, hypertension, hyperlipidemia, COPD, GISELE on CPAP DM2 insulin requiring, medical noncompliance, ongoing tobacco/alcohol abuse. Last confinement 2015 under Cardiology service for syncope secondary to orthostatic hypotension. Patient stopped taking home medications about 3 months ago. Patient tired from stopping meds as per outpatient records. 1 week history of history of cough symptoms later productive of junky sputum as per . Sick contacts at home. No chest pain or wheezing or fluid retention as per . Achy headache symptoms with vague abdominal discomfort as per . Weight loss over the last few months. No black or bloody stools. Last EtOH intake yesterday as per . Patient refused consultations despite worsening symptoms. EMS called to patient's home due to worsening illness. Patient found to be cold pale and diaphoretic. Patient placed on nonrebreather mask and brought to ER for evaluation. Highest SBP of 190s documented at the ER. Subsequent endotracheal intubation at the ER. IV Lasix administered at the ER. Coffee-ground aspirate from NG tube. IV Protonix infusion initiated at the ER Medical History as above Surgical History : Defibrillator Family History : Heart disease, stroke, dementia, Personal/Social history : 1 pack daily, alcohol use,, applying for disability Admission Exam Per Admitting Provider See H&P Discharge Exam Constitutional: Alert, nontoxic, no acute distress HEENT: Mucous membranes moist. Lungs: Decreased breath sounds, few crackles at bases CV: S1-S2, regular Abdomen: Soft, nontender, nondistended Extremities: No significant edema Neuro: No focal deficits, some mild generalized weakness Psych: Cooperative, normal mood Updated Medication List Medication Instructions Recorded Confirmed Type albuterol sulfate 2.5 mg/3 mL 1.25 mg (1.5 mL) inhalation Q4H 11/11/18 05/21/23 Rx (0.083 %) solution for nebulization PRN shortness of breath or wheezing #180 mL metformin 500 mg tablet 500 mg PO BID 10/10/19 05/21/23 History aspirin 81 mg tablet,delayed 81 mg PO DAILY 01/19/20 05/21/23 History release atorvastatin 20 mg tablet 20 mg PO QAM 01/19/20 05/21/23 History omeprazole 40 mg capsule,delayed 40 mg PO QAM 01/19/20 05/21/23 History release glipizide PO BID 02/22/21 03/25/24 History carvedilol 25 mg tablet 12.5 mg (1/2 x 25 mg) PO BID #60 03/06/24 Rx tabs empagliflozin 10 mg tablet 10 mg PO DAILY #30 tabs 03/06/24 Rx (Jardiance) furosemide 40 mg tablet 40 mg PO BID #60 tabs 03/06/24 Rx lisinopril 20 mg tablet 20 mg PO DAILY #30 tabs 03/06/24 Rx spironolactone 25 mg tablet 25 mg PO DAILY #30 tabs 03/06/24 Rx Hospital Stay Data Consultations 02/29/24 05:01 ED Decision to Admit Stat 02/29/24 06:12 Consult Cardiology Routine 02/29/24 06:59 Consult Machine Setter Supervisor Routine Diagnostic Imagining Performed 02/29/24 05:28 CT chest diagnostic wo con Stat 02/29/24 06:01 CT head/brain wo con Stat 02/29/24 06:02 CT Abd and Pelvis [CT abd pelvis wo con] Stat Most recent echocardiogram shows ejection fraction 15 to 20% with global hypokinesis Sodium 133 Potassium 3.6 Chloride 94 Bicarb 28 Creatinine 0.72 Glucose 202 TSH 1.18 Reviewed imaging, laboratory and diagnostic studies. Pertinent findings as below. Pending Results Patient Have Any Pending Studies at Discharge: No Discharge Instructions Given to Patient (Per Discharging Provider) Call 911 and go to the Emergency Room if: * You have tightness or pain in your chest that does not go away with rest or Nitroglycerin * You are very short of breath even with rest Call your doctor if any of the following symptoms or problems start or get worse: * Shortness of breath or difficulty breathing * Wake up at night short of breath * Chest pain * Cough * Swelling of your hands, fee, or legs * More fatigued or tired with your normal activity * Palpitations - sudden fast heart beats WEIGHT * Weigh yourself every morning after using the bathroom. * Use the same scale. * Wear the same amount of clothing. * Write your weight down on your chart. * Call your doctor if you gain more than 2-3 pounds in 1-2 days. MEDICATIONS * Use this discharge instruction sheet for instructions. * Take your medications at the time your doctor ordered. * Do not skip a dose of your medicines. * If you miss a dose of medicine, take as soon as possible, but DO NOT DOUBLE A DOSE. * Read your medicine information when you get home. * Know all of the side effects of your medicine. * Call your doctor's office if you have any side effects. * Be sure all of your doctors know what medicine and herbs you take (including cold, flu, and herbal medicine). * Pain Medicine: If you do not get relief from your pain, please call your doctor for help. Take the following with you to your follow-up doctor appointments: * Weight Chart * Medication List * List of questions Total Time Total Time Spent Total Time Spent (In Minutes): 38
[2024-03-06] MEDS: POTASSIUM CHLORIDE CRTAB 20 MEQ TABCR PO STA (09:58)
--- NOTE | 2024-03-09 07:04 | Coding Query ---
SEPSIS To promote full compliance with coding requirements relating to patient care, physician participation is requested in all cases of cleaner housekeeping uncertainty. Please assist us with the question(s) below: In responding to this query, please exercise your independent professional judgement. The fact that a question is asked does not imply that any particular answer is desired or expected. We appreciate your clarification on this issue. The medical record reflects the following clinical findings: Pt admitted with acute respiratory failure, Pneumonia, influenza. Critical care consult 02/28 mentioned Cardiogenic and Septic shock. Pt on ventilator for > 24 hours. Please check below if applicable, the diagnosis treated during this Inpatient stay. Thanks for your help! WILLIAM Iglesias CCS ____ ( )Bacteremia (Nonspecific laboratory finding of bacteria in the blood) Specify Organism ( ) Present on Admission (x ) Not present on admission ( ) Unable to clinically determine ( ) Septicemia (Systemic disease associated with the presence of pathogenic microorganisms in the blood): Specify Organism ( ) Present on Admission (x) Not present on admission ( ) Unable to clinically determine ( ) Sepsis Specify Organism Specify Associated Condition/Diagnosis ( ) Present on Admission (x ) Not present on admission ( ) Unable to clinically determine ( ) Severe Sepsis (Sepsis associated with acute organ dysfunction) Specify Organism severe sepsis with respiratory failure due to influenza A Specify Associated Condition/Diagnosis ( x) Present on Admission ( ) Not present on admission ( ) Unable to clinically determine ( ) Septic Shock (Severe sepsis with acute circulatory failure, unexplained by other causes) ( ) Present on Admission (x ) Not present on admission ( ) Unable to clinically determine ( ) Other, patient has: MTDD
== END 2024-03-06 11:02 | disposition home or self-care (01) | DRG 871 ==
LOC: ED 03:37 → SUATTDRO 05:50 → 1E 05:50 → 2S 03-04 03:04

== ENCOUNTER 2024-11-24 15:29 | Observation (INO) ==
[2024-11-24 16:18] LABS: Hematocrit (blood only) 44.3 % (42.0-52.0); Hemoglobin 16.3 g/dl (14.0-18.0); Immature Granulocytes # (auto) 0.06 K/uL (0.01-0.20); Immature Granulocytes % (auto) 0.9 %; Mean Corpuscular Hemoglobin 33.5 pg (25.0-34.0); Mean Corpuscular Volume 91.0 fL (80.0-100.0); Platelet Count 126 K/uL (130-400); RDW Standard Deviation 39.3 fL (36.4-46.3); Red Blood Count 4.87 M/uL (4.70-6.10); White Blood Count 6.57 K/ul (4.8-10.8)
[2024-11-24] MEDS: SODIUM CHLORIDE 0.9% 1,000 ML IV SCH (16:20)
--- NOTE | 2024-11-24 16:29 | XRay Report ---
Clinical History: Chest pain Technique: A frontal view of the chest was obtained Comparison is made with the prior examination dated 03/02/2024 Findings: There are no confluent pulmonary infiltrates. The heart size is at the upper limit of normal. No pleural effusion or pneumothorax is seen. There is suspected mild pulmonary vascular congestion. No fracture is noted. There is a left chest wall pacemaker device Impression: Mild pulmonary vascular congestion Electronically signed by Anoop Helton 11-24-2024 4:28 PM
[2024-11-24 16:49] LABS: INR 1.1 (0.9-1.1); Prothrombin Time 11.3 Seconds (9.0-12.0)
[2024-11-24 16:53] LABS: Alanine Aminotransferase 71.0 U/L (7-52); Albumin Globulin Ratio 1.1 (0.9-2); Albumin Level 3.9 gm/dl (3.4-5.0); Alkaline Phosphatase 58.0 U/L (34-104); Anion Gap 9.0 (3-11); Bilirubin,Total 0.7 mg/dl (0.2-1.0); Blood Urea Nitrogen 19.0 mg/dl (6-23); Calcium 9.0 mg/dl (8.6-10.3); Carbon Dioxide 21.0 mmol/L (21-32); Chloride 100.0 mmol/L (98-107); Creatinine Clr Calc Pharmacy 97.6 ml/min; Globulin 3.4 gm/dl (2.5-4.0); Glucose 521.0 mg/dl (70-99(Fasting)); Lipase 36.0 U/L (11-82); Potassium 4.8 mmol/L (3.5-5.1); Sodium 130.0 mmol/L (136-145); Total Protein 7.3 gm/dl (6.0-8.3)
--- NOTE | 2024-11-24 16:58 | Electrocardiogram Report ---
Test Reason : Blood Pressure : */* mmHG Vent. Rate : 98 BPM Atrial Rate : 98 BPM P-R Int : 152 ms QRS Dur : 110 ms QT Int : 398 ms P-R-T Axes : 44 -25 121 degrees QTcB Int : 508 ms Normal sinus rhythm Possible Left atrial enlargement Incomplete left bundle block Minimal voltage criteria for LVH, may be normal variant T wave abnormality, consider lateral ischemia Prolonged QT Abnormal ECG When compared with ECG of 29-Feb-2024 04:04, UT interval has increased Vent. rate has decreased by 60 bpm Confirmed by Marcos Cast ([id number]) on 11/24/2024 4:58:02 PM Referred By: Confirmed By: Marcos Cast
[2024-11-24 17:09] LABS: Chlamydia pneumoniae PCR Not Detected (NotDetected); Coronavirus 229E PCR Not Detected (NotDetected); Coronavirus CoV-2 (COVID19)PCR Not Detected (NotDetected); Coronavirus HKU1 PCR Not Detected (NotDetected); Coronavirus NL63 PCR Not Detected (NotDetected); Coronavirus OC43PCR Not Detected (NotDetected); Human Metapneumovirus PCR Not Detected (NotDetected); Parainfluenza Virus 1 PCR Not Detected (NotDetected); Parainfluenza Virus 2 PCR Not Detected (NotDetected); Parainfluenza Virus 3 PCR Not Detected (NotDetected); Parainfluenza Virus 4 PCR Not Detected (NotDetected); Respiratory Syncytial VirusPCR Not Detected (NotDetected); Rhinovirus/Enterovirus PCR Not Detected (NotDetected)
[2024-11-24] MEDS: NovoLIN-R INSULIN PER UNIT CHARGE IV STA (17:11)
--- NOTE | 2024-11-24 18:05 | Emergency Department Note ---
Impression & Plan Chest pain, Pneumonia ED Provider Note ED Provider Note NAME: SIMON COSTA AGE:59 SEX: Male : 1965 ARRIVES VIA: Private vehicle INFORMANT: Patient ED PROVIDER(s): Maribell Parada DO CHIEF COMPLAINT: Chest pain HPI: This is a 59-year-old male presents to the emergency department due to concern for intermittent chest pain which he describes as a heaviness or pressure over the last 2 weeks. He denies any radiation of the pain into his back, arms, or neck. He denies that it specifically occurs with any position or exertion. Patient with significant prior cardiac history and does have an AICD present. He does follow with cardiology. at bedside states he is supposed to check his weight daily but he does not. He states he is taking his diuretics and other heart medications. He is also a diabetic but does not take his diabetic medications and does not check his blood sugar frequently. His was concerned given 2 weeks of symptoms and took him to his PCP today who promptly referred him to the ER for further evaluation. He states he was ill with an upper respiratory infection about a month ago and has not felt well since that time. He does state he has had increased fatigue since then. states she was also ill at the same time after they returned from a conference in [place]. PAST MEDICAL HISTORY:See Below PAST SURGICAL HISTORY:See Below FAMILY HISTORY:See Below SOCIAL HISTORY:See Below HOME MEDICATIONS:See Below ALLERGIES:See Below VITALS:See Below PHYSICAL EXAMINATION: GENERAL: alert, well appearing, well nourished, no distress, non-toxic EYE EXAM: normal conjunctiva, PERRL and EOM's grossly intact OROPHARYNX: no exudate, no erythema, lips, buccal mucosa, and tongue normal and mucous membranes are moist NECK: supple, no nuchal rigidity, no adenopathy, non-tender LUNGS: Clear to auscultation. Normal chest wall mechanics, no w/r/r HEART: no murmurs, S1 normal and S2 normal ABDOMEN: abdomen soft, non-tender, normo-active bowel sounds, no masses, no rebound or guarding. BACK: Back is symmetrical on inspection and there is no deformity, no midline tenderness, no CVA tenderness. SKIN: no rashes, petechiae, orbruising UPPER EXTREMITIES: upper extremities are grossly normal. FROM, nml pulses b/l. LOWER EXTREMITIES: No pitting edema. FROM, nml pulses b/l. NEURO EXAM: Normal sensorium, cranial nerves II-XII grossly intact, normal speech, no facial droop,nogross weakness of arms, no gross weakness of legs. Gross sensation intact. No ataxia. Vital Signs: reviewed and remarkable Differential Diagnosis: acute coronary syndrome, pericarditis, pulmonary embolus, aortic dissection, pneumonia, pneumothorax, musculoskeletal pain, shingles, GERD, GI bleed, as well as others were considered MEDICAL DECISION MAKING: This is a 59-year-old male presents the emergency department due to intermittent chest pain over the last 2 weeks. Patient afebrile hemodynamically stable on arrival. Patient with extensive cardiac history as reviewed in EMR and as discussed with he and at bedside. Labs drawn and sent, IV established, EKG and chest were performed at bedside and interpreted by me and patient was monitored on telemetry. Patient noted to have significant hyperglycemia without evidence of DKA. He was given IV insulin here and upon recheck his blood sugar had improved. Patient was noted to have borderline hypotension which states is unusual also. Patient was cautiously given IV fluids with some mild improvement. We did not significantly bolus the patient due to his history of CHF and low ejection fraction noted on review of prior echo. Given concerning findings of unclear etiology and significant cardiac history, I discussed with the patient and further inpatient evaluation and possible need for repeat echo. Case discussed with the hospitalist team for additional evaluation and management. At time of discussion and given unclear etiology of his symptoms I also discussed CT angiography of the chest. Patient sent for CTA of the chest. I did update the hospitalist that this was negative for PE but radiology did read a pneumonia. I did start IV Rocephin and the patient and will defer further antibiotics to the hospitalist team pending their evaluation in light of comorbid conditions and his current medications. Patient had no hypoxia and denied any shortness of breath throughout his stay in the emergency room. Consultation(s): 1930: Discussed with Dr. Nguyen, [facility] hospitalist team, for additional evaluation and management. We discussed additional CTA chest and he was in agreement. ER Treatment Provided: See below Diagnostics Interpreted By Me: -ECG: Normal sinus at 98, normal axis, QRS of 110, QTc of 508, inverted T waves noted in 1, aVL, and V6 -Cardiac Monitoring: An order was placed for continuous cardiac monitoring. The monitor shows a rate of 88 with normal sinus rhythm. -Laboratory studies: As stated above and show below. -Imaging studies: X-ray Chest: A single view study of the chest was reviewed and was negative for cardiomegaly, focal infiltrate, effusion, pulmonary edema, or wide mediastinum. Triage Nursing Note Reviewed Prior/Outside Records Reviewed -cardiology note from May 2024 reviewed Past Med/Surg History Problem List (Updated 11/24/24 @ 23:39 by Maribell Parada DO) Pneumonia (Acute) Chest pain (Acute) Acute on chronic heart failure with reduced ejection fraction (HFrEF, <= 40%) Pneumonia (Acute) Influenza A (Acute) Acute hypercapnic respiratory failure (Acute) HFrEF (heart failure with reduced ejection fraction) Acute and chronic respiratory failure with hypercapnia Diabetes Influenza A Respiratory failure requiring intubation NSVT (nonsustained ventricular tachycardia) HBP (high blood pressure) Encounter for pre-operative examination Orthostatic hypotension CHF (congestive heart failure) (Chronic 04/17/12) Cardiomyopathy (Acute 07/08/13) Ascites ICD (implantable cardioverter-defibrillator), single, in situ Obstructive sleep apnea JENSEN (dyspnea on exertion) Medical History GI symptoms NOT REGULAR STOOLS AND RECTAL BLEEDING>REASON FOR UPCOMING COLONOSCOPY History of duodenal ulcer GERD (gastroesophageal reflux disease) SOB (shortness of breath) on exertion NEBULIZER USE ALMOST EVERY DAY Sleep apnea CPAP/DOESN'T USE (HAS TROUBLE SLEEPING WITH IT) Cardiac defibrillator in place PLACED 2013>VIRAL INFECTION...HEART WORKING AT 5%>DR SALMERON>MOST RECENT CHECK 1 MON AGO Hyperlipidemia HTN (hypertension) Surgical History History of cardiac cath 2013>VIRAL INFECTION>LOW HEART FUNCTION>DEFIBRILLATOR PLACEMENT NO STENT(S) History of tonsillectomy Family History Brother Family history of diabetes mellitus Family history of colonic polyps Mother Family history of colonic polyps Father Family history of diabetes mellitus Other Family history of heart attack Social History Smoking Status: Current every day smoker Tobacco Type: Cigarettes and Smokeless Tobacco (Dip or Chew) Do You Dip or Chew Tobacco: Yes (1 CAN EVERY 2-3 DAYS/ADVISED NPO); Hx Alcohol Use: No Hx Substance Use: No Preferred Language: Albanian Communication Ability: Effective Development Mechanic Required: No Beliefs That Will Affect Care: None Current Living Situation: Spouse Other Information That Helps Us Care for You: No Feels Safe at Home: Yes Safety Concerns: Feels Safe At This Time Assistive Devices: Glasses Allergies Allergies Allergy/AdvReac Type Severity Reaction Status Date / Time shellfish derived AdvReac Swelling Verified 06/06/24 08:24 of Lip/Tongue/Throat Home Meds Home Medications Medication Instructions Recorded Confirmed aspirin 81 mg tablet,delayed 81 mg PO QAM 01/19/20 11/24/24 release omeprazole 40 mg capsule,delayed 40 mg PO QAM 01/19/20 11/24/24 release carvedilol 12.5 mg tablet 12.5 mg PO AMHS 11/24/24 11/24/24 glipizide 5 mg tablet 5 mg PO AMHS 11/24/24 11/24/24 metformin 500 mg tablet,extended 500 mg PO AMHS 11/24/24 11/24/24 release 24 hr sacubitril 24 mg-valsartan 26 mg 1 tab PO AMHS 11/24/24 11/24/24 tablet (Entresto) spironolactone 25 mg tablet 25 mg PO QAM 11/24/24 11/24/24 Previous Rx's Medication Instructions Recorded albuterol sulfate 2.5 mg/3 mL 1.25 mg (1.5 mL) inhalation Q4H 11/11/18 (0.083 %) solution for nebulization PRN shortness of breath or wheezing #180 mL atorvastatin 20 mg tablet 20 mg PO QAM #90 tabs 03/10/24 furosemide 40 mg tablet 40 mg PO BID #75 tabs 06/06/24 Results & Data (ED) Vital Signs Vital Signs - 24 hr 11/24/24 15:37 11/24/24 15:43 11/24/24 15:51 Temperature 36.9 C Temperature Source Temporal Artery Scan Pulse Rate 96 H 96 H Pulse Rate [Finger] Pulse Rate from SpO2 Sensor 96 H Respiratory Rate 19 25 H Respiratory Effort / Characteristics Non-Labored Spontaneous Respiratory Depth Normal Blood Pressure 93/69 L 93/69 L Blood Pressure [Right Arm] Blood Pressure Mean 81 77 Blood Pressure Mean [Right Arm] Pulse Oximetry 97 95 Oxygen Delivery Method Room Air Sepsis Recent Fever Within 48 Hours No Sepsis New/Unexplained Change in Mental Status N/A Sepsis Action Taken by Nursing No Action Required 11/24/24 15:57 11/24/24 16:05 11/24/24 16:19 Temperature Temperature Source Pulse Rate 96 H 96 H Pulse Rate [Finger] Pulse Rate from SpO2 Sensor 96 H Respiratory Rate 25 H 16 Respiratory Effort / Characteristics Respiratory Depth Blood Pressure 98/69 L Blood Pressure [Right Arm] Blood Pressure Mean 79 Blood Pressure Mean [Right Arm] Pulse Oximetry 95 96 Oxygen Delivery Method Room Air Sepsis Recent Fever Within 48 Hours Sepsis New/Unexplained Change in Mental Status Sepsis Action Taken by Nursing 11/24/24 16:21 11/24/24 16:30 11/24/24 16:30 Temperature Temperature Source Pulse Rate 94 H 94 H Pulse Rate [Finger] Pulse Rate from SpO2 Sensor 95 H 92 H Respiratory Rate 19 22 Respiratory Effort / Characteristics Respiratory Depth Blood Pressure 97/70 L Blood Pressure [Right Arm] Blood Pressure Mean 82 Blood Pressure Mean [Right Arm] Pulse Oximetry 96 95 Oxygen Delivery Method Sepsis Recent Fever Within 48 Hours Sepsis New/Unexplained Change in Mental Status Sepsis Action Taken by Nursing 11/24/24 16:42 11/24/24 16:51 11/24/24 16:54 Temperature Temperature Source Pulse Rate 91 H 92 H 90 Pulse Rate [Finger] Pulse Rate from SpO2 Sensor 92 H 91 H 91 H Respiratory Rate 26 H 21 20 Respiratory Effort / Characteristics Respiratory Depth Blood Pressure Blood Pressure [Right Arm] Blood Pressure Mean Blood Pressure Mean [Right Arm] Pulse Oximetry 94 95 97 Oxygen Delivery Method Sepsis Recent Fever Within 48 Hours Sepsis New/Unexplained Change in Mental Status Sepsis Action Taken by Nursing 11/24/24 17:00 11/24/24 17:06 11/24/24 17:11 Temperature Temperature Source Pulse Rate 95 H 96 H Pulse Rate [Finger] Pulse Rate from SpO2 Sensor Respiratory Rate 27 H Respiratory Effort / Characteristics Respiratory Depth Blood Pressure 95/75 L Blood Pressure [Right Arm] Blood Pressure Mean 80 Blood Pressure Mean [Right Arm] Pulse Oximetry Oxygen Delivery Method Sepsis Recent Fever Within 48 Hours Sepsis New/Unexplained Change in Mental Status Sepsis Action Taken by Nursing 11/24/24 17:12 11/24/24 17:24 11/24/24 17:30 Temperature Temperature Source Pulse Rate 94 H 92 H 94 H Pulse Rate [Finger] Pulse Rate from SpO2 Sensor Respiratory Rate 21 25 H 18 Respiratory Effort / Characteristics Respiratory Depth Blood Pressure Blood Pressure [Right Arm] Blood Pressure Mean Blood Pressure Mean [Right Arm] Pulse Oximetry Oxygen Delivery Method Sepsis Recent Fever Within 48 Hours Sepsis New/Unexplained Change in Mental Status Sepsis Action Taken by Nursing 11/24/24 17:39 11/24/24 17:41 11/24/24 17:43 Temperature Temperature Source Pulse Rate 91 H Pulse Rate [Finger] 93 H Pulse Rate from SpO2 Sensor Respiratory Rate 27 H 19 Respiratory Effort / Characteristics Non-Labored Spontaneous Respiratory Depth Normal Blood Pressure 83/64 L Blood Pressure [Right Arm] 93/64 L Blood Pressure Mean 70 Blood Pressure Mean [Right Arm] 73 Pulse Oximetry 95 Oxygen Delivery Method Room Air Sepsis Recent Fever Within 48 Hours Sepsis New/Unexplained Change in Mental Status Sepsis Action Taken by Nursing 11/24/24 17:44 11/24/24 17:45 11/24/24 18:01 Temperature Temperature Source Pulse Rate 91 H Pulse Rate [Finger] Pulse Rate from SpO2 Sensor Respiratory Rate 26 H Respiratory Effort / Characteristics Respiratory Depth Blood Pressure 93/64 L 94/68 L Blood Pressure [Right Arm] Blood Pressure Mean 70 75 Blood Pressure Mean [Right Arm] Pulse Oximetry Oxygen Delivery Method Sepsis Recent Fever Within 48 Hours Sepsis New/Unexplained Change in Mental Status Sepsis Action Taken by Nursing 11/24/24 18:01 11/24/24 18:03 11/24/24 18:03 Temperature Temperature Source Pulse Rate 94 H Pulse Rate [Finger] 94 H Pulse Rate from SpO2 Sensor Respiratory Rate 19 19 Respiratory Effort / Characteristics Respiratory Depth Blood Pressure 94/68 L Blood Pressure [Right Arm] 94/68 L Blood Pressure Mean 75 Blood Pressure Mean [Right Arm] 76 Pulse Oximetry 96 Oxygen Delivery Method Sepsis Recent Fever Within 48 Hours Sepsis New/Unexplained Change in Mental Status Sepsis Action Taken by Nursing 11/24/24 18:09 11/24/24 18:12 11/24/24 19:39 Temperature Temperature Source Pulse Rate 95 H 94 H Pulse Rate [Finger] Pulse Rate from SpO2 Sensor Respiratory Rate 19 Respiratory Effort / Characteristics Respiratory Depth Blood Pressure 89/69 L Blood Pressure [Right Arm] Blood Pressure Mean 79 Blood Pressure Mean [Right Arm] Pulse Oximetry Oxygen Delivery Method Sepsis Recent Fever Within 48 Hours Sepsis New/Unexplained Change in Mental Status Sepsis Action Taken by Nursing Laboratory Data 11/24/24 15:40 11/24/24 15:40 Lab Results 11/24/24 11/24/24 11/24/24 Range/Units 15:40 17:33 18:32 WBC 6.57 (4.8-10.8) K/ul RBC 4.87 (4.70-6.10) M/uL Hgb 16.3 (14.0-18.0) g/dl Hct 44.3 (42.0-52.0) % MCV 91.0 (80.0-100.0) fL MCH 33.5 (25.0-34.0) pg MCHC 36.8 H (32.0-36.0) g/dL RDW Std Deviation 39.3 (36.4-46.3) fL RDW Coeff of Kenzie 11.7 (11.5-14.5) % Plt Count 126 L (130-400) K/uL MPV 12.8 H (9.4-12.4) fL Immature Gran % (Auto) 0.9 % Neut % (Auto) 56.5 % Lymph % (Auto) 31.8 % Terry % (Auto) 8.2 % Eos % (Auto) 1.7 % Baso % (Auto) 0.9 % Neut # (Auto) 3.71 (1.40-6.50) K/uL Lymph # (Auto) 2.09 (1.20-3.40) K/uL Terry # (Auto) 0.54 (0.11-0.59) K/uL Eos # (Auto) 0.11 (0.00-0.50) K/uL Baso # (Auto) 0.06 (0.00-0.20) K/uL Immature Gran # (Auto) 0.06 (0.01-0.20) K/uL PT 11.3 (9.0-12.0) Seconds INR 1.1 (0.9-1.1) D-Dimer 340 (0-500) ug/L FEU Sodium 130 L (136-145) mmol/L Potassium 4.8 (3.5-5.1) mmol/L Chloride 100 (98-107) mmol/L Carbon Dioxide 21 (21-32) mmol/L Anion Gap 9 (3-11) BUN 19 (6-23) mg/dl Creatinine 1.08 (0.6-1.4) mg/dl Est Cr Clr Drug Dosing 97.6 ml/min eGFR 80.04 BUN/Creatinine Ratio 17.6 (10-20) Glucose 521 H* (70-99(Fasting)) mg/dl POC Glucose 254 H (70-99) mg/dl Calcium 9.0 (8.6-10.3) mg/dl Total Bilirubin 0.7 (0.2-1.0) mg/dl AST 32 (13-39) U/L ALT 71 H (7-52) U/L Alkaline Phosphatase 58 (34-104) U/L Troponin I High Sens 10.4 (0-20) pg/ml B-Natriuretic Peptide 372 H (0-100) pg/ml Total Protein 7.3 (6.0-8.3) gm/dl Albumin 3.9 (3.4-5.0) gm/dl Globulin 3.4 (2.5-4.0) gm/dl Albumin/Globulin Ratio 1.1 (0.9-2) Lipase 36 (11-82) U/L 11/24/24 Range/Units 18:34 WBC (4.8-10.8) K/ul RBC (4.70-6.10) M/uL Hgb (14.0-18.0) g/dl Hct (42.0-52.0) % MCV (80.0-100.0) fL MCH (25.0-34.0) pg MCHC (32.0-36.0) g/dL RDW Std Deviation (36.4-46.3) fL RDW Coeff of Kenzie (11.5-14.5) % Plt Count (130-400) K/uL MPV (9.4-12.4) fL Immature Gran % (Auto) % Neut % (Auto) % Lymph % (Auto) % Terry % (Auto) % Eos % (Auto) % Baso % (Auto) % Neut # (Auto) (1.40-6.50) K/uL Lymph # (Auto) (1.20-3.40) K/uL Terry # (Auto) (0.11-0.59) K/uL Eos # (Auto) (0.00-0.50) K/uL Baso # (Auto) (0.00-0.20) K/uL Immature Gran # (Auto) (0.01-0.20) K/uL PT (9.0-12.0) Seconds INR (0.9-1.1) D-Dimer (0-500) ug/L FEU Sodium (136-145) mmol/L Potassium (3.5-5.1) mmol/L Chloride (98-107) mmol/L Carbon Dioxide (21-32) mmol/L Anion Gap (3-11) BUN (6-23) mg/dl Creatinine (0.6-1.4) mg/dl Est Cr Clr Drug Dosing ml/min eGFR BUN/Creatinine Ratio (10-20) Glucose (70-99(Fasting)) mg/dl POC Glucose (70-99) mg/dl Calcium (8.6-10.3) mg/dl Total Bilirubin (0.2-1.0) mg/dl AST (13-39) U/L ALT (7-52) U/L Alkaline Phosphatase (34-104) U/L Troponin I High Sens 6.8 (0-20) pg/ml B-Natriuretic Peptide (0-100) pg/ml Total Protein (6.0-8.3) gm/dl Albumin (3.4-5.0) gm/dl Globulin (2.5-4.0) gm/dl Albumin/Globulin Ratio (0.9-2) Lipase (11-82) U/L Administered Medications Furosemide (Furosemide 40 Mg Tab) 40 mg PO [id number] [facility] Stop: 12/24/24 21:15 Last Admin: 11/24/24 21:59 Dose: 40 mg Documented By: ZAKI Insulin Aspart (Insulin Aspart Per Unit Charge) 0 units SC Q6 MINO Stop: 12/24/24 21:15 Last Admin: 11/24/24 22:03 Dose: 3 units Documented By: ZAKI Co-signed By: ASIF Levalbuterol HCl (Levalbuterol Hcl 0.63 Mg/3 Ml Neb) 0.63 mg NEB QIDR MINO; Protocol Stop: 12/24/24 21:29 Last Admin: 11/24/24 22:29 Dose: 0.63 mg Documented By: marshall Discontinued Medications Doxycycline Hyclate (Doxycycline Hyclate 100 Mg Cap) 100 mg PO NOW STA Stop: 11/24/24 21:27 Last Admin: 11/24/24 21:59 Dose: 100 mg Documented By: ZAKI Sodium Chloride (Nss) 1,000 mls @ 125 mls/hr IV .Q8H MINO Stop: 11/27/24 16:14 Last Infusion: 11/24/24 22:44 Dose: Infused Documented By: Admin: 11/24/24 16:20 Dose: 125 mls/hr Documented By: DEANGELO Ceftriaxone Sodium (Rocephin) 2,000 mg in 50 mls @ 100 mls/hr IV NOW STA Stop: 11/24/24 21:06 Last Infusion: 11/24/24 22:44 Dose: Infused Documented By: Admin: 11/24/24 21:59 Dose: 100 mls/hr Documented By: ZAKI Insulin Human Regular (Novolin-R Insulin Per Unit Charge) 10 units IV NOW STA Stop: 11/24/24 16:55 Last Admin: 11/24/24 17:11 Dose: 10 units Documented By: DEANGELO Co-signed By: ASIF Ioversol (Optiray 320 125ml) 115 ml IV ONCE ONE Stop: 11/24/24 19:51 Last Admin: 11/24/24 19:50 Dose: 115 ml Documented By: DONTA Imaging Data Radiologist's Impression: Chest X-Ray 11/24/24 16:05 Clinical History: Chest pain Technique: A frontal view of the chest was obtained Comparison is made with the prior examination dated 03/02/2024 Findings: There are no confluent pulmonary infiltrates. The heart size is at the upper limit of normal. No pleural effusion or pneumothorax is seen. There is suspected mild pulmonary vascular congestion. No fracture is noted. There is a left chest wall pacemaker device Impression: Mild pulmonary vascular congestion Electronically signed by Anoop Helton 11-24-2024 4:28 PM Chest CTA 11/24/24 19:36 Exam(s): CTA CHEST IV Amt: 115 ml [id number] EXAM: CT Angiography Chest With Intravenous Contrast CLINICAL HISTORY: Reason for exam: PE. TECHNIQUE: Axial computed tomographic angiography images of the chest with intravenous contrast. CTDI is 28 mGy and DLP is 880 mGy-cm. Automated exposure control was utilized for the study. A dose lowering technique was utilized adhering to the principles of ALARA. MIP reconstructed images were created and reviewed. COMPARISON: No relevant prior studies available. FINDINGS: Pulmonary arteries: Unremarkable. No pulmonary embolism. Aorta: No acute findings. No thoracic aortic aneurysm. Lungs: Right lower lobe infiltrate likely of infectious or inflammatory etiology. No mass. Pleural space: Trace right pleural effusion likely reactive in nature. No pneumothorax. Heart: Cardiomegaly. No significant pericardial effusion. No evidence of RV dysfunction. Bones/joints: No acute fracture. No dislocation. Soft tissues: Unremarkable. Lymph nodes: Unremarkable. No enlarged lymph nodes. Liver: Hepatic steatosis. Hepatomegaly. Tubes, lines and devices: Left chest wall intracardiac device. IMPRESSION: Right lower lobe pneumonia with trace reactive pleural effusion. No pulmonary embolus Electronically signed by: Geovani Pierre MD 11/24/24 20:35 PM Discharge Plan Visit Data Chief Complaint: Cardiac Assessment ED Provider: Maribell Parada Discharge Problem: Chest pain, Pneumonia Patient Disposition: Admitted As Inpatient Condition: Fair Discharge Instructions Interventions: ED Discharge Assessment Last Done: 11/24/24 21:16
[2024-11-24] MEDS: OPTIRAY 320 125ml IV ONE (19:50)
--- NOTE | 2024-11-24 20:36 | CT Scan Report ---
Exam(s): CTA CHEST IV Amt: 115 ml [id number] EXAM: CT Angiography Chest With Intravenous Contrast CLINICAL HISTORY: Reason for exam: PE. TECHNIQUE: Axial computed tomographic angiography images of the chest with intravenous contrast. CTDI is 28 mGy and DLP is 880 mGy-cm. Automated exposure control was utilized for the study. A dose lowering technique was utilized adhering to the principles of ALARA. MIP reconstructed images were created and reviewed. COMPARISON: No relevant prior studies available. FINDINGS: Pulmonary arteries: Unremarkable. No pulmonary embolism. Aorta: No acute findings. No thoracic aortic aneurysm. Lungs: Right lower lobe infiltrate likely of infectious or inflammatory etiology. No mass. Pleural space: Trace right pleural effusion likely reactive in nature. No pneumothorax. Heart: Cardiomegaly. No significant pericardial effusion. No evidence of RV dysfunction. Bones/joints: No acute fracture. No dislocation. Soft tissues: Unremarkable. Lymph nodes: Unremarkable. No enlarged lymph nodes. Liver: Hepatic steatosis. Hepatomegaly. Tubes, lines and devices: Left chest wall intracardiac device. IMPRESSION: Right lower lobe pneumonia with trace reactive pleural effusion. No pulmonary embolus Electronically signed by: Geovani Pierre MD 11/24/24 20:35 PM
[2024-11-24] MEDS ORDERED: NITROGLYCERIN SL 0.4 MG/TAB TAB SL PRN (21:16)
[2024-11-24] MEDS ORDERED: GLUCOSE 40% GEL 15 GM TUBE PO PRN (21:16)
[2024-11-24] MEDS ORDERED: LEVALBUTEROL 1.25 MG/3 ML NEB NEB PRN (21:16)
[2024-11-24] MEDS ORDERED: GLUCOSE 10 TAB/TUBE PO PRN (21:16)
[2024-11-24] MEDS ORDERED: DEXTROSE 50% 50 ML SYRINGE IV PRN (21:16)
[2024-11-24] MEDS ORDERED: CARBOHYDRATES FOR HYPOGLYCEMIA PO PRN (21:16)
[2024-11-24] MEDS ORDERED: ACETAMINOPHEN 325 MG TAB PO PRN (21:16)
[2024-11-24] MEDS ORDERED: GLUCAGON FOR INJ 1 MG VIAL SQ PRN (21:16)
[2024-11-24] MEDS: cefTRIAXone SODIUM 2,000 MG/50 ML BAG IV STA (21:59)
[2024-11-24] MEDS: DOXYCYCLINE HYCLATE 100 MG CAP PO STA (21:59)
[2024-11-24] MEDS: FUROSEMIDE 40 MG TAB PO SCH (21:59)
[2024-11-24] MEDS: INSULIN ASPART PER UNIT CHARGE SC SCH (22:03)
[2024-11-24] MEDS: LEVALBUTEROL HCL 0.63 MG/3 ML NEB NEB SCH (22:29)
[2024-11-25 05:25] LABS: Hematocrit (blood only) 45.2 % (42.0-52.0); Hemoglobin 16.2 g/dl (14.0-18.0); Immature Granulocytes # (auto) 0.07 K/uL (0.01-0.20); Immature Granulocytes % (auto) 0.8 %; Mean Corpuscular Hemoglobin 32.4 pg (25.0-34.0); Mean Corpuscular Volume 90.4 fL (80.0-100.0); Platelet Count 133 K/uL (130-400); RDW Standard Deviation 39.5 fL (36.4-46.3); Red Blood Count 5.00 M/uL (4.70-6.10); White Blood Count 8.75 K/ul (4.8-10.8)
[2024-11-25 05:41] LABS: Magnesium 1.8 mg/dl (1.7-2.4)
--- NOTE | 2024-11-25 06:07 | History & Physical Report ---
Date of Service November 24, 2024 Assessment & Plan (1) Chest pain: Plan: 59-year-old male with past medical history significant for type 2 diabetes, COPD, obstructive sleep apnea, bronchitis complicated,'s ,chronic systolic and diastolic CHF, former smoker, status post pacemaker presents with chest tightness. Patient was in [place] couple of weeks ago. Since he came back he was having cough bringing up whitish phlegm and not feeling well. And also having chest tightness middle of chest 5/10 in severity. The chest tightness is constant. Not associated with any activity. Patient taking his Lasix regularly. Patient is not sure whether he is taking his Jardiance or not. Not able to reach his currently. Denies any headache. No runny nose or sore throat. No nausea. No abdominal pain. Normal bowel and bladder movements. Currently resting comfortably. Chest pain Having chest tightness since last 2 weeks EKG 2 sets of troponin unremarkable Monitoring telemetry Will follow serial enzymes and echo Consult cardiology in a.m. for further recommendations Pneumonia CTA chest shows right lower lobe pneumonia Patient cough is whitish phlegm for last 2 weeks Empirically placed on Rocephin and Doxy Will monitor the response Mild COPD exacerbation Nebs [id number] and as needed Home inhalers Will monitor Chronic systolic CHF Echo on 03/05/2023 shows EF of 15 to 20% Status post defibrillator Continue home Lasix and spironolactone Holding Coreg and Entresto for now as blood pressure is very soft Adjustment of medications by cardiology Diabetes Hold home p.o. medications Lantus and sliding scale Will follow HbA1c Will monitor GERD On omeprazole GISELE Non compliant with cpap. DVT prophylaxis SCDs for now Disposition Telemetry Full code. History of Present Illness Chief Complaint: Chest tightness Primary Care Provider: Laura Crockett MD 59-year-old male with past medical history significant for type 2 diabetes, COPD, obstructive sleep apnea, bronchitis complicated,'s ,chronic systolic and diastolic CHF, former smoker, status post pacemaker presents with chest tightness. Patient was in [place] couple of weeks ago. Since he came back he was having cough bringing up whitish phlegm and not feeling well. And also having chest tightness middle of chest 5/10 in severity. The chest tightness is constant. Not associated with any activity. Patient taking his Lasix regularly. Patient is not sure whether he is taking his Jardiance or not. Not able to reach his currently. Denies any headache. No runny nose or sore throat. No nausea. No abdominal pain. Normal bowel and bladder movements. Currently resting comfortably. Past medical history. As mentioned above Past surgical history. Colonoscopy. Pacemaker/defibrillator placement Social history. . Used to smoke 2 packs a day for 20 years and currentl y smoking 2 cigarettes daily. Alcohol occasionally. No drug use. Family history. Mother had arrhythmia. Congestive heart failure. Father had stroke. Coronary artery disease. Diabetes. Brother had congestive heart failure. Brother had cardiomyopathy status post ICD. Allergies Allergy/AdvReac Type Severity Reaction Status Date / Time shellfish derived AdvReac Swelling Verified 06/06/24 08:24 of Lip/Tongue/Throat Home Medications Medication Instructions Recorded Confirmed Type albuterol sulfate 2.5 mg/3 mL 1.25 mg (1.5 mL) inhalation Q4H 11/11/18 11/24/24 Rx (0.083 %) solution for nebulization PRN shortness of breath or wheezing #180 mL aspirin 81 mg tablet,delayed 81 mg PO QAM 01/19/20 11/24/24 History release omeprazole 40 mg capsule,delayed 40 mg PO QAM 01/19/20 11/24/24 History release atorvastatin 20 mg tablet 20 mg PO QAM #90 tabs 03/10/24 11/24/24 Rx furosemide 40 mg tablet 40 mg PO BID #75 tabs 06/06/24 11/24/24 Rx carvedilol 12.5 mg tablet 12.5 mg PO AMHS 11/24/24 11/24/24 History glipizide 5 mg tablet 5 mg PO AMHS 11/24/24 11/24/24 History metformin 500 mg tablet,extended 500 mg PO AMHS 11/24/24 11/24/24 History release 24 hr sacubitril 24 mg-valsartan 26 mg 1 tab PO AMHS 11/24/24 11/24/24 History tablet (Entresto) spironolactone 25 mg tablet 25 mg PO QAM 11/24/24 11/24/24 History Past Med/Surg History Problem List (Updated 11/24/24 @ 23:39 by Maribell Parada DO) Pneumonia (Acute) Chest pain (Acute) Acute on chronic heart failure with reduced ejection fraction (HFrEF, <= 40%) Pneumonia (Acute) Influenza A (Acute) Acute hypercapnic respiratory failure (Acute) HFrEF (heart failure with reduced ejection fraction) Acute and chronic respiratory failure with hypercapnia Diabetes Influenza A Respiratory failure requiring intubation NSVT (nonsustained ventricular tachycardia) HBP (high blood pressure) Encounter for pre-operative examination Orthostatic hypotension CHF (congestive heart failure) (Chronic 04/17/12) Cardiomyopathy (Acute 07/08/13) Ascites ICD (implantable cardioverter-defibrillator), single, in situ Obstructive sleep apnea JENSEN (dyspnea on exertion) Medical History GI symptoms NOT REGULAR STOOLS AND RECTAL BLEEDING>REASON FOR UPCOMING COLONOSCOPY History of duodenal ulcer GERD (gastroesophageal reflux disease) SOB (shortness of breath) on exertion NEBULIZER USE ALMOST EVERY DAY Sleep apnea CPAP/DOESN'T USE (HAS TROUBLE SLEEPING WITH IT) Cardiac defibrillator in place PLACED 2013>VIRAL INFECTION...HEART WORKING AT 5%>DR SALMERON>MOST RECENT CHECK 1 MON AGO Hyperlipidemia HTN (hypertension) Surgical History History of cardiac cath 2013>VIRAL INFECTION>LOW HEART FUNCTION>DEFIBRILLATOR PLACEMENT NO STENT(S) History of tonsillectomy Family History Brother Family history of diabetes mellitus Family history of colonic polyps Mother Family history of colonic polyps Father Family history of diabetes mellitus Other Family history of heart attack Social History Smoking Status: Current every day smoker Tobacco Type: Cigarettes and Smokeless Tobacco (Dip or Chew) Do You Dip or Chew Tobacco: Yes (1 CAN EVERY 2-3 DAYS/ADVISED NPO); Hx Alcohol Use: No Hx Substance Use: No Preferred Language: Albanian Communication Ability: Effective Epilepsy Physician Required: No Beliefs That Will Affect Care: None Current Living Situation: Spouse Other Information That Helps Us Care for You: No Feels Safe at Home: Yes Safety Concerns: Feels Safe At This Time Assistive Devices: Glasses Review of Systems Review of Systems: All systems reviewed & are unremarkable except as noted in HPI & below Physical Exam Physical Exam: General- Not in distress Head- atraumatic Eyes- PERRL. ENT- oropharynx clear Neck- supple, no JVD. Lungs- clear to auscultation mild bilateral wheezing present, no crackles Heart- regular rhythm; no murmur, no gallop. Abdomen- normal bowel sounds, soft, nontender, no distension Extremities- no pretibial edema, no erythema seen Neuro- alert, oriented; PERRL, ; no facial palsy; no dysarthria; moves extremities. Results & Data Results & Data Vital Signs (Past 12 Hours) Vital Signs Temp Pulse Pulse Resp BP BP Pulse Ox 11/24/24 19:39 94 H 11/24/24 18:12 89/69 L 11/24/24 18:09 95 H 19 11/24/24 18:03 94 H 19 11/24/24 18:03 94 H 19 94/68 L 96 11/24/24 18:01 94/68 L 11/24/24 18:01 94/68 L 11/24/24 17:45 91 H 26 H 11/24/24 17:44 93/64 L 11/24/24 17:43 93 H 19 93/64 L 95 11/24/24 17:41 83/64 L 11/24/24 17:39 91 H 27 H 11/24/24 17:30 94 H 18 11/24/24 17:24 92 H 25 H 11/24/24 17:12 94 H 21 11/24/24 17:11 96 H 11/24/24 17:06 95 H 27 H 11/24/24 17:00 95/75 L 11/24/24 16:54 90 20 97 11/24/24 16:51 92 H 21 95 11/24/24 16:42 91 H 26 H 94 11/24/24 16:30 97/70 L 11/24/24 16:30 94 H 22 95 11/24/24 16:21 94 H 19 96 11/24/24 16:19 98/69 L 11/24/24 16:05 96 H 16 96 11/24/24 15:57 96 H 25 H 95 11/24/24 15:51 96 H 25 H 95 11/24/24 15:43 36.9 C 96 H 19 93/69 L 97 11/24/24 15:37 93/69 L O2 Del Method 11/24/24 19:39 11/24/24 18:12 11/24/24 18:09 11/24/24 18:03 11/24/24 18:03 11/24/24 18:01 11/24/24 18:01 11/24/24 17:45 11/24/24 17:44 11/24/24 17:43 Room Air 11/24/24 17:41 11/24/24 17:39 11/24/24 17:30 11/24/24 17:24 11/24/24 17:12 11/24/24 17:11 11/24/24 17:06 11/24/24 17:00 11/24/24 16:54 11/24/24 16:51 11/24/24 16:42 11/24/24 16:30 11/24/24 16:30 11/24/24 16:21 11/24/24 16:19 11/24/24 16:05 Room Air 11/24/24 15:57 11/24/24 15:51 11/24/24 15:43 Room Air 11/24/24 15:37 Diagnostic Findings Laboratory Results WBC 8.75 K/ul (4.8-10.8) 11/25/24 05:13 RBC 5.00 M/uL (4.70-6.10) 11/25/24 05:13 Hgb 16.2 g/dl (14.0-18.0) 11/25/24 05:13 Hct 45.2 % (42.0-52.0) 11/25/24 05:13 MCV 90.4 fL (80.0-100.0) 11/25/24 05:13 MCH 32.4 pg (25.0-34.0) 11/25/24 05:13 MCHC 35.8 g/dL (32.0-36.0) 11/25/24 05:13 RDW Std Deviation 39.5 fL (36.4-46.3) 11/25/24 05:13 RDW Coeff of Kenzie 12.0 % (11.5-14.5) 11/25/24 05:13 Plt Count 133 K/uL (130-400) 11/25/24 05:13 MPV 12.1 fL (9.4-12.4) 11/25/24 05:13 Immature Gran % (Auto) 0.8 % 11/25/24 05:13 Neut % (Auto) 49.3 % 11/25/24 05:13 Lymph % (Auto) 38.9 % 11/25/24 05:13 Brooke % (Auto) 8.0 % 11/25/24 05:13 Eos % (Auto) 2.1 % 11/25/24 05:13 Baso % (Auto) 0.9 % 11/25/24 05:13 Neut # (Auto) 4.32 K/uL (1.40-6.50) 11/25/24 05:13 Lymph # (Auto) 3.40 K/uL (1.20-3.40) 11/25/24 05:13 Brooke # (Auto) 0.70 K/uL (0.11-0.59) H 11/25/24 05:13 Eos # (Auto) 0.18 K/uL (0.00-0.50) 11/25/24 05:13 Baso # (Auto) 0.08 K/uL (0.00-0.20) 11/25/24 05:13 Immature Gran # (Auto) 0.07 K/uL (0.01-0.20) 11/25/24 05:13 PT 11.3 Seconds (9.0-12.0) 11/24/24 15:40 INR 1.1 (0.9-1.1) 11/24/24 15:40 D-Dimer 340 ug/L FEU (0-500) 11/24/24 15:40 Sodium 130 mmol/L (136-145) L 11/24/24 15:40 Potassium 4.8 mmol/L (3.5-5.1) 11/24/24 15:40 Chloride 100 mmol/L (98-107) 11/24/24 15:40 Carbon Dioxide 21 mmol/L (21-32) 11/24/24 15:40 Anion Gap 9 (3-11) 11/24/24 15:40 BUN 19 mg/dl (6-23) 11/24/24 15:40 Creatinine 1.08 mg/dl (0.6-1.4) 11/24/24 15:40 Est Cr Clr Drug Dosing 97.6 ml/min 11/24/24 15:40 eGFR 80.04 11/24/24 15:40 BUN/Creatinine Ratio 17.6 (10-20) 11/24/24 15:40 Glucose 521 mg/dl (70-99(Fasting)) H* 11/24/24 15:40 POC Glucose 150 mg/dl (70-99) H 11/25/24 05:49 Calcium 9.0 mg/dl (8.6-10.3) 11/24/24 15:40 Magnesium 1.8 mg/dl (1.7-2.4) 11/25/24 05:13 Total Bilirubin 0.7 mg/dl (0.2-1.0) 11/24/24 15:40 AST 32 U/L (13-39) 11/24/24 15:40 ALT 71 U/L (7-52) H 11/24/24 15:40 Alkaline Phosphatase 58 U/L (34-104) 11/24/24 15:40 Troponin I High Sens 6.8 pg/ml (0-20) 11/24/24 18:34 B-Natriuretic Peptide 372 pg/ml (0-100) H 11/24/24 18:32 Total Protein 7.3 gm/dl (6.0-8.3) 11/24/24 15:40 Albumin 3.9 gm/dl (3.4-5.0) 11/24/24 15:40 Globulin 3.4 gm/dl (2.5-4.0) 11/24/24 15:40 Albumin/Globulin Ratio 1.1 (0.9-2) 11/24/24 15:40 Lipase 36 U/L (11-82) 11/24/24 15:40 Adenovirus (PCR) Not Detected (NotDetected) 11/24/24 Unknown B. pertussis DNA (PCR) Not Detected (NotDetected) 11/24/24 Unknown B.parapertussis DNA PCR Not Detected (NotDetected) 11/24/24 Unknown C. pneumoniae DNA (PCR) Not Detected (NotDetected) 11/24/24 Unknown Coronavirus OC43 (PCR) Not Detected (NotDetected) 11/24/24 Unknown Coronavirus HKU1 (PCR) Not Detected (NotDetected) 11/24/24 Unknown Coronavirus 229E (PCR) Not Detected (NotDetected) 11/24/24 Unknown SARS-CoV-2 (PCR) Not Detected (NotDetected) 11/24/24 Unknown Coronavirus NL63 (PCR) Not Detected (NotDetected) 11/24/24 Unknown Human Metapneumovir PCR Not Detected (NotDetected) 11/24/24 Unknown Influenza Type A (PCR) Not Detected (NotDetected) 11/24/24 Unknown Influenza Type B (PCR) Not Detected (NotDetected) 11/24/24 Unknown M. pneumoniae (PCR) Not Detected (NotDetected) 11/24/24 Unknown Parainfluenza 1 (PCR) Not Detected (NotDetected) 11/24/24 Unknown Parainfluenza 2 (PCR) Not Detected (NotDetected) 11/24/24 Unknown Parainfluenza 3 (PCR) Not Detected (NotDetected) 11/24/24 Unknown Parainfluenza 4 (PCR) Not Detected (NotDetected) 11/24/24 Unknown RSV (PCR) Not Detected (NotDetected) 11/24/24 Unknown Entero/Rhino (PCR) Not Detected (NotDetected) 11/24/24 Unknown Impressions Chest X-Ray 11/24/24 16:05 Clinical History: Chest pain Technique: A frontal view of the chest was obtained Comparison is made with the prior examination dated 03/02/2024 Findings: There are no confluent pulmonary infiltrates. The heart size is at the upper limit of normal. No pleural effusion or pneumothorax is seen. There is suspected mild pulmonary vascular congestion. No fracture is noted. There is a left chest wall pacemaker device Impression: Mild pulmonary vascular congestion Electronically signed by Anoop Helton 11-24-2024 4:28 PM Chest CTA 11/24/24 19:36 Exam(s): CTA CHEST IV Amt: 115 ml [id number] EXAM: CT Angiography Chest With Intravenous Contrast CLINICAL HISTORY: Reason for exam: PE. TECHNIQUE: Axial computed tomographic angiography images of the chest with intravenous contrast. CTDI is 28 mGy and DLP is 880 mGy-cm. Automated exposure control was utilized for the study. A dose lowering technique was utilized adhering to the principles of ALARA. MIP reconstructed images were created and reviewed. COMPARISON: No relevant prior studies available. FINDINGS: Pulmonary arteries: Unremarkable. No pulmonary embolism. Aorta: No acute findings. No thoracic aortic aneurysm. Lungs: Right lower lobe infiltrate likely of infectious or inflammatory etiology. No mass. Pleural space: Trace right pleural effusion likely reactive in nature. No pneumothorax. Heart: Cardiomegaly. No significant pericardial effusion. No evidence of RV dysfunction. Bones/joints: No acute fracture. No dislocation. Soft tissues: Unremarkable. Lymph nodes: Unremarkable. No enlarged lymph nodes. Liver: Hepatic steatosis. Hepatomegaly. Tubes, lines and devices: Left chest wall intracardiac device. IMPRESSION: Right lower lobe pneumonia with trace reactive pleural effusion. No pulmonary embolus Electronically signed by: Geovani Pierre MD 11/24/24 20:35 PM ECG Additional Comments: ECG. Normal sinus rhythm rate of 98. Possible left atrial enlargement. Incomplete left bundle-branch block. QTc 508 Code Status & VTE Plan VTE Prophylaxis Plan VTE Prophylaxis will be ordered: Yes
[2024-11-25 07:05] LABS: Anion Gap 10.0 (3-11); Blood Urea Nitrogen 18.0 mg/dl (6-23); Calcium 8.9 mg/dl (8.6-10.3); Carbon Dioxide 24.0 mmol/L (21-32); Chloride 102.0 mmol/L (98-107); Creatinine Clr Calc Pharmacy 105.2 ml/min; Glucose 153.0 mg/dl (70-99(Fasting)); Potassium 3.5 mmol/L (3.5-5.1); Sodium 136.0 mmol/L (136-145)
[2024-11-25 07:26] LABS: Hemoglobin A1C 10.4 % (4.5-5.6)
[2024-11-25] MEDS: POTASSIUM CHLORIDE CRTAB 20 MEQ TABCR PO STA (08:32)
[2024-11-25] MEDS: ATORVASTATIN 20 MG TAB PO SCH (08:34)
[2024-11-25] MEDS: SPIRONOLACTONE 25 MG TAB PO SCH (08:34)
[2024-11-25] MEDS: ASPIRIN 81 MG ECTAB PO SCH (08:34)
[2024-11-25] MEDS: DOXYCYCLINE HYCLATE 100 MG CAP PO SCH (08:34)
[2024-11-25] MEDS: LANTUS PER UNIT CHARGE SQ SCH ×2 (09:38→21:33)
[2024-11-25] MEDS: UMECLIDINIUM/VILANTEROL 62.5/25MCG 7 PUFFS/INHALER INH SCH (10:16)
--- NOTE | 2024-11-25 11:07 | Cardiology Consultation ---
Date of Consultation November 25, 2024 Assessment & Plan (1) Chest pain: (2) Heart failure with reduced ejection fraction: (3) NSVT (nonsustained ventricular tachycardia): (4) Nonischemic cardiomyopathy: (5) ICD (implantable cardioverter-defibrillator), single, in situ: Plan Chest pain - likely not ischemic in nature given patient symptoms and normal troponin levels. His discomfort is likely related to his heart failure and/or underlying respiratory illness. NSVT Chronic heart failure with reduced EF Nonischemic cardiomyopathy s/p ICD - Patient admits to noncompliance with his treatment regimen. Patient was educated on the importance of compliance. Class III NYHA symptoms - Last echo 02/2024 w/ EF 15-20%. Echocardiogram ordered by the hospitalist team - He is normotensive today, will restart his carvedilol 12.5 twice daily. This should aid in reducing his QT prolongation as well. - Will add his Entresto and spironolactone as he is able to tolerate. Will add SGLT2 inhibitor as well - Transition from PO to IV Lasix 40mg BID. - monitor daily weights and I/O - 6 beats of NSVT overnight, continue to monitor telemetry Supervising Physician Co-Signing Physician Notes I saw and examined the patient and agree with the documentation by Lynette Johnson. It seems the patient's main complaint was chest discomfort. The prolonged nature of his discomfort in the absence of elevation of the biomarkers suggest this was nonischemic in nature. Possibly related to his pneumonia or decompensated heart failure. Curiously, he has not been compliant with his medications recently. He likely has an element of dietary indiscretion as well. He does not appear to be markedly volume overloaded and right now his breathing seems to be adequate. I think as the opportunity arises we can reintroduce some of his heart failure medications. I would start with his carvedilol and spironolactone. We could reintroduce low-dose Entresto when the opportunity arises. He was reinitiated on diuretic therapy. Currently ordered as intravenous. Will watch his renal function and electrolytes closely to determine when a change back to oral regimen is indicated. History of Present Illness Attending Physician: Robert Cruz MD History of Present Illness Carlyle is a 59-year-old male with a past medical history of nonischemic cardiomyopathy status post single-chamber ICD (2013), HFrEF, nonsustained ventricular tachycardia, dyslipidemia, insulin-dependent DM 2 who was admitted for further evaluation of chest discomfort. Patient states that approximately 3 weeks ago, he developed what he feels was a cold after traveling in the [facility]. He has felt extremely fatigued and congested at that time. Over the last 2 weeks, he had developed chest discomfort described as, "heaviness and pressure," substernally, intermittently at night. The sensation awakens him and he has to sit up as he feels that he cannot catch his breath. There is no radiation of said sensation. After several minutes, he is able to lie down and go back to sleep. These episodes have have became more frequent over the last several days occurring nearly every night. He had similar symptoms in February 2024 which were related to a viral illness which is why the patient held off from being seen by a provider sooner. He saw his PCP yesterday for these concerns who directed him to come into the ER after performing an EKG that was concerning per the patient. His EKG in the ER reflected normal sinus rhythm with an incomplete LBBB. QTc elongated; 508 ms. T wave abnormalities present to the lateral lateral leads. HS troponin were WNL. Chest CTA revealing RLL pna with a trace reactive pleural effusion. His blood pressure was soft on arrival 80-90s/60s. Due to this, his heart failure medications were not restarted. This morning, he is normotensive. Per review of telemetry from overnight he had 6 beats of NSVT around 0400. Otherwise, he has been in NSR with rates mainly in the 80s. This morning, the patient states he feels better than when he came into the hospital. He has not had any further episodes of chest discomfort or shortness of breath since admission. While he does not feel short of breath at time of assessment, he reports that over the last several months he has noticed more shortness of breath with exertion. This is especially true when he climbs a flight of steps. He typically needs to take 3 to 5-minute breaks after going up a set of stairs before resuming activity. Patient openly admits that he is noncompliant with his medications. His reason behind his noncompliance is that he gets frustrated with having to take so many medications. He will occasionally take his Lasix when he notices excess swelling to his lower extremities. He continues to smoke. He is down to 4 to 5 cigarettes a day. He reports little alcohol use. He states he does his best to eat healthy, but dose consume high sodium/fat foods a couple times a week. Past cardiac history: He was admitted to [facility] in March 2012 with decompensated heart failure. Echocardiogram done at that time that demonstrated a globally hypokinetic left ventricle with an ejection fraction between 10 and 20%. A cardiac catheterization demonstrated angiographically normal coronary arteries at that time. Other etiologies were also evaluated such as an SPEP, UPEP, iron panel which were unrevealing. He was started on medical management with the diuretics, carvedilol, and DEANGELO inhibitor. We were able to titrate his medical therapy to reasonable doses. He met criteria for ICD implantation for primary prevention of SCD, therefore this was done on 07/08/2013. Echocardiogram results: 06/20/2013 - LVEF remained low measuring 20-25% 04/14/2014 - EF 35-40% with mild left ventricular dilatation 06/23/2015 - EF was 35-40% with normal left ventricular size 12/17/2019 - EF 55-60%, mild LVH, grade I diastolic dysfunction 04/03/22 -EF 35 to 40%. Moderate global hypokinesis of the left ventricle, septal wall akinesis 03/05/24-EF 15 to 20%. Moderately dilated left ventricle Allergies Allergy/AdvReac Type Severity Reaction Status Date / Time shellfish derived AdvReac Swelling Verified 06/06/24 08:24 of Lip/Tongue/Throat Home Medications Medication Instructions Recorded Confirmed Type albuterol sulfate 2.5 mg/3 mL 1.25 mg (1.5 mL) inhalation Q4H 11/11/18 11/24/24 Rx (0.083 %) solution for nebulization PRN shortness of breath or wheezing #180 mL aspirin 81 mg tablet,delayed 81 mg PO QAM 01/19/20 11/24/24 History release omeprazole 40 mg capsule,delayed 40 mg PO QAM 01/19/20 11/24/24 History release atorvastatin 20 mg tablet 20 mg PO QAM #90 tabs 03/10/24 11/24/24 Rx furosemide 40 mg tablet 40 mg PO BID #75 tabs 06/06/24 11/24/24 Rx carvedilol 12.5 mg tablet 12.5 mg PO [facility] 11/24/24 11/24/24 History glipizide 5 mg tablet 5 mg PO [facility] 11/24/24 11/24/24 History metformin 500 mg tablet,extended 500 mg PO [facility] 11/24/24 11/24/24 History release 24 hr sacubitril 24 mg-valsartan 26 mg 1 tab PO [facility] 11/24/24 11/24/24 History tablet (Entresto) spironolactone 25 mg tablet 25 mg PO [facility] 11/24/24 11/24/24 History umeclidinium 62.5 mcg-vilanterol 1 inh inhalation DAILY 11/25/24 11/25/24 History 25 mcg/actuation powdr for inhalation (Anoro Ellipta) Patient History Medical History GI symptoms NOT REGULAR STOOLS AND RECTAL BLEEDING>REASON FOR UPCOMING COLONOSCOPY History of duodenal ulcer GERD (gastroesophageal reflux disease) SOB (shortness of breath) on exertion NEBULIZER USE ALMOST EVERY DAY Sleep apnea CPAP/DOESN'T USE (HAS TROUBLE SLEEPING WITH IT) Cardiac defibrillator in place PLACED 2013>VIRAL INFECTION...HEART WORKING AT 5%>DR SALMERON>MOST RECENT CHECK 1 MON AGO Hyperlipidemia HTN (hypertension) Surgical History History of cardiac cath 2013>VIRAL INFECTION>LOW HEART FUNCTION>DEFIBRILLATOR PLACEMENT NO STENT(S) History of tonsillectomy Family History Brother Family history of diabetes mellitus Family history of colonic polyps Mother Family history of colonic polyps Father Family history of diabetes mellitus Other Family history of heart attack Social History Smoking Status: Current every day smoker Tobacco Type: Cigarettes and Smokeless Tobacco (Dip or Chew) Do You Dip or Chew Tobacco: Yes (1 CAN EVERY 2-3 DAYS/ADVISED NPO); Hx Alcohol Use: No Hx Substance Use: No Preferred Language: Vincentian Communication Ability: Effective Director Sports Required: No Beliefs That Will Affect Care: None Current Living Situation: Spouse Other Information That Helps Us Care for You: No Feels Safe at Home: Yes Safety Concerns: Feels Safe At This Time Assistive Devices: CPAP Review of Systems Review of Systems: per HPI Physical Exam Physical Exam: Physical Exam: AOx3. Mood affect appear normal. All questions appropriately. Obese HEENT: Sclerae are anicteric. Pupils are equal and reactive to light and accommodation. Extraocular movements were intact. Neuro: Cranial nerves intact Lungs: Right lower lung field is diminished. Otherwise, lungs are clear to auscultation. Normal respiratory effort without use of accessory muscles. Cardiac: The rhythm was regular. S1 and S2 were normal. There are no murmurs on examination. Extremities: Patient has bilateral radial pulses that are equal in intensity. There is no evidence cyanosis or clubbing. Trace bilateral lower extremity edema present to the ankles Skin: There are no rashes noted on examination today. Results & Data Vital Signs (Past 12 Hours) Vital Signs Temp Pulse Pulse Resp BP Pulse Ox O2 Del Method 11/25/24 09:00 88 11/25/24 09:00 Room Air 11/25/24 07:55 36.2 C L 83 18 120/77 99 Room Air 11/25/24 07:05 14 95 Room Air 11/25/24 02:00 100 H 11/25/24 02:00 Room Air 11/25/24 02:00 36.3 C L 92 H 18 100/71 97 Room Air 11/24/24 23:08 94 H PG Care Time/CCT Total # of Minutes Spent Total Time Spent with Patient: Total time spent is greater than 50% in coordination of care (as documented) at patient's floor/unit and/or counseling patient: Coding [place] [address] INT INP/OBS CARE 3/75MIN Patient Type Established Diagnoses Other chest pain R07.89 Chest pain type: other chest pain Heart failure with reduced ejection fraction I50.20 NSVT (nonsustained ventricular tachycardia) I47.2 Nonischemic cardiomyopathy I42.8 ICD (implantable cardioverter-defibrillator), single, in situ Z95.810 Time Spent (min) 45 (1) Chest pain Chest pain type: other chest pain Qualified Code(s): R07.89 - Other chest pain
[2024-11-25] MEDS ORDERED: LEVALBUTEROL HCL 0.63 MG/3 ML NEB NEB PRN (11:43)
--- NOTE | 2024-11-25 12:43 | Hospitalist Progress Note ---
Date of Service November 25, 2024 Assessment & Plan (1) Chest pain: Plan: 59-year-old male with past medical history significant for type 2 diabetes, COPD, obstructive sleep apnea, bronchitis complicated,'s ,chronic systolic and diastolic CHF, former smoker, status post pacemaker presents with chest tightness. Patient was in [place] couple of weeks ago. Since he came back he was having cough bringing up whitish phlegm and not feeling well. And also having chest tightness middle of chest 5/10 in severity. The chest tightness is constant. Not associated with any activity. Patient taking his Lasix regularly. Patient is not sure whether he is taking his Jardiance or not. Not able to reach his currently. Denies any headache. No runny nose or sore throat. No nausea. No abdominal pain. Normal bowel and bladder movements. Currently resting comfortably. Chest pain Having chest tightness since last 2 weeks EKG 2 sets of troponin unremarkable Serial troponins are unremarkable for any ACS Denies any more chest pain since admissionhas had similar chest pain last time with pneumonia as well Echo of the heart is pending Appreciate cardiology input and recommendation Pneumonia CTA chest shows right lower lobe pneumonia Patient cough is whitish phlegm for last 2 weeks Empirically placed on Rocephin and Doxy Denies any cough, any chest pain or any shortness of breath at rest Will continue current antibiotic with Rocephin and doxycycline Mild COPD exacerbation Nebs [id number] and as needed Home inhalers Denies any wheezing and no shortness of breath Chronic systolic CHF Echo on 03/05/2023 shows EF of 15 to 20% Status post defibrillator Continue home Lasix and spironolactone Will restart Entresto and other cardiac medications as advised Diabetes Hold home p.o. medications Lantus and sliding scale Will follow [id number] A1c is very high at 10.4 Will ask for pharmacy glycemic consult GERD On omeprazole GISELE Non compliant with cpap. DVT prophylaxis SCDs for now Disposition Telemetry Full code. Admission and Anticipated Discharge Date Admission Date: November 24, 2024 Subjective 11/25/2024 The patient was seen and examined in telemetry unit His chest pain is resolved and has been feeling a lot better Denies any fever and/or chills, no palpitation or shortness of breath Does not have any cough as well Review of Systems Review of Systems: All systems reviewed and are unremarkable except as noted below Physical Exam Physical Exam: Lying in bed without any acute distress Constitutional: well developed, well nourished and + obese; not ill appearing Eyes: PERRL, conjunctivae normal, anicteric sclerae ENMT: external ear and nose normal, oropharynx normal Neck: trachea midline, no thyromegaly Respiratory: no respiratory distress Auscultation: + crackles (Right base); + lungs not clear to auscultation Cardiovascular: Rate/Rhythm: regular rate and regular rhythm; not tachycardic Heart Sounds: normal S1 and normal S2; no murmur Extremities: + edema (Trace edema bilaterally) Gastrointestinal (Abdomen): Inspection/Auscultation: normal bowel sounds; abdomen not distended Percussion/Palpation: abdomen soft; abdomen nontender Musculoskeletal: No acute arthritis involving any of the joint Neurologic: normal touch/pain/proprioception and moves all extremities; no focal motor deficits Psychiatric: A+Ox3, euthymic affect Lymphatic: no cervical or axillary lymphadenopathy Results & Data Results & Data Vital Signs (Past 12 Hours) Vital Signs Temp Pulse Pulse Resp BP Pulse Ox O2 Del Method 11/25/24 11:41 36.2 C L 98 H 18 117/81 97 Room Air 11/25/24 09:00 88 11/25/24 09:00 Room Air 11/25/24 07:55 36.2 C L 83 18 120/77 99 Room Air 11/25/24 07:05 14 95 Room Air 11/25/24 02:00 100 H 11/25/24 02:00 Room Air 11/25/24 02:00 36.3 C L 92 H 18 100/71 97 Room Air Laboratory Results Short CBC 11/24/24 11/25/24 Range/Units 15:40 05:13 WBC 6.57 8.75 (4.8-10.8) K/ul Hgb 16.3 16.2 (14.0-18.0) g/dl Hct 44.3 45.2 (42.0-52.0) % Plt Count 126 L 133 (130-400) K/uL BMP 11/24/24 11/25/24 15:40 05:13 Sodium 130 L 136 Potassium 4.8 3.5 D Chloride 100 102 Carbon Dioxide 21 24 BUN 19 18 Creatinine 1.08 0.98 Glucose 521 H* 153 H Calcium 9.0 8.9 Liver Function 11/24/24 Range/Units 15:40 Total Bilirubin 0.7 (0.2-1.0) mg/dl AST 32 (13-39) U/L ALT 71 H (7-52) U/L Alkaline Phosphatase 58 (34-104) U/L Albumin 3.9 (3.4-5.0) gm/dl Medications Administered Current Inpatient Medications Acetaminophen (Acetaminophen 325 Mg Tab) 650 mg PO Q4H PRN PRN Reason: Pain or Fever Stop: 12/24/24 21:15 Aspirin (Aspirin 81 Mg Ectab) 81 mg PO QAM [facility] Stop: 12/25/24 08:59 Last Admin: 11/25/24 08:34 Dose: 81 mg Atorvastatin Calcium ([facility]atin 20 Mg Tab) [facility] Stop: 12/25/24 08:59 Last Admin: 11/25/24 08:34 Dose: 20 mg Carvedilol (Carvedilol 12.5 Mg Tab) 12.5 mg PO BIDM [facility] Stop: 12/25/24 16:59 Dextrose (Dextrose 50% 50 Ml Syringe) 25 - 50 ml IV UD PRN; Protocol PRN Reason: Hypoglycemia Protocol Stop: 12/24/24 21:15 Doxycycline Hyclate (Doxycycline Hyclate 100 Mg Cap) 100 mg PO BID [facility] Stop: 11/30/24 08:59 Last Admin: 11/25/24 08:34 Dose: 100 mg Furosemide (Furosemide 40 Mg/4 Ml Vial) 40 mg IV BID17 [facility] Stop: 12/25/24 16:59 Glucagon (Glucagon For Inj 1 Mg Vial) 1 mg SQ UD PRN; Protocol PRN Reason: Hypoglycemia Protocol Stop: 12/24/24 21:15 Glucose (Glucose 40% Gel 15 Gm Tube) 15 - 30 gm PO UD PRN; Protocol PRN Reason: Hypoglycemia Protocol Stop: 12/24/24 21:15 Glucose (Glucose 10 Tab/Tube) 4 - 8 tab PO UD PRN; Protocol PRN Reason: Hypoglycemia Protocol Stop: 12/24/24 21:15 Guaifenesin/Dextromethorphan (Guaifenesin/Dextrom Syrup 100mg/10mg 5ml Udc) 5 ml PO Q6H PRN PRN Reason: Cough Stop: 12/24/24 21:15 Ceftriaxone Sodium (Rocephin) 2,000 mg in 50 mls @ 100 mls/hr IV Q24H [facility] Stop: 11/30/24 19:59 Insulin Aspart (Insulin Aspart Per Unit Charge) 0 units SC Q6 [facility] Stop: 12/24/24 21:15 Last Admin: 11/25/24 06:02 Dose: 1 units Insulin Glargine (Lantus Per Unit Charge) 6 units SQ DAILY [facility] Stop: 12/25/24 08:59 Last Admin: 11/25/24 09:38 Dose: 6 units Levalbuterol HCl (Levalbuterol 1.25 Mg/3 Ml Neb) 1.25 mg NEB Q4H PRN PRN Reason: Shortness Of Breath Or Wheezing Stop: 12/24/24 21:15 Levalbuterol HCl (Levalbuterol Hcl 0.63 Mg/3 Ml Neb) 0.63 mg NEB Q4R PRN; Protocol PRN Reason: Shortness Of Breath Or Wheezing Stop: 12/25/24 14:59 Miscellaneous (Carbohydrates For Hypoglycemia ) 15 - 30 gm PO UD PRN PRN Reason: Hypoglycemia Protocol Stop: 12/24/24 21:15 Nitroglycerin (Nitroglycerin Sl 0.4 Mg/Tab Tab) 0.4 mg SL Q5M PRN PRN Reason: Chest Pain Stop: 12/24/24 21:15 Pantoprazole Sodium (Pantoprazole 40 Mg Tab) 40 mg PO QAM [facility] Stop: 12/25/24 08:59 Last Admin: 11/25/24 08:34 Dose: 40 mg Spironolactone (Spironolactone 25 Mg Tab) 25 mg PO QAM [facility] Stop: 12/25/24 08:59 Last Admin: 11/25/24 08:34 Dose: 25 mg Umeclidinium/Vilanterol (Umeclidinium/Vilanterol 62.5/25mcg 7 Puffs/Inhaler) 1 puffs INH DAILY [facility] Stop: 12/25/24 08:59 Last Admin: 11/25/24 10:16 Dose: 1 puffs (1) Chest pain Chest pain type: other chest pain Qualified Code(s): R07.89 - Other chest pain
--- NOTE | 2024-11-25 12:47 | XCELERA ---
[id number] [id number]
[2024-11-25] MEDS ORDERED: PHARMACY GLYCEMIC MGMT CONSULT PRN (13:54)
--- NOTE | 2024-11-25 14:09 | Pharmacy Report ---
Pharmacy Glycemic Short Note 2 - Date of Service November 25, 2024 - Glycemic Short BSG Results (Last 24 hours): 11/24/24 11/24/24 11/24/24 15:40 17:33 21:58 Glucose 521 H* POC Glucose 254 H 217 H 11/24/24 11/25/24 11/25/24 23:55 05:13 05:49 Glucose 153 H POC Glucose 213 H 150 H 11/25/24 12:00 Glucose POC Glucose 215 H OUTPATIENT ANTIDIABETIC REGIMEN: * metformin 500 mg bid, glipizide 5 mg bid ASSESSMENT: * 59 year old admitted with potential pneumonia. Type 2 diabetic managed on oral agents outpatient. A1c >10% on admission. Pharmacy consulted for glycemic management. Patient received Lantus 6 units this AM (NPO) - now transitioned to diet, anticipate basal insulin needs to increase. Will add scale on for Lantus at HS time PLAN FOR INPATIENT GLYCEMIC CONTROL: * Hold outpatient oral diabetes medications * Basal insulin * Lantus 6 units x 1 this AM (NPO) * Lantus 10-15 units HS * Bolus insulin * NovoLog per scale ACHS or Q6hrs while NPO * Goal Range: Low 110 mg/dL - High 140 mg/dL * Correction Factor: 20 mg/dL/unit * Nutritional / Prandial insulin per carb ratio of 1 unit per 7 grams CHO consumed
[2024-11-25] MEDS: INSULIN ASPART PER UNIT CHARGE SC SCH (17:39)
[2024-11-25] MEDS: FUROSEMIDE 40 MG/4 ML VIAL IV SCH (17:39)
--- NOTE | 2024-11-25 18:18 | Electrocardiogram Report ---
Test Reason : Blood Pressure : */* mmHG Vent. Rate : 87 BPM Atrial Rate : 87 BPM P-R Int : 164 ms QRS Dur : 118 ms QT Int : 426 ms P-R-T Axes : 49 -26 121 degrees QTcB Int : 512 ms Normal sinus rhythm Incomplete left bundle block Minimal voltage criteria for LVH, may be normal variant T wave abnormality, consider lateral ischemia Prolonged QT Abnormal ECG When compared with ECG of 24-Nov-2024 15:35, No significant change was found Confirmed by Marcos Cast ([id number]) on 11/25/2024 6:18:37 PM Referred By: Laura Crockett Confirmed By: Marcos Cast
[2024-11-25] MEDS: cefTRIAXone SODIUM 2,000 MG/50 ML BAG IV SCH (21:12)
[2024-11-25] MEDS: VALSARTAN/SACUBITRIL 26/24MG TAB PO SCH (21:27)
[2024-11-26] MEDS: LANTUS PER UNIT CHARGE SQ SCH (08:31)
[2024-11-26 10:10] LABS: Hematocrit (blood only) 48.0 % (42.0-52.0); Hemoglobin 17.0 g/dl (14.0-18.0); Immature Granulocytes # (auto) 0.04 K/uL (0.01-0.20); Immature Granulocytes % (auto) 0.6 %; Mean Corpuscular Hemoglobin 32.2 pg (25.0-34.0); Mean Corpuscular Volume 90.9 fL (80.0-100.0); Platelet Count 132 K/uL (130-400); RDW Standard Deviation 39.8 fL (36.4-46.3); Red Blood Count 5.28 M/uL (4.70-6.10); White Blood Count 6.36 K/ul (4.8-10.8)
[2024-11-26 10:36] LABS: Anion Gap 9.0 (3-11); Blood Urea Nitrogen 22.0 mg/dl (6-23); Calcium 9.2 mg/dl (8.6-10.3); Carbon Dioxide 25.0 mmol/L (21-32); Chloride 100.0 mmol/L (98-107); Creatinine Clr Calc Pharmacy 95.4 ml/min; Glucose 260.0 mg/dl (70-99(Fasting)); Magnesium 1.8 mg/dl (1.7-2.4); Potassium 3.3 mmol/L (3.5-5.1); Sodium 134.0 mmol/L (136-145)
--- NOTE | 2024-11-26 11:00 | Cardiology Progress Note ---
Date of Service November 26, 2024 Assessment & Plan (1) Chest pain: (2) Heart failure with reduced ejection fraction: (3) NSVT (nonsustained ventricular tachycardia): (4) Nonischemic cardiomyopathy: (5) ICD (implantable cardioverter-defibrillator), single, in situ: Plan Chest pain - likely not ischemic in nature given patient symptoms and normal troponin levels. His discomfort is likely related to his heart failure and/or underlying respiratory illness. NSVT Chronic heart failure with reduced EF Nonischemic cardiomyopathy s/p ICD - Patient admits to noncompliance with his treatment regimen. Patient was educated on the importance of compliance. Class III NYHA symptoms on admission - Last echo 02/2024 w/ EF 15-20%. This was repeated during this hospitalization by the hospitalist team. EF is now <15%, RVSP is 30-40% - His carvedilol, spironolactone and Entresto were restarted over the last 24 hours. He is tolerating these medications well. We can explore increasing these doses at a more appropriate time. - We recommend a SGLT2 inhibitor. However, after discussion with the patient, there is - Continue IV Lasix 40mg BID. - Monitor renal function and electrolytes give the use of Lasix, spironolactone and Entresto - daily weights and I/O. - I did spend an ample amount of of time with the patient educating him on the importance of compliance to his heart failure regimen which includes his medications, diet and lifestyle choices. The patient voiced understanding. Admission and Anticipated Discharge Date Admission Date: November 24, 2024 Supervising Physician Co-Signing Physician Notes I saw and examined the patient and agree with the documentation by CLAIRE Salazar. The patient clinically feeling better. He reports being ambulatory today with minimal breathing difficulty or dizziness. Chest pain is essentially resolved. He is affected reasonable diuresis. Renal function is stable. He has been started back on some of his heart failure medications. I think if he is feeling well tomorrow we can decide on a final medical regimen prior to discharge. Subjective Patient seen and evaluated at bedside this morning, chart reviewed. He has not had any further episodes of chest discomfort or chest heaviness. He is denying any shortness of breath at rest of with exertion. He denies orthopnea. Remainder of his ROS is negative as well He remains in normal sinus rhythm with rates in the 70s-80s. No further episodes of NSVT. Review of Systems Review of Systems: per HPI Physical Exam Physical Exam: Physical Exam: AOx3. Mood affect appear normal. All questions appropriately. Obese HEENT: Sclerae are anicteric. Pupils are equal and reactive to light and accommodation. Extraocular movements were intact. Neuro: Cranial nerves intact Lungs: Right lower lung field is diminished. Otherwise, lungs are clear to auscultation. Normal respiratory effort without use of accessory muscles. Cardiac: The rhythm was regular. S1 and S2 were normal. There are no murmurs on examination. Extremities: Patient has bilateral radial pulses that are equal in intensity. There is no evidence cyanosis or clubbing. No edema is present on examination Skin: There are no rashes noted on examination today. Results & Data Vital Signs (Past 12 Hours) Vital Signs Temp Pulse Pulse Resp BP Pulse Ox O2 Del Method 11/26/24 08:56 92 H 11/26/24 07:16 36.5 C 95 H 111/80 96 Room Air 11/26/24 04:00 36.5 C 90 19 105/80 94 Room Air 11/25/24 23:10 36.4 C L 97 H 19 99/68 L 95 Room Air PG Care Time/CCT Total # of Minutes Spent Total Time Spent with Patient: Total time spent is greater than 50% in coordination of care (as documented) at patient's floor/unit and/or counseling patient: Coding [place] [address] SUB INP/OBS CARE 2/35MIN Patient Type Established Medical Decision Making Moderate Complexity Diagnoses Other chest pain R07.89 Chest pain type: other chest pain Heart failure with reduced ejection fraction I50.20 NSVT (nonsustained ventricular tachycardia) I47.2 Nonischemic cardiomyopathy I42.8 ICD (implantable cardioverter-defibrillator), single, in situ Z95.810 (1) Chest pain Chest pain type: other chest pain Qualified Code(s): R07.89 - Other chest pain
[2024-11-26] MEDS: POTASSIUM CHLORIDE 10 MEQ TABCR PO ONE (11:06)
--- NOTE | 2024-11-26 16:32 | Hospitalist Progress Note ---
Date of Service November 26, 2024 Assessment & Plan (1) Chest pain: Plan: 59-year-old male with past medical history significant for type 2 diabetes, COPD, obstructive sleep apnea, bronchitis complicated,'s ,chronic systolic and diastolic CHF, former smoker, status post pacemaker presents with chest tightness. Patient was in [place] couple of weeks ago. Since he came back he was having cough bringing up whitish phlegm and not feeling well. And also having chest tightness middle of chest 5/10 in severity. The chest tightness is constant. Not associated with any activity. Patient taking his Lasix regularly. Patient is not sure whether he is taking his Jardiance or not. Not able to reach his currently. Denies any headache. No runny nose or sore throat. No nausea. No abdominal pain. Normal bowel and bladder movements. Currently resting comfortably. Chest pain NSVT Nonischemic cardiomyopathy S/P ICD Chronic heart failure with reduced EF Noncompliance as per record --ECHO: Left ventricle systolic function is severely reduced with EF less than 15%. Left ventricle is moderately dilated. Severe global hypokinesis of left ventricle. Left atrium is mildly dilated. Moderate mitral regurgitation. Inferior vena cava is mildly dilated. Right ventricular systolic pressure is elevated at 30 to 40 mmHg --CXR:Mild pulmonary vascular congestion Continue IV Lasix 40 mg twice a day Monitor I's and O's, daily weight Continue Coreg, spironolactone, Entresto Appreciate cardiology input Pneumonia --Chest CTA:Right lower lobe pneumonia with trace reactive pleural effusion. No pulmonary embolus -- Sputum culture: Normal danny Continue Rocephin, doxycycline Saturating well on room air Hypokalemia replace and monitor Mild COPD exacerbation Nebs as needed Continue Home inhalers Chronic systolic CHF S/P defibrillator Management as above DM II HbA1c 10.4 Hold home p.o. medications Continue Lantus and sliding scale per protocol Glycemic pharmacist following Monitor blood glucose level GERD Continue pantoprazole GISELE Non compliant with cpap. DVT prophylaxis SCDs for now CODE STATUS Full code Scripts needed on discharge: 1.) Lantus Solostar Pen. (Likely 25-30 units daily) 2.) Pen Needle 32 gauge x 5/32- to inject 1x/day. Admission and Anticipated Discharge Date Admission Date: November 24, 2024 Subjective Patient is seen and examined at bedside Denies any recurrence of chest pain Also denies any shortness of breath, dizziness, nausea, vomiting, abdominal pain Less cough today Review of Systems Review of Systems: All systems reviewed & are unremarkable except as noted in Subjective Physical Exam Physical Exam: Physical Exam: Vitals signs as noted above General Appearance:Obese, no apparent distress Head: normocephalic, Atraumatic Eyes: normal inspection, EOMI Neck: supple, Trachea midline Respiratory/Chest: Decreased breath sounds on right, CTA, No accessory muscle use Cardiovascular: S1, S2, No murmur Abdomen/GI:Soft, Non tender, Bowel sounds present Extremities/Musculoskeletal:normal inspection, no edema Neurologic/Psych:AAOX3, grossly no focal neurological deficits Skin: normal color, warm Results & Data Results & Data Vital Signs (Past 12 Hours) Vital Signs Temp Pulse Pulse Resp BP Pulse Ox O2 Del Method 11/26/24 15:03 36.5 C 96 H 18 111/81 97 Room Air 11/26/24 10:56 36.2 C L 95 H 18 117/79 98 Room Air 11/26/24 08:56 92 H 11/26/24 07:16 36.5 C 95 H 111/80 96 Room Air Laboratory Results Short CBC 11/26/24 Range/Units 09:42 WBC 6.36 (4.8-10.8) K/ul Hgb 17.0 (14.0-18.0) g/dl Hct 48.0 (42.0-52.0) % Plt Count 132 (130-400) K/uL BMP 11/26/24 09:42 Sodium 134 L Potassium 3.3 L Chloride 100 Carbon Dioxide 25 BUN 22 Creatinine 1.08 Glucose 260 H Calcium 9.2 (1) Chest pain Chest pain type: other chest pain Qualified Code(s): R07.89 - Other chest pain
--- NOTE | 2024-11-27 07:27 | Pharmacy Report ---
Pharmacy Glycemic Short Note 2 - Date of Service November 27, 2024 - Glycemic Short BSG Results (Last 24 hours): 11/26/24 11/26/24 11/26/24 09:42 10:56 16:07 Glucose 260 H POC Glucose 104 H 181 H 11/26/24 11/27/24 20:08 07:19 Glucose POC Glucose 290 H 157 H OUTPATIENT ANTIDIABETIC REGIMEN: * metformin 500 mg bid, glipizide 5 mg bid ASSESSMENT: 11/27 * Patient received total of 68 units of insulin yesterday, of which 30 units were basal insulin. * Fasting BSG improving 157 mg/dL this AM - will continue Lantus 30 units today, anticipate basal needs to be ~25-30 units daily * No change to CF/CR 11/25 * 59 year old admitted with potential pneumonia. Type 2 diabetic managed on oral agents outpatient. A1c >10% on admission. Pharmacy consulted for glycemic management. Patient received Lantus 6 units this AM (NPO) - now transitioned to diet, anticipate basal insulin needs to increase. Will add scale on for Lantus at HS time PLAN FOR INPATIENT GLYCEMIC CONTROL: * Hold outpatient oral diabetes medications * Basal insulin * Lantus 30 units daily * Bolus insulin * NovoLog per scale ACHS or Q6hrs while NPO * Goal Range: Low 110 mg/dL - High 140 mg/dL * Correction Factor: 20 mg/dL/unit * Nutritional / Prandial insulin per carb ratio of 1 unit per 8 grams CHO consumed
--- NOTE | 2024-11-27 10:03 | Cardiology Progress Note ---
Date of Service November 27, 2024 Assessment & Plan (1) Chest pain: (2) Heart failure with reduced ejection fraction: (3) NSVT (nonsustained ventricular tachycardia): (4) Nonischemic cardiomyopathy: (5) ICD (implantable cardioverter-defibrillator), single, in situ: Plan Chest pain - likely not ischemic in nature given patient symptoms and normal troponin levels. His discomfort is likely related to his heart failure and/or underlying respiratory illness. Chronic heart failure with reduced EF Nonischemic cardiomyopathy s/p ICD NSVT - Patient admits to noncompliance with his treatment regimen. Class III NYHA symptoms on admission - Last echo 02/2024 w/ EF 15-20%. This was repeated during this hospitalization by the hospitalist team. EF is now <15%, RVSP is 30-40% - His carvedilol, spironolactone and Entresto were restarted. He is tolerating these medications well. We can explore increasing these doses during his outpatient follow up. - We recommend a SGLT2 inhibitor. However, after discussion with the patient, there is a cost concern. Given this hospitalization, it is likely that the patient did hit his insurance deductible for the year. It may be worth starting an SGLT2 inhibitor for atleast the time being for further failure improvement. Patient stated he would think more on this. - He received IV lasix during his hospitalization. He may continue his PO 40mg Lasix regiment upon discharge. - During his hospitalization, I spent an ample amount of of time with the patient educating him on the importance of compliance to his heart failure regimen which includes his medications, diet and lifestyle choices. The patient voiced understanding. He should follow up with the heart failure clinic 1-2 weeks after discharge. Admission and Anticipated Discharge Date Admission Date: November 24, 2024 Subjective Patient seen and evaluated bedside, chart reviewed. He voices no complaints today. He has not experienced any dizziness, chest discomfort with or without exertion or shortness of breath with or without exertion. All of his heart failure medications have been restarted, he is tolerating them appropriately. Review of Systems Review of Systems: per HPI Physical Exam Physical Exam: Physical Exam: AOx3. Mood affect appear normal. All questions appropriately. Obese HEENT: Sclerae are anicteric. Pupils are equal and reactive to light and accommodation. Extraocular movements were intact. Neuro: Cranial nerves intact Lungs: Right lower lung field is diminished. Otherwise, lungs are clear to auscultation. Normal respiratory effort without use of accessory muscles. Cardiac: The rhythm was regular. S1 and S2 were normal. There are no murmurs on examination. Extremities: Patient has bilateral radial pulses that are equal in intensity. There is no evidence cyanosis or clubbing. No edema is present on examination Skin: There are no rashes noted on examination today. Results & Data Vital Signs (Past 12 Hours) Vital Signs Temp Pulse Pulse Resp BP Pulse Ox O2 Del Method 11/27/24 08:05 36.5 C 90 20 119/89 99 Room Air 11/27/24 03:23 36.5 C 88 19 110/78 95 Room Air 11/26/24 23:21 90 11/26/24 22:54 36.6 C 90 20 99/71 L 96 Room Air PG Care Time/CCT Total # of Minutes Spent Total Time Spent with Patient: Total time spent is greater than 50% in coordination of care (as documented) at patient's floor/unit and/or counseling patient: [place] [address] SUB INP/OBS CARE 03/22MIN Patient Type Established History Problem Focused Diagnoses Other chest pain R07.89 Chest pain type: other chest pain Heart failure with reduced ejection fraction I50.20 NSVT (nonsustained ventricular tachycardia) I47.2 Nonischemic cardiomyopathy I42.8 ICD (implantable cardioverter-defibrillator), single, in situ Z95.810 (1) Chest pain Chest pain type: other chest pain Qualified Code(s): R07.89 - Other chest pain
[2024-11-27 10:40] LABS: Anion Gap 8.0 (3-11); Blood Urea Nitrogen 22.0 mg/dl (6-23); Calcium 9.5 mg/dl (8.6-10.3); Carbon Dioxide 27.0 mmol/L (21-32); Chloride 98.0 mmol/L (98-107); Creatinine Clr Calc Pharmacy 96.9 ml/min; Glucose 247.0 mg/dl (70-99(Fasting)); Potassium 3.7 mmol/L (3.5-5.1); Sodium 133.0 mmol/L (136-145)
[2024-11-27] MEDS: POTASSIUM CHLORIDE 10 MEQ TABCR PO ONE (10:50)
[2024-11-27 10:54] VITALS: BP 106/73; RESP 18; TEMP 98.2; O2SAT 90
--- NOTE | 2024-11-27 12:01 | Hospitalist Progress Note ---
Date of Service November 27, 2024 Assessment & Plan (1) Chest pain: Plan: 59-year-old male with past medical history significant for type 2 diabetes, COPD, obstructive sleep apnea, bronchitis complicated,'s ,chronic systolic and diastolic CHF, former smoker, status post pacemaker presents with chest tightness. Patient was in [place] couple of weeks ago. Since he came back he was having cough bringing up whitish phlegm and not feeling well. And also having chest tightness middle of chest 5/10 in severity. The chest tightness is constant. Not associated with any activity. Patient taking his Lasix regularly. Patient is not sure whether he is taking his Jardiance or not. Not able to reach his currently. Denies any headache. No runny nose or sore throat. No nausea. No abdominal pain. Normal bowel and bladder movements. Currently resting comfortably. Chest pain NSVT Nonischemic cardiomyopathy S/P ICD Chronic heart failure with reduced EF Noncompliance as per record --ECHO: Left ventricle systolic function is severely reduced with EF less than 15%. Left ventricle is moderately dilated. Severe global hypokinesis of left ventricle. Left atrium is mildly dilated. Moderate mitral regurgitation. Inferior vena cava is mildly dilated. Right ventricular systolic pressure is elevated at 30 to 40 mmHg --CXR:Mild pulmonary vascular congestion Continue IV Lasix 40 mg twice a day> transition to oral Lasix on discharge Monitor I's and O's, daily weight Continue Coreg, spironolactone, Entresto Appreciate cardiology input Needs follow-up with cardiology on discharge Plan to be discharged home today Pneumonia --Chest CTA:Right lower lobe pneumonia with trace reactive pleural effusion. No pulmonary embolus -- Sputum culture: Normal danny Continue Rocephin, doxycycline>> will transition to oral antibiotics to complete the course Saturating well on room air Hypokalemia replace and monitor Mild COPD exacerbation Nebs as needed Continue Home inhalers Chronic systolic CHF S/P defibrillator Management as above DM II HbA1c 10.4 Hold home p.o. medications Continue Lantus and sliding scale per protocol Glycemic pharmacist following Monitor blood glucose level GERD Continue pantoprazole GISELE Non compliant with cpap. DVT prophylaxis SCDs for now CODE STATUS Full code Scripts needed on discharge: 1.) Lantus Solostar Pen. (Likely 25-30 units daily) 2.) Pen Needle 32 gauge x - to inject 1x/day. Disposition Home Admission and Anticipated Discharge Date Admission Date: November 24, 2024 Subjective Patient is seen and examined at bedside No new complaints Diuresed well Discussed with wildlife photographer Denies any chest pain, shortness of breath, dizziness, nausea, vomiting, abdominal pain Plan to discharge home today Review of Systems Review of Systems: All systems reviewed & are unremarkable except as noted in Subjective Physical Exam Physical Exam: Physical Exam: Vitals signs as noted above General Appearance:Obese, no apparent distress Head: normocephalic, Atraumatic Eyes: normal inspection, EOMI Neck: supple, Trachea midline Respiratory/Chest: Decreased breath sounds on right, CTA, No accessory muscle use Cardiovascular: S1, S2, No murmur Abdomen/GI:Soft, Non tender, Bowel sounds present Extremities/Musculoskeletal:normal inspection, no edema Neurologic/Psych:AAOX3, grossly no focal neurological deficits Skin: normal color, warm Results & Data Results & Data Vital Signs (Past 12 Hours) Vital Signs Temp Pulse Pulse Resp BP Pulse Ox O2 Del Method 11/27/24 10:53 36.8 C 96 H 18 106/73 90 Room Air 11/27/24 08:05 36.5 C 90 20 119/89 99 Room Air 11/27/24 07:00 86 11/27/24 03:23 36.5 C 88 19 110/78 95 Room Air Laboratory Results [facility] 11/27/24 09:59 Sodium 133 L Potassium 3.7 Chloride 98 Carbon Dioxide 27 BUN 22 Creatinine 1.06 Glucose 247 H Calcium 9.5 (1) Chest pain Chest pain type: other chest pain Qualified Code(s): R07.89 - Other chest pain
--- NOTE | 2024-11-27 12:13 | Discharge Summary ---
Date of Service November 27, 2024 Admission HPI Per Admitting Provider 59-year-old male with past medical history significant for type 2 diabetes, COPD, obstructive sleep apnea, bronchitis complicated,'s ,chronic systolic and diastolic CHF, former smoker, status post pacemaker presents with chest tightness. Patient was in [place] couple of weeks ago. Since he came back he was having cough bringing up whitish phlegm and not feeling well. And also having chest tightness middle of chest 5/10 in severity. The chest tightness is constant. Not associated with any activity. Patient taking his Lasix regularly. Patient is not sure whether he is taking his Jardiance or not. Not able to reach his currently. Denies any headache. No runny nose or sore throat. No nausea. No abdominal pain. Normal bowel and bladder movements. Currently resting comfortably. Past medical history. As mentioned above Past surgical history. Colonoscopy. Pacemaker/defibrillator placement Social history. . Used to smoke 2 packs a day for 20 years and currently smoking 2 cigarettes daily. Alcohol occasionally. No drug use. Family history. Mother had arrhythmia. Congestive heart failure. Father had stroke. Coronary artery disease. Diabetes. Brother had congestive heart failure. Brother had cardiomyopathy status post ICD. Admission Exam Per Admitting Provider General- Not in distress Head- atraumatic Eyes- PERRL. ENT- oropharynx clear Neck- supple, no JVD. Lungs- clear to auscultation mild bilateral wheezing present, no crackles Heart- regular rhythm; no murmur, no gallop. Abdomen- normal bowel sounds, soft, nontender, no distension Extremities- no pretibial edema, no erythema seen Neuro- alert, oriented; PERRL, ; no facial palsy; no dysarthria; moves extremities. Principal Diagnosis Nonischemic cardiomyopathy Community-acquired pneumonia Nonsustained ventricular tachycardia Acute on chronic heart failure with reduced EF Discharge Data Allergies Allergy/AdvReac Type Severity Reaction Status Date / Time shellfish derived AdvReac Swelling Verified 06/06/24 08:24 of Lip/Tongue/Throat Consultations 11/24/24 20:38 ED Decision to Admit Stat 11/25/24 08:00 Consult Cardiology Routine Procedures Performed Laboratory Results WBC 6.36 K/ul (4.8-10.8) 11/26/24 09:42 RBC 5.28 M/uL (4.70-6.10) 11/26/24 09:42 Hgb 17.0 g/dl (14.0-18.0) 11/26/24 09:42 Hct 48.0 % (42.0-52.0) 11/26/24 09:42 MCV 90.9 fL (80.0-100.0) 11/26/24 09:42 MCH 32.2 pg (25.0-34.0) 11/26/24 09:42 MCHC 35.4 g/dL (32.0-36.0) 11/26/24 09:42 RDW Std Deviation 39.8 fL (36.4-46.3) 11/26/24 09:42 RDW Coeff of Kenzie 12.0 % (11.5-14.5) 11/26/24 09:42 Plt Count 132 K/uL (130-400) 11/26/24 09:42 MPV 12.1 fL (9.4-12.4) 11/26/24 09:42 Immature Gran % (Auto) 0.6 % 11/26/24 09:42 Neut % (Auto) 51.1 % 11/26/24 09:42 Lymph % (Auto) 37.3 % 11/26/24 09:42 [place] % (Auto) 7.9 % 11/26/24 09:42 Eos % (Auto) 2.2 % 11/26/24 09:42 Baso % (Auto) 0.9 % 11/26/24 09:42 Neut # (Auto) 3.25 K/uL (1.40-6.50) 11/26/24 09:42 Lymph # (Auto) 2.37 K/uL (1.20-3.40) 11/26/24 09:42 [place] # (Auto) 0.50 K/uL (0.11-0.59) 11/26/24 09:42 Eos # (Auto) 0.14 K/uL (0.00-0.50) 11/26/24 09:42 Baso # (Auto) 0.06 K/uL (0.00-0.20) 11/26/24 09:42 Immature Gran # (Auto) 0.04 K/uL (0.01-0.20) 11/26/24 09:42 PT 11.3 Seconds (9.0-12.0) 11/24/24 15:40 INR 1.1 (0.9-1.1) 11/24/24 15:40 D-Dimer 340 ug/L FEU (0-500) 11/24/24 15:40 Sodium 133 mmol/L (136-145) L 11/27/24 09:59 Potassium 3.7 mmol/L (3.5-5.1) 11/27/24 09:59 Chloride 98 mmol/L (98-107) 11/27/24 09:59 Carbon Dioxide 27 mmol/L (21-32) 11/27/24 09:59 Anion Gap 8 (3-11) 11/27/24 09:59 BUN 22 mg/dl (6-23) 11/27/24 09:59 Creatinine 1.06 mg/dl (0.6-1.4) 11/27/24 09:59 Est Cr Clr Drug Dosing 96.9 ml/min 11/27/24 09:59 eGFR 81.86 11/27/24 09:59 BUN/Creatinine Ratio 20.8 (10-20) H 11/27/24 09:59 Glucose 247 mg/dl (70-99(Fasting)) H 11/27/24 09:59 POC Glucose 183 mg/dl (70-99) H 11/27/24 11:13 Estimat Average Glucose 252 mg/dl 11/25/24 05:13 Hemoglobin A1c 10.4 % (4.5-5.6) H 11/25/24 05:13 Calcium 9.5 mg/dl (8.6-10.3) 11/27/24 09:59 Magnesium 1.8 mg/dl (1.7-2.4) 11/26/24 09:42 Total Bilirubin 0.7 mg/dl (0.2-1.0) 11/24/24 15:40 AST 32 U/L (13-39) 11/24/24 15:40 ALT 71 U/L (7-52) H 11/24/24 15:40 Alkaline Phosphatase 58 U/L (34-104) 11/24/24 15:40 Troponin I High Sens 8.0 pg/ml (0-20) 11/25/24 18:04 B-Natriuretic Peptide 372 pg/ml (0-100) H 11/24/24 18:32 Total Protein 7.3 gm/dl (6.0-8.3) 11/24/24 15:40 Albumin 3.9 gm/dl (3.4-5.0) 11/24/24 15:40 Globulin 3.4 gm/dl (2.5-4.0) 11/24/24 15:40 Albumin/Globulin Ratio 1.1 (0.9-2) 11/24/24 15:40 Lipase 36 U/L (11-82) 11/24/24 15:40 Adenovirus (PCR) Not Detected (NotDetected) 11/24/24 Unknown B. pertussis DNA (PCR) Not Detected (NotDetected) 11/24/24 Unknown B.parapertussis DNA PCR Not Detected (NotDetected) 11/24/24 Unknown C. pneumoniae DNA (PCR) Not Detected (NotDetected) 11/24/24 Unknown Coronavirus OC43 (PCR) Not Detected (NotDetected) 11/24/24 Unknown Coronavirus HKU1 (PCR) Not Detected (NotDetected) 11/24/24 Unknown Coronavirus 229E (PCR) Not Detected (NotDetected) 11/24/24 Unknown SARS-CoV-2 (PCR) Not Detected (NotDetected) 11/24/24 Unknown Coronavirus NL63 (PCR) Not Detected (NotDetected) 11/24/24 Unknown Human Metapneumovir PCR Not Detected (NotDetected) 11/24/24 Unknown Influenza Type A (PCR) Not Detected (NotDetected) 11/24/24 Unknown Influenza Type B (PCR) Not Detected (NotDetected) 11/24/24 Unknown M. pneumoniae (PCR) Not Detected (NotDetected) 11/24/24 Unknown Parainfluenza 1 (PCR) Not Detected (NotDetected) 11/24/24 Unknown Parainfluenza 2 (PCR) Not Detected (NotDetected) 11/24/24 Unknown Parainfluenza 3 (PCR) Not Detected (NotDetected) 11/24/24 Unknown Parainfluenza 4 (PCR) Not Detected (NotDetected) 11/24/24 Unknown RSV (PCR) Not Detected (NotDetected) 11/24/24 Unknown Entero/Rhino (PCR) Not Detected (NotDetected) 11/24/24 Unknown Impressions Chest X-Ray 11/24/24 16:05 Clinical History: Chest pain Technique: A frontal view of the chest was obtained Comparison is made with the prior examination dated 03/02/2024 Findings: There are no confluent pulmonary infiltrates. The heart size is at the upper limit of normal. No pleural effusion or pneumothorax is seen. There is suspected mild pulmonary vascular congestion. No fracture is noted. There is a left chest wall pacemaker device Impression: Mild pulmonary vascular congestion Electronically signed by Anoop Helton 11-24-2024 4:28 PM Chest CTA 11/24/24 19:36 Exam(s): CTA CHEST IV Amt: 115 ml [id number] EXAM: CT Angiography Chest With Intravenous Contrast CLINICAL HISTORY: Reason for exam: PE. TECHNIQUE: Axial computed tomographic angiography images of the chest with intravenous contrast. CTDI is 28 mGy and DLP is 880 mGy-cm. Automated exposure control was utilized for the study. A dose lowering technique was utilized adhering to the principles of ALARA. MIP reconstructed images were created and reviewed. COMPARISON: No relevant prior studies available. FINDINGS: Pulmonary arteries: Unremarkable. No pulmonary embolism. Aorta: No acute findings. No thoracic aortic aneurysm. Lungs: Right lower lobe infiltrate likely of infectious or inflammatory etiology. No mass. Pleural space: Trace right pleural effusion likely reactive in nature. No pneumothorax. Heart: Cardiomegaly. No significant pericardial effusion. No evidence of RV dysfunction. Bones/joints: No acute fracture. No dislocation. Soft tissues: Unremarkable. Lymph nodes: Unremarkable. No enlarged lymph nodes. Liver: Hepatic steatosis. Hepatomegaly. Tubes, lines and devices: Left chest wall intracardiac device. IMPRESSION: Right lower lobe pneumonia with trace reactive pleural effusion. No pulmonary embolus Electronically signed by: Geovani Pierre MD 11/24/24 20:35 PM Ordered Studies 11/24/24 19:36 CT angio chest PE protocol Stat Diabetes Follow up Diabetes Follow-up Needed for HgbA1c >9% Hospital Course (1) Chest pain: 59-year-old male with past medical history significant for type 2 diabetes, COPD, obstructive sleep apnea, bronchitis complicated,'s ,chronic systolic and diastolic CHF, former smoker, status post pacemaker presents with chest tightness. Patient was in [place] couple of weeks ago. Since he came back he was having cough bringing up whitish phlegm and not feeling well. And also having chest tightness middle of chest 5/10 in severity. The chest tightness is constant. Not associated with any activity. Patient taking his Lasix regularly. Patient is not sure whether he is taking his Jardiance or not. Not able to reach his currently. Denies any headache. No runny nose or sore throat. No nausea. No abdominal pain. Normal bowel and bladder movements. Currently resting comfortably. Chest pain NSVT Nonischemic cardiomyopathy S/P ICD Chronic heart failure with reduced EF Noncompliance as per record --ECHO: Left ventricle systolic function is severely reduced with EF less than 15%. Left ventricle is moderately dilated. Severe global hypokinesis of left ventricle. Left atrium is mildly dilated. Moderate mitral regurgitation. Inferior vena cava is mildly dilated. Right ventricular systolic pressure is elevated at 30 to 40 mmHg --CXR:Mild pulmonary vascular congestion Continue IV Lasix 40 mg twice a day> transition to oral Lasix on discharge Monitor I's and O's, daily weight Continue Coreg, spironolactone, Entresto Appreciate cardiology input Needs follow-up with cardiology on discharge Plan to be discharged home today Pneumonia --Chest CTA:Right lower lobe pneumonia with trace reactive pleural effusion. No pulmonary embolus -- Sputum culture: Normal danny Continue Rocephin, doxycycline>> will transition to oral antibiotics to complete the course Saturating well on room air Hypokalemia replace and monitor Mild COPD exacerbation Nebs as needed Continue Home inhalers Chronic systolic CHF S/P defibrillator Management as above DM II HbA1c 10.4 Hold home p.o. medications Continue Lantus and sliding scale per protocol Glycemic pharmacist following Monitor blood glucose level GERD Continue pantoprazole GISELE Non compliant with cpap. DVT prophylaxis SCDs for now CODE STATUS Full code Scripts needed on discharge: 1.) Lantus Solostar Pen. (Likely 25-30 units daily) 2.) Pen Needle 32 gauge x - to inject 1x/day. Disposition Home Total Time Total Time Spent Total Time Spent (In Minutes): 52 minutes Discharge Plan Discharge Items Patient Disposition: Home - Self-Care Reason For Visit: CHEST TIGHTNESS Discharge Diagnosis: Nonischemic cardiomyopathy Community-acquired pneumonia Nonsustained ventricular tachycardia Acute on chronic heart failure with reduced EF Condition on Discharge: Fair Activity: Per Instructions section Exercise/Sports: Gradually increase as tolerated Non-emergency contact: Primary Care Provider and Wire Inserter Call non-emergency contact if: you have any medication questions, your symptoms worsen, your pain is concerning for you and you have a fever Follow-up/Referrals: Laura Crockett MD [Primary Care Provider] - (Date & Time 12/03/2024 9:20 AM Provider: Laura Barraza MD [facility] ) Lynette Johnson CRNP [Nurse Practitioner] - Diet: Carb Consistent or DM2 and Heart Healthy Addtl Attending Provider Instructions: --Follow-up with your primary care physician Dr. Bo Garcia on 12/03/2024 9:20 AM -- Follow-up with your cargo and container inspector Lynette RANGEL in 1 to 2 weeks -- Take your medications regularly as advised. Complete the antibiotic course as prescribed --Start taking Lantus 25 units once a day until follow-up with your physician. Monitor your blood glucose levels regularly as advised and discussed with your primary care physician for further adjustment of medications as needed. Seek immediate medical attention if your symptoms reoccur or worsen Please review medication list provided on discharge for any medication changes as instructed. Please call if you have any questions or problems. You can reach a [facility] hospitalist on duty at [facility] 24 hours a day by calling [phone] Call your Primary Care doctor if any of the following symptoms or problems start or get worse: * Shortness of breath or difficulty breathing * Wake up at night short of breath * Chest pain * Cough * Swelling of your hands, feet, or legs * More fatigued or tired with your normal activity * Palpitations - sudden fast heart beats WEIGHT * Weigh yourself every morning after using the bathroom. * Use the same scale. * Wear the same amount of clothing. * Write your weight down on a chart. * Call your Primary Care doctor if you gain more than 2-3 pounds in 1-2 days. MEDICATIONS * Use this discharge instruction sheet for medication instructions. * Take your medications at the time your doctor ordered. * Do not skip a dose of your medicines. * If you miss a dose of medicine, take it as soon as possible, but DO NOT DOUBLE A DOSE. * Read your medicine information when you get home. * Know all of the side effects of your medicine. If in doubt, ask your pharmacist * Call your Primary Care doctor's office if you have any side effects. * Be sure all of your doctors know what medicine and herbs you take (including cold, flu, and herbal medicine). Take the following with you to your follow-up doctor appointments: * Weight Chart * Medication List * List of questions Do not drink excessive alcohol, beer or wine. Addtl Food Counter Attendant Provider Instructions: DIABETES RECOMMENDATIONS: 1.) Diabetes Medication. - To help improve blood sugar levels, a once daily insulin (Lantus) is being added every morning. - Lantus is a slow-release/24 hour insulin that helps cover the sugar that your body makes. - Try to take the Lantus at about the same time every day. - You were given a savings card to give to your pharmacy to help lower the cost of the Lantus to $35/month. This savings card is good for 12 months. You will need to go online to get a new Lantus savings card next November. - If the cost of pen needles is high, you can get a box of 50 at [employer] for $9. Many people get them online thru [employer] for a little cheaper. The smallest pen needles are 32 or 33 gauge and 5/32" (4mm). - Your Metformin dose will be weaned due to GI side effects. 2.) Monitoring. - Try to check your blood sugar 2x/day. - Try to check every morning + another time. This other time can change from day to day. - Please notify your provider provider of BG values frequently > 200 or < 80 so that your diabetes mediations can be adjusted. 3.) Diet. - Try to eliminate Mt. Dew and any other sugar-sweetened beverages. - Intead look for drinks that are low in sugar- including water, flavored cooper, zero or diet soda pop, Gatorade/Powerade Zero, etc. - Aim for balanced meals with protein/vegetables. Try to limit portion sizes of starches/carbs. If you have any questions, please call our diabetes office at [phone]. Take Care! Pending Studies at Discharge: No Stand-Alone Forms: My [facility], Smoking Cessation Medications and DC Order Prescriptions: New doxycycline hyclate 100 mg Capsule 100 mg PO BID Qty: 14 0RF Advanced Probiotic 625 mg (10 billion cell) Capsule 1 cap PO DAILY Qty: 10 0RF cefuroxime axetil 500 mg tablet 500 mg PO BID 7 Days Qty: 14 0RF insulin glargine [Lantus Solostar U-100 Insulin] 100 unit/mL (3 mL) insulin pen 25 unit subcut DAILY Qty: 15 0RF (DME) pen needle, diabetic [Pen Needle] 32 gauge x 5/32" needle See Rx Instructions .Route Qty: 100 2RF Rx Instructions: To Inject once a day as directed Continued albuterol sulfate 2.5 mg /3 mL (0.083 %) solution for nebulization 1.25 mg INH Q4H PRN (Reason: shortness of breath or wheezing) Qty: 180 0RF atorvastatin 20 mg tablet 20 mg PO QAM Qty: 90 3RF furosemide 40 mg tablet 40 mg PO BID Qty: 75 11RF Rx Instructions: Can increase dose to 80 mg BID PRN for weight gain, edema, or shortness of breath omeprazole 40 mg Capsule,Delayed Release(Dr/Ec) 40 mg PO QAM Patient Comments: ONE HOUR BEFORE FIRST MEAL OF DAY aspirin 81 mg Tablet,Delayed Release (Dr/Ec) 81 mg PO QAM sacubitril-valsartan [Entresto] 24-26 mg Tablet 1 tab PO [facility] glipizide 5 mg tablet 5 mg PO AMHS carvedilol 12.5 mg tablet 12.5 mg PO AMHS metformin 500 mg tablet extended release 24 hr 500 mg PO AMHS spironolactone 25 mg tablet 25 mg PO QAM umeclidinium-vilanterol [Anoro Ellipta] 62.5-25 mcg/actuation Blister With Device 1 inh INHALATION DAILY Discharge Orders: Discharge Order (Routine); Ordered 11/27/24 Ordered By: Jas Suero/Other Patient Handouts: Managing Type 2 Diabetes Admission Data Admit Date/Time: 11/24/24 20:22 Attending Provider: Jas Swartz Admit Provider: Shlomo Nguyen Primary Care Provider: Laura Crockett Other Providers: Shlomo Nguyen; Roger Patel; Fransico Forrest; Jose Luis Canas; Beau Loyola; Pancho Springer Jr; Oliver Alcantara; Emani Argueta; Melanie Gallego; Marcos Díaz; Marcos Cast; Shreya Grant; Yeyo Hernandez; Tesha Bergeron; Yeyo Torres; Guerrero Franklin; Ernst Thorne; Du Goldman; Ryan Arnold; Francesco Elliott; Lynette Johnson; Farida Grande
[2024-11-27 12:18] VITALS: PULSE 96
[2024-11-28] MEDS ORDERED: ADVANCED PROBIOTIC 625 MG CAPSULE PO SCH (09:00)
== END 2024-11-27 12:45 | disposition home or self-care (01) ==
LOC: ED 15:29 → INTOOBSV 20:22 → SUATTDRO 20:22 → EDINP 20:22 → 2S 11-25 02:08
DX: J44.9 Chronic obstructive pulmonary disease, unspecified; Z95.810 Presence of automatic (implantable) cardiac defibrillator; Z91.013 Allergy to seafood; E87.6 Hypokalemia; F17.220 Nicotine dependence, chewing tobacco, uncomplicated; I50.20 Unspecified systolic (congestive) heart failure; G47.33 Obstructive sleep apnea (adult) (pediatric); I47.20 Ventricular tachycardia, unspecified; K21.9 Gastro-esophageal reflux disease without esophagitis; Z79.899 Other long term (current) drug therapy; I42.8 Other cardiomyopathies; R07.89 Other chest pain; E11.9 Type 2 diabetes mellitus without complications; J18.9 Pneumonia, unspecified organism; Z79.82 Long term (current) use of aspirin; F17.210 Nicotine dependence, cigarettes, uncomplicated; Z79.84 Long term (current) use of oral hypoglycemic drugs